=== PATIENT | male | born 1935 | race Caucasian/White ===

== ENCOUNTER → 2017-04-27 14:08 | Outpatient (CLI) | payer MEDICARE, OTHER, SELFPAY ==
--- NOTE | 2017-04-27 14:11 | CT_ITS ---
STUDY: CT BRAIN WITHOUT CONTRAST REASON FOR EXAM: Male, 81 years old. dizzy spells x a few years, worsening RADIATION DOSAGE (If Supplied By Facility): CTDIvol = ( 44.99 ) mGy, DLP = ( 745.49 ) mGycm TECHNIQUE: Transaxial CT imaging of the brain was performed without administration of intravenous contrast material. Individualized dose optimization techniques were used for this CT. COMPARISON: None. FINDINGS: Normal soft tissue structures. Normal calvarium. Normal size ventricles and extra-axial spaces for the patient's age. There are areas of decreased attenuation within the white matter tracts of the supratentorial brain, consistent with microvascular disease changes. Normal basal ganglia and thalami. Normal brainstem. Normal cerebellum. There is no intracranial hemorrhage. There are no findings of an acute ischemic infarction. Normal visualized paranasal sinuses. CT/Brain/Head without Contrast IMPRESSION: Chronic involutional changes of the brain. Electronically Signed: Alexander Bey MD at 14:36 EDT Tel , Service support ,
== END ==
PROVIDERS: Family Provider Family Medicine Geriatric Medicine; PCP Family Medicine Geriatric Medicine; Visit Provider Family Medicine Geriatric Medicine
DX: R42 Dizziness and giddiness (principal)
CPT/HCPCS: 70450

== ENCOUNTER 2017-06-30 05:07 | Emergency (ER) | payer MEDICARE, OTHER, SELFPAY ==
[2017-06-30 05:08] VITALS: BP 109/61; PULSE 77; RESP 18; TEMP 36.8; O2SAT 97; BMI 23.6
--- NOTE | 2017-06-30 05:22 | ED.VISSUMM ---
- ER Visit Summary Date of Service: 06/30/17 Chief Complaint: Bilateral eyelid itching History of Present Illness: The patient is a 81 M presents with bilateral eyelid itching for several weeks. He is presently on a ophthalmic steroid and non-histamine for itching. He states there is been no improvement. He does complain of clear drainage. He denies any double vision, blurred vision loss of vision. He denies any present swelling of his eyelids. He denies any light sensitivity. He has a past medical history of hypertension and hypo-thyroidism. Physical Examination: Vital signs are noted and normal he is not febrile. There is injection of the conjunctivae bilaterally with cobblestoning noted upper eyelids. There is no evidence of a blepharitis. Pupils are equal round reactive. Extra ocular muscles are intact. There is no hyphema flare or cells anterior chamber. There is no photophobia to direct or consensual light. There is no preauricular lymphadenopathy. Test Results: None Emergency Department Course and Treatment: Kenalog injection Treatment Plan: Follow-up with Disposition: Discharged to home Impression: Bilateral allergic conjunctivitis This note was generated with [employer] dictation software. It may contain incorrect words, spelling, and punctuation that were not noted in review of the chart prior to signing ED Disposition - Plan for ED Patient: Chief Complaint: Eye Problem Instructions: ED Allergic Conjunctivitis Referrals: Jose Staples Chi, MD [Primary Care Provider] - 1 Week if not improving
[2017-06-30] MEDS: Triamcinolone Acetonide 40 MG/ML Vial IM (05:24)
[2017-06-30 05:41] VITALS: RESP 16
== END 2017-06-30 05:43 | disposition home or self-care (01) ==
LOC: ED 05:28
PROVIDERS: Emergency Provider Emergency Medicine; Family Provider Family Medicine Geriatric Medicine; PCP Family Medicine Geriatric Medicine
DX: H10.13 Acute atopic conjunctivitis, bilateral (principal); I10 Essential (primary) hypertension; E03.9 Hypothyroidism, unspecified; Z79.899 Other long term (current) drug therapy
CPT/HCPCS: 96372; 99282

== ENCOUNTER → 2017-07-12 14:25 | Outpatient (CLI) | payer MEDICARE, OTHER, SELFPAY ==
--- NOTE | 2017-07-12 14:25 | DT_ITS ---
This patient was seen during an EMR downtime July 09, 2017 - July 16, 2017. This patient may have a combination of paper and electronic documentation or all paper documentation. All documentation is viewable within the e-chart portion of [facility] for each patient visit.
[2017-07-17 05:14] LABS: AST(SGOT) 23 U/L (15-37); Albumin, Serum 3.7 g/dL (3.2-5.0); Alkaline Phosphatase 79 U/L (45-117); BUN 18 mg/dL (7-18); BUN/Creat Ratio 17.1 RATIO (10-20); Calcium,Total 8.8 mg/dL (8.5-10.1); Creatinine, Serum 1.05 mg/dL (0.70-1.30); EST Glomerular Filtration Rate 72 mL/min (>60); Est Glom Filt Rate - Afr Amer 87 mL/min (>60); Globulin 3.8 g/dL (2.2-4.2); Glucose 112 mg/dL (74-106); Protein, Total 7.5 g/dL (6.4-8.2)
[2017-07-17 05:15] LABS: Alanine Aminotransfer ALT/SGPT 56 U/L (16-61); Anion Gap 9 (5-15); Chloride 103 mmol/L (98-107); Potassium 4.3 mmol/L (3.5-5.1); Sodium Level 140 mmol/L (136-145); Thyroid Stim Hormone (TSH) 1.95 uIU/mL (0.358-3.74)
[2017-07-17 05:54] LABS: Hematocrit 47.8 % (40-54); Hemoglobin 16.2 g/dl (13.0-16.5); Mean Corp Hgb Conc 33.9 g/gl (32-36); Mean Corpuscular Hgb 32.7 pg (27.0-32.0); Mean Corpuscular Volume 96.6 fL (80-94); Mean Platelet Vol. 9.6 fl (6.2-12.0); Neutrophil % 80.5 % (47-70); POSITIVE COUNT NO; POSITIVE DIFFERENTIAL NO; POSITIVE MORPHOLOGY NO; Platelet Count 252 K/mm3 (150-450); RBC Distribution Width SD 44.8 fl (35.1-43.9); Red Blood Count 4.95 M/mm3 (4.6-6.2); White Blood Count 11.2 K/mm3 (4.4-11.0)
[2017-07-17 05:55] LABS: Absolute Lymphocyte Count 1.14 X10^3/ul (0.83-4.51); Basophil# 0.01 X10^3/uL; Basophil% 0.1 % (0-1); Eosinophil# 0.06 X10^3/uL; Eosinophils% 0.5 % (0-5); Lymphocyte # 1.14 X10^3/ul (4.0); Lymphocyte % 10.2 % (19-41); Neutrophil # 9.04 X10^3/uL (2.7-7.7)
[2017-07-17 09:45] LABS: Vitamin D,25 Hydroxy 64.2 ng/mL (29.95-100.01)
== END ==
PROVIDERS: Family Provider Family Medicine Geriatric Medicine; PCP Family Medicine Geriatric Medicine; Visit Provider Family Medicine Geriatric Medicine
DX: E55.9 Vitamin D deficiency, unspecified (principal); R53.83 Other fatigue
CPT/HCPCS: 36415; 80053; 82306; 84443; 85025

== ENCOUNTER → 2017-10-18 16:12 | Outpatient (CLI) | payer MEDICARE, OTHER, SELFPAY ==
--- NOTE | 2017-10-18 16:25 | RAD_ITS ---
STUDY: X-RAY - LUMBOSACRAL SPINE REASON FOR EXAM: Male, 81 years old. Anterior and low back pain for several years. TECHNIQUE: 7 view(s) of the lumbosacral spine were obtained. COMPARISON: Radiographs of the lumbar spine dated August 05, 2015. FINDINGS: Lateral radiographs of lumbar spine were obtained with the patient standing and in neutral, flexion and extension. There is limited range of motion with both flexion and extension. There is no substantial scoliosis. There is mild anterolisthesis at L4-5. There is diffuse demineralization with multi-level endplate spondylosis. There is multi-level degenerative disc disease with multi-level disc space narrowing. Normal bilateral sacral ala, sacroiliac joints, and visualized sacrum. Normal visualized soft tissue structures. 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 Electronically Signed: Shirin Pritchett MD at 10:14 EDT , Service support ,
== END ==
PROVIDERS: Family Provider Family Medicine Geriatric Medicine; PCP Family Medicine Geriatric Medicine; Visit Provider Family Medicine Geriatric Medicine
DX: M54.5 Low back pain (principal)
CPT/HCPCS: 72114

== ENCOUNTER → 2017-11-12 12:06 | Outpatient (CLI) | payer MEDICARE, OTHER, SELFPAY ==
--- NOTE | 2017-11-12 12:08 | CT_ITS ---
STUDY: CT CHEST WITH CONTRAST REASON FOR EXAM: Male, 82 years old. Thoracic aortic aneurysm follow-up. RADIATION DOSAGE (If Supplied By Facility): CTDIvol = ( 7.49 ) mGy, DLP = ( 289.87 ) mGycm TECHNIQUE: Transaxial imaging was performed following intravenous administration of 100CC ml of Isovue 300 contrast material. Multiplanar coronal and sagittal images were reformatted. Individualized dose optimization techniques were used for this CT. COMPARISON: CT of the chest, November 02, 2016. FINDINGS: The lungs are well expanded. There is a 6 cm calcified granuloma in the posterior left upper lobe. No other masses or infiltrates are seen. There is no demonstrated pleural abnormality. Normal heart and pericardium. There are calcifications of the coronary arteries. Normal mediastinum. Normal hilar regions. Normal enhanced pulmonary arteries. The ascending thoracic aorta measures 4.4 x 4.3 cm at the level of the right pulmonary artery (image 60, series 204). The aorta measured 4.3 cm in diameter at the same level the previous exam. The aorta tapers through the arch. There is no dissection. There are mild atherosclerotic changes. The descending aorta is of normal diameter. There are mild degenerative changes of the thoracic spine. There is no demonstrated abnormality of the visualized upper abdomen. CT/Chest WITH Contrast IMPRESSION: 1. Essentially stable ascending thoracic aortic aneurysm when compared with study of 1 year earlier. 2. Stable calcified granuloma in the left upper lobe without acute pulmonary disease or other interval change. Electronically Signed: Marck Mclaughlin DO at 17:06 EDT Tel [phone], Service support ,
[2017-11-12 12:36] LABS: CREATININE FINGERSTICK 0.7 mg/dL (0.70-1.30); EGFR FINGERSTICK > 60.0000 mL/min (>60)
== END ==
PROVIDERS: Family Provider Family Medicine Geriatric Medicine; PCP Family Medicine Geriatric Medicine; Referring Provider Internal Medicine Cardiovascular Disease; Visit Provider Internal Medicine Cardiovascular Disease
DX: I35.0 Nonrheumatic aortic (valve) stenosis (principal); I71.2 Thoracic aortic aneurysm, without rupture
CPT/HCPCS: 71260; Q9967

== ENCOUNTER → 2017-11-23 13:52 | Outpatient (CLI) | payer MEDICARE, OTHER, SELFPAY ==
--- NOTE | 2017-11-23 13:53 | ECHOD_ITS ---
Reason For Study: Evaluation of Aortic Valve Procedure This was a 2D Doppler, Color Flow transthoracic echocardiogram. The exam was of adequate technical quality. Exam performed in department. Left Ventricle Normal LV size. Left ventricular systolic function is normal. The estimated ejection fraction is 70 %. Diastolic function is indeterminate. No regional wall motion abnormalities noted. Right Ventricle Normal RV size. Normal systolic function. Atria Normal left atrium. Normal right atrium. No doppler evidence for ASD. Mitral Valve There is mild mitral annular calcification. Normal mitral valve. Mild-Moderate (1-2+) eccentric mitral valve insufficiency. Tricuspid Valve Normal tricuspid valve. Mild tricuspid valve insufficiency. Right ventricular systolic pressure estimated to be 28 mmHg. Aortic Valve Trisinus/trileaflet aortic valve. Mild diffuse aortic valve thickening. Mild diffuse aortic valve calcification. Aortic valve sclerosis / mild aortic valve stenosis. Mild (1+) aortic valve insufficiency. Pulmonic Valve The pulmonic valve is not well visualized. Great Vessels Borderline enlarged aortic root. Pericardium/Pleural No pericardial effusion. MMode/2D Measurements & Calculations LVIDd: 3.8 cm IVSd: 1.1 cm LVOT diam: 2.0 cm LVIDs: 2.3 cm LVPWd: 0.94 cm LVOT area: 3.1 cm2 RVDd: 3.2 cm FS: 40.6 % Ao root diam: 3.7 cm LAV(MOD-bp): 35.9 ml LVAd ap4: 21.7 cm2 LAV(MOD-bp) Indexed: 21.3 ml/m2 EDV(MOD-sp4): 56.1 ml LAV(MOD-sp2): 41.4 ml EDV(sp4-el): 57.9 ml LAV(MOD-sp4): 31.4 ml LVAs ap4: 11.7 cm2 ESV(MOD-sp4): 19.7 ml ESV(sp4-el): 20.0 ml EF(MOD-sp4): 64.8 % EF(sp4-el): 65.5 % SV(MOD-sp4): 36.3 ml SV(sp4-el): 37.9 ml LA A4 area: 13.8 cm2 RA A4 area: 11.8 cm2 Doppler Measurements & Calculations MV E max bruno: 56.6 cm/sec Lat Peak E' Bruno: 7.6 cm/sec Med Peak E' Bruno: 4.6 cm/sec MV A max bruno: 111.1 cm/sec E/E' lat: 7.5 E/E' med: 12.4 MV E/A: 0.51 Ao V2 max: 230.1 cm/sec AI max bruno: 440.9 cm/sec LV V1 max: 150.4 cm/sec Ao max P.2 mmHg AI max P.8 mmHg LV V1 max P.1 mmHg Ao V2 mean: 152.9 cm/sec AI dec slope: 223.7 cm/sec2 LV V1 mean P.6 mmHg Ao mean P.6 mmHg AI P1/2t: 577.2 msec LV V1 mean: 100.3 cm/sec Ao V2 VTI: 47.9 cm LV V1 VTI: 33.4 cm ZIA(I,D): 2.2 cm2 ZIA(V,D): 2.1 cm2 SV(LVOT): 104.9 ml PA V2 max: 104.8 cm/sec TR max bruno: 247.6 cm/sec TR max P.5 mmHg Interpretation Summary Left ventricular systolic function is normal. The estimated ejection fraction is 70 %. There is mild mitral annular calcification. Mild-Moderate (1-2+) eccentric mitral valve insufficiency. Mild tricuspid valve insufficiency. Aortic valve sclerosis / mild aortic valve stenosis. Mild (1+) aortic valve insufficiency. Borderline enlarged aortic root. Right ventricular systolic pressure estimated to be 28 mmHg. Diastolic function is indeterminate. Ordering Physician: Teo Valentine Referring Physician: Jose Staples Chi Performed By: Jenny Del Toro, YOSEF, RVT
== END ==
PROVIDERS: Family Provider Family Medicine Geriatric Medicine; PCP Family Medicine Geriatric Medicine; Referring Provider Internal Medicine Cardiovascular Disease; Visit Provider Internal Medicine Cardiovascular Disease
DX: I35.0 Nonrheumatic aortic (valve) stenosis (principal); I71.2 Thoracic aortic aneurysm, without rupture
CPT/HCPCS: 93306

== ENCOUNTER → 2018-01-10 10:30 | Outpatient (CLI) | payer MEDICARE, OTHER, SELFPAY ==
[2018-01-10 10:28] VITALS: BMI 23.9
[2018-01-10 12:37] LABS: Absolute Lymphocyte Count 2.42 X10^3/ul (0.83-4.51); Absolute Neutrophil Count 3.1 X10^3/uL (2.0-7.7); Basophil# 0.04 X10^3/uL; Basophil% 0.6 % (0-1); Eosinophil# 0.14 X10^3/uL; Eosinophils% 2.2 % (0-5); Hematocrit 42.2 % (40-54); Hemoglobin 14.4 g/dl (13.0-16.5); Lymphocyte # 2.42 X10^3/ul (4.0); Lymphocyte % 37.8 % (19-41); Mean Corp Hgb Conc 34.1 g/gl (32-36); Mean Corpuscular Volume 96.6 fL (80-94); Mean Platelet Vol. 9.6 fl (6.2-12.0); Monocyte% 10.9 % (0-10); Neutrophil # 3.09 X10^3/uL (2.7-7.7); Neutrophil % 48.3 % (47-70); Platelet Count 236 K/mm3 (150-450); RBC Distribution Width CV 12.9 % (11.6-14.6); RBC Distribution Width SD 44.6 fl (35.1-43.9); Red Blood Count 4.37 M/mm3 (4.6-6.2); White Blood Count 6.4 K/mm3 (4.4-11.0)
[2018-01-10 12:39] LABS: POSITIVE COUNT NO; POSITIVE DIFFERENTIAL NO; POSITIVE MORPHOLOGY NO
[2018-01-10 12:54] LABS: Vitamin D,25 Hydroxy 80.5 ng/mL (29.95-100.01)
[2018-01-10 12:58] LABS: ALB/GLOB Ratio 0.9 RATIO (0.9-2.4); AST(SGOT) 26 U/L (15-37); Alanine Aminotransfer ALT/SGPT 36 U/L (16-61); Albumin, Serum 3.4 g/dL (3.2-5.0); Alkaline Phosphatase 69 U/L (45-117); Anion Gap 7 (5-15); BUN 15 mg/dL (7-18); BUN/Creat Ratio 14.9 RATIO (10-20); Calcium,Total 9.1 mg/dL (8.5-10.1); Chloride 107 mmol/L (98-107); Creatinine, Serum 1.01 mg/dL (0.70-1.30); EST Glomerular Filtration Rate 76 mL/min (>60); Est Glom Filt Rate - Afr Amer 91 mL/min (>60); Globulin 3.7 g/dL (2.2-4.2); Glucose 86 mg/dL (74-106); Potassium 3.8 mmol/L (3.5-5.1); Protein, Total 7.1 g/dL (6.4-8.2); Sodium Level 142 mmol/L (136-145); Thyroid Stim Hormone (TSH) 2.24 uIU/mL (0.358-3.74)
== END ==
PROVIDERS: Family Provider Family Medicine Geriatric Medicine; PCP Family Medicine Geriatric Medicine; Visit Provider Family Medicine Geriatric Medicine
DX: E55.9 Vitamin D deficiency, unspecified (principal); R53.83 Other fatigue
CPT/HCPCS: 36415; 80053; 82306; 84443; 85025

== ENCOUNTER → 2018-01-15 05:56 | Outpatient (CLI) | payer MEDICARE, OTHER, SELFPAY ==
[2018-01-10 10:28] VITALS: BMI 23.9
--- NOTE | 2018-01-15 15:56 | STRESSREP_ITS ---
Stress Test Report Date: 01/15/2018 Procedure: Exercise tolerance test/imaging study Indications: Shortness of breath/dyspnea on exertion; chest discomfort/pressure on exertion Consent: Per the patient Procedure: The patient exercised on a Jacoby protocol for 9 minutes minutes completing Stage III and an additional 3 minutes of Stage III achieving a peak heart rate of 112 bpm (80 % predicted maximal heart rate) with a peak blood pressure 160/72 mmHg and a peak MET capacity of 10 METs. The baseline ECG demonstrated normal sinus rhythm. The peak exercise ECG demonstrated beat to beat ST segment abnormality with approximately 1 mm of horizontal/upsloping ST segment depression in leads II, III, aVF, and V4 through V6 with gradual resolution towards baseline in recovery. There was a rare PAC during recovery. The functional capacity was considered good. There was no complaint of chest discomfort during exercise or recovery. The examination was discontinued secondary to dyspnea. Impression: 1. Technically adequate (percent predicted maximal heart rate greater than 85%) exercise tolerance test 2. Peak exercise ECG beat to beat ST segment abnormality with approximately 1 mm of horizontal/upsloping ST segment depression in leads II, III, aVF, and V4 through V6 with gradual resolution towards baseline in recovery 3. There was a rare PAC during recovery 4. Nuclear images pending Myocardial perfusion imaging study: Technique: The patient was injected with 10.8 mCi of technetium 99m Cardiolite and subsequently rest SPECT Cardiolite nuclear imaging was obtained in the horizontal long, vertical long, and short axis views. The patient exercised on a Jacoby protocol for 9 minutes completing Stage III and an additional 3 minutes of Stage III achieving a peak heart rate of 112 bpm (80 % predicted maximal heart rate) with a peak blood pressure 160/72 mmHg and a peak MET capacity of 10 METs. The patient was injected with 31.1 mCi of technetium 99m Cardiolite and subsequently stress SPECT Cardiolite nuclear imaging was obtained in the horizontal long, vertical long, and short axis views. A gated Cardiolite study at peak stress was obtained. Interpretation: Rest and stress SPECT Cardiolite nuclear imaging status post realignment, normalization, and attenuation correction, demonstrates the appearance of relative uniform tracer uptake and myocardial perfusion appearing within normal limits. There is end systolic thickening and brightening. The gated Cardiolite study demonstrates myocardial thickening and inward wall motion. The reported LVEF is 72 %. Impression: 1. Rest and stress SPECT Cardiolite nuclear imaging demonstrate relative uniform tracer uptake and myocardial perfusion appearing within normal limits. 2. The gated Cardiolite study reports an LVEF of 72 %. This note was generated with [employer] software. It may contain incorrect words, spelling, and punctuation that were not noted in checking the note before signing.
--- OUTSIDE RECORDS SUMMARY | 2018-03-03 05:04 | XMS RPT_ITS ---
:1935 Author Organization OHIP Support Name Relationship Address Phone R Unavailable Unavailable Unavailable ZIERAU, BRONWYN Unavailable [address] + [place] [address] R Unavailable Unavailable Unavailable ZIERAU, BRONWYN Unavailable [address] + [place] [address] R Unavailable Unavailable Unavailable ZIERAU, BRONWYN Unavailable [address] + [place] [address] R Unavailable Unavailable Unavailable ZIERAU, BRONWYN Unavailable [address] + [place] [address] R Unavailable Unavailable Unavailable ZIERAU, BRONWYN Unavailable [address] + [place] [address] R Unavailable Unavailable Unavailable ZIERAU, BRONWNY Unavailable [address] + [place] [address] R Unavailable Unavailable Unavailable ZIERAU, BRONWYN Unavailable [address] + [place] [address] R Unavailable Unavailable Unavailable ZIERAU, BRONWYN Unavailable [address] + [place] [address] R Unavailable Unavailable Unavailable ZIERAU, BRONWYN Unavailable [address] + [place] [address] R Unavailable Unavailable Unavailable ZIERAU, BRONWYN Unavailable [address] + [place] [address] R Unavailable Unavailable Unavailable ZIERAU, BRONWYN Unavailable [address] + [place] [address] R Unavailable Unavailable Unavailable ZIERAU, BRONWYN Unavailable [address] + [place] [address] R Unavailable Unavailable Unavailable ZIERAU, BRONWYN Unavailable [address] + [place] [address] Care Team Providers Name Role Phone Jhoan, Jose Chi Attending Unavailable Jhoan, Jose Chi Primary Care Unavailable Sabrina Velez Attending Unavailable Moodispaw, Teo Attending Unavailable Moodispaw, Teo Referring Unavailable Jhoan, Jose Chi Primary Care Unavailable Moodispaw, Teo Attending Unavailable Moodispaw, Teo Referring Unavailable Jhoan, Jose Chi Primary Care Unavailable Moodispaw, Teo Consulting Unavailable Moodispaw, Teo Attending Unavailable Jhoan, Jose Chi Referring Unavailable Jhoan, Jose Chi Attending Unavailable Jhoan, Jose Chi Primary Care Unavailable Jhoan, Jose Chi Primary Care Unavailable Graves, Anuel Attending Unavailable Jhoan, Jose Chi Attending Unavailable Jhoan, Jose Chi Referring Unavailable Jhoan, Jose Chi Primary Care Unavailable Moodispaw, Teo Attending Unavailable Moodispaw, Teo Referring Unavailable Moodispaw, Teo Attending Unavailable Moodispaw, Teo Referring Unavailable Jhoan, Jose Chi Primary Care Unavailable Moodispaw, Teo Attending Unavailable Jhoan, Jose Chi Referring Unavailable Moodispaw, Teo Attending Unavailable Moodispaw, Teo Referring Unavailable Jhoan, Jose Chi Primary Care Unavailable Jhoan, Jose Chi Attending Unavailable Jhoan, Jose Chi Primary Care Unavailable PROBLEMS PROBLEMS DATE TYPE CONDITION / CODE ATTENDING STATUS SOURCE 02/06/2018 Unknown R07.9 - Chest MoodisTeo cho Active [place] pain, unspecified Community / R07.9(ICD-10) Hospital Repository 01/10/2018 Unknown I20.9 - Angina MoodisTeo cho Active [place] pectoris, Community unspecified / Hospital I20.9(ICD-10) Repository 11/23/2017 Unknown I35.0 - MoodispaTeo iqbal Active [place] [facility] aortic (valve) Hospital stenosis / Repository I35.0(ICD-10) 11/23/2017 Unknown I71.2 - Thoracic Moodisparasheed, Teo Active [place] aortic aneurysm, Community without rupture / Hospital I71.2(ICD-10) Repository 08/02/2017 Unknown E55.9 - Vitamin D Jhoan, Jose Chi Active [place] deficiency, Community unspecified / Hospital E55.9(ICD-10) Repository PROCEDURES PROCEDURES No Procedure Records FoundRESULTS RESULTS STRESS REPORT Observed: 01/15/2018 Status: F Source: [place] 5:57 PM [facility] REPOSITORY [facility] Cardiovascular Services [address] [place] [address] MR#: [id number] Acct: [id number] Name: KELLIE WOOD Rep #: [id number] : 1935 82 From: Teo Valentine MD Primary Care: Jhoan SCHAFFER,Jose Chi Status: REG CLI Ordering Dr: Sex: Debo Salcido Stress Test Report Date: 01/15/2018 Procedure: Exercise tolerance test/imaging study Indications: Shortness of breath/dyspnea on exertion; chest discomfort/pressure on exertion Consent: Per the patient Procedure: The patient exercised on a Jacoby protocol for 9 minutes minutes completing Stage III and an additional 3 minutes of Stage III achieving a peak heart rate of 112 bpm (80 % predicted maximal heart rate) with a peak blood pressure 160/72 mmHg and a peak MET capacity of 10 METs. The baseline ECG demonstrated normal sinus rhythm. The peak exercise ECG demonstrated beat to beat ST segment abnormality with approximately 1 mm of horizontal/upsloping ST segment depression in leads II, III, aVF, and V4 through V6 with gradual resolution towards baseline in recovery. There was a rare PAC during recovery. The functional capacity was considered good. There was no complaint of chest discomfort during exercise or recovery. The examination was discontinued secondary to dyspnea. Impression: 1. Technically adequate (percent predicted maximal heart rate greater than 85%) exercise tolerance test 2. Peak exercise ECG beat to beat ST segment abnormality with approximately 1 mm of horizontal/upsloping ST segment depression in leads II, III, aVF, and V4 through V6 with gradual resolution towards baseline in recovery 3. There was a rare PAC during recovery 4. Nuclear images pending Myocardial perfusion imaging study: Technique: The patient was injected with 10.8 mCi of technetium 99m Cardiolite and subsequently rest SPECT Cardiolite nuclear imaging was obtained in the horizontal long, vertical long, and short axis views. The patient exercised on a Jacoby protocol for 9 minutes completing Stage III and an additional 3 minutes of Stage III achieving a peak heart rate of 112 bpm (80 % predicted maximal heart rate) with a peak blood pressure 160/72 mmHg and a peak MET capacity of 10 METs. The patient was injected with 31.1 mCi of technetium 99m Cardiolite and subsequently stress SPECT Cardiolite nuclear imaging was obtained in the horizontal long, vertical long, and short axis views. A gated Cardiolite study at peak stress was obtained. Interpretation: Rest and stress SPECT Cardiolite nuclear imaging status post realignment, normalization, and attenuation correction, demonstrates the appearance of relative uniform tracer uptake and myocardial perfusion appearing within normal limits. There is end systolic thickening and brightening. The gated Cardiolite study demonstrates myocardial thickening and inward wall motion. The reported LVEF is 72 %. Impression: 1. Rest and stress SPECT Cardiolite nuclear imaging demonstrate relative uniform tracer uptake and myocardial perfusion appearing within normal limits. 2. The gated Cardiolite study reports an LVEF of 72 %. This note was generated with [employer] software. It may contain incorrect words, spelling, and punctuation that were not noted in checking the note before signing. 01/15/181756 <Electronically signed by Teo Valentine MD> Date Teo Valentine MD CC: Teo Valentine MD; Jose Staples MD Date Dictated: 01/15/181549 Date Transcribed: 01/15/181549 Medical Staff Credentialing Coordinator: PM Signed CARDIOLOGY VISIT Observed: 01/10/2018 Status: F Source: [place] REPORT 5:46 PM [facility] REPOSITORY [facility] [address] [place] [address]. [address] [place] [address] OFFICE VISIT Date of Service: 01/10/18 MR#: [id number] Acct: [id number] Name: KELLIE WOOD Rep #: [id number] : 1935 Provider: Teo Valentine MD Age/Sex: 82/M Location: [facility] [place] Status: Signed HPI HPI Details: KELLIE WOOD, is a 82 M who presents to the office today for outpatient cardiovascular follow-up. Overall from a cardiac standpoint he notes that he has been doing well. He denies any classic symptoms of resting chest discomfort or difficulty breathing suspicious for resting angina pectoris or CHF/pulmonary edema. He does comment on symptoms when he exerts himself such as going up inclines or he feels an uncomfortable sensation in his chest potentially such as a tightness as well as become somewhat more short of breath and dyspneic. He has had no obvious near syncope or syncope. He has undergone his follow-up echocardiogram and chest CT scan in November of this year. His thoracic aortic aneurysm appeared to be stable. His chest CT scan noted that there was a report of coronary artery calcification. He states he has had no other testing performed. Intake Vital Signs01/10/18 Height 5 ft 3 in 01/10/18 Weight: 135 lb 01/10/18 Body Mass Index (BMI) 23.9 01/10/18 Blood Pressure 126/64 H Intake Visit Reasons: 1 Y FU (pt missed 10-5) Allergies No Known Allergies Allergy (Verified 01/10/18 10:28) Medications Atorvastatin Calcium 40 mg PO DAILY 06/30/17 [History Confirmed 01/10/18] Levothyroxine Sodium 25 mcg PO DAILY 06/30/17 [History Confirmed 01/10/18] Metoprolol Succinate [Toprol Xl] 25 mg PO DAILY 06/30/17 [History Confirmed 01/10/18] ergocalciferol (vitamin D2) 50,000 unit capsule 50,000 unit PO QWEEK 11/07/17 [History Confirmed 01/10/18] pyridoxine (vitamin B6) 50 mg tablet 50 mg PO DAILY 11/07/17 [History Confirmed 01/10/18] vitamin E (dl, acetate) 200 unit capsule 200 unit PO DAILY 11/07/17 [History Confirmed 01/10/18] donepezil 5 mg tablet 5 mg PO DAILY 01/10/18 [History Confirmed 01/10/18] doxazosin 4 mg tablet 4 mg PO DAILY 01/10/18 [History Confirmed 01/10/18] [facility] Medical History Hyperlipemia (Chronic) Nonrheumatic aortic (valve) stenosis (Chronic) Aneurysm of ascending aorta (Chronic) Diverticulosis (Acute) BPH (benign prostatic hyperplasia) (Chronic) Surgical History History of carpal tunnel surgery (Resolved) History of colon resection (Resolved) History of tonsillectomy and adenoidectomy (Resolved) History of vasectomy (Resolved) Family History Brother CVA (cerebral vascular accident) Sudden cardiac , Onset Age: 68 Brother COPD (chronic obstructive pulmonary disease) Social History Smoking Status: Never smoker alcohol intake: current ROS Const Const: Negative for fatigue, weakness, weight gain, weight loss, frequent falls or excessive sweating Eyes Eyes: Negative for change in vision, blurry vision or transient loss of vision ENT ENT: Negative for dizziness or balance problems Cardio Chest Pain: No Palpitations: No Edema: None Muscle aches with walking: None Resp Respiratory: Negative for SOB with activity or SOB at rest GI GI: Negative vomiting or vomiting blood/hematemesis : Negative for hematuria Musc Musc: Negative for balance problems, muscle aches/ myalgia, muscle weakness or joint pain Skin Skin: Negative non-healing lesions or rash Neuro Neuro: Negative for weakness, blurry vision, dizziness, lightheadedness, frequent falls or orthostatic symptoms James Hematologic/Lymphatic: Negative for easy bleeding Endo Endo: Negative for fatigue or excessive sweating Psych Psych: Negative for anxiety or depression Allergy Allergy/Immunology: Negative for hives, Negative for rash Cardiology Exam Const Appearance: healthy appearing, cooperative, comfortable, no acute distress, well developed and well groomed Nutritional Appearance: average body habitus Orientation: alert, awake and oriented x3 Head Head: normal to inspection, normocephalic and atraumatic Ears: hearing grossly normal bilaterally Nose: external nose normal Face and Sinus: face symmetric Mouth: oral mucosae normal Teeth and gingiva: fair dentition Eyes Eyelids: eyelids normal Conjunctivae: conjunctivae normal Pupils: PERRL EOM: EOM intact bilaterally Neck Neck: normal visual inspection and full ROM Carotids: normal carotid upstroke Chest Chest inspection: normal inspection of the chest, symmetric chest movement and normal respiratory effort Auscultation: Bilateral: Clear to Auscultation Cardio Palpation: normal PMI Rate: regular rate Rhythm: regular rhythm Heart sounds: S1 normal and S2 normal GI GI: normal to inspection, soft, no hepatosplenomegaly and bowel sounds present Neuro General: alert, awake, oriented x3, gait normal, moves all extremities, no focal sensory deficit and no focal motor deficits Skin Skin: no rashes or lesions noted Extremities Pulses: Normal: Right Radial Pulse, Left Radial Pulse Lower Extremity Edema: None: Bilateral Psych Psychological: normal affect Supplemental Info Transthoracic echocardiogram: 11/23/2017 Interpretation Summary Left ventricular systolic function is normal. The estimated ejection fraction is 70 %. There is mild mitral annular calcification. Mild-Moderate (1-2+) eccentric mitral valve insufficiency. Mild tricuspid valve insufficiency. Aortic valve sclerosis / mild aortic valve stenosis. Mild (1+) aortic valve insufficiency. Borderline enlarged aortic root. Right ventricular systolic pressure estimated to be 28 mmHg. Diastolic function is indeterminate. Stress test: 09/19/2011 The patient was injected with 10.0 mCi of Tc99m Cardiolite and subsequently rest SPECT Cardiolite nuclear imaging was obtained in the horizontal long, vertical long and short axes views. The patient underwent exercise on a Jacoby protocol for 10 minutes and 15 seconds achieving a peak heart rate of 127 beats per minute (86% predicted maximum heart rate) with a peak blood pressure of 146/80 mmHg and a peak MET capacity of approximately 12 METs. The patient was injected with 31 .0 mCi of 1c99m Cardiolite and subsequently stress SPECT Cardiolite nuclear imaging was obtained in the horizontal long, vertical long and short axes views. Gated Cardiolite study at peak stress was obtained. INTERPRETATION Rest and stress SPECT Card iolite nuclear imaging demonstrate at rest extracardiadhepatic and gastrointestinal tracer uptake near the inferior segments. This is less prominent following stress, There is notation on both images of subtle diminished tracer uptake in portions of the basal inferoseptal/basal inferior segments without significant change. Otherwise there is relative uniform tracer uptake. There are similar type changes on the resting and stress polar map images. There is end systolic thickening and brightening. The gated Cardiolite study demonstrates myocardial thickening and inward wall motion. The reported LVEF is 62%. There are no myocardial perfusion changes considered diagnostic for stress induced myocardial ischemia or previous myocardial injury/infarction. IMPRESSION 1. Rest and stress SPECT Cardiolite nuclear imaging demonstrate myocardial perfusion changes appearing compatible with soft tissue attenuation/artifact with no myocardial perfusion changes considered diagnostic for stress induced myocardial ischemia or previous myocardial injury/infarction. 2. The gated Cardiolite study reports an LVEF of 62% Holter monitor: 09/19/2011 NORMAL SINUS RHYTHM MINIMUM HR 50 8PM AT 12:15:27 AM, NO ACTIVITY OR SYMPTOM RECORDED. AVERAGE HR 66 8PM MAXIMUM HR 130 8PM AT 4:45:12 PM, NO ACTIVITY OR SYMPTOM RECORDED. RARE ISOLATED PREMATURE ATRIAL COMPLEXES. NO RUNS NOTED. NO ISOLATED PREMATURE VENTRICULAR COMPLEXES. NO RUNS NOTED. NO SYMPTOMS DOCUMENTED IN [address]TER DIARY. Chest CT scan: 2017 The lungs are well expanded. There is a 6 cm calcified granuloma in the posterior left upper lobe. No other masses or infiltrates are seen. There is no demonstrated pleural abnormality. Normal heart and pericardium. There are calcifications of the coronary arteries. Normal mediastinum. Normal hilar regions. Normal enhanced pulmonary arteries. The ascending thoracic aorta measures 4.4 x 4.3 cm at the level of the right pulmonary artery (image 60, series 204). The aorta measured 4.3 cm in diameter at the same level the previous exam. The aorta tapers through the arch. There is no dissection. There are mild atherosclerotic changes. The descending aorta is of normal diameter. There are mild degenerative changes of the thoracic spine. There is no demonstrated abnormality of the visualized upper abdomen. Assessment AND Plan 1. Aneurysm of ascending aorta I71.2 Plan At the present time he appears to be doing well with no acute changes with respect to his thoracic aortic aneurysm. He will continue his current medical therapy and follow-up 2. Nonrheumatic aortic (valve) stenosis I35.0 Plan He does have a history of underlying valvular heart disease as noted above. He will continue to be followed by history, exam, and echocardiogram. 3. Hyperlipidemia, unspecified hyperlipidemia type E78.5 Plan He will continue risk factor evaluation care as deemed appropriate 4. Angina pectoris I20.9 Plan There are concerns that his symptoms are compatible with a stable angina pectoris. This was discussed with him. He was agreeable to further evaluation with an exercise tolerance test/imaging study. If this is abnormal he may need further evaluation with diagnostic cardiac catheterization. Orders Orders: Plan Detail Other Medications New: Additional Comments Otherwise he will be scheduled for an outpatient visit approximately 1 year unless needed sooner Thank you for allowing me to participate in the care of your patient. Please don't hesitate to call if any issues arise. This note was generated using a voice recognition system and there may be incorrect words, spelling or punctuation that were not noted when reviewing the office note prior to saving. Follow Up 1 Year (PFM) Coding Level of Care Code Off vis,est,level 4 Diagnoses Aneurysm of ascending aorta I71.2 Nonrheumatic aortic (valve) stenosis I35.0 Hyperlipidemia, unspecified hyperlipidemia type E78.5 Hyperlipidemia type: unspecified Angina pectoris I20.9 Coding Level of Care Code Off vis,est,level 4 Diagnoses Aneurysm of ascending aorta I71.2 Nonrheumatic aortic (valve) stenosis I35.0 Hyperlipidemia, unspecified hyperlipidemia type E78.5 Hyperlipidemia type: unspecified Angina pectoris I20.9 01/10/18 1746 <Electronically signed by Teo Valentine MD> Date Teo Valentine MD Cosigner Signature: Date (if applicable) CC: Jose Staples MD CBC W/DIFF, AUTOMATED Collected: 01/10/2018 Status: F Source: [place] 10:31 AM [facility] REPOSITORY TYPE CODE TESTS RESULT OUT OF RANGE REFERENCE UNITS LAB L100.1000 4.4-11.0 K/mm3 Normal WBC 6.4 LAB L100.1200 4.6-6.2 M/mm3 Low RBC 4.37 LAB L100.1300 13.0-16.5 g/dl Normal HGB 14.4 LAB L100.1400 40-54 % Normal HCT 42.2 LAB L100.1500 80-94 fL High MCV 96.6 LAB L100.1600 27.0-32.0 pg High MCH 33.0 LAB L100.1700 32-36 g/gl Normal MCHC 34.1 LAB L100.1810 11.6-14.6 % Normal RDW CV 12.9 LAB L100.1820 35.1-43.9 fl High RDW SD 44.6 LAB L100.1900 150-450 K/mm3 Normal PLT 236 LAB L100.2000 6.2-12.0 fl Normal MPV 9.6 LAB L100.2100 47-70 % Normal NEUT% 48.3 LAB L100.2200 19-41 % Normal LY% 37.8 LAB L100.2300 0-10 % High MONO% 10.9 LAB L100.2400 0-5 % Normal EO% 2.2 LAB L100.2500 0-1 % Normal BASO% 0.6 LAB L100.2550 0.0-0.9 % Normal IM GRAN % 0.200 Result Comment: IG% - Immature Granulocytes (promyelocytes, myelocytes and metamyelocytes) > 1% indicates that a LEFT SHIFT is Present. LAB L100.2620 2.0-7.7 X10 3/uL Normal Absolute Neut 3.1 LAB L100.2720 0.83-4.51 X10 3/ul Normal Absolute Lymph 2.42 Performed By: #### L100.0100 #### [facility] [address] [place], [place], [address] VITAMIN D,25 HYDROXY Collected: 01/10/2018 Status: F Source: [place] 10:31 AM [facility] REPOSITORY TYPE CODE TESTS RESULT OUT OF RANGE REFERENCE UNITS LAB L506.1000 29.95-100.01 ng/mL Normal Vitamin D 80.5 25-OH Result Comment: Vitamin D 25(OH) Status Range Deficiency <20 ng/mL (50nmol/L) Insuffciency 20 - 30 ng/mL (50 - 75 nmol/L) Sufficiency 30 - 100 ng/mL (75 - 250 nmol/L) Toxicity >100 ng/mL (>250 nmol/L) Performed By: #### L506.1000 #### [facility] [address] [place], [address] COMPREHENSIVE METABOLIC Collected: 01/10/2018 Status: F Source: [facility] 10:31 AM [facility] REPOSITORY TYPE CODE TESTS RESULT OUT OF RANGE REFERENCE UNITS LAB L501.0100 74-106 mg/dL Normal GLU 86 Result Comment: Please note revised GLUCOSE reference range effective 2017. LAB L501.1000 7-18 mg/dL Normal BUN 15 LAB L501.1100 0.70-1.30 mg/dL Normal CREAT,SERUM 1.01 Result Comment: The validity of the calculated GFR AND GFRAA in patients over 70 years has not been determined. Clinical correlation is essential. LAB L501.1110 >60 mL/min Normal EST GFR 76 Result Comment: Non- GFR Calc LAB L501.1115 >60 mL/min Normal EST GFR - AA 91 Result Comment: GFR Calc LAB L501.1300 10-20 RATIO Normal BUN/CRE 14.9 LAB L501.1500 6.4-8.2 g/dL T Normal PROT 7.1 LAB L501.1800 3.2-5.0 g/dL Normal ALB 3.4 LAB L501.1950 2.2-4.2 g/dL Normal GLOB 3.7 LAB L501.2000 0.9-2.4 RATIO Normal A/G 0.9 LAB L501.2200 8.5-10.1 mg/dL CA Normal 9.1 LAB L501.4100 15-37 U/L Normal AST 26 LAB L501.4305 45-117 U/L Normal ALK P 69 LAB L501.4405 16-61 U/L Normal ALT 36 LAB L501.4600 0.20-1.00 mg/dL T Normal BILI 0.60 LAB L501.5300 136-145 mmol/L NA Normal 142 LAB L501.5600 3.5-5.1 mmol/L K Normal 3.8 LAB L501.5900 98-107 mmol/L CL Normal 107 LAB L501.6100 21.0-32.0 mmol/L Normal CO2 28.0 LAB L501.6200 5-15 Normal GAP 7 Performed By: #### L500.4050, L501.9520 #### [facility] [address] [place], [address] THYROID STIM HORMONE Collected: 01/10/2018 Status: F Source: [place] (TSH) 10:31 AM [facility] REPOSITORY TYPE CODE TESTS RESULT OUT OF RANGE REFERENCE UNITS LAB L501.9520 0.358-3.74 uIU/mL Normal TSH 2.24 Performed By: #### L500.4050, L501.9520 #### [facility] [address] [place], [address] ECHOCARDIOGRAM COMPLETE Observed: 11/23/2017 Status: F Source: [place] 9:24 PM [facility] REPOSITORY [facility] Cardiovascular Services [address] [facility] [place] [address] Echo Complete 11/23/17 1400 MR#: [id number] Acct: [id number] Name: NINAKELLIE Rep #: [id number] : 1935 82 From: Teo Valentine MD Attending Dr: Teo Valentine MD Status: REG CLI Ordering Dr: Teo Valentine MD Date: 11/23/17 Location: [facility] Sex: M C Admitted: Reason For Study: Evaluation of Aortic Valve Procedure This was a 2D Doppler, Color Flow transthoracic echocardiogram. The exam was of adequate technical quality. Exam performed in department. Left Ventricle Normal LV size. Left ventricular systolic function is normal. The estimated ejection fraction is 70 %. Diastolic function is indeterminate. No regional wall motion abnormalities noted. Right Ventricle Normal RV size. Normal systolic function. Atria Normal left atrium. Normal right atrium. No doppler evidence for ASD. Mitral Valve There is mild mitral annular calcification. Normal mitral valve. Mild-Moderate (1-2+) eccentric mitral valve insufficiency. Tricuspid Valve Normal tricuspid valve. Mild tricuspid valve insufficiency. Right ventricular systolic pressure estimated to be 28 mmHg. Aortic Valve Trisinus/trileaflet aortic valve. Mild diffuse aortic valve thickening. Mild diffuse aortic valve calcification. Aortic valve sclerosis / mild aortic valve stenosis. Mild (1+) aortic valve insufficiency. Pulmonic Valve The pulmonic valve is not well visualized. Great Vessels Borderline enlarged aortic root. Pericardium/Pleural No pericardial effusion. MMode/2D Measurements AND Calculations LVIDd: 3.8 cm IVSd: 1.1 cm LVOT diam: 2.0 cm LVIDs: 2.3 cm LVPWd: 0.94 cm LVOT area: 3.1 cm2 RVDd: 3.2 cm FS: 40.6 % Ao root diam: 3.7 cm LAV(MOD-bp): 35.9 ml LVAd ap4: 21.7 cm2 LAV(MOD-bp) Indexed: 21.3 ml/m2 EDV(MOD-sp4): 56.1 ml LAV(MOD-sp2): 41.4 ml EDV(sp4-el): 57.9 ml LAV(MOD-sp4): 31.4 ml LVAs ap4: 11.7 cm2 ESV(MOD-sp4): 19.7 ml ESV(sp4-el): 20.0 ml EF(MOD-sp4): 64.8 % EF(sp4-el): 65.5 % SV(MOD-sp4): 36.3 ml SV(sp4-el): 37.9 ml LA A4 area: 13.8 cm2 RA A4 area: 11.8 cm2 Doppler Measurements AND Calculations MV E max bruno: 56.6 cm/sec Lat Peak E' Bruno: 7.6 cm/sec Med Peak E' Bruno: 4.6 cm/sec MV A max bruno: 111.1 cm/sec E/E' lat: 7.5 E/E' med: 12.4 MV E/A: 0.51 Ao V2 max: 230.1 cm/sec AI max bruno: 440.9 cm/sec LV V1 max: 150.4 cm/sec Ao max P.2 mmHg AI max P.8 mmHg LV V1 max P.1 mmHg Ao V2 mean: 152.9 cm/sec AI dec slope: 223.7 cm/sec2 LV V1 mean P.6 mmHg Ao mean P.6 mmHg AI P1/2t: 577.2 msec LV V1 mean: 100.3 cm/sec Ao V2 VTI: 47.9 cm LV V1 VTI: 33.4 cm ZIA(I,D): 2.2 cm2 ZIA(V,D): 2.1 cm2 SV(LVOT): 104.9 ml PA V2 max: 104.8 cm/sec TR max bruno: 247.6 cm/sec TR max P.5 mmHg Interpretation Summary Left ventricular systolic function is normal. The estimated ejection fraction is 70 %. There is mild mitral annular calcification. Mild-Moderate (1-2+) eccentric mitral valve insufficiency. Mild tricuspid valve insufficiency. Aortic valve sclerosis / mild aortic valve stenosis. Mild (1+) aortic valve insufficiency. Borderline enlarged aortic root. Right ventricular systolic pressure estimated to be 28 mmHg. Diastolic function is indeterminate. Ordering Physician: Teo Valentine Referring Physician: Jose Staples Chi Performed By: Jenny Del Toro, YOSEF, RVT 11/23/17 2123 Date Teo Valentine MD CC: Teo Valentine MD; Jose Staples MD Date Dictated: 11/23/17 1400 Date Transcribed: 11/23/172122 Medical Staff Credentialing Coordinator: Signed CREATININE FINGERSTICK Collected: 2017 Status: F Source: [place] 12:33 PM [facility] REPOSITORY TYPE CODE TESTS RESULT OUT OF RANGE REFERENCE UNITS LAB L9100.0210 0.70-1.30 mg/dL Normal CREATININE WB 0.7 LAB L9100.0220 >60 mL/min EGFR WB Normal > 60.0000 Performed By: #### L9100.0200 #### [facility] Point of Care [address] [place] [address] CHEST WITH CONTRAST Observed: 2017 Status: F Source: [place] 12:08 PM [facility] REPOSITORY [facility] Imaging Services [address] [place] [address] Chest WITH Contrast MR#: [id number] Acct: [id number] Name: KELLIE WOOD Rep #: [id number] : 1935 M 82 From: Marck Mclaughlin DO PCP: Jhoan SCHAFFER,Jose Blankenship Status: REG CLI Study: Chest WITH Contrast Date of Exam: 11/12/17 Exam# [id number] Ordering Dr: Teo Valentine MD STUDY: CT CHEST WITH CONTRAST REASON FOR EXAM: Male, 82 years old. Thoracic aortic aneurysm follow-up. RADIATION DOSAGE (If Supplied By Facility): CTDIvol = ( 7.49 ) mGy, DLP = ( 289.87 ) mGycm TECHNIQUE: Transaxial imaging was performed following intravenous administration of 100CC ml of Isovue 300 contrast material. Multiplanar coronal and sagittal images were reformatted. Individualized dose optimization techniques were used for this CT. COMPARISON: CT of the chest, November 02, 2016. FINDINGS: The lungs are well expanded. There is a 6 cm calcified granuloma in the posterior left upper lobe. No other masses or infiltrates are seen. There is no demonstrated pleural abnormality. Normal heart and pericardium. There are calcifications of the coronary arteries. Normal mediastinum. Normal hilar regions. Normal enhanced pulmonary arteries. The ascending thoracic aorta measures 4.4 x 4.3 cm at the level of the right pulmonary artery (image 60, series 204). The aorta measured 4.3 cm in diameter at the same level the previous exam. The aorta tapers through the arch. There is no dissection. There are mild atherosclerotic changes. The descending aorta is of normal diameter. There are mild degenerative changes of the thoracic spine. There is no demonstrated abnormality of the visualized upper abdomen. CT/Chest WITH Contrast IMPRESSION: 1. Essentially stable ascending thoracic aortic aneurysm when compared with study of 1 year earlier. 2. Stable calcified granuloma in the left upper lobe without acute pulmonary disease or other interval change. Electronically Signed: Marck Mclaughlin DO at 17:06 EDT Tel [phone], Service support , CC: Teo Valentine MD; Jose Staples MD Medical Staff Credentialing Coordinator: Signed L/S SPINE W BEND Observed: 10/18/2017 Status: F Source: [place] MIN 6 VW 4:21 PM [facility] REPOSITORY [facility] Imaging Services [address] [place] [address] 48849 L/S Spine w Bend Min 6 Vw MR#: [id number] Acct: [id number] Name: KELLIE WOOD Rep #: [id number] : 1935 M 81 From: Shirin Pritchett MD PCP: Jose Staples MD, Chi Status: REG CLI Study: L/S Spine w Bend Min 6 Vw Date of Exam: 10/18/17 Exam# [id number] Ordering Dr: Jose Staples MD STUDY: X-RAY - LUMBOSACRAL SPINE REASON FOR EXAM: Male, 81 years old. Anterior and low back pain for several years. TECHNIQUE: 7 view(s) of the lumbosacral spine were obtained. COMPARISON: Radiographs of the lumbar spine dated August 05, 2015. FINDINGS: Lateral radiographs of lumbar spine were obtained with the patient standing and in neutral, flexion and extension. There is limited range of motion with both flexion and extension. There is no substantial scoliosis. There is mild anterolisthesis at L4-5. There is diffuse demineralization with multi-level endplate spondylosis. There is multi-level degenerative disc disease with multi- level disc space narrowing. Normal bilateral sacral ala, sacroiliac joints, and visualized sacrum. Normal visualized soft tissue structures. 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 Electronically Signed: Shirin Pritchett MD at 10:14 EDT , Service support , CC: Jose Staples MD Medical Staff Credentialing Coordinator: Signed DOWNTIME REPORT Observed: 07/26/2017 Status: F Source: [place] 1:30 PM [facility] REPOSITORY [facility] Medical Records Department [address] [place] [address] Downtime Report MR#: [id number] Acct: [id number] Name: KELLIE WOOD Rep #: [id number] : 1935 81 From: Boo Pritchett PCP: Jhoan SCHAFFER,Jose Blankenship Status: REG CLI This patient was seen during an EMR downtime July 09, 2017 - July 16, 2017. This patient may have a combination of paper and electronic documentation or all paper documentation. All documentation is viewable within the e-chart portion of [facility] for each patient visit. COMPREHENSIVE METABOLIC Collected: 07/12/2017 Status: F Source: [place] PROFIL 2:25 PM [facility] REPOSITORY Order Comment: RESULT(S) PREVIOUSLY REPORTED ON MANUAL REQUISITION DURING DOWNTIME. TYPE CODE TESTS RESULT OUT OF RANGE REFERENCE UNITS LAB L501.0100 74-106 mg/dL High GLU 112 Result Comment: Fasting Glucose result from 100 to 125 mg/dL suggests IMPAIRED HOMEOSTASIS per A.D.A. criteria. Please note revised GLUCOSE reference range effective 2017. LAB L501.1000 7-18 mg/dL Normal BUN 18 LAB L501.1100 0.70-1.30 mg/dL Normal CREAT,SERUM 1.05 Result Comment: The validity of the calculated GFR AND GFRAA in patients over 70 years has not been determined. Clinical correlation is essential. LAB L501.1110 >60 mL/min Normal EST GFR 72 LAB L501.1115 >60 mL/min Normal EST GFR - AA 87 LAB L501.1300 10-20 RATIO Normal BUN/CRE 17.1 LAB L501.1500 6.4-8.2 g/dL Normal T PROT 7.5 LAB L501.1800 3.2-5.0 g/dL Normal ALB 3.7 LAB L501.1950 2.2-4.2 g/dL Normal GLOB 3.8 LAB L501.2000 0.9-2.4 RATIO Normal A/G 1.0 LAB L501.2200 8.5-10.1 mg/dL Normal CA 8.8 LAB L501.4100 15-37 U/L Normal AST 23 LAB L501.4305 45-117 U/L Normal ALK P 79 LAB L501.4405 16-61 U/L Normal ALT 56 LAB L501.4600 0.20-1.00 mg/dL Normal T BILI 0.70 LAB L501.5300 136-145 mmol/L Normal NA 140 LAB L501.5600 3.5-5.1 mmol/L Normal K 4.3 LAB L501.5900 98-107 mmol/L Normal CL 103 LAB L501.6100 21.0-32.0 mmol/L Normal CO2 28.0 LAB L501.6200 5-15 Normal GAP 9 Performed By: #### L500.4050, L501.9520 #### [facility] [address] [place], [address] THYROID STIM HORMONE Collected: 07/12/2017 Status: F Source: [place] (TSH) 2:25 PM [facility] REPOSITORY Order Comment: RESULT(S) PREVIOUSLY REPORTED ON MANUAL REQUISITION DURING DOWNTIME. TYPE CODE TESTS RESULT OUT OF RANGE REFERENCE UNITS LAB L501.9520 0.358-3.74 uIU/mL Normal TSH 1.95 Performed By: #### L500.4050, L501.9520 #### [facility] [address] [facility] [place], [place], [address] CBC W/DIFF, AUTOMATED Collected: 07/12/2017 Status: F Source: [place] 2:25 PM [facility] REPOSITORY Order Comment: RESULT(S) PREVIOUSLY REPORTED ON MANUAL REQUISITION DURING DOWNTIME. TYPE CODE TESTS RESULT OUT OF RANGE REFERENCE UNITS LAB L100.1000 4.4-11.0 K/mm3 High WBC 11.2 LAB L100.1200 4.6-6.2 M/mm3 Normal RBC 4.95 LAB L100.1300 13.0-16.5 g/dl Normal HGB 16.2 LAB L100.1400 40-54 % Normal HCT 47.8 LAB L100.1500 80-94 fL High MCV 96.6 LAB L100.1600 27.0-32.0 pg High MCH 32.7 LAB L100.1700 32-36 g/gl Normal MCHC 33.9 LAB L100.1810 11.6-14.6 % Normal RDW CV 13.0 LAB L100.1820 35.1-43.9 fl High RDW SD 44.8 LAB L100.1900 150-450 K/mm3 Normal PLT 252 LAB L100.2000 6.2-12.0 fl Normal MPV 9.6 LAB L100.2100 47-70 % High NEUT% 80.5 LAB L100.2200 19-41 % Low LY% 10.2 LAB L100.2300 0-10 % Normal MONO% 8.0 LAB L100.2400 0-5 % Normal EO% 0.5 LAB L100.2500 0-1 % Normal BASO% 0.1 LAB L100.2550 0.0-0.9 % Normal IM GRAN % 0.700 Result Comment: IG% - Immature Granulocytes (promyelocytes, myelocytes and metamyelocytes) > 1% indicates that a LEFT SHIFT is Present. LAB L100.2620 2.0-7.7 X10 3/uL High Absolute Neut 9.0 LAB L100.2720 0.83-4.51 X10 3/ul Normal Absolute Lymph 1.14 Performed By: #### L100.0100 #### [facility] [address] [place], [address] VITAMIN D,25 HYDROXY Collected: 07/12/2017 Status: F Source: [place] 2:25 PM [facility] REPOSITORY Order Comment: RESULT(S) PREVIOUSLY REPORTED ON MANUAL REQUISITION DURING DOWNTIME. TYPE CODE TESTS RESULT OUT OF RANGE REFERENCE UNITS LAB L506.1000 29.95-100.01 ng/mL Normal Vitamin D 64.2 25-OH Result Comment: Vitamin D 25(OH) Status Range Deficiency <20 ng/mL (50nmol/L) Insuffciency 20 - 30 ng/mL (50 - 75 nmol/L) Sufficiency 30 - 100 ng/mL (75 - 250 nmol/L) Toxicity >100 ng/mL (>250 nmol/L) Performed By: #### L506.1000 #### [facility] [address] [place], [address] EMERGENCY DEPARTMENT Observed: 06/30/2017 Status: F Source: [place] SUMMARY 5:26 AM [facility] REPOSITORY [facility] Medical Records Department [address] [facility] [place] [address] Emergency Department Summary 06/30/17 0522 MR#: [id number] Acct: [id number] Name: KELLIE WOOD Rep #: [id number] : 1935 81 From: Anuel Graves MD PCP: Jose Staples MD, Chi Status: PRE ER - ER Visit Summary Date of Service: 06/30/17 Chief Complaint: Bilateral eyelid itching History of Present Illness: The patient is a 81 M presents with bilateral eyelid itching for several weeks. He is presently on a ophthalmic steroid and non-histamine for itching. He states there is been no improvement. He does complain of clear drainage. He denies any double vision, blurred vision loss of vision. He denies any present swelling of his eyelids. He denies any light sensitivity. He has a past medical history of hypertension and hypo-thyroidism. Physical Examination: Vital signs are noted and normal he is not febrile. There is injection of the conjunctivae bilaterally with cobblestoning noted upper eyelids. There is no evidence of a blepharitis. Pupils are equal round reactive. Extra ocular muscles are intact. There is no hyphema flare or cells anterior chamber. There is no photophobia to direct or consensual light. There is no preauricular lymphadenopathy. Test Results: None Emergency Department Course and Treatment: Kenalog injection Treatment Plan: Follow-up with Disposition: Discharged to home Impression: Bilateral allergic conjunctivitis This note was generated with [employer] dictation software. It may contain incorrect words, spelling, and punctuation that were not noted in review of the chart prior to signing ED Disposition - Plan for ED Patient: Chief Complaint: Eye Problem Instructions: ED Allergic Conjunctivitis Referrals: Jose Staples Chi, MD [Primary Care Provider] - 1 Week if not improving What to do if you have Problems For any increased pain, shortness of breath, bleeding, nausea or vomiting, chest pain, or any unexpected problems, contact your Primary Care Provider. Call [facility] ([phone]) or report to the closest Emergency Room. Call 911 if necessary. 06/30/17 0526 <Electronically signed by Anuel Graves MD> Date Anuel Graves MD Cosigner Signature (If Indicated): Date CC: Jose Staples MD BRAIN/HEAD WITHOUT Observed: 04/27/2017 Status: F Source: [place] CONTRAST 2:12 PM [facility] REPOSITORY [facility] Imaging Services [address] [place] [address] Brain/Head without Contrast MR#: [id number] Acct: [id number] Name: KELLIE WOOD Rep #: [id number] : 1935 M 81 From: Alexander Bey MD PCP: Jose Staples MD, Chi Status: REG CLI Study: Brain/Head without Contrast Date of Exam: 04/27/17 Exam# [id number] Ordering Dr: Jose Staples MD STUDY: CT BRAIN WITHOUT CONTRAST REASON FOR EXAM: Male, 81 years old. dizzy spells x a few years, worsening RADIATION DOSAGE (If Supplied By Facility): CTDIvol = ( 44.99 ) mGy, DLP = ( 745.49 ) mGycm TECHNIQUE: Transaxial CT imaging of the brain was performed without administration of intravenous contrast material. Individualized dose optimization techniques were used for this CT. COMPARISON: None. FINDINGS: Normal soft tissue structures. Normal calvarium. Normal size ventricles and extra-axial spaces for the patient's age. There are areas of decreased attenuation within the white matter tracts of the supratentorial brain, consistent with microvascular disease changes. Normal basal ganglia and thalami. Normal brainstem. Normal cerebellum. There is no intracranial hemorrhage. There are no findings of an acute ischemic infarction. Normal visualized paranasal sinuses. CT/Brain/Head without Contrast IMPRESSION: Chronic involutional changes of the brain. Electronically Signed: Alexander Bey MD at 14:36 EDT Tel , Service support , CC: Jose Staples MD Medical Staff Credentialing Coordinator: Signed ALLERGIES ALLERGIES DATE TYPE / CODE NAME / CODE REACTION SEVERITY SOURCE 01/10/2018 Drug No Known Unknown [facility] Allergy/4160 Allergies/F001 Hospital 16394(SNOMED 784597(RXNORM) Repository CT) 03/12/2015 Drug Unable to Unknown [facility] Allergy/4160 Assess/G252622 Hospital 48936(SNOMED 795(RXNORM) Repository CT) ENCOUNTERS ENCOUNTERS ADMIT/DISCHARGE ACCOUNT ADMITTING ENCOUNTER LOCATION SOURCE NUMBER CLASS 01/15/2018 [id number] Ambulatory BMSBuilding:[place] 0 [facility] Repository 01/15/2018 [id number] Ambulatory [place] [facility] ing:[facility] Repository 01/10/2018 [id number] Ambulatory [place] [facility] ing:POLAB3 Repository 01/10/2018/ [id number] Ambulatory BMSBuilding:B [place] 5 [facility] Repository 11/23/2017 [id number] Ambulatory BMSBuilding:B [place] 5 [facility] Repository 11/23/2017 [id number] Ambulatory [place] [facility] ing:[facility] Repository 11/19/2017 [id number] Ambulatory BMSBuilding:B [place] 7 [facility] Repository 2017 [id number] Ambulatory [place] 8 [facility] ing:CT Repository 11/07/2017 [id number] Ambulatory BMSBuilding:B [place] 2 [facility] Repository 10/18/2017 [id number] Ambulatory [place] 6 [facility] ing:RAD Repository 07/12/2017 [id number] Ambulatory [place] 9 [facility] ing:POLAB3 Repository 06/30/2017/ [id number] Emergency [place] 1 [facility] ing:ED Repository 04/27/2017 [id number] Ambulatory [place] 4 [facility] ing:CT Repository PAYERS PAYERS ENCOUNTER GUARANTOR PAYER SUBSCRIBER SOURCE 01/15/2018 KELLIE Primary KELLIE [address] [id number] Insurance:MEDICARE ZIERAUDOB: [facility] [place] PART A [facility] [id number] Number: Repository [address]Wcl: [phone] [id number] [phone] () Date:2018-01-10 01/15/2018 Secondary KELLIE [place] Insurance:AARPPolicy ZIERAUDOB: [facility] Number: [id number] [facility] [id number] Repository Date:7156-56-54[address], [place] [address]TH: 01/15/2018 Tertiary NOT GIVENUNK [place] Insurance:SELF PAY [facility] Number: Effective Repository Date:2018-01-15 01/15/2018 KELLIE Primary KELLIECLARKE [address] [id number] Insurance:MEDICARE ZIERAUDOB: Community [place] PART A [facility] [id number] [place] Number: Repository [address]Uxd: 330 [id number] [phone] () Date:2018-01-10 01/15/2018 Secondary KELLIE [place] Insurance:AARPPolicy ZIERAUDOB: Community Number: [id number] Hospital [id number] Repository Date:5224-08-03EB [address], [place] [address]RU: 01/15/2018 Tertiary NOT GIVENUNK [place] Insurance:SELF PAY [facility] Number: Effective Repository Date:2018-01-10 01/10/2018 KELLIE Primary KELLIE [place] [id number] Insurance:MEDICARE ZIERAUDOB: Community [place] PART A [id number] [place] [facility] Repository [address]Isr: 330 [id number] [phone] () Date:2018-01-10 01/10/2018 Secondary KELLIE [place] Insurance:AARPPolicy ZIERAUDOB: Community Number: [id number] Hospital [id number] Repository Date:8445-72-89[address]X [address], [place] [address]TJ: 01/10/2018 Tertiary NOT GIVENUNK [place] Insurance:SELF PAY [facility] Number: Effective Repository Date:2018-01-10 01/10/2018 KELLIE Primary KELLIE [place] [id number] Insurance:MEDICARE ZIERAUDOB: Community [place] PART A [facility] [id number] [facility] [place] Number: Repository [address]Unu: 330 [id number] [phone] () Date:2017 01/10/2018 Secondary KELLIE [place] Insurance:AARPPolicy ZIERAUDOB: Community Number: [id number] Hospital [id number] Repository Date:8635-30-52[address], [place] [address]NN: 01/10/2018 Tertiary NOT GIVENUNK [place] Insurance:SELF PAY [facility] Number: Effective Repository Date:2017-11-19 11/23/2017 KELLIE Primary KELLIE [place] [id number] Insurance:MEDICARE ZIERAUDOB: Community [place] PART A [facility] [id number] Number: Repository [address]Xrw: [phone] [id number] [phone] () Date:2017-11-20 11/23/2017 Secondary KELLIE [place] Insurance:AARPPolicy ZIERAUDOB: Community Number: [id number] Hospital [id number] Repository Date:8910-55-24[address]MQOJXRX, [place] [address]IK: 11/23/2017 Tertiary NOT GIVENUNK [place] Insurance:SELF PAY [facility] Number: Effective Repository Date:2017-11-23 11/23/2017 KELLIE Primary KELLIE [place] [id number] Insurance:MEDICARE ZIERAUDOB: Community [place] PART A [facility] [id number] [facility] [place] Number: Repository [address]Gga: [phone] [id number] [phone] () Date:2017-11-20 11/23/2017 Secondary KELLIE [place] Insurance:AARPPolicy ZIERAUDOB: Community Number: [id number] Hospital [id number] Repository Date:8922-85-38[address], [place] [address]XC: 11/23/2017 Tertiary NOT GIVENUNK [place] Insurance:SELF PAY [facility] Number: Effective Repository Date:2017-11-20 11/19/2017 Kellie Primary Kellie [place] [id number] Insurance:MEDICARE ZierauDOB: Community [place] PART A [facility] [id number] [place] Number: Repository [address]Vtr: [phone] [id number] [phone] () Date:2017-01-19 11/19/2017 Secondary Kellie [place] Insurance:AARPPolicy ZierauDOB: Community Number: [id number] Hospital [id number] Repository Date:0660-80-54YB [address], [place] [address]MO: 11/19/2017 Tertiary NOT GIVENUNK [place] Insurance:SELF PAY [facility] Number: Effective Repository Date:2017-01-19 2017 Kellie Primary Kellie [place] [id number] Insurance:MEDICARE ZierauDOB: Community [place] PART A [facility] [id number] Number: Repository [address]Qdj: [phone] [id number] [phone] () Date:2017-06-07 2017 Secondary Kellie [place] Insurance:AARPPolicy ZierauDOB: Community Number: [id number] Hospital [id number] Repository Date:7326-63-95WW [address]NGPGR, [place] [address]WV: 2017 Tertiary NOT GIVENUNK [place] Insurance:SELF PAY [facility] Number: Effective Repository Date:2017-06-07 11/07/2017 Kellie Primary Kellie [place] [id number] Insurance:MEDICARE ZierauDOB: Community [place] PART A [facility] [id number] [place] Number: Repository [address]Aip: 330 [id number] [phone] () Date:2017-11-07 11/07/2017 Secondary Kellie [place] Insurance:AARPPolicy ZierauDOB: Community Number: [id number] Hospital [id number] Repository Date:0007-56-00LL [address]TU[place], [place] [address]ZJ: 11/07/2017 Tertiary NOT GIVENUNK [place] Insurance:SELF PAY [facility] Number: Effective Repository Date:2017-11-07 10/18/2017 Kellie Primary Kellie [place] [id number] Insurance:MEDICARE ZierauDOB: Community [place] PART A [facility] [id number] [place] Number: Repository [address]Tfy: [phone] [id number] [phone] () Date:2017-10-18 10/18/2017 Secondary Kellie [place] Insurance:AARPPolicy ZierauDOB: Community Number: [id number] Hospital [id number] Repository Date:2992-53-97[address]PRDDR, [place] [address]VM: 10/18/2017 Tertiary NOT GIVENUNK [place] Insurance:SELF PAY [facility] Number: Effective Repository Date:2017-10-18 07/12/2017 Kellie Primary Kellie [place] [id number] Insurance:MEDICARE ZierauDOB: Community [place] PART A [facility] [id number] [place] Number: Repository [address]Wkq: 330 [id number] [phone] () Date:2017-07-12 07/12/2017 Secondary Kellie [place] Insurance:AARPPolicy ZierauDOB: Community Number: [id number] Hospital [id number] Repository Date:9686-95-83[address]OK[place], [place] [address]HD: 07/12/2017 Tertiary NOT GIVENUNK [place] Insurance:SELF PAY [facility] Number: Effective Repository Date:2017-07-12 06/30/2017 Kellie Primary Kellie [place] [id number] Insurance:MEDICARE ZierauDOB: Community [place] PART A [facility] [id number] [place] Number: Repository [address]Yqu: [phone] [id number] [phone] () Date:2017-06-30 06/30/2017 Secondary Kellie [place] Insurance:AARPPolicy ZierauDOB: Community Number: [id number] Hospital [id number] Repository Date:9906-63-66[address], [place] [address]OF: 06/30/2017 Tertiary NOT GIVENUNK [place] Insurance:SELF PAY [facility] Number: Effective Repository Date:2017-06-30 04/27/2017 Kellie Primary Kellie Ch[place] [id number] Insurance:MEDICARE ZierauDOB: Community [place] [facility] [id number] [place] Number: Repository [address]Tzq: [phone] [id number] [phone] () Date:2017-04-27 04/27/2017 Secondary Kellie [place] Insurance:AARPPolicy ZierauDOB: [facility] Number: [id number] [id number] Repository Date:[id number], [place] [address]EM: 04/27/2017 Tertiary NOT GIVENUNK [place] Insurance:SELF PAY [facility]: Effective Repository Date:2017-04-27
== END ==
PROVIDERS: Family Provider Family Medicine Geriatric Medicine; PCP Family Medicine Geriatric Medicine; Referring Provider Internal Medicine Cardiovascular Disease; Visit Provider Internal Medicine Cardiovascular Disease
DX: I20.9 Angina pectoris, unspecified (principal)
CPT/HCPCS: 78452; 93017; A9500; A4216

== ENCOUNTER → 2018-03-25 13:06 | Outpatient (CLI) | payer MEDICARE, OTHER, SELFPAY ==
[2018-01-10 10:28] VITALS: BMI 23.9
[2018-03-25 14:43] LABS: Absolute Lymphocyte Count 2.46 X10^3/ul (0.83-4.51); Absolute Neutrophil Count 2.6 X10^3/uL (2.0-7.7); Basophil# 0.03 X10^3/uL; Basophil% 0.5 % (0-1); Eosinophil# 0.11 X10^3/uL; Eosinophils% 1.9 % (0-5); Hematocrit 45.4 % (40-54); Hemoglobin 15.1 g/dl (13.0-16.5); Lymphocyte # 2.46 X10^3/ul (4.0); Lymphocyte % 42.6 % (19-41); Mean Corp Hgb Conc 33.3 g/gl (32-36); Mean Corpuscular Hgb 32.4 pg (27.0-32.0); Mean Corpuscular Volume 97.4 fL (80-94); Mean Platelet Vol. 9.5 fl (6.2-12.0); Monocyte# 0.61 X10^3/uL; Monocyte% 10.6 % (0-10); Neutrophil # 2.55 X10^3/uL (2.7-7.7); Neutrophil % 44.1 % (47-70); Platelet Count 220 K/mm3 (150-450); RBC Distribution Width SD 46.1 fl (35.1-43.9); Red Blood Count 4.66 M/mm3 (4.6-6.2); White Blood Count 5.8 K/mm3 (4.4-11.0)
[2018-03-25 14:55] LABS: POSITIVE COUNT NO; POSITIVE DIFFERENTIAL NO; POSITIVE MORPHOLOGY NO
[2018-03-25 14:56] LABS: Anion Gap 5 (5-15); BUN 12 mg/dL (7-18); BUN/Creat Ratio 11.5 RATIO (10-20); Calcium,Total 8.8 mg/dL (8.5-10.1); Chloride 106 mmol/L (98-107); Creatinine, Serum 1.04 mg/dL (0.70-1.30); EST Glomerular Filtration Rate 73 mL/min (>60); Est Glom Filt Rate - Afr Amer 88 mL/min (>60); Glucose 86 mg/dL (74-106); Potassium 3.7 mmol/L (3.5-5.1); Sodium Level 139 mmol/L (136-145); Thyroid Stim Hormone (TSH) 2.42 uIU/mL (0.358-3.74)
== END ==
PROVIDERS: Family Provider Family Medicine Geriatric Medicine; PCP Family Medicine Geriatric Medicine; Visit Provider Family Medicine Geriatric Medicine
DX: R53.83 Other fatigue (principal); R63.0 Anorexia
CPT/HCPCS: 36415; 80048; 84443; 85025

== ENCOUNTER → 2018-07-15 | Outpatient (CLI) | payer MEDICARE, OTHER, SELFPAY ==
[2018-01-10 10:28] VITALS: BMI 23.9
[2018-07-15 14:06] LABS: Absolute Lymphocyte Count 2.39 X10^3/ul (0.83-4.51); Absolute Neutrophil Count 3.4 X10^3/uL (2.0-7.7); Basophil# 0.04 X10^3/uL; Basophil% 0.6 % (0-1); Eosinophil# 0.25 X10^3/uL; Eosinophils% 3.8 % (0-5); Hematocrit 41.4 % (40-54); Hemoglobin 14.3 g/dl (13.0-16.5); Lymphocyte # 2.39 X10^3/ul (4.0); Mean Corp Hgb Conc 34.5 g/gl (32-36); Mean Corpuscular Hgb 32.5 pg (27.0-32.0); Mean Corpuscular Volume 94.1 fL (80-94); Mean Platelet Vol. 9.4 fl (6.2-12.0); Monocyte# 0.58 X10^3/uL; Monocyte% 8.7 % (0-10); Neutrophil # 3.36 X10^3/uL (2.7-7.7); Neutrophil % 50.7 % (47-70); Platelet Count 222 K/mm3 (150-450); RBC Distribution Width CV 12.6 % (11.6-14.6); RBC Distribution Width SD 42.8 fl (35.1-43.9); White Blood Count 6.6 K/mm3 (4.4-11.0)
[2018-07-15 14:09] LABS: POSITIVE COUNT NO; POSITIVE DIFFERENTIAL NO; POSITIVE MORPHOLOGY NO
[2018-07-15 14:35] LABS: Vitamin D,25 Hydroxy 88.6 ng/mL (29.95-100.01)
[2018-07-15 14:38] LABS: ALB/GLOB Ratio 0.9 RATIO (0.9-2.4); AST(SGOT) 30 U/L (15-37); Alanine Aminotransfer ALT/SGPT 37 U/L (16-61); Albumin, Serum 3.4 g/dL (3.2-5.0); Alkaline Phosphatase 75 U/L (45-117); Anion Gap 4 (5-15); BUN 12 mg/dL (7-18); BUN/Creat Ratio 11.9 RATIO (10-20); Chloride 105 mmol/L (98-107); Creatinine, Serum 1.01 mg/dL (0.70-1.30); EST Glomerular Filtration Rate 75 mL/min (>60); Est Glom Filt Rate - Afr Amer 91 mL/min (>60); Globulin 3.8 g/dL (2.2-4.2); Glucose 98 mg/dL (74-106); Potassium 3.6 mmol/L (3.5-5.1); Protein, Total 7.2 g/dL (6.4-8.2); Sodium Level 139 mmol/L (136-145); Thyroid Stim Hormone (TSH) 3.17 uIU/mL (0.358-3.74)
== END | disposition home or self-care (01) ==
LOC: POLAB3 13:33
PROVIDERS: Family Provider Family Medicine Geriatric Medicine; PCP Family Medicine Geriatric Medicine; Visit Provider Family Medicine Geriatric Medicine
DX: E55.9 Vitamin D deficiency, unspecified (principal); R53.83 Other fatigue
CPT/HCPCS: 36415; 80053; 82306; 84443; 85025

== ENCOUNTER → 2018-08-06 | Outpatient (CLI) | payer MEDICARE, OTHER, SELFPAY ==
[2018-01-10 10:28] VITALS: BMI 23.9
--- NOTE | 2018-08-06 16:15 | RAD_ITS ---
STUDY: X-RAY - PELVIS AND LEFT HIP REASON FOR EXAM: Male, 82 years old. Left hip pain. TECHNIQUE: 3 views of the pelvis and hip. COMPARISON: None. FINDINGS: There is a non-specific bowel gas pattern. Normal visualized soft tissue structures. Normal bilateral iliac wings, sacroiliac joints and visualized sacrum. Normal bilateral superior and inferior pubic rami. Normal pubic symphysis. Normal bilateral ischial tuberosities. 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 Normal acetabulum. There is mild articular joint space narrowing of the hip. RAD/HIP, UNI W/ Pelvis 2-3 Views IMPRESSION: No acute abnormality. 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 Electronically Signed: Luis Crisostomo MD at 18:44 EDT , Service support ,
== END | disposition home or self-care (01) ==
LOC: RAD 16:14
PROVIDERS: Family Provider Family Medicine Geriatric Medicine; PCP Family Medicine Geriatric Medicine; Referring Provider Family Medicine Geriatric Medicine; Visit Provider Family Medicine Geriatric Medicine
DX: M25.552 Pain in left hip (principal)
CPT/HCPCS: 73502

== ENCOUNTER 2018-09-16 15:30 | Outpatient (RCR) | payer MEDICARE, OTHER, SELFPAY ==
[2018-01-10 10:28] VITALS: BMI 23.9
--- NOTE | 2018-08-19 13:17 | HP.PTEVAL_ITS ---
Patient's Visit Information KELLIE WODO is a 82 year old M referred to Physical Therapy by Jose Staples MD with a diagnosis of HIP PAIN. Date of Evaluation: 08/19/18 Physical Therapist: Tommy Soares, PT, Cert MDT, OCS - Visit Plan Frequency: 2x /Week Duration: 3 Weeks Plan: PT INTERVENTIONS LUMBAR FLEXION EX'S,DLS,HIP STRENGTHENING,FLEXABLITY - Subjective Findings: This 82 y/o male prenents to pjysical therapy with hip pain on left side. Patient has had left hip pain 1 month ago . Patient pain located left LS/pelvis region. Patient stated pain ocurred lifting water bottles.Seen DR Staples received cortisone injections helped. Patient symptoms better. Aggravating factors extended walker and extended standing some lifting. Denies parathesia/tingling. Bowel/bladder good. Coughing/sneezing-. 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 SOCIAL: . VOCATION: retired - Objective POSTURE: mild foward. PALAPTION: unremarkable. NEURO: denies parathesia/tingling,reflexes 2/3 1/3 L3-4,L4-5,L5-L1. GAIT: reciprocal pattern mild foward posture. MMT: quads/hams 4/5,hip flexion/abduction 4-/5,ankle 4/5. LUMBAR ROM: flexion mod loss ,extension mod loss,side glides mod loss. ROM: hip WNL all planes except IR 25 degrees. FLEXABLITY: hip piriformis mod loss - Special Tests L/S Slump test left side: Negative L/S Slump test right side: Negative L/S Left Straight Leg Raise: Negative L/S Right Straight Leg Raise: Negative L Hip Scour: Negative L Hip Isaak - IT Band: Negative - Goals Goal 1:: Patient to be Independant with HEP. Goal Time Frame: 2-4 Weeks Goal 2:: Patient to increase strength hip 4/5 to improve function Goal Time Frame: 2-4 Weeks Goal 3:: Patient to minimize pain by 50% to imrove function and QOL. Goal Time Frame: 2-4 Weeks Goal 4:: Patient to improve Back owestry score by 5 points or greater to improve QOL. Goal Time Frame: 2-4 Weeks - Rehabilitation Potential Physical Therapy Diagnosis: This patient has left LS -SI PAIN which condition has been evolving with issue with pain and weakness thus benifit from skilled PT. Rehabilitation Potential: Good - Anticipated Interventions Patient/Client Instruction: Educate patient on: Condition, Plan of Care For the Purpose of:: To decrease pain, To increase ROM, To improve muscle performance and motor function, To improve ability to perform ADL's, To increase tolerance to activity/condition/position, To improve ability of physical actions for home/community/work/leisure, To improve health of tissue, To decrease soft tissue restriction, To increase flexibility/ROM, To improve ability to perform tasks related to life management Therapeutic Exercise to Include: Strength training, Postural training, Flexibilty training, Active ROM, Dynamic Lumbar Stabilization For the Purpose of:: To decrease pain, To increase ROM, To improve nutrient de livery to tissue, To increase oxygenation perfusion, To improve muscle performance and motor function, To increase tolerance to activity/condition/position, To improve ability of physical actions for home/community/work/leisure, To improve health of tissue, To decrease soft tissue restriction, To increase flexibility/ROM TENS: Yes IF ES: Yes Cryotherapy (ice pack, ice massage): Yes Thermo therapy (hot pack): Yes Ultrasound (thermal/non thermal): Yes For the Purpose of:: To decrease pain, To increase ROM, To improve nutrient delivery to tissue, To increase oxygenation perfusion, To improve health of tissue, To decrease soft tissue restriction Thank you for the opportunity to evaluate your patient. For Medicare and Medicare HMO plans, please review the plan of care and approve it. It will need to be FAXED BACK to us at [phone] for Medicare purposes. For Medicare only, by signing this I certify the plan of care. Please let me know if there are questions or concerns regarding this plan of care. Physician Signature: Date:
--- NOTE | 2018-09-16 16:17 | HP.PTDCSUM ---
HP - PT D/C Summary It has been my pleasure to treat KELLIE WOOD under orders from Jose Staples MD, for the diagnosis of HIP PAIN for a total of 7 visit(s). Discharge Date: 09/16/18 Please see the following information for a summary of their discharge status. - Subjective Subjective: Doing okay ,but sore posterior hip but ableto do all ADL'S - Pain left LB Pain Intensity (Out of 10): 0 - Overall Improvement % Improvement: 50 - Objective Objective/Function: POSTURE: WFL. GAIT: reciprocal pattern. LUMBAR ROM: flexion min loss, extension mod loss ,side glides min loss. MMT: quas/hams 4/5 ,hip flexion 4-/5,abd 4-/5 ankle - Goals Goal 1:: Patient to be Independant with HEP. Goal 2:: Patient to increase strength hip 4/5 to improve function Goal Progress: Goal Met Goal 3:: Patient to minimize pain by 50% to imrove function and QOL. Goal Progress: Goal Met Goal 4:: Patient to improve Back owestry score by 5 points or greater to improve QOL. Goal Progress: Progressing - Plan Plan: D/C - D/C Information If there are questions or concerns regarding this patient's physical therapy, please feel free to call me at [phone]. Thank you for the referral of this patient. Sincerely, Tommy Soares, PT, Cert MDT, OCS
--- NOTE | 2018-09-25 17:20 | RAD_ITS ---
STUDY: X-RAY CHEST REASON FOR EXAM: Male, 82 years old. Weight loss TECHNIQUE: Frontal view of the chest COMPARISON: CT dated 11/12/2017. FINDINGS: There are calcified granulomata noted in the left lung. The lungs are otherwise clear. There are no pleural effusions. There is no pneumothorax. The heart is normal in size. The visualized osseous structures are within normal limits. RAD/Chest PA and Lateral IMPRESSION: No acute thoracic pathology. Electronically Signed: Parag Zimmerman, at 19:11 EDT Tel , Service support ,
== END 2018-09-16 19:00 | disposition home or self-care (01) ==
LOC: PT 15:30
PROVIDERS: Family Provider Family Medicine Geriatric Medicine; PCP Family Medicine Geriatric Medicine; Referring Provider Family Medicine Geriatric Medicine; Visit Provider Family Medicine Geriatric Medicine
DX: M25.559 Pain in unspecified hip (principal); R63.4 Abnormal weight loss
CPT/HCPCS: 71046; 97035; 97110; 97162; 97530

== ENCOUNTER → 2018-09-25 | Outpatient (CLI) | payer MEDICARE, OTHER, SELFPAY ==
[2018-01-10 10:28] VITALS: BMI 23.9
[2018-09-25 17:42] LABS: Absolute Lymphocyte Count 2.33 X10^3/uL (0.83-4.51); Absolute Neutrophil Count 2.8 X10^3/uL (2.0-7.7); Basophil# 0.04 X10^3/uL; Basophil% 0.7 % (0-1); Eosinophil# 0.11 X10^3/uL; Eosinophils% 1.9 % (0-5); Hematocrit 41.9 % (40-54); Hemoglobin 14.1 g/dL (13.0-16.5); Lymphocyte # 2.33 X10^3/ul (4.0); Mean Corp Hgb Conc 33.7 g/dL (32-36); Mean Corpuscular Hgb 32.7 pg (27.0-32.0); Mean Corpuscular Volume 97.2 fL (80-94); Mean Platelet Vol. 9.2 fl (6.2-12.0); Monocyte# 0.51 X10^3/uL; Monocyte% 8.7 % (0-10); NRBC Flagged by Analyzer 0 % (0-5); Neutrophil # 2.83 X10^3/uL (2.7-7.7); Neutrophil % 48.5 % (47-70); Platelet Count 229 K/mm3 (150-450); RBC Distribution Width CV 12.8 % (11.6-14.6); RBC Distribution Width SD 46.4 fl (35.1-43.9); Red Blood Count 4.31 M/mm3 (4.6-6.2); White Blood Count 5.8 K/mm3 (4.4-11.0)
[2018-09-25 18:21] LABS: ALB/GLOB Ratio 0.9 RATIO (0.9-2.4); AST(SGOT) 23 U/L (15-37); Alanine Aminotransfer ALT/SGPT 36 U/L (16-61); Albumin, Serum 3.4 g/dL (3.2-5.0); Alkaline Phosphatase 73 U/L (45-117); Anion Gap 6 (5-15); BUN 17 mg/dL (7-18); BUN/Creat Ratio 11.3 RATIO (10-20); Calcium,Total 8.5 mg/dL (8.5-10.1); Chloride 108 mmol/L (98-107); Creatinine, Serum 1.51 mg/dL (0.70-1.30); EST Glomerular Filtration Rate 47 mL/min (>60); Est Glom Filt Rate - Afr Amer 57 mL/min (>60); Globulin 3.6 g/dL (2.2-4.2); Glucose 93 mg/dL (74-106); Potassium 4.1 mmol/L (3.5-5.1); Sodium Level 144 mmol/L (136-145); Thyroid Stim Hormone (TSH) 2.38 uIU/mL (0.358-3.74)
== END | disposition home or self-care (01) ==
LOC: POLAB3 17:04
PROVIDERS: Family Provider Family Medicine Geriatric Medicine; PCP Family Medicine Geriatric Medicine; Visit Provider Family Medicine Geriatric Medicine
DX: R63.4 Abnormal weight loss (principal)
CPT/HCPCS: 36415; 71046; 80053; 84443; 85025

== ENCOUNTER → 2019-01-13 14:21 | Outpatient (CLI) | payer MEDICARE, OTHER, SELFPAY ==
[2018-01-10 10:28] VITALS: BMI 23.9
[2019-01-13 16:56] LABS: Absolute Lymphocyte Count 2.67 X10^3/uL (0.83-4.51); Absolute Neutrophil Count 3.7 X10^3/uL (2.0-7.7); Basophil# 0.07 X10^3/uL; Basophil% 0.9 % (0-1); Eosinophil# 0.31 X10^3/uL; Eosinophils% 4.2 % (0-5); Hematocrit 42.7 % (40-54); Hemoglobin 14.4 g/dL (13.0-16.5); Lymphocyte # 2.67 X10^3/ul (4.0); Lymphocyte % 36.2 % (19-41); Mean Corp Hgb Conc 33.7 g/dL (32-36); Mean Corpuscular Hgb 32.9 pg (27.0-32.0); Mean Corpuscular Volume 97.5 fL (80-94); Mean Platelet Vol. 9.6 fl (6.2-12.0); Monocyte# 0.58 X10^3/uL; Monocyte% 7.9 % (0-10); NRBC Flagged by Analyzer 0 % (0-5); Neutrophil # 3.72 X10^3/uL (2.7-7.7); Neutrophil % 50.5 % (47-70); Platelet Count 243 K/mm3 (150-450); RBC Distribution Width CV 12.6 % (11.6-14.6); RBC Distribution Width SD 45.2 fl (35.1-43.9); Red Blood Count 4.38 M/mm3 (4.6-6.2); White Blood Count 7.4 K/mm3 (4.4-11.0)
[2019-01-13 17:37] LABS: Vitamin D,25 Hydroxy 90.2 ng/mL (29.95-100.01)
[2019-01-13 19:14] LABS: AST(SGOT) 26 U/L (15-37); Alanine Aminotransfer ALT/SGPT 40 U/L (16-61); Albumin, Serum 3.7 g/dL (3.2-5.0); Alkaline Phosphatase 78 U/L (45-117); Anion Gap 7 (5-15); BUN 12 mg/dL (7-18); BUN/Creat Ratio 10.5 RATIO (10-20); Calcium,Total 9.2 mg/dL (8.5-10.1); Chloride 108 mmol/L (98-107); Creatinine, Serum 1.14 mg/dL (0.70-1.30); EST Glomerular Filtration Rate 66 mL/min (>60); Est Glom Filt Rate - Afr Amer 79 mL/min (>60); Globulin 3.8 g/dL (2.2-4.2); Glucose 88 mg/dL (74-106); Potassium 3.5 mmol/L (3.5-5.1); Protein, Total 7.5 g/dL (6.4-8.2); Sodium Level 142 mmol/L (136-145)
== END ==
PROVIDERS: Family Provider Family Medicine Geriatric Medicine; PCP Family Medicine Geriatric Medicine; Visit Provider Family Medicine Geriatric Medicine
DX: R53.83 Other fatigue (principal); E55.9 Vitamin D deficiency, unspecified
CPT/HCPCS: 36415; 80053; 82306; 84443; 85025

== ENCOUNTER 2019-02-02 13:44 | Observation (INO) | payer MEDICARE, OTHER, SELFPAY ==
[2018-01-10 10:28] VITALS: BMI 23.9
[2019-02-02] VITALS (12 sets, daily range): BP systolic 101–132; BP diastolic 44–114; PULSE 65–78; RESP 13–20; TEMP 37.1–39.4; O2SAT 95–98; BMI 23.0; BMI 23.5; BMI 23.7
--- NOTE | 2019-02-02 13:51 | CT_ITS ---
STUDY: CT BRAIN WITHOUT CONTRAST REASON FOR EXAM: Male, 83 years old. ATAXIA, SLURRED SPEECH RADIATION DOSAGE (If Supplied By Facility): CTDIvol = ( 44.99 ) mGy, DLP = ( 745.49 ) mGycm TECHNIQUE: Transaxial CT imaging of the brain was performed without administration of intravenous contrast material. Individualized dose optimization techniques were used for this CT. COMPARISON: 04/27/2018 FINDINGS: Normal soft tissue structures. Normal calvarium. There is mild cerebral atrophy with widening of the extra-axial spaces and ventricular dilatation. There are areas of decreased attenuation within the white matter tracts of the supratentorial brain, consistent with microvascular disease changes. Normal basal ganglia and thalami. Normal brainstem. Normal cerebellum. There is no intracranial hemorrhage. There are no findings of an acute ischemic infarction. Normal visualized paranasal sinuses. CT/Brain/Head without Contrast IMPRESSION: 1. No acute intracranial hemorrhage or mass effect. 2. Central parenchymal volume loss. White matter changes that are nonspecific but most commonly associated with chronic small vessel ischemic disease. Electronically Signed: Mello Coronado MD ([place]oks) at 15:32 EST , Service support ,
--- NOTE | 2019-02-02 13:52 | EKG12_ITS ---
Test Reason : DYSRHYTHMIA Blood Pressure : / mmHG Vent. Rate : 067 BPM Atrial Rate : 067 BPM P-R Int : 156 ms QRS Dur : 078 ms QT Int : 380 ms P-R-T Axes : 017 -05 038 degrees QTc Int : 401 ms Normal sinus rhythm Nonspecific ST and T wave abnormality Abnormal ECG Confirmed by CORBY SCHAFFER, LINDSAY ([id number]), restaurant expeditor MADDY RODRIGUES ([id number]) on 02/04/2019 9:42:34 AM Referred By: Confirmed By:LINDSAY TAVAREZ MD
--- NOTE | 2019-02-02 13:59 | ED.DCSUM_ITS ---
History of Present Illness Narrative: 83-year-old male presents with concern for weakness. Presents with his as well as daughter states that last night he was feeling unwell. This morning his states that he had slept then and then was unable to climb the stairs because he had to crawl. She states he was sitting on the couch with some coffee when he began to fall over primarily to the right side. States that at that time he did have some slurred speech but no longer has his slurred speech. Patient denies any pain, vision change, headache, neck pain, weakness in his upper or lower extremities. Denies any recent head trauma. <Aj Benítez - Last Filed: 02/02/19 17:13> <Jose Monge - Last Filed: 02/02/19 23:41> Chief Complaint: Neuro S/Sx Past Medical History Prior records reviewed: Yes Past Medical History: - - Hypertension, hyperlipidemia, aortic aneurysm Surgical History: - - vasectomy and orthopedic Lives: Spouse/ Significant Other Smoking Status: Former smoker <Aj Benítez - Last Filed: 02/02/19 17:13> - Family History Maternal Family History: Family History (Last Reviewed 01/10/18 @ 10:31 by Sabrina Velez) Brother CVA (cerebral vascular accident) Sudden cardiac , Onset Age: 68 Brother COPD (chronic obstructive pulmonary disease) <Jose Monge - Last Filed: 02/02/19 23:41> - Allergies and Home Meds Allergies/Adverse Reactions: Allergies No Known Allergies Allergy (Verified 02/02/19 13:48) Review of Systems General: Denies: Chills, Fever, Sweats Eyes: Denies: Visual changes - bilaterally, Diplopia ENT: Denies: Rhinorrhea, Sore throat Cardiovascular: Denies: Chest pain, Palpitations Respiratory: Denies: Dyspnea, Cough, Dyspnea on exertion Gastrointestinal: Denies: Abdominal pain, Nausea, Vomiting, Diarrhea, Melena, Hematochezia Genitourinary: Denies: Dysuria, Hematuria, Frequency Musculoskeletal: Denies: Back pain, Extremity Pain Skin: Denies: Rash, Wounds Neurological: Reports: Weakness, - - Resolved slurred speech . Denies: Headache, Numbness <Aj Benítez - Last Filed: 02/02/19 17:13> Physical Exam Vital Signs/Narrative: Vital Signs Temp Pulse Resp BP Pulse Ox 02/02/19 13:45 99.3 F H 73 18 116/53 L 95 General: Well nourished, Well developed, No Acute Distress Head: Normocephalic, Atraumatic Eyes: Perrl, EOMI ENT: Moist mucous membranes, No rhinorrhea Neck: Supple, Nontender Cardiovascular: Regular rate, Regular rhythm, No murmurs Respiratory: No distress, CTA bilaterally, Chest nontender Abdomen: Soft, Nontender, Nondistended, Normal bowel sounds Back: Nontender, Normal Inspection Extremities: Nontender, No edema Skin: Normal color, No rash Neurological: Alert, Oriented x3, Cranial nerves II-XII grossly intact, Normal Strength, Normal Sensation Psychological: Normal affect, Normal Mood <Aj Benítez - Last Filed: 02/02/19 17:13> Diagnostic/Tx/Re-eval Chest X-Ray - ED: 1 View, No Acute Disease Impressions Brain CT 02/02/19 13:51 IMPRESSION: 1. No acute intracranial hemorrhage or mass effect. 2. Central parenchymal volume loss. White matter changes that are nonspecific but most commonly associated with chronic small vessel ischemic disease. Electronically Signed: Mello Coronado MD (Brooks) at 15:32 EST , Service support , Chest X-Ray 02/02/19 14:47 IMPRESSION: Stable, nonacute portable x-ray examination of the chest. Electronically Signed: Mello Coronado MD (Brooks) at 15:41 EST , Service support , 02/02/19 13:51 Brain/Head without Contrast [CT] Stat 02/02/19 14:47 Chest 1 View (Portable) [RAD] Stat Laboratory Results 02/02/19 02/02/19 02/02/19 14:01 14:01 16:14 WBC 4.9 RBC 3.87 L Hgb 12.9 L Hct 37.4 L MCV 96.6 H MCH 33.3 H MCHC 34.5 RDW Std Deviation 45.3 H RDW Coeff of Obey 12.8 Plt Count 177 MPV 8.6 Immature Gran % (Auto) 0.400 Neut % (Auto) 70.2 H Lymph % (Auto) 15.4 L [place] % (Auto) 12.0 H Eos % (Auto) 1.4 Baso % (Auto) 0.6 Absolute Neuts (auto) 3.5 Absolute Lymphs (auto) 0.76 L Nucleated RBC % 0 Sodium 140 Potassium 3.2 L Chloride 107 Carbon Dioxide 27.0 Anion Gap 6 BUN 8 Creatinine 1.15 Estim Creat Clear Calc 40.54 Est GFR (MDRD) Af Amer 78 Est GFR (MDRD) Non-Af 65 BUN/Creatinine Ratio 7.0 L Glucose 105 Calcium 8.4 L Total Bilirubin 0.30 AST 19 ALT 22 Alkaline Phosphatase 64 Troponin I < 0.015 Total Protein 6.6 Albumin 3.2 Globulin 3.4 Albumin/Globulin Ratio 0.9 Urine Color Yellow Urine Clarity Clear Urine pH 5.0 Ur Specific [place] 1.020 Urine Protein 15 H Urine Glucose (UA) Normal Urine Ketones 15 H Urine Occult Blood 10 H Urine Nitrite Negative Urine Bilirubin Negative Urine Urobilinogen Normal Ur Leukocyte Esterase Negative Urine RBC 0-5 SEEN Urine WBC 0 SEEN Ur Squamous Epith Cells 0-5 SEEN Urine Bacteria 0 SEEN Urine Mucus 0 SEEN - Rhythm Strip Rhythm Strip: Sinus Rhythm Rate: 67 Ectopy: None - EKG Initial EKG Interpretation: Sinus Rhythm, - - Normal sinus rhythm at 67 bpm. ME interval of 156 ms. QTC of [address] changes. No evidence of depression or elevation. - Medical Decision Making Appears well nontoxic. No focal neurologic deficit on exam. NIH of 0. Family concerned given him leaning to the right as well as his confusion for stroke. The brain shows no acute process. Lab work shows a mild hypokalemia and some volume depletion. Otherwise within normal limits. Patient was given a fluid bolus as well as p.o. potassium following a dysphasia screening. On reexamination patient's NIH remains at 0. He will be admitted for further observation and neurologic testing. Family agreeable and patient admitted in stable condition. <Aj Benítez - Last Filed: 02/02/19 17:13> - Medical Decision Making Patient was seen with me. I did a [id number] examination with the patient. Patient presents with difficulty walking and confusion. Family states the patient has been leaning to the right while he is sitting. Family is concerned for possible stroke. Vital signs are stable. Patient is afebrile. Patient is in no acute distress. Cranial nerves II through XII grossly intact. There are no focal motor or sensory deficits noted on my examination. Heart was regular rate and rhythm. Lungs are clear and equal bilaterally. Abdomen is soft and nontender. CT scan of the brain was obtained. There is no acute intracranial abnormality. Basic metabolic profile shows mild hypokalemia. Remaining labs are normal. Case was discussed with the hospitalist. Patient will be admitted for further evaluation. Patient and family understood and were agreeable with the plan. All questions were answered. <Jose Monge - Last Filed: 02/02/19 23:41> ED Disposition <Aj Benítez - Last Filed: 02/02/19 17:13> <Jose Monge - Last Filed: 02/02/19 23:41> - Plan for ED Patient: Disposition: [facility] Diagnosis: Weakness, Ataxia
[2019-02-02 14:08] LABS: Absolute Lymphocyte Count 0.76 X10^3/uL (0.83-4.51); Absolute Neutrophil Count 3.5 X10^3/uL (2.0-7.7); Basophil# 0.03 X10^3/uL; Basophil% 0.6 % (0-1); Eosinophil# 0.07 X10^3/uL; Eosinophils% 1.4 % (0-5); Hematocrit 37.4 % (40-54); Hemoglobin 12.9 g/dL (13.0-16.5); Lymphocyte # 0.76 X10^3/ul (4.0); Lymphocyte % 15.4 % (19-41); Mean Corp Hgb Conc 34.5 g/dL (32-36); Mean Corpuscular Hgb 33.3 pg (27.0-32.0); Mean Corpuscular Volume 96.6 fL (80-94); Mean Platelet Vol. 8.6 fl (6.2-12.0); Monocyte# 0.59 X10^3/uL; NRBC Flagged by Analyzer 0 % (0-5); Neutrophil # 3.46 X10^3/uL (2.7-7.7); Neutrophil % 70.2 % (47-70); Platelet Count 177 K/mm3 (150-450); RBC Distribution Width CV 12.8 % (11.6-14.6); RBC Distribution Width SD 45.3 fl (35.1-43.9); Red Blood Count 3.87 M/mm3 (4.6-6.2); White Blood Count 4.9 K/mm3 (4.4-11.0)
[2019-02-02 14:25] LABS: ALB/GLOB Ratio 0.9 RATIO (0.9-2.4); AST(SGOT) 19 U/L (15-37); Alanine Aminotransfer ALT/SGPT 22 U/L (16-61); Albumin, Serum 3.2 g/dL (3.2-5.0); Alkaline Phosphatase 64 U/L (45-117); Anion Gap 6 (5-15); BUN 8 mg/dL (7-18); Calcium,Total 8.4 mg/dL (8.5-10.1); Chloride 107 mmol/L (98-107); Creatinine, Serum 1.15 mg/dL (0.70-1.30); EST Glomerular Filtration Rate 65 mL/min (>60); Est Glom Filt Rate - Afr Amer 78 mL/min (>60); Estimated Creatinine Clearance 40.54 ml/min; Globulin 3.4 g/dL (2.2-4.2); Glucose 105 mg/dL (74-106); Potassium 3.2 mmol/L (3.5-5.1); Protein, Total 6.6 g/dL (6.4-8.2); Sodium Level 140 mmol/L (136-145)
--- NOTE | 2019-02-02 14:47 | RAD_ITS ---
STUDY: X-RAY CHEST REASON FOR EXAM: Male, 83 years old. ataxia TECHNIQUE: PA and lateral views of the chest. COMPARISON: 09/25/2018 FINDINGS: EKG leads project over the chest. The lungs are clear and expanded. There is no demonstrated pleural abnormality. Normal size heart. Normal mediastinum and marty. Normal visualized pulmonary arteries. There is atherosclerotic tortuosity of the aortic arch and descending thoracic aorta. No acute bony process. There is no demonstrated abnormality of the visualized soft tissue structures of the upper abdomen. RAD/Chest 1 View (Portable) IMPRESSION: Stable, nonacute portable x-ray examination of the chest. Electronically Signed: Mello Coronado MD (Brooks) at 15:41 EST , Service support ,
[2019-02-02 16:19] LABS: Bacteria 0 SEEN /hpf (None Seen); Mucous, Urine 0 SEEN /hpf (<or=2+); White Blood Cells 0 SEEN /hpf (0-5)
[2019-02-02 16:22] LABS: Color, Urine Yellow (Yellow); Glucose, Dipstick Normal (Normal); Ketone-Dipstick 15 mg/dl (Negative); Leukocyte Esterase-Dipstick Negative /ul (Negative); Nitrite-Dipstick Negative (Negative); Occult Blood-Urine 10 /ul (Negative); Protein-Dipstick 15 mg/dl (Negative); Urine Bilirubin Dipstick Negative (Negative); Urine Clarity Clear (Clear); Urine Urobilinogen Normal (Normal)
[2019-02-02 16:41] LABS: Red Blood Cells-Urine 0-5 SEEN /hpf (0-5); Squamous Epithelial Cells - UA 0-5 SEEN /hpf (0-5)
[2019-02-02] MEDS: Aspirin 325 MG Tablet PO (17:55)
--- NOTE | 2019-02-02 18:25 | NURSING ---
Pt up to floor at this time, in bathroom to attempt to void. Pt leaning far to right side. Assisted back to bed x2 assist. Pt not oriented to place or time. Family at bedside.
--- NOTE | 2019-02-02 18:38 | NURSING ---
Report called to Georgie on PCU at this time.
--- NOTE | 2019-02-02 18:52 | NURSING ---
Pt taken to PCU at this time via bed on monitor to room 117.
--- NOTE | 2019-02-02 19:12 | ECHOD_ITS ---
Reason For Study: TIA/CVA Procedure This was a 2D Doppler, Color Flow transthoracic echocardiogram. Exam performed portable in patient room. Left Ventricle Normal LV size. Left ventricular systolic function is normal. The estimated ejection fraction is 65 %. Stage 1 diastolic dysfunction. No regional wall motion abnormalities noted. Right Ventricle Normal RV size. Normal systolic function. Atria Normal left atrium. Normal right atrium. Mitral Valve There is mild mitral annular calcification. Mild (1+) eccentric mitral valve insufficiency. Tricuspid Valve Normal tricuspid valve. Mild (1+) tricuspid valve insufficiency. Pulmonary artery systolic pressure is 36 mmHg. Aortic Valve Trisinus/trileaflet aortic valve. Moderate diffuse aortic valve thickening. Peak aortic valve gradient 22 mmHg. Mean aortic valve gradient 10 mmHg. Mild aortic stenosis. Mild (1+) eccentric aortic valve insufficiency. Pulmonic Valve Normal pulmonic valve. Great Vessels Normal aortic root. The pulmonary artery is normal size. Normal inferior vena cava. Pericardium/Pleural No pericardial effusion. MMode/2D Measurements & Calculations LVIDd: 4.5 cm IVSd: 1.1 cm LVOT diam: 2.0 cm LVIDs: 2.1 cm LVPWd: 0.82 cm LVOT area: 3.0 cm2 RVDd: 3.1 cm FS: 53.5 % LA dimension: 3.4 cm LAV(MOD-bp): 49.4 ml LA A4 area: 16.9 cm2 LAV(MOD-bp) Indexed: 29.9 ml/m2 LAV(MOD-sp2): 55.4 ml LAV(MOD-sp4): 41.9 ml RA A4 area: 15.7 cm2 Time Measurements MV dec time: 0.22 sec Doppler Measurements & Calculations MV E max bruno: 93.3 cm/sec Lat Peak E' Bruno: 8.7 cm/sec Med Peak E' Bruno: 8.6 cm/sec MV A max bruno: 110.5 cm/sec E/E' lat: 10.7 E/E' med: 10.8 MV E/A: 0.84 MV V2 max: 116.8 cm/sec MV P1/2t max bruno: 104.9 cm/sec Ao V2 max: 235.5 cm/sec MV max P.5 mmHg MV P1/2t: 81.9 msec Ao max P.2 mmHg MV V2 mean: 52.7 cm/sec MV dec slope: 374.8 cm/sec2 Ao V2 mean: 142.8 cm/sec MV mean P.4 mmHg Ao mean P.7 mmHg MV V2 VTI: 39.3 cm MVA(P1/2t): 2.7 cm2 Ao V2 VTI: 50.5 cm MVA(VTI): 2.3 cm2 ZIA(I,D): 1.8 cm2 ZIA(V,D): 1.7 cm2 AI max bruno: 442.7 cm/sec LV V1 max: 132.1 cm/sec SV(LVOT): 90.4 ml AI max P.5 mmHg LV V1 max P.0 mmHg LV V1 mean P.5 mmHg AI dec slope: 225.2 cm/sec2 LV V1 mean: 87.2 cm/sec AI P1/2t: 575.8 msec LV V1 VTI: 29.7 cm PA V2 max: 75.5 cm/sec TR max bruno: 279.1 cm/sec TR max P.2 mmHg Interpretation Summary Normal LV size. Left ventricular systolic function is normal. The estimated ejection fraction is 65 %. Stage 1 diastolic dysfunction. Mild (1+) eccentric mitral valve insufficiency. Mild (1+) tricuspid valve insufficiency. Moderate diffuse aortic valve thickening. Mean aortic valve gradient 10 mmHg. Mild (1+) eccentric aortic valve insufficiency. Ordering Physician: Hernan Vilchis Referring Physician: Jose Staples Chi Performed By: Mukund Chow RCS
--- NOTE | 2019-02-02 19:38 | HP.PCM_ITS ---
History of Present Illness Date of Admission: 02/02/19 Chief Complaint: Possible strokelike symptoms The patient is a 83 year old M with a PMH as below who presents with signs of ataxia and possible stroke. Per the family and himself he was fine a few days ago, however yesterday started feeling a little bit ill and then today he went to a basketball game and was unable to go up the stairs when he got back home, he had to crawl up the stairs. Whenever they tried to sit him up he was started leaning to the right. Prior to coming in the family states that he had some slurred speech however when he arrived to the ER that had resolved. He has been fighting a cold for the last month but otherwise has been doing well. In the ER he was afebrile without a leukocytosis, his potassium was low at 3.2 which was replaced otherwise he had no other abnormality. Past Medical History Past Medical History (Chronic Problems): Chronic Problems (Last Reviewed 01/10/18 @ 10:31 by Sabrina Velez) Hyperlipemia (Chronic) Nonrheumatic aortic (valve) stenosis (Chronic) Aneurysm of ascending aorta (Chronic) Medical History: Medical History (Last Reviewed 01/10/18 @ 10:31 by Sabrina Velez) Hyperlipemia (Chronic) E78.5 Nonrheumatic aortic (valve) stenosis (Chronic) I35.0 Aneurysm of ascending aorta (Chronic) I71.2 Diverticulosis K57.90 BPH (benign prostatic hyperplasia) N40.0 Allergies No Known Allergies Allergy (Verified 02/02/19 13:48) Home Medications: Ambulatory Orders Medication Instructions Recorded Atorvastatin Calcium 40 mg PO DAILY 06/30/17 Levothyroxine Sodium 25 mcg PO DAILY 06/30/17 ergocalciferol (vitamin D2) 50,000 50,000 unit PO QWEEK 11/07/17 unit capsule pyridoxine (vitamin B6) 50 mg 50 mg PO DAILY 11/07/17 tablet vitamin E (dl, acetate) 200 unit 200 unit PO DAILY 11/07/17 capsule doxazosin 4 mg tablet 4 mg PO DAILY 01/10/18 metoprolol succinate 25 mg 25 mg PO DAILY #90 tab 12/09/18 tablet,extended release 24 hr Levocetirizine Dihydrochloride 5 mg PO DAILY 02/02/19 Surgical History: Surgical History (Last Reviewed 01/10/18 @ 10:31 by Sabrina Velez) History of carpal tunnel surgery Z98.890 History of colon resection Z90.49 History of tonsillectomy and adenoidectomy Z98.890 History of vasectomy Z98.52 Surgical History: - - vasectomy and orthopedic Lives: Spouse/ Significant Other Smoking Status: Never smoker Alcohol: None Drugs: None - *Family History Maternal Family History: Family History (Last Reviewed 01/10/18 @ 10:31 by Sabrina Velez) Brother CVA (cerebral vascular accident) Sudden cardiac , Onset Age: 68 Brother COPD (chronic obstructive pulmonary disease) Review of Systems Constitutional: Denies: Chills, Fever, Weight Change HEENT: Denies: Head Aches, Sinus Congestion, Sinus Drainage Cardiovascular: Denies: Chest Pain, Palpitations Respiratory: Reports: Cough. Denies: Shortness of breath at rest, Sputum production Gastrointestinal: Denies: Abdominal Pain, Nausea, Vomiting Genitourinary: Denies: Dysuria Musculoskeletal: Denies: Joint Pain, Joint Tenderness Skin: Denies: Rash, Wounds Neurological: Reports: Slurred speech, Incoordination. Denies: Focal weakness, Numbness, Tingling Psychiatric: Denies: Anxiety, Depression Hematologic/ Lymphatic: Denies: Easy Bruising, Easy Bleeding VTE Information - Inpt Only VTE Present on Admission: No Patient Problems: Active and Suspected Problems (Last Reviewed 01/10/18 @ 10:31 by Sabrina Velez) Weakness (Acute) Ataxia (Acute) - Physical Exam Vitals/I&O's: Vital Signs Temp Pulse Resp BP Pulse Ox 99.9 F H 65 17 111/57 L 96 02/02/19 18:56 02/02/19 18:56 02/02/19 18:56 02/02/19 18:56 02/02/19 18:56 Oxygen Delivery Method Room Air Weight: 138 lb 2 oz Body Mass Index (BMI) 23.7 Finger Stick Blood Glucose 93 Intake and Output for Last 24 Hours 01/31/19 02/01/19 02/02/19 23:59 23:59 23:59 Intake Total 500 / 500 Balance 500 / 500 General: Alert, Cooperative, No apparent distress, - - He thinks he is in [facility] and that it is 1986 HEENT: Atraumatic, PERRLA, EOMI, Normocephalic, - - Hard of hearing Oral: Dry Mucosa Neck: Supple, No JVD Lungs: Clear to auscultation, Normal air movement, No rhonchi, No wheeze, No rales, Diminished Cardiovascular: Regular rate, Regular Rhythm, Normal S1, Normal S2, No murmurs Abdomen: Soft, Non Tender, Non-Distended, No Hepato-splenomegaly Extremities: No edema, Capillary Refill Less than 3 Seconds Skin: No rashes, No breakdown Neurological: Cranial nerves II-XII grossly intact, Neuro grossly intact, Sensory exam intact to light touch and pain, - - [id number] was slow but not an accurate Psych/Mental Status: Normal Affect, Appropriate Laboratory Results 02/02/19 14:01: WBC 4.9, RBC 3.87 L, Hgb 12.9 L, Hct 37.4 L, MCV 96.6 H, MCH 33.3 H, MCHC 34.5, RDW Std Deviation 45.3 H, RDW Coeff of Obey 12.8, Plt Count 177, MPV 8.6, Immature Gran % (Auto) 0.400, Neut % (Auto) 70.2 H, Lymph % (Auto) 15.4 L, [place] % (Auto) 12.0 H, Eos % (Auto) 1.4, Baso % (Auto) 0.6, Absolute Neuts (auto) 3.5, Absolute Lymphs (auto) 0.76 L, Nucleated RBC % 0 02/02/19 14:01: Sodium 140, Potassium 3.2 L, Chloride 107, Carbon Dioxide 27.0, Anion Gap 6, BUN 8, Creatinine 1.15, Estim Creat Clear Calc 40.54, Est GFR (MDRD) Af Amer 78, Est GFR (MDRD) Non-Af 65, BUN/Creatinine Ratio 7.0 L, Glucose 105, Calcium 8.4 L, Total Bilirubin 0.30, AST 19, ALT 22, Alkaline Phosphatase 64, Troponin I < 0.015, Total Protein 6.6, Albumin 3.2, Globulin 3.4, Albumin/Globulin Ratio 0.9 02/02/19 16:14: Urine Color Yellow, Urine Clarity Clear, Urine pH 5.0, Ur Specific Exchange 1.020, Urine Protein 15 H, Urine Glucose (UA) Normal, Urine Ketones 15 H, Urine Occult Blood 10 H, Urine Nitrite Negative, Urine Bilirubin Negative, Urine Urobilinogen Normal, Ur Leukocyte Esterase Negative, Urine RBC 0-5 SEEN, Urine WBC 0 SEEN, Ur Squamous Epith Cells 0-5 SEEN, Urine Bacteria 0 SEEN, Urine Mucus 0 SEEN Current Medications Acetaminophen (Tylenol) 650 mg PO Q6H PRN PRN PRN Reason: Pain Score 1-10/Temp > 100.7 F Aspirin (Aspirin, Baby) 81 mg PO DAILY@0800 [facility] Atorvastatin Calcium (Lipitor) 80 mg PO QHS [facility] Enoxaparin Sodium (Lovenox) 40 mg SC DAILY [facility] Sodium Chloride () 1,000 mls @ 75 mls/hr IV .[id number] [facility] Sodium Chloride () 250 mls @ 15 mls/hr IV .[id number] PRN PRN Reason: Saline Flush Sodium Chloride () 250 mls @ 15 mls/hr IV .[id number] PRN PRN Reason: Additional IVPB Infusion Ondansetron HCl (Zofran) 4 mg IV Q8H PRN PRN PRN Reason: NAUSEA/VOMITING Sodium Chloride () 10 - 40 ml IV UD PRN PRN Reason: SALINE FLUSH Assessment/Plan All Active Problems (Last Reviewed 01/10/18 @ 10:31 by Sabrina Velez) Weakness (Acute) Ataxia (Acute) 1. 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 Aneurysm of the ascending aorta/hyperlipidemia -His aneurysm is being monitored by cardiology -We will continue with Lipitor and start aspirin -Blood pressures are stable, will continue with his metoprolol 3. BPH -stable -Continue with his home doxazosin DVT: Lovenox Code Visit OBSV E&M: 86481 Initial observation care L2
[2019-02-02] MEDS: 0.9% Normal Saline 1,000 ML 75 ML IV (20:00)
[2019-02-02] MEDS: Atorvastatin Calcium 80 MG Tablet PO (21:08)
[2019-02-03] VITALS (10 sets, daily range): BP systolic 113–143; BP diastolic 46–66; PULSE 54–71; RESP 16–18; TEMP 36.7–37; O2SAT 96–100; BMI 23.7
--- NOTE | 2019-02-03 01:43 | NURSING ---
Patient setting bed alarm off repeatedly, had to reorient. Moved patient to bed 112 for safety closer to the desk.
[2019-02-03] MEDS: Levothyroxine 25 MCG TABLET PO (05:53)
[2019-02-03 06:20] LABS: Absolute Lymphocyte Count 1.48 X10^3/uL (0.83-4.51); Basophil# 0.02 X10^3/uL; Basophil% 0.5 % (0-1); Eosinophil# 0.05 X10^3/uL; Eosinophils% 1.2 % (0-5); Hematocrit 33.6 % (40-54); Hemoglobin 11.4 g/dL (13.0-16.5); Lymphocyte # 1.48 X10^3/ul (4.0); Lymphocyte % 35.7 % (19-41); Mean Corp Hgb Conc 33.9 g/dL (32-36); Mean Corpuscular Hgb 32.9 pg (27.0-32.0); Mean Corpuscular Volume 96.8 fL (80-94); Mean Platelet Vol. 9.1 fl (6.2-12.0); Monocyte# 0.61 X10^3/uL; Monocyte% 14.7 % (0-10); NRBC Flagged by Analyzer 0 % (0-5); Neutrophil # 1.97 X10^3/uL (2.7-7.7); Neutrophil % 47.7 % (47-70); Platelet Count 156 K/mm3 (150-450); RBC Distribution Width CV 12.9 % (11.6-14.6); RBC Distribution Width SD 45.6 fl (35.1-43.9); Red Blood Count 3.47 M/mm3 (4.6-6.2); White Blood Count 4.1 K/mm3 (4.4-11.0)
[2019-02-03 06:44] LABS: Anion Gap 5 (5-15); BUN 10 mg/dL (7-18); BUN/Creat Ratio 10.7 RATIO (10-20); Calcium,Total 7.5 mg/dL (8.5-10.1); Chloride 108 mmol/L (98-107); Cholesterol 139 mg/dL (200); Creatinine, Serum 0.94 mg/dL (0.70-1.30); EST Glomerular Filtration Rate 82 mL/min (>60); Est Glom Filt Rate - Afr Amer 99 mL/min (>60); Estimated Creatinine Clearance 51.61 ml/min; Glucose 87 mg/dL (74-106); High Density Lipoprotein 33 mg/dL; Potassium 3.5 mmol/L (3.5-5.1); Sodium Level 138 mmol/L (136-145); Triglycerides 68 mg/dL; Very Low Density Lipoprotein 14 mg/dL (5-40)
--- NOTE | 2019-02-03 08:30 | MRI_ITS ---
STUDY: MRI BRAIN WITHOUT CONTRAST REASON FOR EXAM: Male, 83 years old. ataxia, slurred speech, off balance since 02/01/19 TECHNIQUE: Standardized multiplanar fat and water weighted pulse sequences were obtained. No contrast was administered. COMPARISON: CT of the brain performed February 02, 2019 demonstrating no acute intracranial hemorrhage or mass effect. Central parenchymal volume loss, and nonspecific supratentorial periventricular white matter changes. FINDINGS: There is no restricted diffusion to suggest acute ischemia/edema.. There are no chronic blood degradation products on T2 GRE sequence. There is felt to be age appropriate volume loss manifested by ventriculomegaly and prominence of cortical sulci and subarachnoid cisterns. There are multiple white matter hyperintensities, distributed throughout the deep white matter tracts of the cerebral hemispheres, consistent with moderate chronic white matter small vessel ischemic changes. Normal bilateral basal ganglia. Normal thalami. There is no extra-axial fluid accumulation. There is no evident mass or mass effect. Normal flow voids within the major intracranial circulation suggesting patency by spin echo criteria. Normal sella turcica, pituitary gland, infundibular stalk, optic chiasm and hypothalamus. Normal tectal plate and pineal gland. Normal midbrain, chao and medulla. Normal cerebellum. Normal basal cisterns. Normal bilateral temporal bones. Normal bilateral internal auditory canals. No demonstrated orbital abnormality, within the constraints of a routine brain study. Small amount of peripheral T2 hyperintensity is identified within ethmoid air cells, mastoid air cells and to a lesser extent frontal paranasal sinuses. No paranasal sinus air-fluid level. Normal calvarium and skull base. Normal visualized soft tissue structures. Normal visualized upper cervical spine. MRI/Brain without Contrast IMPRESSION: No mass or mass effect. No restricted diffusion to suggest acute ischemia/edema. Age-appropriate moderate volume loss. Supratentorial white matter foci of T2 prolongation are nonspecific, however most commonly due to sequela of chronic small vessel ischemia. Electronically Signed: Deshaun South MD at 15:37 EST , Service support ,
[2019-02-03] MEDS: Pyridoxine HCl 50 MG Tablet PO (09:47)
[2019-02-03] MEDS: Doxazosin 4 MG Tablet PO (09:47)
[2019-02-03] MEDS: Metoprolol(XL)Succ 25 MG Tablet PO (09:47)
[2019-02-03] MEDS: Aspirin 81 MG TAB.CHEW PO (09:48)
[2019-02-03] MEDS: Enoxaparin 40 MG/0.4 ML Syringe SC (09:48)
[2019-02-03] MEDS: 0.9% Normal Saline 1,000 ML 75 ML IV (09:48)
--- NOTE | 2019-02-03 15:18 | PN_ITS ---
Patient Problems: Active and Suspected Problems (Last Reviewed 01/10/18 @ 10:31 by Sabrina Velez) Weakness (Acute) Ataxia (Acute) Reason for Visit: ataxia Subjective: Feels much better. Had been ill for 1-2 days prior to arrival. Vitals/I&O's: Vital Signs Temp Pulse Resp BP Pulse Ox 36.8 C 61 16 117/61 100 02/03/19 13:35 02/03/19 13:35 02/03/19 13:35 02/03/19 13:35 02/03/19 13:35 Oxygen Delivery Method Room Air Weight: 62.652 kg Body Mass Index (BMI) 23.7 Finger Stick Blood Glucose 93 Intake and Output for Last 24 Hours 02/01/19 02/02/19 02/03/19 23:59 23:59 23:59 Intake Total 1148.75 / 1148.75 1191.25 / 1191.25 Output Total 120 / 120 Balance 1148.75 / 1148.75 1071.25 / 1071.25 General: Alert, Oriented x3, Cooperative, No apparent distress HEENT: Atraumatic, Normocephalic Oral: Moist Mucosa, No Gingival or Mucosal Lesions/ Ulcerations Neck: No Nodes, Trachea Midline Lungs: Clear to auscultation, Normal air movement, No rhonchi, No wheeze, No rales Cardiovascular: Regular rate, Regular Rhythm, Normal S1, Normal S2, No murmurs Abdomen: Bowel Sounds Present, Soft, Non Tender, Non-Distended, No Hepato- splenomegaly Extremities: No edema, No Calf Tenderness Skin: No rashes, No breakdown Musculoskeletal: No Tenderness to Palpation of Joints or Extremities, No Muscle Wasting Neurological: Cranial nerves II-XII grossly intact, Motor Exam 5/5 strength throughout, Coordination normal Psych/Mental Status: Normal Affect, Appropriate Microbiology Past 72 Hours 02/02/19 20:10 Mucosa - Nose Respiratory Panel (PCR) - Final Influenzae B Rhinovirus Laboratory Results 02/02/19 16:14: Urine Color Yellow, Urine Clarity Clear, Urine pH 5.0, Ur Specific Emery 1.020, Urine Protein 15 H, Urine Glucose (UA) Normal, Urine Ketones 15 H, Urine Occult Blood 10 H, Urine Nitrite Negative, Urine Bilirubin Negative, Urine Urobilinogen Normal, Ur Leukocyte Esterase Negative, Urine RBC 0-5 SEEN, Urine WBC 0 SEEN, Ur Squamous Epith Cells 0-5 SEEN, Urine Bacteria 0 SEEN, Urine Mucus 0 SEEN 02/03/19 06:00: WBC 4.1 L, RBC 3.47 L, Hgb 11.4 L, Hct 33.6 L, MCV 96.8 H, MCH 32.9 H, MCHC 33.9, RDW Std Deviation 45.6 H, RDW Coeff of Obey 12.9, Plt Count 156, MPV 9.1, Immature Gran % (Auto) 0.200, Neut % (Auto) 47.7, Lymph % (Auto) 35.7, Gates % (Auto) 14.7 H, Eos % (Auto) 1.2, Baso % (Auto) 0.5, Absolute Neuts (auto) 2.0, Absolute Lymphs (auto) 1.48, Nucleated RBC % 0 02/03/19 06:00: Sodium 138, Potassium 3.5, Chloride 108 H, Carbon Dioxide 25.0, Anion Gap 5, BUN 10, Creatinine 0.94, Estim Creat Clear Calc 51.61, Est GFR (MDRD) Af Amer 99, Est GFR (MDRD) Non-Af 82, BUN/Creatinine Ratio 10.7, Glucose 87, Calcium 7.5 L, Triglycerides 68, Cholesterol 139, LDL Cholesterol 92, VLDL Cholesterol 14, HDL Cholesterol 33 L Current Medications Acetaminophen (Tylenol) 650 mg PO Q6H PRN PRN PRN Reason: Pain Score 1-10/Temp > 100.7 F Aspirin (Aspirin, Baby) 81 mg PO DAILY@0800 [facility] Last Admin: 02/03/19 09:48 Dose: 81 mg Documented by: Atorvastatin Calcium (Lipitor) 80 mg PO QHS [facility] Last Admin: 02/02/19 21:08 Dose: 80 mg Documented by: Doxazosin Mesylate (Cardura) 4 mg PO DAILY [facility] Last Admin: 02/03/19 09:47 Dose: 4 mg Documented by: Enoxaparin Sodium (Lovenox) 40 mg SC DAILY [facility] Last Admin: 02/03/19 09:48 Dose: 40 mg Documented by: Ergocalciferol (Vitamin D) 50,000 unit PO QWEEK [facility] Last Admin: 02/03/19 09:47 Dose: 50,000 unit Documented by: Sodium Chloride () 1,000 mls @ 75 mls/hr IV .[id number] [facility] Last Infusion: 02/03/19 12:45 Dose: 75 mls/hr Documented by: Sodium Chloride () 250 mls @ 15 mls/hr IV .[id number] PRN PRN Reason: Saline Flush Sodium Chloride () 250 mls @ 15 mls/hr IV .[id number] PRN PRN Reason: Additional IVPB Infusion Levothyroxine Sodium (Synthroid) 25 mcg PO DAILY@0600 [facility] Last Admin: 02/03/19 05:53 Dose: 25 mcg Documented by: Metoprolol Succinate (Toprol Xl (Beta Jumana)) 25 mg PO DAILY [facility] Last Admin: 02/03/19 09:47 Dose: 25 mg Documented by: Ondansetron HCl (Zofran) 4 mg IV Q8H PRN PRN PRN Reason: NAUSEA/VOMITING Oseltamivir Phosphate (Tamiflu) 75 mg PO BID [facility] Stop: 02/07/19 22:01 Pyridoxine HCl (Vitamin B-6) 50 mg PO DAILY [facility] Last Admin: 02/03/19 09:47 Dose: 50 mg Documented by: Sodium Chloride () 10 - 40 ml IV UD PRN PRN Reason: SALINE FLUSH STROKE Vital Signs/Narrative: Vital Signs Temp Pulse Resp BP Pulse Ox 02/03/19 13:35 36.8 C 61 16 117/61 100 Medical Necessity - Tobacco Use Smoking Status: Never smoker Assessment/Plan All Active Problems (Last Reviewed 01/10/18 @ 10:31 by Sabrina Velez) Weakness (Acute) Ataxia (Acute) 1. acute influenza B * start oseltamivir * received a vaccination this year. 2. acute rhinovirus * supportive mgmt 3. ataxia * work up thus far negative * MRI brain performed, but results still pending. * i suspect his symptoms were attributable to his illness. 4. Disposition: pending MRI, if negative for CVA, then discharge. If positive, will complete additional CVA work up. Code Visit OBSV E&M: 10309 Subsequent observation care L3
[2019-02-03] MEDS: Oseltamivir Phosphate 30 MG Capsule PO (16:42)
--- NOTE | 2019-02-03 17:03 | PCM.DC ---
- Discharge Diagnoses Current Active Problems: Current Active and Chronic Problems (Last Reviewed 01/10/18 @ 10:31 by Sabrina Velez) Weakness (Acute) Ataxia (Acute) You will use the following diet at home:: No restrictions Your food should be the consistency of: Regular Your liquids should be the consistency of: Regular/Thin Discharge Activity: Return to Normal Activity Call your doctor if you observe: Fever of 101 or Higher, Shortness of breath Allergies/Adverse Reactions: Allergies No Known Allergies Allergy (Verified 02/02/19 13:48) Medications to take at Discharge Atorvastatin Calcium 40 mg PO DAILY 06/30/17 Levothyroxine Sodium 25 mcg PO DAILY 06/30/17 ergocalciferol (vitamin D2) 50,000 unit capsule 50,000 unit PO QWEEK 11/07/17 pyridoxine (vitamin B6) 50 mg tablet 50 mg PO DAILY 11/07/17 vitamin E (dl, acetate) 200 unit capsule 200 unit PO DAILY 11/07/17 doxazosin 4 mg tablet 4 mg PO DAILY 01/10/18 metoprolol succinate 25 mg tablet,extended release 24 hr 25 mg PO DAILY #90 tab 12/09/18 Allergy Shot SUBCUT QWEEK 02/02/19 Oseltamivir Phosphate [Tamiflu] 30 mg PO BID #9 cap 02/03/19 The following prescriptions were given: Oseltamivir Phosphate [Tamiflu] 30 mg PO BID #9 cap Transmission Status: Pending to [id number] Primary Care Physician: Jose Staples Chi, MD [Primary Care Provider] - Within 1 Week Test Results: Test results from this visit will be discussed in further detail at your follow-up appointment, if applicable. Proposed Discharge Date: 02/03/19
--- NOTE | 2019-02-03 17:04 | PCM.DC.SUM ---
Discharge Date and Diagnosis - Problem List Patient Problems: Active and Suspected Problems (Last Reviewed 01/10/18 @ 10:31 by Sabrina Velez) Weakness (Acute) Ataxia (Acute) Date of Admission: 02/02/19 Date of Discharge: 02/03/19 - Primary Discharge Diagnosis Active and Suspected Problems (Last Reviewed 01/10/18 @ 10:31 by Sabrina Velez) Weakness (Acute) Ataxia (Acute) 1. acute influenza B start oseltamivir received a vaccination this year. 2. acute rhinovirus supportive mgmt 3. ataxia patient now states that he has been taking an allergy pill BID. Asked if it was Xyzal, he said he was unsure, but thinks so. work up thus far negative MRI brain negative This may have been a reaction to Xyzal, and have advised to discontinue the medication. i suspect his symptoms were attributable to his illness. - Secondary Discharge Diagnosis Chronic Problems (Last Reviewed 01/10/18 @ 10:31 by Sabrina Velez) Hyperlipemia (Chronic) Nonrheumatic aortic (valve) stenosis (Chronic) Aneurysm of ascending aorta (Chronic) Hospital Course and Treatment Imaging Results: 02/03/19 08:30 Brain without Contrast [MRI] Routine Clinical Impression(s) from Imaging Studies Brain CT 02/02/19 13:51 IMPRESSION: 1. No acute intracranial hemorrhage or mass effect. 2. Central parenchymal volume loss. White matter changes that are nonspecific but most commonly associated with chronic small vessel ischemic disease. Electronically Signed: Mello Coronado MD (Brooks) at 15:32 EST , Service support , Chest X-Ray 02/02/19 14:47 IMPRESSION: Stable, nonacute portable x-ray examination of the chest. Electronically Signed: Mello Coronado MD ([place]) at 15:41 EST , Service support , Brain MRI 02/03/19 08:30 IMPRESSION: No mass or mass effect. No restricted diffusion to suggest acute ischemia/edema. Age-appropriate moderate volume loss. Supratentorial white matter foci of T2 prolongation are nonspecific, however most commonly due to sequela of chronic small vessel ischemia. Electronically Signed: Deshaun South MD at 15:37 EST , Service support , Operations: None Procedures: 2-D Echocardiogram Summary of Care Provided: The patient is a 83 year old M presents with ataxia. Patient was brought in and underwent stroke work-up as well as infectious work-up. Patient was found to be positive for rhinovirus plus influenza B. Patient was started on Tamiflu. Patient stated that he has been taking an allergy pill twice a day does not seem to help. He did not know the allergy pill was offhand. I was doing his medication acceleration form and. That he is taking Xyzal which can cause hallucinations and somnolence. He thinks he may be taking that but he is unsure. I have advised him to discontinue that. Patient was seen by therapy and is doing well and patient has no further sequela and will be discharged home. [] Patient Problems: Active and Suspected Problems (Last Reviewed 01/10/18 @ 10:31 by Sabrina Velez) Weakness (Acute) Ataxia (Acute) - Physical Exam Vitals/I&O's: Vital Signs Temp Pulse Resp BP Pulse Ox 37.0 C 57 L 16 143/66 H 98 02/03/19 16:45 02/03/19 16:45 02/03/19 16:45 02/03/19 16:45 02/03/19 16:45 Oxygen Delivery Method Room Air Weight: 62.652 kg Body Mass Index (BMI) 23.7 Finger Stick Blood Glucose 93 Intake and Output for Last 24 Hours 02/01/19 02/02/19 02/03/19 23:59 23:59 23:59 Intake Total 1148.75 / 1148.75 1191.25 / 1191.25 Output Total 120 / 120 Balance 1148.75 / 1148.75 1071.25 / 1071.25 Microbiology Past 72 Hours 02/02/19 20:10 Mucosa - Nose Respiratory Panel (PCR) - Final Influenzae B Rhinovirus Laboratory Results 02/03/19 06:00: WBC 4.1 L, RBC 3.47 L, Hgb 11.4 L, Hct 33.6 L, MCV 96.8 H, MCH 32.9 H, MCHC 33.9, RDW Std Deviation 45.6 H, RDW Coeff of Obey 12.9, Plt Count 156, MPV 9.1, Immature Gran % (Auto) 0.200, Neut % (Auto) 47.7, Lymph % (Auto) 35.7, [place] % (Auto) 14.7 H, Eos % (Auto) 1.2, Baso % (Auto) 0.5, Absolute Neuts (auto) 2.0, Absolute Lymphs (auto) 1.48, Nucleated RBC % 0 02/03/19 06:00: Sodium 138, Potassium 3.5, Chloride 108 H, Carbon Dioxide 25.0, Anion Gap 5, BUN 10, Creatinine 0.94, Estim Creat Clear Calc 51.61, Est GFR (MDRD) Af Amer 99, Est GFR (MDRD) Non-Af 82, BUN/Creatinine Ratio 10.7, Glucose 87, Calcium 7.5 L, Triglycerides 68, Cholesterol 139, LDL Cholesterol 92, VLDL Cholesterol 14, HDL Cholesterol 33 L Current Medications Acetaminophen (Tylenol) 650 mg PO Q6H PRN PRN PRN Reason: Pain Score 1-10/Temp > 100.7 F Aspirin (Aspirin, Baby) 81 mg PO DAILY@0800 [facility] Last Admin: 02/03/19 09:48 Dose: 81 mg Documented by: Atorvastatin Calcium (Lipitor) 80 mg PO QHS [facility] Last Admin: 02/02/19 21:08 Dose: 80 mg Documented by: Doxazosin Mesylate (Cardura) 4 mg PO DAILY [facility] Last Admin: 02/03/19 09:47 Dose: 4 mg Documented by: Enoxaparin Sodium (Lovenox) 40 mg SC DAILY [facility] Last Admin: 02/03/19 09:48 Dose: 40 mg Documented by: Ergocalciferol (Vitamin D) 50,000 unit PO QWEEK [facility] Last Admin: 02/03/19 09:47 Dose: 50,000 unit Documented by: Sodium Chloride () 1,000 mls @ 75 mls/hr IV .[id number] [facility] Last Infusion: 02/03/19 12:45 Dose: 75 mls/hr Documented by: Sodium Chloride () 250 mls @ 15 mls/hr IV .[id number] PRN PRN Reason: Saline Flush Sodium Chloride () 250 mls @ 15 mls/hr IV .[id number] PRN PRN Reason: Additional IVPB Infusion Levothyroxine Sodium (Synthroid) 25 mcg PO DAILY@0600 [facility] Last Admin: 02/03/19 05:53 Dose: 25 mcg Documented by: Metoprolol Succinate (Toprol Xl (Beta Jumana)) 25 mg PO DAILY [facility] Last Admin: 02/03/19 09:47 Dose: 25 mg Documented by: Ondansetron HCl (Zofran) 4 mg IV Q8H PRN PRN PRN Reason: NAUSEA/VOMITING Oseltamivir Phosphate (Tamiflu) 30 mg PO BID [facility] Stop: 02/07/19 22:01 Last Admin: 02/03/19 16:42 Dose: 30 mg Documented by: Pyridoxine HCl (Vitamin B-6) 50 mg PO DAILY [facility] Last Admin: 02/03/19 09:47 Dose: 50 mg Documented by: Sodium Chloride () 10 - 40 ml IV UD PRN PRN Reason: SALINE FLUSH Discharge Diet: No Restrictions Discharge Activity: Return to Normal Activity Call your doctor if you observe: Fever of 101 or Higher, Shortness of breath Home Medications: Medications to take at Discharge Atorvastatin Calcium 40 mg PO DAILY 06/30/17 Levothyroxine Sodium 25 mcg PO DAILY 06/30/17 ergocalciferol (vitamin D2) 50,000 unit capsule 50,000 unit PO QWEEK 11/07/17 pyridoxine (vitamin B6) 50 mg tablet 50 mg PO DAILY 11/07/17 vitamin E (dl, acetate) 200 unit capsule 200 unit PO DAILY 11/07/17 doxazosin 4 mg tablet 4 mg PO DAILY 01/10/18 metoprolol succinate 25 mg tablet,extended release 24 hr 25 mg PO DAILY #90 tab 12/09/18 Allergy Shot SUBCUT QWEEK 02/02/19 Oseltamivir Phosphate [Tamiflu] 30 mg PO BID #9 cap 02/03/19 Following Prescrptions Were Given to Patient: Oseltamivir Phosphate [Tamiflu] 30 mg PO BID #9 cap Transmission Status: Pending to [facility] Primary Care Physician: Jose Staples Chi, MD [Primary Care Provider] - Within 1 Week Disposition: Home Minutes spent on discharge:: 40 Patient Condition:: Good Medical Necessity - Tobacco Use Smoking Status: Never smoker Meaningful Use Info Meaningful Use Diagnoses (Choose all that apply): None applicable Code Visit OBSV E&M: 05966 Observation care discharge
== END 2019-02-03 18:10 | disposition home or self-care (01) ==
LOC: ED 17:15 → MS3 17:43 → PCU 19:08
PROVIDERS: Admitting Provider Family Medicine; Emergency Provider Emergency Medicine; Family Provider Family Medicine Geriatric Medicine; PCP Family Medicine Geriatric Medicine
DX: J10.1 Influenza due to other identified influenza virus with other respiratory manifestations (principal); R27.0 Ataxia, unspecified; E78.5 Hyperlipidemia, unspecified; I10 Essential (primary) hypertension; N40.0 Benign prostatic hyperplasia without lower urinary tract symptoms; R47.81 Slurred speech; Z79.899 Other long term (current) drug therapy; Z87.891 Personal history of nicotine dependence; I71.2 Thoracic aortic aneurysm, without rupture; B97.89 Other viral agents as the cause of diseases classified elsewhere
CPT/HCPCS: 36415; 70450; 70551; 71045; 80048; 80053; 80061; 81001; 84484; 85025; 87633; 92610; 93005; 93306; 94762; 96360; 96361; 96372; 97162; 97166; 97802; 99218; 99285; J7030; A4216; G0378

== ENCOUNTER → 2019-02-13 07:42 | Outpatient (CLI) | payer MEDICARE, OTHER, SELFPAY ==
[2019-02-07 10:13] VITALS: BMI 22.4
--- NOTE | 2019-02-13 07:43 | CT_ITS ---
STUDY: CTA CHEST WITH CONTRAST REASON FOR EXAM: Male, 83 years old. Thoracic aortic aneurysm RADIATION DOSAGE (If Supplied By Facility): CTDIvol = ( 6.89 ) mGy, DLP = ( 265.76 ) mGycm TECHNIQUE: Transaxial imaging was performed following intravenous administration of 100 ml of 100mL Isovue-370 contrast material. Coronal and sagittal reformatted images were created. Individualized dose optimization techniques were used for this CT. COMPARISON: 11/12/2017 and 10/18/2015 FINDINGS: There are no pulmonary infiltrates or pleural effusions. There is a stable calcified granuloma in the left upper lobe. There is no pneumothorax. The heart and pericardium are within normal limits. There is no thoracic lymphadenopathy. There is a stable 4.4 x 4.3 cm aneurysm of the ascending aorta. The aortic arch and descending thoracic aorta are normal in caliber. There is no evidence of thoracic aortic dissection. There is no evidence of pulmonary embolus. Images through the upper abdomen demonstrate no significant abnormality. There are no destructive osseous lesions. CT/Chest WITH Contrast IMPRESSION: Stable 4.4 x 4.3 cm ascending aortic aneurysm. Electronically Signed: Parag Zimmerman, at 18:34 EST Tel , Service support ,
== END ==
PROVIDERS: Family Provider Family Medicine Geriatric Medicine; PCP Family Medicine Geriatric Medicine; Referring Provider Internal Medicine Cardiovascular Disease; Visit Provider Internal Medicine Cardiovascular Disease
DX: I71.2 Thoracic aortic aneurysm, without rupture (principal)
CPT/HCPCS: 71260; Q9967

== ENCOUNTER → 2019-07-17 14:04 | Outpatient (CLI) | payer MEDICARE, OTHER, SELFPAY ==
[2019-07-17 14:04] VITALS: BMI 23.0
[2019-07-17 15:48] LABS: Absolute Lymphocyte Count 2.04 X10^3/uL (0.83-4.51); Absolute Neutrophil Count 3.3 X10^3/uL (2.0-7.7); Basophil# 0.05 X10^3/uL; Basophil% 0.8 % (0-1); Eosinophil# 0.18 X10^3/uL; Eosinophils% 2.9 % (0-5); Hematocrit 42.3 % (40-54); Hemoglobin 14.1 g/dL (13.0-16.5); Lymphocyte # 2.04 X10^3/ul (4.0); Lymphocyte % 33.3 % (19-41); Mean Corp Hgb Conc 33.3 g/dL (32-36); Mean Corpuscular Hgb 32.4 pg (27.0-32.0); Mean Corpuscular Volume 97.2 fL (80-94); Mean Platelet Vol. 9.5 fl (6.2-12.0); Monocyte# 0.54 X10^3/uL; Monocyte% 8.8 % (0-10); NRBC Flagged by Analyzer 0 % (0-5); Platelet Count 237 K/mm3 (150-450); RBC Distribution Width CV 12.4 % (11.6-14.6); RBC Distribution Width SD 44.8 fl (35.1-43.9); Red Blood Count 4.35 M/mm3 (4.6-6.2); White Blood Count 6.1 K/mm3 (4.4-11.0)
[2019-07-17 16:02] LABS: Vitamin D,25 Hydroxy 36.7 ng/mL
[2019-07-17 16:06] LABS: ALB/GLOB Ratio 0.9 RATIO (0.9-2.4); AST(SGOT) 17 U/L (15-37); Alanine Aminotransfer ALT/SGPT 20 U/L (16-61); Albumin, Serum 3.4 g/dL (3.2-5.0); Alkaline Phosphatase 74 U/L (45-117); Anion Gap 6 (5-15); BUN 13 mg/dL (7-18); BUN/Creat Ratio 11.9 RATIO (10-20); Calcium,Total 8.8 mg/dL (8.5-10.1); Chloride 107 mmol/L (98-107); Creatinine, Serum 1.09 mg/dL (0.70-1.30); EST Glomerular Filtration Rate 69 mL/min (>60); Est Glom Filt Rate - Afr Amer 83 mL/min (>60); Globulin 3.9 g/dL (2.2-4.2); Glucose 105 mg/dL (74-106); Potassium 3.9 mmol/L (3.5-5.1); Protein, Total 7.3 g/dL (6.4-8.2); Sodium Level 142 mmol/L (136-145); Thyroid Stim Hormone (TSH) 2.51 uIU/mL (0.358-3.74)
== END ==
PROVIDERS: PCP Family Medicine Geriatric Medicine; Visit Provider Family Medicine Geriatric Medicine
DX: I10 Essential (primary) hypertension (principal); E55.9 Vitamin D deficiency, unspecified
CPT/HCPCS: 36415; 80053; 82306; 84443; 85025

== ENCOUNTER 2019-09-16 23:55 | Emergency (ER) | payer MEDICARE, OTHER, SELFPAY ==
[2019-07-17 14:04] VITALS: BMI 23.0
[2019-09-16 23:55] VITALS: BP 146/75; PULSE 68; RESP 16; TEMP 36; O2SAT 99; BMI 20.6
--- NOTE | 2019-09-17 01:45 | CT_ITS ---
STUDY: CT BRAIN WITHOUT CONTRAST REASON FOR EXAM: Male, 83 years old. DIZZINESS, DIARRHEA, EMESIS X 2 DAYS RADIATION DOSAGE (If Supplied By Facility): CTDIvol = ( 44.99 ) mGy, DLP = ( 796.11 ) mGycm TECHNIQUE: Transaxial CT imaging of the brain was performed without administration of intravenous contrast material. Individualized dose optimization techniques were used for this CT. COMPARISON: 02/02/2019. FINDINGS: Normal soft tissue structures. Normal calvarium. There is mild cerebral atrophy with widening of the extra-axial spaces and ventricular dilatation. There are areas of decreased attenuation within the white matter tracts of the supratentorial brain, consistent with microvascular disease changes. There are calcifications of the basal ganglia which are seen in the aging brain as a normal variant. Normal brainstem. There is mild cerebellar atrophy. There is atherosclerotic calcification of the cavernous carotid arteries. There is no intracranial hemorrhage. There are no findings of an acute ischemic infarction. Normal visualized paranasal sinuses. CT/Brain/Head without Contrast IMPRESSION: Chronic involutional changes of the brain. No demonstrated acute intracranial process. Electronically Signed: Isaac Thomas MD at 4:17 EDT , Service support ,
[2019-09-17] MEDS: Ondansetron 4 MG/2 ML Vial IV (02:05)
[2019-09-17 02:19] LABS: Absolute Lymphocyte Count 1.25 X10^3/uL (0.83-4.51); Absolute Neutrophil Count 8.3 X10^3/uL (2.0-7.7); Basophil# 0.05 X10^3/uL; Basophil% 0.5 % (0-1); Eosinophil# 0.05 X10^3/uL; Eosinophils% 0.5 % (0-5); Hematocrit 42.4 % (40-54); Hemoglobin 14.8 g/dL (13.0-16.5); Lymphocyte # 1.25 X10^3/ul (4.0); Mean Corp Hgb Conc 34.9 g/dL (32-36); Mean Corpuscular Hgb 32.8 pg (27.0-32.0); Monocyte# 0.76 X10^3/uL; Monocyte% 7.3 % (0-10); NRBC Flagged by Analyzer 0 % (0-5); Neutrophil # 8.27 X10^3/uL (2.7-7.7); Neutrophil % 79.4 % (47-70); Platelet Count 238 K/mm3 (150-450); RBC Distribution Width CV 12.2 % (11.6-14.6); RBC Distribution Width SD 42.5 fl (35.1-43.9); Red Blood Count 4.51 M/mm3 (4.6-6.2); White Blood Count 10.4 K/mm3 (4.4-11.0)
[2019-09-17 02:36] LABS: ALB/GLOB Ratio 0.9 RATIO (0.9-2.4); AST(SGOT) 17 U/L (15-37); Alanine Aminotransfer ALT/SGPT 20 U/L (16-61); Albumin, Serum 3.4 g/dL (3.2-5.0); Alkaline Phosphatase 68 U/L (45-117); Anion Gap 5 (5-15); BUN 11 mg/dL (7-18); BUN/Creat Ratio 10.8 RATIO (10-20); Calcium,Total 9.1 mg/dL (8.5-10.1); Chloride 110 mmol/L (98-107); Creatinine, Serum 1.02 mg/dL (0.70-1.30); EST Glomerular Filtration Rate 74 mL/min (>60); Est Glom Filt Rate - Afr Amer 90 mL/min (>60); Estimated Creatinine Clearance 46.64 ml/min; Globulin 3.8 g/dL (2.2-4.2); Glucose 128 mg/dL (74-106); Lipase 95 U/L (73-393); Potassium 3.6 mmol/L (3.5-5.1); Protein, Total 7.2 g/dL (6.4-8.2); Sodium Level 142 mmol/L (136-145)
[2019-09-17 02:42] LABS: Bacteria 0 SEEN /hpf (None Seen); Mucous, Urine 0 SEEN /hpf (<or=2+); Squamous Epithelial Cells - UA 0 SEEN /hpf (0-5); White Blood Cells 0 SEEN /hpf (0-5)
[2019-09-17 02:45] VITALS: BP 141/64; PULSE 66; RESP 16; TEMP 36.6; O2SAT 97
[2019-09-17 02:50] LABS: Color, Urine Yellow (Yellow); Glucose, Dipstick 50 mg/dl (Normal); Ketone-Dipstick 50 mg/dl (Negative); Leukocyte Esterase-Dipstick Negative /ul (Negative); Nitrite-Dipstick Negative (Negative); Occult Blood-Urine 10 /ul (Negative); Protein-Dipstick 30 mg/dl (Negative); Urine Bilirubin Dipstick Negative (Negative); Urine Clarity Clear (Clear); Urine Urobilinogen Normal (Normal)
[2019-09-17 03:00] LABS: Red Blood Cells-Urine 0-5 SEEN /hpf (0-5)
--- NOTE | 2019-09-17 04:19 | ED.DCSUM_ITS ---
- ER Visit Summary Date of Service: 09/17/19 Chief Complaint: Vomiting History of Present Illness: The patient is a 83 M who has nausea and vomiting. It started yesterday. He states that he has no abdominal pain with this. He has vomited multiple times at home. He is also been having some diarrhea. He denies any urinary symptoms. No fevers. He states that his head felt weird while sitting in triage. He denies any room spinning sensation. No history of vertigo. He took nothing for this at home. Nobody else is sick with any similar symptoms. No exposure to coronavirus Physical Examination: Vital signs reviewed. HEENT exam unremarkable except for some slight nystagmus to the left. Heart is regular rate and rhythm without murmurs. Lungs are clear to auscultation. Abdomen is soft and nontender. Extremities reveal no edema. Skin exam normal. Neurologic exam normal. Test Results: Laboratory studies unremarkable aside for glucose of 128. CAT scan of the head unremarkable. Emergency Department Course and Treatment: She was given IV fluids and Zofran. Upon reevaluation he is symptomatically improved. He may have a gastroenteritis causing the symptoms. I doubt that this is vertigo. He is feeling much better. I will give him Zofran ODT to take at home. He will follow-up with his PCP. Treatment Plan: [] Disposition: Discharge Impression: Nausea and vomiting This note was generated with [email or web address] dictation software. It may contain incorrect words, spelling, and punctuation that were not noted in review of the chart pr ior to signing ED Disposition - Plan for ED Patient: Disposition: Home or Assisted Living Instructions: ED Diet for Vomiting or Diarrhea Adult Prescriptions: Ondansetron [Zofran Odt] 8 mg PO Q8H PRN PRN #20 tab PRN Reason: Nausea Transmission Status: Pending to [id number] Referrals: Jose Staples Chi, MD [Primary Care Provider] -
[2019-09-17 04:46] VITALS: BP 141/65; PULSE 85; RESP 16; O2SAT 99
== END 2019-09-17 04:46 | disposition home or self-care (01) ==
PROVIDERS: Emergency Provider Emergency Medicine; PCP Family Medicine Geriatric Medicine
DX: R11.2 Nausea with vomiting, unspecified (principal); R19.7 Diarrhea, unspecified; I10 Essential (primary) hypertension; F03.90 Unspecified dementia, unspecified severity, without behavioral disturbance, psychotic disturbance, mood disturbance, and anxiety; N40.0 Benign prostatic hyperplasia without lower urinary tract symptoms; Z79.899 Other long term (current) drug therapy
CPT/HCPCS: 70450; 80053; 81001; 83690; 85025; 96361; 96374; 99283; J7030; A4216; J2405

== ENCOUNTER → 2019-10-15 13:59 | Outpatient (CLI) | payer MEDICARE, OTHER, SELFPAY ==
[2019-09-16 23:55] VITALS: BMI 20.6
[2019-10-15 15:07] LABS: Absolute Lymphocyte Count 2.13 X10^3/uL (0.83-4.51); Absolute Neutrophil Count 3.8 X10^3/uL (2.0-7.7); Basophil# 0.07 X10^3/uL; Basophil% 1.1 % (0-1); Eosinophil# 0.12 X10^3/uL; Eosinophils% 1.8 % (0-5); Hematocrit 41.8 % (40-54); Hemoglobin 14.2 g/dL (13.0-16.5); Lymphocyte # 2.13 X10^3/ul (4.0); Lymphocyte % 32.2 % (19-41); Mean Corpuscular Hgb 32.2 pg (27.0-32.0); Mean Corpuscular Volume 94.8 fL (80-94); Mean Platelet Vol. 9.8 fl (6.2-12.0); Monocyte# 0.48 X10^3/uL; Monocyte% 7.3 % (0-10); NRBC Flagged by Analyzer 0 % (0-5); Neutrophil % 57.4 % (47-70); Platelet Count 240 K/mm3 (150-450); RBC Distribution Width CV 12.2 % (11.6-14.6); RBC Distribution Width SD 42.4 fl (35.1-43.9); Red Blood Count 4.41 M/mm3 (4.6-6.2); White Blood Count 6.6 K/mm3 (4.4-11.0)
[2019-10-15 15:53] LABS: ALB/GLOB Ratio 0.9 RATIO (0.9-2.4); AST(SGOT) 20 U/L (15-37); Alanine Aminotransfer ALT/SGPT 21 U/L (16-61); Albumin, Serum 3.5 g/dL (3.2-5.0); Alkaline Phosphatase 83 U/L (45-117); Anion Gap 6 (5-15); BUN 13 mg/dL (7-18); BUN/Creat Ratio 11.4 RATIO (10-20); Chloride 107 mmol/L (98-107); Creatinine, Serum 1.14 mg/dL (0.70-1.30); EST Glomerular Filtration Rate 65 mL/min (>60); Est Glom Filt Rate - Afr Amer 79 mL/min (>60); Globulin 3.8 g/dL (2.2-4.2); Glucose 136 mg/dL (74-106); Potassium 3.7 mmol/L (3.5-5.1); Protein, Total 7.3 g/dL (6.4-8.2); Sodium Level 141 mmol/L (136-145); Thyroid Stim Hormone (TSH) 2.49 uIU/mL (0.358-3.74)
[2019-10-15 16:54] LABS: Vitamin D,25 Hydroxy 34.5 ng/mL
== END ==
PROVIDERS: PCP Family Medicine Geriatric Medicine; Visit Provider Family Medicine Geriatric Medicine
DX: I10 Essential (primary) hypertension (principal); E55.9 Vitamin D deficiency, unspecified
CPT/HCPCS: 36415; 80053; 82306; 84443; 85025

== ENCOUNTER → 2020-01-14 13:20 | Outpatient (CLI) | payer MEDICARE, OTHER, SELFPAY ==
[2020-01-14 17:01] LABS: Absolute Lymphocyte Count 2.53 X10^3/uL (0.83-4.51); Absolute Neutrophil Count 3.3 X10^3/uL (2.0-7.7); Basophil# 0.06 X10^3/uL; Basophil% 0.9 % (0-1); Eosinophil# 0.18 X10^3/uL; Eosinophils% 2.7 % (0-5); Hematocrit 43.3 % (40-54); Hemoglobin 14.8 g/dL (13.0-16.5); Lymphocyte # 2.53 X10^3/ul (4.0); Lymphocyte % 37.8 % (19-41); Mean Corp Hgb Conc 34.2 g/dL (32-36); Mean Corpuscular Hgb 32.8 pg (27.0-32.0); Mean Platelet Vol. 9.8 fl (6.2-12.0); Monocyte# 0.57 X10^3/uL; Monocyte% 8.5 % (0-10); NRBC Flagged by Analyzer 0 % (0-5); Neutrophil # 3.33 X10^3/uL (2.7-7.7); Neutrophil % 49.8 % (47-70); Platelet Count 257 K/mm3 (150-450); RBC Distribution Width CV 12.3 % (11.6-14.6); RBC Distribution Width SD 43.8 fl (35.1-43.9); Red Blood Count 4.51 M/mm3 (4.6-6.2); White Blood Count 6.7 K/mm3 (4.4-11.0)
[2020-01-14 17:14] LABS: Vitamin D,25 Hydroxy 23.5 ng/mL
[2020-01-14 17:22] LABS: ALB/GLOB Ratio 0.9 RATIO (0.9-2.4); AST(SGOT) 18 U/L (15-37); Alanine Aminotransfer ALT/SGPT 23 U/L (16-61); Albumin, Serum 3.4 g/dL (3.2-5.0); Alkaline Phosphatase 85 U/L (45-117); Anion Gap 4 (5-15); BUN 15 mg/dL (7-18); BUN/Creat Ratio 13.3 RATIO (10-20); Calcium,Total 8.8 mg/dL (8.5-10.1); Chloride 108 mmol/L (98-107); Creatinine, Serum 1.13 mg/dL (0.70-1.30); EST Glomerular Filtration Rate 66 mL/min (>60); Est Glom Filt Rate - Afr Amer 80 mL/min (>60); Globulin 3.8 g/dL (2.2-4.2); Glucose 113 mg/dL (74-106); Potassium 4.2 mmol/L (3.5-5.1); Protein, Total 7.2 g/dL (6.4-8.2); Sodium Level 142 mmol/L (136-145); Thyroid Stim Hormone (TSH) 2.87 uIU/mL (0.358-3.74)
== END ==
PROVIDERS: PCP Family Medicine Geriatric Medicine; Visit Provider Family Medicine Geriatric Medicine
DX: R51.9 Headache, unspecified (principal); R53.83 Other fatigue; E55.9 Vitamin D deficiency, unspecified
CPT/HCPCS: 36415; 70450; 80053; 82306; 84443; 85025

== ENCOUNTER → 2020-01-14 15:10 | Outpatient (CLI) | payer MEDICARE, OTHER, SELFPAY ==
--- NOTE | 2020-01-14 15:15 | CT_ITS ---
STUDY: CT BRAIN WITHOUT CONTRAST REASON FOR EXAM: Male, 84 years old. HEADACHE X 2 DAYS RADIATION DOSAGE (If Supplied By Facility): CTDIvol = ( 44.99 ) mGy, DLP = ( 796.11 ) mGycm TECHNIQUE: Transaxial CT imaging of the brain was performed without administration of intravenous contrast material. Individualized dose optimization techniques were used for this CT. COMPARISON: Comparison is made with prior examination in 09/17/2019. FINDINGS: Normal soft tissue structures. Normal calvarium. There is mild cerebral atrophy with widening of the extra-axial spaces and ventricular dilatation. There are areas of decreased attenuation within the white matter tracts of the supratentorial brain, consistent with microvascular disease changes. Normal basal ganglia and thalami. Normal brainstem. Normal cerebellum. There is no intracranial hemorrhage. There are no findings of an acute ischemic infarction. Atherosclerotic plaque formation of the cavernous portions of the internal carotid arteries bilaterally. Normal visualized paranasal sinuses. CT/Brain/Head without Contrast IMPRESSION: Chronic involutional changes of the brain. Electronically Signed: Frank Ovalle, at 15:43 EST , Service support ,
== END ==
PROVIDERS: PCP Family Medicine Geriatric Medicine; Referring Provider Family Medicine Geriatric Medicine; Visit Provider Family Medicine Geriatric Medicine
DX: R51.9 Headache, unspecified (principal)
CPT/HCPCS: 70450

== ENCOUNTER → 2020-02-05 14:33 | Outpatient (CLI) | payer MEDICARE, OTHER, SELFPAY ==
--- NOTE | 2020-02-05 14:36 | RAD_ITS ---
STUDY: X-RAY - ABDOMEN/PELVIS REASON FOR EXAM: Male, 84 years old. diarrhea TECHNIQUE: AP supine and upright views of the abdomen and pelvis. COMPARISON: None. FINDINGS: Normal visualized lung bases. There is an unremarkable bowel gas pattern. There is no demonstrated free abdominal air. The visualized liver, spleen and kidneys are grossly normal in size and morphology. Normal soft tissue structures. Normal visualized osseous structures. RAD/Abd Inc Decub and/or Erect IMPRESSION: Normal x-ray examination of the abdomen and pelvis. Electronically Signed: Luis A Ramos MD at 14:58 EST Tel , Service support ,
== END ==
PROVIDERS: PCP Family Medicine Geriatric Medicine; Referring Provider Family Medicine Geriatric Medicine; Visit Provider Family Medicine Geriatric Medicine
DX: R19.7 Diarrhea, unspecified (principal)
CPT/HCPCS: 74019

== ENCOUNTER → 2020-02-16 12:55 | Outpatient (CLI) | payer MEDICARE, OTHER, SELFPAY ==
[2020-02-09 10:01] VITALS: BMI 21.8
--- NOTE | 2020-02-16 12:58 | ECHOD_ITS ---
Reason For Study: MURMUR Procedure This was a 2D Doppler, Color Flow transthoracic echocardiogram. The study was technically difficult. Exam performed in department. Left Ventricle Normal LV size. Left ventricular systolic function is normal. The estimated ejection fraction is 65 %. Diastolic function is indeterminate. No regional wall motion abnormalities noted. Right Ventricle Normal RV size. Normal systolic function. Atria The left atrium is mildly enlarged. Normal right atrium. No doppler evidence for ASD. Mitral Valve There is mild mitral annular calcification. Normal mitral valve. Mild (1+) mitral valve insufficiency. Tricuspid Valve Normal tricuspid valve. Mild tricuspid valve insufficiency. Right ventricular systolic pressure estimated to be 30 mmHg. Aortic Valve Trisinus/trileaflet aortic valve. Mild diffuse aortic valve thickening. Mild focal aortic valve calcification. Aortic sclerosis/mild aortic valve stenosis. Mild-Moderate (1-2+) aortic valve insufficiency. Pulmonic Valve The pulmonic valve is not well visualized. Great Vessels The aortic root is not well visualized. Pericardium/Pleural No pericardial effusion. MMode/2D Measurements & Calculations LVIDd: 4.3 cm IVSd: 0.89 cm LVOT diam: 2.0 cm LVIDs: 2.9 cm LVPWd: 0.94 cm LVOT area: 3.2 cm2 RVDd: 3.0 cm FS: 32.1 % LAV(MOD-bp): 45.7 ml LA A4 area: 14.8 cm2 LA dimension(2D): 3.5 cm LAV(MOD-bp) Indexed: 28.4 ml/m2 LAV(MOD-sp2): 46.9 ml LAV(MOD-sp4): 38.4 ml RA A4 area: 13.3 cm2 Time Measurements MV dec time: 0.24 sec Doppler Measurements & Calculations MV E max bruno: 70.2 cm/sec Lat Peak E' Bruno: 5.0 cm/sec Med Peak E' Bruno: 3.5 cm/sec MV A max bruno: 94.3 cm/sec E/E' lat: 13.9 E/E' med: 20.1 MV E/A: 0.74 Ao V2 max: 213.3 cm/sec AI max bruno: 462.9 cm/sec LV V1 max: 138.6 cm/sec Ao max P.4 mmHg AI max P.3 mmHg LV V1 max P.7 mmHg Ao V2 mean: 137.6 cm/sec AI dec slope: 256.6 cm/sec2 LV V1 mean P.6 mmHg Ao mean P.7 mmHg AI P1/2t: 528.5 msec LV V1 mean: 89.1 cm/sec Ao V2 VTI: 46.8 cm LV V1 VTI: 30.6 cm ZIA(I,D): 2.1 cm2 ZIA(V,D): 2.1 cm2 SV(LVOT): 97.2 ml PA V2 max: 93.7 cm/sec TR max bruno: 257.3 cm/sec TR max P.5 mmHg Interpretation Summary The study was technically difficult. Left ventricular systolic function is normal. The estimated ejection fraction is 65 %. The left atrium is mildly enlarged. There is mild mitral annular calcification. Mild (1+) mitral valve insufficiency. Mild tricuspid valve insufficiency. Aortic sclerosis/mild aortic valve stenosis. Mild-Moderate (1-2+) aortic valve insufficiency. Right ventricular systolic pressure estimated to be 30 mmHg. Diastolic function is indeterminate. Ordering Physician: Teo Valentine Referring Physician: Jose Staples Chi Performed By: Nazia Genao, YOSEF, RVT
--- NOTE | 2020-02-16 13:48 | CT_ITS ---
STUDY: CT CHEST WITH CONTRAST REASON FOR EXAM: Male, 84 years old. TAA- FOLLOW UP RADIATION DOSAGE (If Supplied By Facility): CTDIvol = ( 12.89 ) mGy, DLP = ( 370.12 ) mGycm TECHNIQUE: Transaxial imaging was performed following intravenous administration of IV 100mL Isovue-370. Multiplanar coronal and sagittal images were reformatted. Individualized dose optimization techniques were used for this CT. COMPARISON: Comparison is made with prior examination dated 02/13/2019. FINDINGS: Stable mild linear scarring at the lung bases. There is no demonstrated pleural abnormality. Normal heart and pericardium. Normal mediastinum. Normal hilar regions. Normal enhanced pulmonary arteries. Aneurysmal dilatation of the root of the ascending thoracic aorta. The presently measures 43.7 mm. This is essentially unchanged. There are multi-level degenerative changes of the thoracic spine. There is no demonstrated abnormality of the visualized upper abdomen. CT/Chest WITH Contrast IMPRESSION: Stable aneurysmal dilatation of the ascending thoracic aorta with a transverse dimension of 43.7 mm. Electronically Signed: Frank Ovalle, at 14:36 EST , Service support ,
== END ==
PROVIDERS: PCP Family Medicine Geriatric Medicine; Referring Provider Internal Medicine Cardiovascular Disease; Visit Provider Internal Medicine Cardiovascular Disease
DX: I35.0 Nonrheumatic aortic (valve) stenosis (principal); I71.2 Thoracic aortic aneurysm, without rupture
CPT/HCPCS: 71260; 93306; Q9967

== ENCOUNTER 2020-03-05 08:58 | Outpatient (RCR) | payer MEDICARE, OTHER, SELFPAY ==
[2020-02-09 10:01] VITALS: BMI 21.8
== END 2020-03-05 23:59 ==
LOC: IMMUN 08:58
PROVIDERS: PCP Family Medicine Geriatric Medicine; Visit Provider Family Medicine
DX: Z23 Encounter for immunization (principal)
CPT/HCPCS: 0011A; 0012A

== ENCOUNTER → 2020-04-14 15:29 | Outpatient (CLI) | payer MEDICARE, OTHER, SELFPAY ==
[2020-02-09 10:01] VITALS: BMI 21.8
[2020-04-14 17:28] LABS: Absolute Lymphocyte Count 2.22 X10^3/uL (0.83-4.51); Absolute Neutrophil Count 3.9 X10^3/uL (2.0-7.7); Basophil# 0.06 X10^3/uL; Basophil% 0.9 % (0-1); Eosinophils% 2.8 % (0-5); Hematocrit 42.1 % (40-54); Hemoglobin 14.3 g/dL (13.0-16.5); Lymphocyte # 2.22 X10^3/ul (4.0); Lymphocyte % 31.6 % (19-41); Mean Corpuscular Hgb 32.9 pg (27.0-32.0); Mean Corpuscular Volume 96.8 fL (80-94); Mean Platelet Vol. 9.4 fl (6.2-12.0); Monocyte# 0.67 X10^3/uL; Monocyte% 9.5 % (0-10); NRBC Flagged by Analyzer 0 % (0-5); Neutrophil # 3.85 X10^3/uL (2.7-7.7); Neutrophil % 54.9 % (47-70); Platelet Count 317 K/mm3 (150-450); RBC Distribution Width CV 12.8 % (11.6-14.6); RBC Distribution Width SD 45.9 fl (35.1-43.9); Red Blood Count 4.35 M/mm3 (4.6-6.2)
[2020-04-14 17:45] LABS: Vitamin D,25 Hydroxy 30.7 ng/mL
[2020-04-14 17:59] LABS: ALB/GLOB Ratio 0.8 RATIO (0.9-2.4); AST(SGOT) 17 U/L (15-37); Alanine Aminotransfer ALT/SGPT 21 U/L (16-61); Albumin, Serum 3.4 g/dL (3.2-5.0); Alkaline Phosphatase 72 U/L (45-117); Anion Gap 6 (5-15); BUN 13 mg/dL (7-18); BUN/Creat Ratio 8.2 RATIO (10-20); Calcium,Total 8.9 mg/dL (8.5-10.1); Chloride 107 mmol/L (98-107); Creatinine, Serum 1.59 mg/dL (0.70-1.30); EST Glomerular Filtration Rate 45 mL/min (>60); Est Glom Filt Rate - Afr Amer 54 mL/min (>60); Glucose 93 mg/dL (74-106); Potassium 4.2 mmol/L (3.5-5.1); Protein, Total 7.4 g/dL (6.4-8.2); Sodium Level 142 mmol/L (136-145); Thyroid Stim Hormone (TSH) 2.02 uIU/mL (0.358-3.74)
== END ==
PROVIDERS: PCP Family Medicine Geriatric Medicine; Visit Provider Family Medicine Geriatric Medicine
DX: I10 Essential (primary) hypertension (principal); E55.9 Vitamin D deficiency, unspecified
CPT/HCPCS: 36415; 80053; 82306; 84443; 85025

== ENCOUNTER → 2020-07-20 15:14 | Outpatient (CLI) | payer MEDICARE, OTHER, SELFPAY ==
[2020-02-09 10:01] VITALS: BMI 21.8
[2020-07-20 16:49] LABS: Absolute Lymphocyte Count 1.28 X10^3/uL (0.83-4.51); Basophil# 0.04 X10^3/uL; Basophil% 0.5 % (0-1); Hematocrit 45.7 % (40-54); Hemoglobin 15.5 g/dL (13.0-16.5); Lymphocyte # 1.28 X10^3/ul (0.83-4.51); Lymphocyte % 16.7 % (19-41); Mean Corp Hgb Conc 33.9 g/dL (32-36); Mean Corpuscular Hgb 32.2 pg (27.0-32.0); Mean Platelet Vol. 9.4 fl (6.2-12.0); Monocyte# 0.33 X10^3/uL; Monocyte% 4.3 % (0-10); NRBC Flagged by Analyzer 0 % (0-5); Neutrophil # 5.97 X10^3/uL (2.7-7.7); Neutrophil % 77.8 % (47-70); Platelet Count 292 K/mm3 (150-450); RBC Distribution Width CV 12.5 % (11.6-14.6); RBC Distribution Width SD 43.9 fl (35.1-43.9); Red Blood Count 4.81 M/mm3 (4.6-6.2); White Blood Count 7.7 K/mm3 (4.4-11.0)
[2020-07-20 17:02] LABS: Vitamin D,25 Hydroxy 29.6 ng/mL
[2020-07-20 17:07] LABS: ALB/GLOB Ratio 0.9 RATIO (0.9-2.4); AST(SGOT) 19 U/L (15-37); Alanine Aminotransfer ALT/SGPT 41 U/L (16-61); Albumin, Serum 3.7 g/dL (3.2-5.0); Alkaline Phosphatase 84 U/L (45-117); Anion Gap 7 (5-15); BUN 20 mg/dL (7-18); Calcium,Total 9.1 mg/dL (8.5-10.1); Chloride 104 mmol/L (98-107); Creatinine, Serum 1.25 mg/dL (0.70-1.30); EST Glomerular Filtration Rate 59 mL/min (>60); Est Glom Filt Rate - Afr Amer 71 mL/min (>60); Globulin 4.1 g/dL (2.2-4.2); Glucose 134 mg/dL (74-106); Potassium 4.1 mmol/L (3.5-5.1); Protein, Total 7.8 g/dL (6.4-8.2); Sodium Level 140 mmol/L (136-145); Thyroid Stim Hormone (TSH) 1.51 uIU/mL (0.358-3.74)
== END ==
PROVIDERS: PCP Family Medicine Geriatric Medicine; Visit Provider Family Medicine Geriatric Medicine
DX: E55.9 Vitamin D deficiency, unspecified (principal); I10 Essential (primary) hypertension
CPT/HCPCS: 36415; 80053; 82306; 84443; 85025

== ENCOUNTER → 2020-09-01 08:04 | Outpatient (CLI) | payer MEDICARE, OTHER, SELFPAY ==
[2020-02-09 10:01] VITALS: BMI 21.8
[2020-09-01 09:25] LABS: Absolute Lymphocyte Count 2.52 X10^3/uL (0.83-4.51); Absolute Neutrophil Count 3.1 X10^3/uL (2.0-7.7); Basophil# 0.05 X10^3/uL; Basophil% 0.8 % (0-1); Eosinophil# 0.18 X10^3/uL; Eosinophils% 2.9 % (0-5); Hematocrit 44.1 % (40-54); Hemoglobin 15.1 g/dL (13.0-16.5); Lymphocyte # 2.52 X10^3/ul (0.83-4.51); Lymphocyte % 40.1 % (19-41); Mean Corp Hgb Conc 34.2 g/dL (32-36); Mean Corpuscular Hgb 32.5 pg (27.0-32.0); Mean Platelet Vol. 9.1 fl (6.2-12.0); Monocyte# 0.42 X10^3/uL; Monocyte% 6.7 % (0-10); NRBC Flagged by Analyzer 0 % (0-5); Neutrophil # 3.08 X10^3/uL (2.7-7.7); Platelet Count 232 K/mm3 (150-450); RBC Distribution Width CV 12.8 % (11.6-14.6); RBC Distribution Width SD 44.5 fl (35.1-43.9); Red Blood Count 4.64 M/mm3 (4.6-6.2); White Blood Count 6.3 K/mm3 (4.4-11.0)
[2020-09-01 10:09] LABS: ALB/GLOB Ratio 0.8 RATIO (0.9-2.4); AST(SGOT) 18 U/L (15-37); Alanine Aminotransfer ALT/SGPT 27 U/L (16-61); Albumin, Serum 3.4 g/dL (3.2-5.0); Alkaline Phosphatase 63 U/L (45-117); Anion Gap 6 (5-15); BUN 12 mg/dL (7-18); BUN/Creat Ratio 11.7 RATIO (10-20); Calcium,Total 8.7 mg/dL (8.5-10.1); Chloride 107 mmol/L (98-107); Creatinine, Serum 1.03 mg/dL (0.70-1.30); EST Glomerular Filtration Rate 73 mL/min (>60); Est Glom Filt Rate - Afr Amer 89 mL/min (>60); Glucose 132 mg/dL (74-106); Potassium 3.6 mmol/L (3.5-5.1); Protein, Total 7.4 g/dL (6.4-8.2); Sodium Level 140 mmol/L (136-145); Thyroid Stim Hormone (TSH) 2.85 uIU/mL (0.358-3.74)
== END ==
PROVIDERS: PCP Family Medicine; Referring Provider Family Medicine; Visit Provider Family Medicine
DX: I10 Essential (primary) hypertension (principal); E03.9 Hypothyroidism, unspecified
CPT/HCPCS: 36415; 80053; 84443; 85025

== ENCOUNTER 2020-09-01 16:40 | Observation (INO) | payer MEDICARE, OTHER, SELFPAY ==
[2020-02-09 10:01] VITALS: BMI 21.8
[2020-09-01 16:41] VITALS: BP 131/79; PULSE 70; RESP 16; TEMP 36.5; O2SAT 98; BMI 21.3
--- NOTE | 2020-09-01 17:31 | EKG12_ITS ---
Test Reason : SYNCOPE Blood Pressure : / mmHG Vent. Rate : 064 BPM Atrial Rate : 064 BPM P-R Int : 168 ms QRS Dur : 084 ms QT Int : 430 ms P-R-T Axes : 025 -22 042 degrees QTc Int : 443 ms Normal sinus rhythm Normal ECG Confirmed by MELINDA SCHAFFER, NARDA ([id number]), editor publications MADDY RODRIGUES ([id number]) on 09/06/2020 9:00:22 AM Referred By: JUMA Confirmed By:PAT LAWRENCE MD
--- NOTE | 2020-09-01 17:31 | EX.ED.DYSGE1 ---
HPI History of Present Illness Chief Complaint: Syncope Informant: patient and spouse/S.O. Narrative Narrative: Very pleasant 84-year-old male presents to the emergency department following a syncopal episode. states that today he was sitting in a chair when he began to appear pale and his arms and his legs stiffened and he was not responsive. Patient states I believe I know what was going on the whole time but I am not sure. No loss of bowel or bladder control. The episode lasted about 25- 30 seconds and when he came to he was nauseous and vomited. At that time he also felt like he needed to have a bowel movement. He tells me that before this happened he felt his heart beating funny. He had a similar episode last week and he thought that perhaps it was vertigo so he went to see ENT who recommended that if it happened again he come to emergency. He notes a history of an ascending thoracic aneurysm. Which is followed locally with cardiology and he states it has not grown. Review of cardiology notes states that his aneurysm is stable 4.4 x 4.3 cm. He also has a history of hyperlipidemia and nonrheumatic aortic valve stenosis. [facility] Medical History Alzheimers disease Aneurysm of ascending aorta BPH (benign prostatic hyperplasia) Diverticulosis Hyperlipemia Nonrheumatic aortic (valve) stenosis Home Medications levothyroxine 25 mcg PO DAILY 06/30/17 [History Last Taken 09/01/20] doxazosin 4 mg tablet 4 mg PO DAILY 01/10/18 [History Last Taken 08/31/20] metoprolol succinate 25 mg tablet,extended release 24 hr 25 mg PO DAILY #90 tab 01/05/20 [Rx Last Taken 09/01/20] donepezil 10 mg tablet 10 mg PO DAILY 02/09/20 [History Last Taken 08/31/20] Allergy/AdvReac Type Severity Reaction Status Date / Time No Known Allergies Allergy Verified 09/01/20 16:43 Family History (System 05/23/19 @ 11:41 by Joel Munoz) Brother CVA (cerebral vascular accident) Sudden cardiac , Onset Age: 68 Brother COPD (chronic obstructive pulmonary disease) Surgical History History of carpal tunnel surgery History of colon resection History of tonsillectomy and adenoidectomy History of vasectomy Social History Smoking Status: Never smoker alcohol intake: current ROS ROS ED Constitutional Constitutional ED: Denies chills or weight loss Eyes Eyes: Denies change in vision or diplopia ENT ENT ED: Denies ear pain, rhinorrhea or sore throat Cardiovascular Cardiovascular: Reports palpitations and other Details: Syncope ; Denies chest pain, orthopnea or racing heartbeat Respiratory/Chest Respiratory/Chest: Denies cough, dyspnea or orthopnea Gastrointestinal Gastrointestinal: Reports nausea and vomiting; Denies abdominal pain or diarrhea Genitourinary Genitourinary ED: Denies dysuria, hematuria or urinary frequency Musculoskeletal Musculoskeletal: Denies arthralgias or myalgias Integumentary Denies abscess or rash Neurologic Neurologic: Denies headache(s) or weakness Psychiatric Psychiatric: Denies anxiety, depression, suicidal ideation or suicidal thoughts Endocrine Endocrinology: Denies polydipsia, polyphagia or polyuria Allergic/Immunologic Allergic/Immunologic ED: Denies mouth swelling, tongue swelling or urticaria EXAM Physical Exam Const Vital Signs: 09/01/20 16:41 09/01/20 18:03 Temperature 97.7 F L Temperature Source Temporal Pulse Rate 70 Respiratory Rate 16 Respiratory Effort Normal Non-Labored Respiratory Pattern Normal Blood Pressure 131/79 H Blood Pressure Mean 96 Pulse Ox 98 Oxygen Delivery Method Room Air Positive well nourished and well developed General Appearance ED: well developed HEENT Reports normocephalic, head/scalp atraumatic and moist mucous membranes Eyes PERRL and EOMs intact bilaterally Neck no lymphadenopathy, supple and no JVD Resp normal respiratory effort and clear to auscultation bilaterally Cardio regular rate and regular rhythm Rate: other Other Details: Systolic murmur GI normal to inspection, nondistended, normoactive bowel sounds and non-tender Palpation: soft Back/Spine no CVA tenderness and normal ROM Extremity normal to inspection General Extremety ED: Negative for edema General Extremity: Negative for edema Neuro oriented x3 and CN's II-XII intact bilaterally Sensorium / Orientation: alert Motor Exam: strength 5/5 throughout Psych mental status grossly normal Mood & Affect: Negative for depressed or tearful Skin no rashes or lesions noted and no wounds MDM MDM MDM Narrative Medical decision making narrative: EKG demonstrates normal sinus rhythm at a rate of 64 bpm. No QT prolongation or delta wave. My interpretation of the chest x-ray is no acute process. I have seen no dysrhythmias on the monitor. I am concerned about a cardiac etiology for these episodes think be reasonable to observe him. I will speak with the hospitalist. Lab Data Attestation: I reviewed the patient's lab results. Labs: Laboratory Results - last 24 hr 09/01/20 09/01/20 09/01/20 17:40 17:40 17:40 WBC 6.0 RBC 4.36 L Hgb 14.0 Hct 41.7 MCV 95.6 H MCH 32.1 H MCHC 33.6 RDW Std Deviation 44.2 H RDW Coeff of Obey 12.5 Plt Count 214 MPV 8.8 Immature Gran % (Auto) 0.700 Neut % (Auto) 57.0 Lymph % (Auto) 29.5 [place] % (Auto) 9.7 Eos % (Auto) 2.3 Baso % (Auto) 0.8 Absolute Neuts (auto) 3.4 Absolute Lymphs (auto) 1.77 Nucleated RBC % 0 PT 12.9 INR 1.0 APTT 26.0 Sodium 141 Potassium 3.7 Chloride 107 Carbon Dioxide 28.0 Anion Gap 6 BUN 15 Creatinine 1.00 Estim Creat Clear Calc 48.33 Est GFR (MDRD) Af Amer 92 Est GFR (MDRD) Non-Af 76 BUN/Creatinine Ratio 15.1 Glucose 96 Calcium 9.0 Magnesium 2.5 Troponin I High Sens 5.5 EKG Initial EKG: Attestation: I personally reviewed and interpreted this EKG as follows: Comments: EKG shows a normal sinus rhythm at a rate of 64 no concerning features of ACS or ectopy noted. Discharge Plan Dx/Rx/DC Orders Clinical Impression: Syncope Disposition Disposition: Acute Care Hospital [facility]
[2020-09-01 17:52] LABS: Absolute Lymphocyte Count 1.77 X10^3/uL (0.83-4.51); Absolute Neutrophil Count 3.4 X10^3/uL (2.0-7.7); Basophil# 0.05 X10^3/uL; Basophil% 0.8 % (0-1); Eosinophil# 0.14 X10^3/uL; Eosinophils% 2.3 % (0-5); Hematocrit 41.7 % (40-54); Lymphocyte # 1.77 X10^3/ul (0.83-4.51); Lymphocyte % 29.5 % (19-41); Mean Corp Hgb Conc 33.6 g/dL (32-36); Mean Corpuscular Hgb 32.1 pg (27.0-32.0); Mean Corpuscular Volume 95.6 fL (80-94); Mean Platelet Vol. 8.8 fl (6.2-12.0); Monocyte# 0.58 X10^3/uL; Monocyte% 9.7 % (0-10); NRBC Flagged by Analyzer 0 % (0-5); Neutrophil # 3.43 X10^3/uL (2.7-7.7); Platelet Count 214 K/mm3 (150-450); RBC Distribution Width CV 12.5 % (11.6-14.6); RBC Distribution Width SD 44.2 fl (35.1-43.9); Red Blood Count 4.36 M/mm3 (4.6-6.2)
[2020-09-01 17:58] LABS: Prothrombin Time (Protime)PT. 12.9 SECONDS (11.7-14.9)
[2020-09-01 18:08] LABS: Anion Gap 6 (5-15); BUN 15 mg/dL (7-18); BUN/Creat Ratio 15.1 RATIO (10-20); Chloride 107 mmol/L (98-107); EST Glomerular Filtration Rate 76 mL/min (>60); Est Glom Filt Rate - Afr Amer 92 mL/min (>60); Estimated Creatinine Clearance 48.33 ml/min; Glucose 96 mg/dL (74-106); Magnesium 2.5 mg/dL (1.6-2.6); Potassium 3.7 mmol/L (3.5-5.1); Sodium Level 141 mmol/L (136-145); Troponin-I HS 5.5 pg/mL (3.0-78.5)
--- NOTE | 2020-09-01 18:10 | RAD_ITS ---
INDICATION: syncope EXAMINATION/TECHNIQUE: X-RAY - XR Chest 1 View COMPARISON: 02/02/2019. FINDINGS: The lungs are clear. The cardiomediastinal silhouette is unremarkable. No pleural effusion or pneumothorax. No acute osseous abnormalities. RAD/Chest 1 View (Portable) IMPRESSION: No acute radiographic abnormalities. Electronically Signed: Natalio Patel MD at 18:41 EDT Tel , Service support ,
--- NOTE | 2020-09-01 18:29 | CT_ITS ---
STUDY: CT BRAIN WITHOUT CONTRAST REASON FOR EXAM: Male, 84 years old. Seizure RADIATION DOSAGE (If Supplied By Facility): CTDIvol = ( 44.99 ) mGy, DLP = ( 762.36 ) mGycm TECHNIQUE: Transaxial CT imaging of the brain was performed without administration of intravenous contrast material. Individualized dose optimization techniques were used for this CT. COMPARISON: January 14, 2020 FINDINGS: Normal soft tissue structures. Normal calvarium. There is moderate cerebral atrophy with widening of the extra-axial spaces and ventricular dilatation. Normal white matter tracts of the cerebral hemispheres. Normal basal ganglia and thalami. Normal brainstem. Normal cerebellum. There is no intracranial hemorrhage. There are no findings of an acute ischemic infarction. Normal visualized paranasal sinuses. CT/Brain/Head without Contrast IMPRESSION: Chronic involutional changes of the brain. Electronically Signed: Andrew Aguilar MD at 19:26 EDT , Service support ,
--- NOTE | 2020-09-01 18:36 | HP.PCM.HOS_ITS ---
Documented by User: Nick MACDONALD 09/01/20 19:19 HPI - General General Date of Admission: 09/01/20 Date of Service: 09/01/20 Chief Complaint: Syncope HPI Narrative KELLIE WOOD is an 84-year-old male who presents to the ED at [facility] on 09/01/2020 with a chief complaint of syncope with convulsions. 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 Patient's reports that today patient was sitting in chair and abruptly lost consciousness, at which point his arms started to curl up and patient started to convulse in chair. Patient's is unsure if he lost consciousness or not. Both patient's and patient confirmed that he did not hit his head or suffer any any other type of bodily trauma. Of note, patient did suffer an event like this last Sunday (08/27), at which point patient and that patient was just suffering a case of vertigo. Patient's PCP advised that if event did happen again that patient report to the emergency department. Patient presents to the ED today in accordance with PCPs advisement. Patient does not complain of or demonstrate any focal neurological symptoms. Patient is alert and oriented x4; person place, time and president. Past medical history is significant for alzheimers dementia for which the patient is on donepezil and a stable ascending aortic aneurysm that last measured 43.7 mm in February 2020. Most recent echocardiogram from February 2020 demonstrated normal LV systolic function, an estimated EF of 65% mild aortic valve stenosis, moderate aortic valve insufficiency and RVSP of 30 mmHg and indeterminate diastolic dysfunction. Vital signs in the ED are stable and patient is afebrile. CBC is unremarkable. BMP unremarkable. Chest x-ray is unremarkable and does not demonstrate any acute cardiopulmonary process. [facility] Medical History Alzheimers disease Aneurysm of ascending aorta BPH (benign prostatic hyperplasia) Diverticulosis Hyperlipemia Hypothyroidism Nonrheumatic aortic (valve) stenosis Home Medications levothyroxine 25 mcg PO DAILY 06/30/17 [History Last Taken 09/01/20] doxazosin 4 mg tablet 4 mg PO DAILY 01/10/18 [History Last Taken 08/31/20] metoprolol succinate 25 mg tablet,extended release 24 hr 25 mg PO DAILY #90 tab 01/05/20 [Rx Last Taken 09/01/20] donepezil 10 mg tablet 10 mg PO DAILY 02/09/20 [History Last Taken 08/31/20] Allergy/AdvReac Type Severity Reaction Status Date / Time No Known Allergies Allergy Verified 09/01/20 16:43 Family History (Updated 09/01/20 @ 18:48 by Nick MACDONALD) Brother CVA (cerebral vascular accident) Sudden cardiac , Onset Age: 68 Brother COPD (chronic obstructive pulmonary disease) Father CVA (cerebral vascular accident) Mother Diabetes Surgical History History of carpal tunnel surgery History of colon resection History of tonsillectomy and adenoidectomy History of vasectomy Social History (Updated 09/01/20 @ 18:48 by Nick MACDONALD) Smoking Status: Never smoker alcohol intake: current alcohol intake frequency: a few times a week ROS ROS Narrative Patient insight into current condition is limited due to Alzheimer's dementia Review of Systems ROS Unobtainable: due to mental condition Constitutional Constitutional: Denies anorexia, change in weight, chills, fatigue, fever(s), malaise, night sweats, weakness or other Eyes Eyes: Denies blurry vision, change in eye color, change in vision, discharge fr om eye(s), double vision, erythema, eye pain, loss of vision or other ENT HEENT: Denies abnormal hearing, dysphagia, ear pain, epistaxis, headache(s), hearing loss, nasal congestion, nasal discharge, post nasal drip, sinus pres sure, sore throat or other Cardiovascular Cardiovascular: Denies chest pain, claudication, dyspnea on exertion, edema, lightheadedness, orthopnea, palpitations, paroxysmal nocturnal dyspnea, rapid heart rate, syncope or other Respiratory/Chest Respiratory/Chest: Denies cough, dyspnea, excessive phlegm production, hemoptysis, productive cough, shortness of breath at rest, shortness of breath with exertion, wheezing or other Gastrointestinal Gastrointestinal: Denies abdominal pain, coffee ground emesis, constipation, diarrhea, dyspepsia, hematemesis, hematochezia, loose stools, melena, nausea, vomiting or other Genitourinary Genitourinary: Denies burning urination, difficulty urinating, dysuria, hemat uria, nocturia, urinary frequency, urinary hesitancy, urinary incontinence, urinary urgency or other Musculoskeletal Musculoskeletal: Denies arthralgias, back pain, joint pain, joint stiffness, joint swelling, myalgias, neck pain or other Neurologic Neurologic: Denies abnormal gait, abnormal speech, confusion, disequilibrium, dizziness, focal weakness, headache(s), numbness, paresthesias, seizure-like activity, seizures, syncope, tingling, tremor(s) or other Psychiatric Psychiatric: Denies anxiety, depression, homicidal ideation, suicidal ideation or other Endocrine Endocrinology: Denies change in body appearance, cold intolerance, excessive sweating, heat intolerance, polydipsia, polyuria or other Hematologic/Lymphatic Hematologic/Lymphatic: Denies anemia, easy bleeding, easy bruising, lymphadenopathy or other Allergic/Immunologic Allergic/Immunologic: Denies rhinitis, hives, eczemia, asthma or other Vital Signs Vital Signs Vital Signs: 09/01/20 16:41 09/01/20 18:03 Temperature 97.7 F L Temperature Source Temporal Pulse Rate 70 Respiratory Rate 16 Respiratory Effort Normal Non-Labored Respiratory Pattern Normal Blood Pressure 131/79 H Blood Pressure Mean 96 Pulse Ox 98 Oxygen Delivery Method Room Air Weight Weight: 132 lb 4.438 oz Body Mass Index (BMI) 21.3 Physical Exam Const alert, oriented x3 and no apparent distress General Appearance: cooperative HEENT normocephalic, head/scalp atraumatic and hearing grossly normal bilaterally Eyes EOMs intact bilaterally and conjunctivae normal Neck no lymphadenopathy, supple and no JVD Resp normal respiratory effort, no retractions, no use of accessory muscles and clear to auscultation bilaterally Auscultation: rhonchi Cardio regular rate, regular rhythm, no murmurs and no JVD GI normal to inspection, nondistended, normoactive bowel sounds, soft to palpation and non-tender Extremity normal to inspection, full ROM and no clubbing, cyanosis or edema Skin no rashes or lesions noted, no wounds, skin turgor normal and no jaundice Neuro CN's II-XII intact bilaterally Psych affect normal Results Lab / Micro Data Result Diagrams: 09/01/20 17:40 09/01/20 17:40 Labs: Laboratory Results - last 24 hr 09/01/20 17:40: WBC 6.0, RBC 4.36 L, Hgb 14.0, Hct 41.7, MCV 95.6 H, MCH 32.1 H, MCHC 33.6, RDW Std Deviation 44.2 H, RDW Coeff of Obey 12.5, Plt Count 214, MPV 8.8, Immature Gran % (Auto) 0.700, Neut % (Auto) 57.0, Lymph % (Auto) 29.5, [place] % (Auto) 9.7, Eos % (Auto) 2.3, Baso % (Auto) 0.8, Absolute Neuts (auto) 3.4, Absolute Lymphs (auto) 1.77, Nucleated RBC % 0 09/01/20 17:40: PT 12.9, INR 1.0, APTT 26.0 09/01/20 17:40: Sodium 141, Potassium 3.7, Chloride 107, Carbon Dioxide 28.0, A nion Gap 6, BUN 15, Creatinine 1.00, Estim Creat Clear Calc 48.33, Est GFR (MDRD) Af Amer 92, Est GFR (MDRD) Non-Af 76, BUN/Creatinine Ratio 15.1, Glucose 96, Calcium 9.0, Magnesium 2.5, Troponin I High Sens 5.5 Assessment & Plan Assessment/Plan (1) Syncope: (2) Weakness: (3) Nonrheumatic aortic (valve) stenosis: (4) Aneurysm of ascending aorta: (5) BPH (benign prostatic hyperplasia): (6) Hypothyroidism: PLAN: Patient is an 84-year-old male who presents to the ED at [facility] on 09/01/2020 with a chief complaint of syncope. Patient will be admitted for syncope work-up. 1) Syncope Patient and report a 2 episode history of passing out and convulsing in chair, denies any acute trauma either events. Denies any sick contacts or recent illnesses. Patient does not report or demonstrate any focal neurological deficits and is alert and oriented x4. Denies chest pain, shortness of breath, palpitations, hemoptysis, sputum production, fever, chills, N/V/D. Work-up in th e ED is unremarkable. Brain CT ordered/pending. echocardiogram from February 2020 demonstrated normal LV systolic function, an estimated EF of 65%, mild aortic valve stenosis, moderate aortic valve insufficiency and an RVSP of 30 mmHg with indeterminate diastolic dysfunction. Chest x-ray is unremarkable and demonstrates no acute cardiopulmonary process. Plan; admit to PCU for cardiac telemetry monitoring, CBC and BMP in a.m., EKG as needed, orthostatic vitals ordered, fall precautions ordered, carotic ultrasound ordered, PT/OT/case management eval ordered for disposition planning. 2) Alzheimer's dementia Continue donepezil. 3) Hypothyroidism Continue Synthroid. 4) BPH Continue doxazosin. 5) aortic aneurysm Stable: chest CT from February 2020 demonstrated stable aneurysm of the ascending aorta with a diameter of 43.7 mm. No evidence of hemodynamic compromise. 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 Patient seen by Nick Wilkins PA-C, under the supervision of Dr. Galvan. Documented by User: Dr. Melvin Galvan MD 09/01/20 19:48 HPI - General General Date of Admission: 09/01/20 Date of Service: 09/01/20 HPI Narrative This 84-year-old woman with history of dementia, ascending aortic aneurysm being followed by Dr. Valentine came to ER for 2 episodes of near syncope. First 1 was on Sunday in the absence of his and had fall. As per and patient he crawled in in position and mentioned chest pain/pressure but patient himself does not remember. He was also stiff at that time. He did not had urinary or fecal incontinence. His heart felt funny. Second episode happened almost similar type and lasted for few seconds. He did not fall though this time. Patient denies history of chronic migraine or chronic headache, epilepsy or other neurological disease except dementia for last 3 years In ED, twelve-lead EKG shows normal sinus rhythm at 64 bpm, QTC 443 ms, QRS [address] head was done and reviewed no acute intracranial change but moderate cerebral atrophy with dilated ventricles. Chest x-ray no acute radiographic abnormality. [facility] Medical History Alzheimers disease Aneurysm of ascending aorta BPH (benign prostatic hyperplasia) Diverticulosis Hyperlipemia Hypothyroidism Nonrheumatic aortic (valve) stenosis Home Medications levothyroxine 25 mcg PO DAILY 06/30/17 [History Last Taken 09/01/20] doxazosin 4 mg tablet 4 mg PO DAILY 01/10/18 [History Last Taken 08/31/20] metoprolol succinate 25 mg tablet,extended release 24 hr 25 mg PO DAILY #90 tab 01/05/20 [Rx Last Taken 09/01/20] donepezil 10 mg tablet 10 mg PO DAILY 02/09/20 [History Last Taken 08/31/20] Allergy/AdvReac Type Severity Reaction Status Date / Time No Known Allergies Allergy Verified 09/01/20 16:43 Family History (Updated 09/01/20 @ 18:48 by Nick MACDONALD) Brother CVA (cerebral vascular accident) Sudden cardiac , Onset Age: 68 Brother COPD (chronic obstructive pulmonary disease) Father CVA (cerebral vascular accident) Mother Diabetes Surgical History History of carpal tunnel surgery History of colon resection History of tonsillectomy and adenoidectomy History of vasectomy Social History (Updated 09/01/20 @ 18:48 by Nick MACDONALD) Smoking Status: Never smoker alcohol intake: current alcohol intake frequency: a few times a week Physical Exam Narrative General: Alert, Oriented x3, Cooperative, cognitive deficit/dementia HEENT: Atraumatic, PERRLA, EOMI, Normocephalic Oral: No Gingival or Mucosal Lesions/ Ulcerations Neck: Supple, No JVD, Negative Carotid Bruits Lungs: Air entry equal in bilateral lung bases. No crepitation/rhonchi Cardiovascular: Regular rate, Regular Rhythm, Normal S1, Normal S2, soft, grade 3/6 ESM over right second ICS and left SB Abdomen: Bowel Sounds Present, Soft, Non Tender, Non-Distended : No renal angle tenderness. No suprapubic tenderness. Extremities: No edema, Capillary Refill Less than 3 Seconds Skin: No rashes, No breakdown Musculoskeletal: Arthritic changes over knee joints. No Tenderness to Palpation of Joints or Extremities Neurological: Cranial nerves II-XII grossly intact, Deep Tendon Reflexes 2+/4 and Symmetrical, Neuro grossly intact Psych/Mental Status: Dementia Results Lab / Micro Data Result Diagrams: 09/01/20 17:40 09/01/20 17:40 Assessment & Plan Assessment/Plan (1) Near syncope: PLAN: This patient was seen in conjunction with RENAE Saldaña. I have independently interviewed and examined the patient and reviewed pertinent history, examination findings, laboratory and plan of management. I have reviewed the note and agree with the documented findings with the few additional points. In brief, patient is 84-year-old gentleman came to ER with seems to be near syncope. As per the patient's he did not pass out. Patient is being admitted to PCU on cardiac telemetry. Orthostatic blood pressure measurement. Patient had 2D echo in February 2020 as mentioned above. Twelve-lead EKG did not show arrhythmia or prolonged QTc interval. Carotid Doppler is not indicated in the work-up of near syncope or syncope. No carotid bruit. Chest CTA from February 2020 shows stable aneurysm of ascending thoracic aorta, 4.37 cm Other comorbidities as mentioned above which includes elements dementia, hypothyroidism, BPH. Vitamin B12, folic acid and D 25 hydroxy ordered for tomorrow a.m for a sick dementia work-up. VTE prophylaxis: Lovenox 40 mg subcu daily I have discussed my assessment with RENAE Saldaña and orders have been reviewed. Living will/advanced directive/end of life care: Patient does not have living will or advanced directive. After discussion of benefits/risks procedures involved with full code, DNR CC arrest and DNR CC, the patient's who opted for full code. She further added that we can try one-time and if not able to revive will make DNRCC Patient's does want artificial life support including intubation, tube feed, ventilator and/chest compression, central venous catheter, vasopressor and DC shock if needed Total time spent in [id number] encounter in discussion of advanced directive 16 minutes. Charges/Coding Visit Charges OBSV E&M: 04547 Initial observation care L3 Procedures Hospitalists Procedures: 43468 Advncd Care Plan 30 Min
[2020-09-01 19:18] VITALS: BP 140/65; PULSE 66; RESP 16; TEMP 36.4; O2SAT 97
[2020-09-01 19:48] VITALS: BMI 20.8
[2020-09-01 20:02] VITALS: BP 136/61; PULSE 60; RESP 17; TEMP 37; O2SAT 97
[2020-09-01 20:22] VITALS: PULSE 67
[2020-09-01 20:31] VITALS: BP 141/56; BP 142/54; BP 144/55; PULSE 66; PULSE 69; PULSE 70
[2020-09-01] MEDS: Enoxaparin 40 MG/0.4 ML Syringe SC (20:41)
[2020-09-02 02:43] VITALS: BP 133/58; BP 134/56; BP 143/48; PULSE 56; PULSE 58; PULSE 60
[2020-09-02 02:46] VITALS: BP 134/56; PULSE 61; RESP 18; TEMP 37.1; O2SAT 97
[2020-09-02 03:00] VITALS: PULSE 59
[2020-09-02] MEDS: Levothyroxine 25 MCG TABLET PO (05:11)
[2020-09-02 06:35] LABS: Absolute Lymphocyte Count 2.38 X10^3/uL (0.83-4.51); Absolute Neutrophil Count 2.5 X10^3/uL (2.0-7.7); Basophil# 0.05 X10^3/uL; Basophil% 0.9 % (0-1); Eosinophil# 0.15 X10^3/uL; Eosinophils% 2.7 % (0-5); Hematocrit 43.1 % (40-54); Hemoglobin 14.6 g/dL (13.0-16.5); Lymphocyte # 2.38 X10^3/ul (0.83-4.51); Lymphocyte % 42.9 % (19-41); Mean Corp Hgb Conc 33.9 g/dL (32-36); Mean Corpuscular Hgb 32.2 pg (27.0-32.0); Mean Corpuscular Volume 95.1 fL (80-94); Mean Platelet Vol. 8.8 fl (6.2-12.0); Monocyte# 0.45 X10^3/uL; Monocyte% 8.1 % (0-10); NRBC Flagged by Analyzer 0 % (0-5); Platelet Count 205 K/mm3 (150-450); RBC Distribution Width CV 12.5 % (11.6-14.6); RBC Distribution Width SD 43.9 fl (35.1-43.9); Red Blood Count 4.53 M/mm3 (4.6-6.2); White Blood Count 5.6 K/mm3 (4.4-11.0)
[2020-09-02 06:42] VITALS: PULSE 58
[2020-09-02 07:15] LABS: Anion Gap 6 (5-15); BUN 13 mg/dL (7-18); BUN/Creat Ratio 13.2 RATIO (10-20); Calcium,Total 8.6 mg/dL (8.5-10.1); Chloride 110 mmol/L (98-107); Creatinine, Serum 0.98 mg/dL (0.70-1.30); EST Glomerular Filtration Rate 77 mL/min (>60); Est Glom Filt Rate - Afr Amer 93 mL/min (>60); Estimated Creatinine Clearance 48.09 ml/min; Glucose 94 mg/dL (74-106); Potassium 3.5 mmol/L (3.5-5.1); Sodium Level 143 mmol/L (136-145)
[2020-09-02 08:43] LABS: Vitamin B12 269 pg/mL (211-911); Vitamin D,25 Hydroxy 25.5 ng/mL
[2020-09-02 08:45] VITALS: BP 138/62; PULSE 66; RESP 18; TEMP 36.7; O2SAT 96
[2020-09-02 08:53] VITALS: PULSE 66
[2020-09-02] MEDS: Metoprolol(XL)Succ 25 MG Tablet PO (08:53)
[2020-09-02] MEDS: Enoxaparin 40 MG/0.4 ML Syringe SC (08:53)
[2020-09-02] MEDS: Donepezil HCl 10 MG Tablet PO (08:53)
[2020-09-02] MEDS: Doxazosin 4 MG Tablet PO (08:53)
--- NOTE | 2020-09-02 10:20 | CASEMGMT ---
RN CM Face to Face with patient for initial transition planning/care coordination assessment. RN CM introduced self and role at [facility]. Patient lying in bed, alert and oriented, at bedside. Patient willing to participate in assessment and is able to answer all questions appropriately. Care providers, pharmacy, and demographics verified. Patient wishes to discharge home, denies need for home health at this time. Patient states he has no further needs or concerns at this time. CM to follow for discharge planning needs that may arise. PCP: Rey Specialists: none Preferred Pharmacy: [facility] Insurance: [facility] Prescription Benefit: yes Living Will/HPOA: yes, Enma Tsang LNOK: Living Arrangements: Patient lives with in a condo with 2 steps and railing to enter the home. Patient states he is independent at home. Transportation: DME/HHC: Patient states he has higher toilets, grab bars, built-in shower bench, and walker at home. Patient denies previous SNF or HHC. Disposition Plan: Patient to discharge home with family support and follow-up plans in place. Ambreen MARION, RN, CM
--- NOTE | 2020-09-02 11:33 | CASEMGMT ---
After status reviewed with UM committee, recommendation is that pt meets Observation status and Dr. Galvan is agreeable to same. Code 44 completed with pt/, voice understanding and pt signs form with at bedside. Original to chart and copy to pt. Order updated. Pt/ voice no further questions/concerns/needs. Pt/ decline any further resources. Cullen SHORE CM
--- NOTE | 2020-09-02 12:01 | PCM.DC ---
Discharge Instructions Diet Discharge Diet: No restrictions Activity Discharge Activity: Return to Normal Activity Dressing / Incision Call your doctor if you observe: Shortness of breath, Dizziness and Chest pain Follow Up Care Test Results: Test results from this visit will be discussed in further detail at your follow-up appointment, if applicable. Discharge Plan Admission Admit Date/Time: 09/01/20 18:30 Primary Reason for Your Visit: Palpitations, brief chest pain with weakness Attending Provider: Melvin Galvan Primary Care Provider: Noreen Le Discharge Orders/Prescriptions Prescriptions: Continued doxazosin 4 mg tablet 4 mg PO DAILY RF: 0 donepezil 10 mg tablet 10 mg PO DAILY RF: 0 levothyroxine 25 MCG tablet 25 mcg PO DAILY RF: 0 metoprolol succinate 25 mg tablet extended release 24 hr 25 mg PO DAILY Qty: 90 RF: 3 Other Ambulatory Orders: 30-Day Event Recorder (Routine) Location: None Selected Ordered By: Nia Mera NP Referrals / Follow Up: Noreen Le MD [Primary Care Provider] - In 1 Week Teo Valentine MD [STAFF PHYSICIAN] - Within 1 Month Disposition Disposition (needs filled in before D/C Order can be placed): Home, Self Care
--- NOTE | 2020-09-02 12:40 | DS.PCM_ITS ---
Documented by User: Nia Mera NP, INDUSTRIAL RELATIONS OFFICER-C 09/02/20 12:51 Providers Date of Admission: 09/01/20 Date of Discharge: 09/02/20 Primary Care Physician: Dr. Noreen Le MD Reason For Visit: SYNCOPE Diagnosis Discharge Diagnosis (1) Near syncope: Status: Acute Code(s): R55 - Syncope and collapse Medications at Discharge Home Medications levothyroxine 25 mcg PO DAILY 06/30/17 doxazosin 4 mg tablet 4 mg PO DAILY 01/10/18 metoprolol succinate 25 mg tablet,extended release 24 hr 25 mg PO DAILY #90 tab 01/05/20 donepezil 10 mg tablet 10 mg PO DAILY 02/09/20 Hospital Course Operations None Procedures None Summary of Care Provided Minutes Spent on Discharge: 35 Hospital Course: Patient is an 84-year-old male admitted 09/01/2020 due to transient shock like chest pain. Patient describes 2 episodes, 1 week apart of shocklike chest pain sensation which lasted only a few seconds and caused his body to become tense. He denies syncope or near syncope. He denies loss of bowel or bladder function. Episode witnessed by and no noted convulsions or concern for seizure activity. Following event, patient felt normal. 1. Transient atypical chest pain-troponin negative. EKG without ST-T changes. Chest x-ray unremarkable. Brain CT unremarkable. Echocardiogram February 2020 demonstrated an EF of 65%, mild mitral valve insufficiency, mild to moderate aortic valve insufficiency. Patient had CT of chest February 2020 which showed stable aneurysmal dilatation of the ascending thoracic aorta.No arrhythmias during admission. Orthostatic vitals negative. Due to report of symptoms, c oncerned this may be due to transient arrhythmia. 30-day event monitor at discharge. Follow-up with cardiology following completion of event monitor. 2. Alzheimer's dementia-on donepezil. 3. Hypothyroidism-continue Synthroid regimen. 4. BPH-continue doxazosin. 5. Hyperlipidemia-not on regimen. 6.Ascending aortic aneurysm-continue outpatient follow-up/monitoring. Patient seen and examined prior to discharge. Physical assessment as noted below. Patient is stable for discharge with follow up recommendations as noted above. committee reviewed case and felt patient appropriate for observation status, agree with observation status recommendation. This patient was seen by MADDISON MesserC under the supervision of Dr. Galvan. Physical Exam Const alert, oriented x3 and no apparent distress Orientation / Consciousness: awake, oriented to person, oriented to place and oriented to time HEENT normocephalic and moist oral mucous membranes Eyes PERRL, EOMs intact bilaterally and conjunctivae normal Neck no lymphadenopathy Resp normal respiratory effort and clear to auscultation bilaterally Cardio regular rate, regular rhythm and no murmurs Peripheral Pulses: pulses 2+ throughout GI normal to inspection, nondistended, normoactive bowel sounds, non-tender and non-distended Extremity normal to inspection Skin no rashes or lesions noted Lesions: no lesions Rashes: no rashes Trauma: no lacerations or abrasions Neuro CN's II-XII intact bilaterally, no focal motor deficits, no sensory deficits noted and deep tendon reflexes 2+ bilaterally Psych mental status grossly normal and affect normal Weight / BMI Weight Weight: 128 lb 15.527 oz Body Mass Index (BMI) 20.8 ABG / Lab / Microbiology Data Result Diagrams: 09/02/20 06:24 09/02/20 06:24 Laboratory: Laboratory Results - last 24 hr 09/01/20 17:40: WBC 6.0, RBC 4.36 L, Hgb 14.0, Hct 41.7, MCV 95.6 H, MCH 32.1 H, MCHC 33.6, RDW Std Deviation 44.2 H, RDW Coeff of Obey 12.5, Plt Count 214, MPV 8.8, Immature Gran % (Auto) 0.700, Neut % (Auto) 57.0, Lymph % (Auto) 29.5, [place] % (Auto) 9.7, Eos % (Auto) 2.3, Baso % (Auto) 0.8, Absolute Neuts (auto) 3.4, Absolute Lymphs (auto) 1.77, Nucleated RBC % 0 09/01/20 17:40: PT 12.9, INR 1.0, APTT 26.0 09/01/20 17:40: Sodium 141, Potassium 3.7, Chloride 107, Carbon Dioxide 28.0, Anion Gap 6, BUN 15, Creatinine 1.00, Estim Creat Clear Calc 48.33, Est GFR (MDRD) Af Amer 92, Est GFR (MDRD) Non-Af 76, BUN/Creatinine Ratio 15.1, Glucose 96, Calcium 9.0, Magnesium 2.5, Troponin I High Sens 5.5 09/02/20 06:24: WBC 5.6, RBC 4.53 L, Hgb 14.6, Hct 43.1, MCV 95.1 H, MCH 32.2 H, MCHC 33.9, RDW Std Deviation 43.9, RDW Coeff of Obey 12.5, Plt Count 205, MPV 8.8, Immature Gran % (Auto) 0.400, Neut % (Auto) 45.0 L, Lymph % (Auto) 42.9 H, [place] % (Auto) 8.1, Eos % (Auto) 2.7, Baso % (Auto) 0.9, Absolute Neuts (auto) 2.5, Absolute Lymphs (auto) 2.38, Nucleated RBC % 0 09/02/20 06:24: Sodium 143, Potassium 3.5, Chloride 110 H, Carbon Dioxide 27.0, Anion Gap 6, BUN 13, Creatinine 0.98, Estim Creat Clear Calc 48.09, Est GFR (MDRD) Af Amer 93, Est GFR (MDRD) Non-Af 77, BUN/Creatinine Ratio 13.2, Glucose 94, Calcium 8.6, Folate 18.20 09/02/20 06:24: Vitamin B12 269, Vitamin D 25-Hydroxy 25.5 Radiography Diagnostic Testing: Radiology Impression Chest X-Ray 09/01/20 18:10 IMPRESSION: No acute radiographic abnormalities. Electronically Signed: Natalio Patel MD at 18:41 EDT Tel , Service support , Brain CT 09/01/20 18:29 IMPRESSION: Chronic involutional changes of the brain. Electronically Signed: Andrew Aguilar MD at 19:26 EDT , Service support , D/C Instructions Discharge Diet: No restrictions Call your doctor if you observe: Shortness of breath, Dizziness and Chest pain Meaningful Use Info Meaningful Use Diagnoses (Choose all that apply): None applicable Discharge Plan Admission Admit Date/Time: 09/01/20 18:30 Primary Reason for Your Visit: Palpitations, brief chest pain with weakness Attending Provider: Melvin Galvan Primary Care Provider: Noreen Le Discharge Orders/Prescriptions Prescriptions: Continued doxazosin 4 mg tablet 4 mg PO DAILY RF: 0 donepezil 10 mg tablet 10 mg PO DAILY RF: 0 levothyroxine 25 MCG tablet 25 mcg PO DAILY RF: 0 metoprolol succinate 25 mg tablet extended release 24 hr 25 mg PO DAILY Qty: 90 RF: 3 Other Ambulatory Orders: 30-Day Event Recorder (Routine) Location: None Selected Ordered By: Nia Mera NP Referrals / Follow Up: Noreen Le MD [Primary Care Provider] - In 1 Week Teo Valentine MD [STAFF PHYSICIAN] - Within 1 Month Disposition Disposition (needs filled in before D/C Order can be placed): Home, Self Care Documented by User: Dr. Melvin Galvan MD 09/02/20 17:17 Providers Date of Admission: 09/01/20 Reason For Visit: SYNCOPE Medications at Discharge Home Medications levothyroxine 25 mcg PO DAILY 06/30/17 doxazosin 4 mg tablet 4 mg PO DAILY 01/10/18 metoprolol succinate 25 mg tablet,extended release 24 hr 25 mg PO DAILY #90 tab 01/05/20 donepezil 10 mg tablet 10 mg PO DAILY 02/09/20 Hospital Course Summary of Care Provided Hospital Course: This patient was seen in conjunction with Nia JOHNSON. I have independently interviewed and examined the patient and reviewed pertinent history, examination findings, laboratory and plan of management. I have reviewed the note and agree with the documented findings with the few additional points. In brief, patient is 84-year-old gentleman came to ER with seems to be near syncope. As per the patient's he did not pass out. Patient is being admitted to PCU on cardiac telemetry. Orthostatic blood pressure measurement. Patient had 2D echo in February 2020 as mentioned above. Twelve-lead EKG did not show arrhythmia or prolonged QTc interval. Carotid Doppler is not indicated in the work-up of near syncope or syncope. No carotid bruit. Chest CTA from February 2020 shows stable aneurysm of ascending thoracic aorta, 4.37 cm. Patient serial troponins were negative. Plan discussed with patient's and himself. I further talked with Dr. Valentine his plastics heat welder and gave the clinical history. 30-day event monitor approved by Dr. Valentine. Other comorbidities as mentioned above which includes elements dementia, hypothyroidism, BPH. Vitamin B12 and folate normal. Vitamin D 25-hydroxy 25. Serum magnesium level normal. Vitamin B12, folic acid and D 25 hydroxy ordered for tomorrow a.m for a sick dementia work-up. VTE prophylaxis: Lovenox 40 mg subcu daily. committee case was reviewed with director of casework services and Dr. Dolan and agreed for observation status. Patient is discharged home Discharge medication reconciliation done. Discharge follow-up instructions completed. Discharge process discussed with the patient and all questions were answered to patient's satisfaction. Total time spent, exact 35 minutes on discharge meds reconciliation, examination, coordination of care with nurses and ancillary staff, review of imaging and blood test and discussion with the patient on follow-up instructions I have discussed my assessment with INDUSTRIAL RELATIONS OFFICERNia and orders have been reviewed. Physical Exam Narrative Seen and examined. Patient does not have any symptoms of dizziness or blurry vision. Feels normal. quality assurance monitor chassis shows heart rate 72. Yesterday it was in 50s. Discussed with the patient and his in the room. General: Alert, Oriented x3, Cooperative, cognitive deficit/dementia HEENT: Atraumatic, PERRLA, EOMI, Normocephalic Oral: No Gingival or Mucosal Lesions/ Ulcerations Neck: Supple, No JVD, Negative Carotid Bruits Lungs: Air entry equal in bilateral lung bases. No crepitation/rhonchi Cardiovascular: Sinus rhythm, normal S1, Normal S2, soft, grade 3/6 ESM over right second ICS and left SB Abdomen: Bowel Sounds Present, Soft, Non Tender, Non-Distended : No renal angle tenderness. No suprapubic tenderness. Extremities: No edema, Capillary Refill Less than 3 Seconds Skin: No rashes, No breakdown Musculoskeletal: Arthritic changes over knee joints. No Tenderness to Palpation of Joints or Extremities Neurological: Cranial nerves II-XII grossly intact, Deep Tendon Reflexes 2+/4 and Symmetrical, Neuro grossly intact Psych/Mental Status: Dementia ABG / Lab / Microbiology Data Result Diagrams: 09/02/20 06:24 09/02/20 06:24 Discharge Plan Admission Admit Date/Time: 09/01/20 18:30 Primary Reason for Your Visit: Palpitations, brief chest pain with weakness Attending Provider: Melvin Galvan Primary Care Provider: Noreen Le Discharge Orders/Prescriptions Prescriptions: Continued doxazosin 4 mg tablet 4 mg PO DAILY RF: 0 donepezil 10 mg tablet 10 mg PO DAILY RF: 0 levothyroxine 25 MCG tablet 25 mcg PO DAILY RF: 0 metoprolol succinate 25 mg tablet extended release 24 hr 25 mg PO DAILY Qty: 90 RF: 3 Other Ambulatory Orders: 30-Day Event Recorder (Routine) Location: None Selected Ordered By: Nia Mera NP Referrals / Follow Up: Noreen Le MD [Primary Care Provider] - In 1 Week Teo Valentine MD [STAFF PHYSICIAN] - Within 1 Month Disposition Disposition (needs filled in before D/C Order can be placed): Home, Self Care Charges/Coding Visit Charges OBSV E&M: 23733 Observation care discharge
== END 2020-09-02 12:04 | disposition home or self-care (01) ==
LOC: ED 18:03 → PCU 19:29
PROVIDERS: Physician Assistant; Admitting Provider Internal Medicine; Emergency Provider Emergency Medicine; PCP Family Medicine; Visit Provider Internal Medicine
DX: R55 Syncope and collapse (principal); E78.5 Hyperlipidemia, unspecified; I71.2 Thoracic aortic aneurysm, without rupture; N40.0 Benign prostatic hyperplasia without lower urinary tract symptoms; G30.9 Alzheimer's disease, unspecified; F02.80 Dementia in other diseases classified elsewhere, unspecified severity, without behavioral disturbance, psychotic disturbance, mood disturbance, and anxiety; Z79.899 Other long term (current) drug therapy; E03.9 Hypothyroidism, unspecified; I10 Essential (primary) hypertension
CPT/HCPCS: 36415; 70450; 71045; 80048; 80053; 82306; 82607; 82746; 83735; 84443; 84484; 85025; 85610; 85730; 93005; 96372; 99218; 99285; A4216; G0378

== ENCOUNTER → 2020-12-13 07:11 | Outpatient (CLI) | payer MEDICARE, OTHER, SELFPAY ==
--- NOTE | 2020-12-13 07:35 | MRI_ITS ---
STUDY: MRI BRAIN WITH AND WITHOUT CONTRAST REASON FOR EXAM: Male, 85 years old. DEMENTIA, VERTIGO TECHNIQUE: Standardized multiplanar fat and water weighted pulse sequences were obtained. IV 10cc dotarem was administered for the contrast portion of the examination. COMPARISON: 02/03/2019 FINDINGS: There is mild cerebral atrophy with widening of the extra-axial spaces and ventricular dilatation. There are multiple white matter hyperintensities, distributed throughout the deep white matter tracts of the cerebral hemispheres, consistent with moderate chronic white matter ischemic changes. Normal bilateral basal ganglia. Normal thalami. There is no extra-axial fluid accumulation. There is no enhancing intra-axial or extra-axial abnormality. Normal sella turcica, pituitary gland, infundibular stalk, optic chiasm and hypothalamus. Normal tectal plate and pineal gland. Normal midbrain, chao and medulla. Normal cerebellum. Normal basal cisterns. MRI/Brain W/WO Contrast IMPRESSION: No acute intracranial abnormality or masses. Mild chronic microvascular ischemic changes. Electronically Signed: Stella Harper MD at 15:59 EST Tel , Service support ,
[2020-12-13 07:55] LABS: CREATININE FINGERSTICK 0.9 mg/dL (0.70-1.30); EGFR FINGERSTICK > 60.0000 mL/min (>60)
== END ==
PROVIDERS: PCP Family Medicine; Referring Provider Family Medicine; Visit Provider Family Medicine
DX: R42 Dizziness and giddiness (principal); F03.90 Unspecified dementia, unspecified severity, without behavioral disturbance, psychotic disturbance, mood disturbance, and anxiety
CPT/HCPCS: 70553; A9575

== ENCOUNTER 2020-12-21 10:29 | Emergency (ER) | payer MEDICARE, OTHER, SELFPAY ==
[2020-12-21 10:32] VITALS: BP 164/61; PULSE 69; RESP 18; TEMP 35.9; O2SAT 98; BMI 20.9
[2020-12-21 10:35] VITALS: BP 164/61; PULSE 69; RESP 18; TEMP 35.9; O2SAT 98
[2020-12-21 10:46] LABS: Bedside Glucose 100 mg/dL (70-110)
--- NOTE | 2020-12-21 10:59 | CM.ED ---
UNA Note UAN was advised that the medical team was treating patient as a stroke, however no overhead stroke alert was called. UNA met with patient and his . Provided emotional support. Daughter from [facility] is coming but 2 other children are at work. Patient and his voiced no other issues or concerns. Plan: Emotional Support provided Christina MATHEW
--- NOTE | 2020-12-21 11:08 | CT_ITS ---
HISTORY: dizziness. TECHNIQUE: Multiple axial images were obtained of the brain without intravenous contrast. A radiation dose optimization technique was used for this scan. # of images incl. paperwork: 237. COMPARISON: 09/01/2020. FINDINGS: BRAIN PARENCHYMA:Multiple small foci and zones of low attenuation in the cerebral white matter most compatible with chronic small vessel ischemic gliosis. INTRACRANIAL HEMORRHAGE: No acute intracranial hemorrhage. CSF SPACES/MASS EFFECT: Diffuse atrophy with compensatory ventricular enlargement. No midline shift or other significant mass effect. ORBITS: Unremarkable. CALVARIUM: Intact. PARANASAL SINUSES AND MASTOID AIR CELLS: Clear. CT/Brain/Head without Contrast IMPRESSION: No acute intracranial process identified. Chronic small vessel ischemic gliosis. Individualized dose optimization techniques were used for this CT. at 1139 Reported and signed by: Leann Owusu MD Electronically Signed: Leann Owusu MD at 11:38 EST Tel , Service support ,
--- NOTE | 2020-12-21 11:09 | EKG12_ITS ---
Test Reason : WEAKNESS Blood Pressure : / mmHG Vent. Rate : 069 BPM Atrial Rate : 069 BPM P-R Int : 160 ms QRS Dur : 080 ms QT Int : 410 ms P-R-T Axes : 009 -17 062 degrees QTc Int : 439 ms Normal sinus rhythm Normal ECG Confirmed by CORBY SCHAFFER, LINDSAY ([id number]), subeditor MADDY RODRIGUES ([id number]) on 12/22/2020 2:06:15 PM Referred By: DARREN Confirmed By:LINDSAY TAVAREZ MD
--- NOTE | 2020-12-21 11:10 | EDS_ITS ---
HPI History of Present Illness Chief Complaint: Weakness Narrative Narrative: Patient presents with his because of lightheadedness and dizziness. He states that he usually walks with his at least 2 miles every day. Today felt lightheaded and off-balance. He denies any headache. No paresthesias. No chest pain or shortness of breath. Symptoms began approximately 2 hours ago while they were walking towards the [facility]. He denies other symptoms. His states that he had been lying on the couch and then had gotten up before their walk. He denies any nausea or vomiting. No diaphoresis. No dysuria or hematuria. No problems with bowel movements. His history and physical is mildly limited secondary to dementia. [facility] Medical History Alzheimers disease Aneurysm of ascending aorta BPH (benign prostatic hyperplasia) Diverticulosis Hyperlipemia Hypothyroidism Nonrheumatic aortic (valve) stenosis Home Medications levothyroxine 25 mcg PO DAILY 06/30/17 [History Last Taken 09/01/20] doxazosin 4 mg tablet 4 mg PO DAILY 01/10/18 [History Last Taken 08/31/20] metoprolol succinate 25 mg tablet,extended release 24 hr 25 mg PO DAILY #90 tab 01/05/20 [Rx Last Taken 09/01/20] donepezil 10 mg tablet 10 mg PO DAILY 02/09/20 [History Last Taken 08/31/20] Allergy/AdvReac Type Severity Reaction Status Date / Time No Known Allergies Allergy Verified 09/24/20 08:43 Family History Brother CVA (cerebral vascular accident) Sudden cardiac , Onset Age: 68 Brother COPD (chronic obstructive pulmonary disease) Father CVA (cerebral vascular accident) Mother Diabetes Surgical History History of carpal tunnel surgery History of colon resection History of tonsillectomy and adenoidectomy History of vasectomy Social History Smoking Status: Never smoker alcohol intake: current alcohol intake frequency: a few times a week ROS ROS ED ROS Narrative Constitutional: No fever, no chills. HEENT: No sore throat. No neck pain. No loss of vision. No rhinorrhea. Cardiovascular: No chest pain. No palpitations. No pedal edema. Respiratory: No cough, no shortness of breath. Abdominal: No abdominal pain. No nausea. No vomiting. Genitourinary: No dysuria. No hematuria. Musculoskeletal: No myalgias. No arthralgias. Neurologic: No headaches. Positive dizziness. Positive lightheadedness. Worse with walking. Skin: No rash. No change in color. Psychiatric: No depression. No anxiety. EXAM Physical Exam Narrative Exam Narrative: Afebrile. Vital signs noted. HEENT: Normocephalic. Atraumatic. PERRL, EOMI. Neck soft and supple. No point tenderness or step off. Cardiovascular: Regular rate and rhythm. No murmurs, rubs, or gallops appreciated. Respiratory: No tachypnea. Lungs clear to auscultation bilaterally. Gastrointestinal: Abdomen soft, nontender, with normoactive bowel sounds. No rebound or guarding. Neurological: Awake. Alert. Nonfocal, nonlateralizing NIH stroke scale is 0. SVAN negative. Skin: No rash. Normal color. No pallor. Musculoskeletal: No pedal edema. Full range of motion extremities. Const Vital Signs: 12/21/20 10:32 12/21/20 10:35 12/21/20 11:36 Temperature 96.6 F L 96.6 F L Temperature Source Temporal Temporal Pulse Rate 69 69 68 Pulse Rate [Lying] Pulse Rate [Sitting] Pulse Rate [Standing] Respiratory Rate 18 18 16 Blood Pressure 164/61 H 164/61 H 130/97 H Blood Pressure [Lying] Blood Pressure [Sitting] Blood Pressure [Standing] Blood Pressure Mean 95 95 108 Blood Pressure Mean [Lying] Blood Pressure Mean [Sitting] Blood Pressure Mean [Standing] Pulse Ox 98 98 96 Oxygen Delivery Method Room Air Room Air 12/21/20 12:20 12/21/20 13:08 Temperature Temperature Source Pulse Rate 58 L Pulse Rate [Lying] 63 Pulse Rate [Sitting] 59 L Pulse Rate [Standing] 67 Respiratory Rate 15 Blood Pressure 138/61 H Blood Pressure [Lying] 142/53 H Blood Pressure [Sitting] 127/77 H Blood Pressure [Standing] 130/46 H Blood Pressure Mean 86 Blood Pressure Mean [Lying] 82 Blood Pressure Mean [Sitting] 93 Blood Pressure Mean [Standing] 74 Pulse Ox Oxygen Delivery Method MDM MDM MDM Narrative Medical decision making narrative: Comprehensive work-up was pursued. Orthostatics will also be obtained. He is bolused 500 mL of normal saline. EKG demonstrates normal sinus rhythm at 69 bpm without ectopy or acute ST changes. He is not a TPA candidate because his NIH stroke scale is 0. WBC count is normal at 6.3 with hemoglobin stable at 14.5. Electrolyte panel is grossly unremarkable. Sxuhp-[id number]-zigy glucose 100. High-sensitivity troponin normal at 7. CT of the brain shows no acute process, there is chronic small vessel gliosis. Chest x-ray also shows no acute process. He was able to ambulate to the bathroom in the emergency department without difficulty. He feels significantly improved. His orthostatics are negative. At this point in time, I do not see that he meets any criteria for hospitalization. He feels well and would like to be discharged. He will follow up with his primary care provider. Patient and are agreeable to the plan. Return instructions to the emergency department were reviewed. Disposition is discharged home in stable condition. Lab Data Attestation: I reviewed the patient's lab results. Labs: Laboratory Results - last 24 hr 12/21/20 12/21/20 12/21/20 10:38 10:40 10:40 WBC 6.3 RBC 4.42 L Hgb 14.5 Hct 41.7 MCV 94.3 H MCH 32.8 H MCHC 34.8 RDW Std Deviation 43.5 RDW Coeff of Obey 12.5 Plt Count 211 MPV 8.9 Immature Gran % (Auto) 1.000 H Neut % (Auto) 64.1 Lymph % (Auto) 21.8 [place]aines % (Auto) 10.1 H Eos % (Auto) 2.2 Baso % (Auto) 0.8 Absolute Neuts (auto) 4.0 Absolute Lymphs (auto) 1.36 Nucleated RBC % 0 Sodium 140 Potassium 3.7 Chloride 106 Carbon Dioxide 29.0 Anion Gap 5 BUN 14 Creatinine 1.02 Estim Creat Clear Calc 45.64 Est GFR (MDRD) Af Amer 90 Est GFR (MDRD) Non-Af 74 BUN/Creatinine Ratio 13.7 Glucose 103 Calcium 8.8 Total Bilirubin 0.60 AST 15 ALT 19 Alkaline Phosphatase 66 Troponin I High Sens 7 Total Protein 7.4 Albumin 3.3 Globulin 4.1 Albumin/Globulin Ratio 0.8 L POC Glucose 100 Radiography Diagnostic Testing: Clinical Impression(s) from Imaging Studies Brain CT 12/21/20 11:08 IMPRESSION: No acute intracranial process identified. Chronic small vessel ischemic gliosis. Individualized dose optimization techniques were used for this CT. at 1139 Reported and signed by: Leann Owusu MD Electronically Signed: Leann Owusu MD at 11:38 EST Tel , Service support , Chest X-Ray 12/21/20 11:25 IMPRESSION: No radiographic evidence of acute cardiopulmonary disease. at 1136 Reported and signed by: Leann Owusu MD Electronically Signed: Leann Owusu MD at 11:35 EST Tel , Service support , Discharge Plan Triage Chief Complaint: Weakness ED Provider: [facility] Dx/Rx/DC Orders Clinical Impression: Dizziness, Postural dizziness with near syncope Instructions: ED Dizziness, Uncertain Cause, ED Near-Fainting, Uncertain Cause Prescriptions: No Action doxazosin 4 mg tablet 4 mg PO DAILY RF: 0 donepezil 10 mg tablet 10 mg PO DAILY RF: 0 levothyroxine 25 MCG tablet 25 mcg PO DAILY RF: 0 metoprolol succinate 25 mg tablet extended release 24 hr 25 mg PO DAILY Qty: 90 RF: 3 Primary Care Provider: Noreen Le Referrals: Noreen Le MD [Primary Care Provider] - 12/23/20 Disposition Disposition: Home, Self Care
--- NOTE | 2020-12-21 11:25 | RAD_ITS ---
HISTORY: CAD. TECHNIQUE: XR Chest 1 View. # of images incl. paperwork: 1. COMPARISON: 09/01/2020. FINDINGS: CARDIOMEDIASTINAL STRUCTURES: Cardiac silhouette not enlarged. Mediastinal contour unremarkable with mild calcification of the aortic knob. LUNGS: Radiographically clear. PLEURA: No pleural effusion or pneumothorax. OSSEOUS STRUCTURES: Mild degenerative change. RAD/Chest 1 View (Portable) IMPRESSION: No radiographic evidence of acute cardiopulmonary disease. at 1136 Reported and signed by: Leann Owusu MD Electronically Signed: Leann Owusu MD at 11:35 EST Tel , Service support ,
[2020-12-21 11:36] VITALS: BP 130/97; PULSE 68; RESP 16; O2SAT 96
[2020-12-21 11:54] LABS: Absolute Lymphocyte Count 1.36 X10^3/uL (0.83-4.51); Basophil# 0.05 X10^3/uL; Basophil% 0.8 % (0-1); Eosinophil# 0.14 X10^3/uL; Eosinophils% 2.2 % (0-5); Hematocrit 41.7 % (40-54); Hemoglobin 14.5 g/dL (13.0-16.5); Lymphocyte # 1.36 X10^3/ul (0.83-4.51); Lymphocyte % 21.8 % (19-41); Mean Corp Hgb Conc 34.8 g/dL (32-36); Mean Corpuscular Hgb 32.8 pg (27.0-32.0); Mean Corpuscular Volume 94.3 fL (80-94); Mean Platelet Vol. 8.9 fl (6.2-12.0); Monocyte# 0.63 X10^3/uL; Monocyte% 10.1 % (0-10); NRBC Flagged by Analyzer 0 % (0-5); Neutrophil # 4.01 X10^3/uL (2.7-7.7); Neutrophil % 64.1 % (47-70); Platelet Count 211 K/mm3 (150-450); RBC Distribution Width CV 12.5 % (11.6-14.6); RBC Distribution Width SD 43.5 fl (35.1-43.9); Red Blood Count 4.42 M/mm3 (4.6-6.2); White Blood Count 6.3 K/mm3 (4.4-11.0)
[2020-12-21 12:08] LABS: ALB/GLOB Ratio 0.8 RATIO (0.9-2.4); AST(SGOT) 15 U/L (15-37); Alanine Aminotransfer ALT/SGPT 19 U/L (16-61); Albumin, Serum 3.3 g/dL (3.2-5.0); Alkaline Phosphatase 66 U/L (45-117); Anion Gap 5 (5-15); BUN 14 mg/dL (7-18); BUN/Creat Ratio 13.7 RATIO (10-20); Calcium,Total 8.8 mg/dL (8.5-10.1); Chloride 106 mmol/L (98-107); Creatinine, Serum 1.02 mg/dL (0.70-1.30); EST Glomerular Filtration Rate 74 mL/min (>60); Est Glom Filt Rate - Afr Amer 90 mL/min (>60); Estimated Creatinine Clearance 45.64 ml/min; Globulin 4.1 g/dL (2.2-4.2); Glucose 103 mg/dL (74-106); Potassium 3.7 mmol/L (3.5-5.1); Protein, Total 7.4 g/dL (6.4-8.2); Sodium Level 140 mmol/L (136-145); Troponin-I HS 7 pg/mL (3.0-78.0)
[2020-12-21 12:20] VITALS: BP 138/61; PULSE 58; RESP 15
[2020-12-21 13:08] VITALS: BP 127/77; BP 130/46; BP 142/53; PULSE 59; PULSE 63; PULSE 67
[2020-12-21 14:04] VITALS: BP 149/63; PULSE 60; RESP 16; O2SAT 98
== END 2020-12-21 14:16 | disposition home or self-care (01) ==
PROVIDERS: Emergency Provider Emergency Medicine; PCP Family Medicine
DX: R55 Syncope and collapse (principal); R42 Dizziness and giddiness; E03.9 Hypothyroidism, unspecified; E78.5 Hyperlipidemia, unspecified; G30.9 Alzheimer's disease, unspecified; F02.80 Dementia in other diseases classified elsewhere, unspecified severity, without behavioral disturbance, psychotic disturbance, mood disturbance, and anxiety; I25.10 Atherosclerotic heart disease of native coronary artery without angina pectoris; I35.0 Nonrheumatic aortic (valve) stenosis; I71.2 Thoracic aortic aneurysm, without rupture; N40.0 Benign prostatic hyperplasia without lower urinary tract symptoms; Z79.899 Other long term (current) drug therapy
CPT/HCPCS: 70450; 71045; 80053; 82962; 84484; 85025; 93005; 99284; J7040; A4216

== ENCOUNTER → 2020-12-27 | Outpatient (CLI) | payer MEDICARE, OTHER, SELFPAY | END | disposition home or self-care (01) | LOC: LABSPEC 18:26 | PROVIDERS: PCP Family Medicine; Visit Provider Family Medicine | DX: U07.1 COVID-19 (principal) | CPT/HCPCS: 87635; U0005; U0003 ==

== ENCOUNTER 2021-03-24 14:34 | Outpatient (CLI) | payer MEDICARE, OTHER, SELFPAY ==
--- NOTE | 2021-03-24 14:45 | CT_ITS ---
EXAM: CT ANGIOGRAPHY CHEST WITHOUT AND WITH INTRAVENOUS CONTRAST CLINICAL INDICATION: Aneurysm of ascending aorta TECHNIQUE: Helically acquired angiography images were obtained of the chest without and with intravenous contrast. This CT exam was performed using one or more of the following dose reduction techniques: automated exposure control, adjustment of the mA and/or kV according to patient size, and/or use of iterative reconstruction technique. This report was created using [employer] report generation technology. MIP reconstructed images were created and reviewed. CONTRAST: IV 100mL [id number] COMPARISON: Feb 16 2020 2:04pm FINDINGS: PULMONARY ARTERIES: No demonstrated pulmonary embolism or arterial dissection. AORTA: See below. GREAT VESSELS OF AORTIC ARCH: Unremarkable. Normal in caliber. No evidence of dissection. LUNGS AND PLEURAL SPACES: See below. HEART: There are calcifications of the coronary arteries. No pericardial effusion. No signs of right heart strain, ratio of right ventricle to left ventricle measures less than 1. MEDIASTINUM: Normal mediastinum. Normal hilar regions. Normal pulmonary arteries. There is atherosclerotic calcification of the aortic arch with tortuosity and elongation of the aortic arch and descending thoracic aorta. There is aneurysmal dilatation of the ascending aorta. The transverse diameter of the ascending aorta measures (in mm): 41.2. No mediastinal or hilar adenopathy. Esophagus is unremarkable. No hiatal hernia. THYROID: Unremarkable. No thyroid lesions. BONES/JOINTS: There are degenerative changes of the shoulders. There is no pneumothorax. There is no demonstrated pleural abnormality. There are multi-level degenerative changes of the thoracic spine. No suspicious lytic or blastic abnormality. CT/CTA Chest W/WO Contrast IMPRESSION: 1. There is aneurysmal dilatation of the ascending aorta. The transverse diameter of the ascending aorta measures (in mm): 41.2. 2. No demonstrated pulmonary embolism or arterial dissection. Electronically Signed: Lm Persaud MD at 15:19 EST ,
[2021-03-24 14:51] LABS: CREATININE FINGERSTICK 0.7 mg/dL (0.70-1.30); EGFR FINGERSTICK > 60.0000 mL/min (>60)
== END 2021-03-24 23:59 | disposition home or self-care (01) ==
LOC: CT 14:38
PROVIDERS: PCP Family Medicine; Referring Provider Nurse Practitioner Gerontology; Visit Provider Nurse Practitioner Gerontology
DX: I71.2 Thoracic aortic aneurysm, without rupture (principal)
CPT/HCPCS: 71275; Q9967

== ENCOUNTER 2021-09-23 14:50 | Emergency (ER) | payer MEDICARE, OTHER, SELFPAY ==
[2021-09-23 14:50] VITALS: BP 106/58; PULSE 62; RESP 16; TEMP 36.8; O2SAT 98; BMI 21.8
--- NOTE | 2021-09-23 15:57 | CT_ITS ---
STUDY: CT BRAIN WITHOUT CONTRAST REASON FOR EXAM: Male, 85 years old. Seizure activity RADIATION DOSAGE (If Supplied By Facility): CTDIvol = ( 44.99 ) mGy, DLP = ( 863.60 ) mGycm TECHNIQUE: Transaxial CT imaging of the brain was performed without administration of intravenous contrast material. Individualized dose optimization techniques were used for this CT. COMPARISON: 12/21/2020 FINDINGS: Normal soft tissue structures. Normal calvarium. There is moderate cerebral atrophy with widening of the extra-axial spaces and ventricular dilatation. There are areas of decreased attenuation within the white matter tracts of the supratentorial brain, consistent with microvascular disease changes. There are small punctate calcifications of the basal ganglia which are seen in the aging brain as a normal variant. Normal brainstem. Normal cerebellum. There is no intracranial hemorrhage. There are no findings of an acute ischemic infarction. Normal visualized paranasal sinuses. CT/Brain/Head without Contrast IMPRESSION: Chronic involutional changes of the brain. Electronically Signed: Luis A Ramos MD at 16:49 EDT ,
--- NOTE | 2021-09-23 15:58 | EKG12_ITS ---
Test Reason : Blood Pressure : / mmHG Vent. Rate : 060 BPM Atrial Rate : 060 BPM P-R Int : 168 ms QRS Dur : 082 ms QT Int : 430 ms P-R-T Axes : 014 -22 073 degrees QTc Int : 430 ms Normal sinus rhythm Normal ECG Confirmed by ISMAEL SCHAFFER, LISA ([id number]), map editor TERRANCE BANRES ([id number]) on 09/27/2021 7:48:45 AM Referred By: AUSTIN Confirmed By:LISA GUEVARA MD
--- NOTE | 2021-09-23 15:59 | EX.ED.DYSGE1 ---
HPI History of Present Illness Chief Complaint: Syncope Informant: patient, spouse/S.O. and family Narrative Narrative: Patient is an 85-year-old male with history of Alzheimer's dementia presenting after an episode of seizure-like activity. Patient does not have a seizure disorder but had 1 similar episode on 09/01/2020 where he was seen in the emergency room. Family going out to lunch today. Patient came home and was sitting down when all of a sudden he started shaking both of his arms with his arms raised above his head. This lasted for about 10 seconds and afterwards patient seemed to slump over to the side. He slowly woke up. While this was happening he was making grunting noises. He had associated urinary incontinence. Family notes he was very pale. 911 was called and by the time they arrived patient was starting to come around. Patient is since returned to baseline and has no complaints. Patient did have an episode of wandering last night which is abnormal for him. The police actually had to bring him home. Chart review shows that patient was admitted for similar episode 1 year ago and was questioned if it was syncope. Patient had a cardiac work-up that was largely negative. [facility] Medical History Acute bronchitis, unspecified Acute sinusitis, unspecified Alzheimers disease Aneurysm of ascending aorta BPH (benign prostatic hyperplasia) Diverticulosis Hyperlipemia Hypothyroidism Nonrheumatic aortic (valve) stenosis Home Medications levothyroxine 25 mcg tablet 25 mcg PO DAILY thyroid 06/30/17 [History Last Taken 09/01/20] doxazosin 4 mg tablet 4 mg PO DAILY blood pressure 01/10/18 [History Last Taken 08/31/20] donepezil 10 mg tablet 10 mg PO DAILY memory 02/09/20 [History Last Taken 08/31/20] ipratropium bromide 21 mcg (0.03 %) nasal spray 2 spray intranasal BID 03/15/21 [History Last Taken Unknown] meclizine 25 mg tablet 25 mg PO DAILY PRN Dizziness 03/15/21 [History Last Taken Unknown] memantine 5 mg tablet 5 mg PO QAM 03/15/21 [History Last Taken Unknown] amoxicillin 875 mg-potassium clavulanate 125 mg tablet 1 tab PO BID #20 tabs 04/27/21 [Rx Last Taken Unknown] metoprolol succinate 25 mg tablet,extended release 24 hr 25 mg PO DAILY #90 tabs 08/22/21 [Rx Last Taken Unknown] Allergy/AdvReac Type Severity Reaction Status Date / Time No Known Allergies Allergy Verified 09/23/21 14:53 Family History Brother CVA (cerebral vascular accident) Sudden cardiac , Onset Age: 68 Brother COPD (chronic obstructive pulmonary disease) Father CVA (cerebral vascular accident) Mother Diabetes Surgical History History of carpal tunnel surgery History of colon resection History of tonsillectomy and adenoidectomy History of vasectomy Social History Smoking Status: Never smoker alcohol intake: current alcohol intake frequency: a few times a week ROS ROS ED Constitutional Constitutional ED: Denies chills or fever(s) Eyes Eyes: Denies change in vision ENT ENT ED: Denies rhinorrhea or sore throat Cardiovascular Cardiovascular: Denies chest pain Respiratory/Chest Respiratory/Chest: Denies cough Gastrointestinal Gastrointestinal: Denies abdominal pain, nausea or vomiting Genitourinary Genitourinary ED: Reports other Details: Urinary incontinence episode ; Denies dysuria Musculoskeletal Musculoskeletal: Denies arthralgias Integumentary Denies rash Neurologic Neurologic: Reports other Details: Seizure-like activity ; Denies headache(s), paresthesias or weakness Psychiatric Psychiatric: Denies anxiety or depression EXAM Physical Exam Const Vital Signs: 09/23/21 14:50 09/23/21 16:15 09/23/21 18:13 Temperature 98.2 F Temperature Source Temporal Pulse Rate 62 63 Respiratory Rate 16 22 H Respiratory Pattern Normal Blood Pressure 106/58 L 118/88 H Blood Pressure Mean 74 98 Pulse Ox 98 97 Oxygen Delivery Method Room Air Room Air Positive well nourished and well developed General Appearance ED: well developed and NAD HEENT Reports moist mucous membranes HEENT Narrative: No tongue laceration Negative for trauma Eyes PERRL and EOMs intact bilaterally Neck no lymphadenopathy and supple Chest Wall inspection of chest normal Resp normal respiratory effort and clear to auscultation bilaterally Cardio regular rate, regular rhythm and no murmurs GI normal to inspection, nondistended, normoactive bowel sounds Extremity normal to inspection Neuro CN's II-XII intact bilaterally and no sensory deficits noted Neuro Narrative: At baseline. No focal deficits. NIH 0 Sensorium / Orientation: alert Motor Exam: strength 5/5 throughout; Negative for general weakness Skin no rashes or lesions noted and no wounds MDM MDM MDM Narrative Medical decision making narrative: Patient is evaluated for what sounds like an episode of seizure-like activity lasting for approximately 10 to 15 seconds. Patient had associated urinary incontinence and was postictal afterwards. He had a similar episode about a year ago but the cause was never found. He had a cardiac work-up at that time but was not seen by neurology. Patient also has Alzheimer's dementia. Work-up in the ER including CBC, BMP, troponin and urinalysis large unremarkable. No signs [place] abnormality that could have provoked seizure. Chest x-ray and CT of the brain do not show any acute process. Patient has a normal neurologic exam at this time. He is hemodynamically stable. He does not have any further seizure activity. There is no associated tongue laceration. Discussed with family whether to observe in the hospital versus outpatient follow-up. Given his propensity for sundowning and his Alzheimer's they are agreeable with an outpatient follow-up with neurology. Given the patient's underlying Alzheimer's and concern for side effects, I will defer starting any antiepileptic at this time. Family counseled that if he has another episode he will need to return to the emergency room and we will likely get a neurology consult and consider starting medications at that time. They verbalized agreement understand with this. Patient is given neurology for outpatient follow-up. Lab Data Attestation: I reviewed the patient's lab results. Labs: Laboratory Results - last 24 hr 09/23/21 09/23/21 09/23/21 16:04 16:04 16:25 WBC 6.9 RBC 4.39 L Hgb 14.3 Hct 41.0 MCV 93.4 MCH 32.6 H MCHC 34.9 RDW Std Deviation 42.6 RDW Coeff of Obey 12.4 Plt Count 236 MPV 8.7 Sodium 140 Potassium 4.1 Chloride 108 H Carbon Dioxide 28.0 Anion Gap 4 L BUN 13 Creatinine 1.14 Estim Creat Clear Calc 40.00 Est GFR (MDRD) Af Amer 79 Est GFR (MDRD) Non-Af 65 BUN/Creatinine Ratio 11.4 Glucose 122 H Calcium 9.0 Troponin I High Sens 6 Urine Color Yellow Urine Clarity Clear Urine pH 6.5 Ur Specific [place] 1.010 Urine Protein Negative Urine Glucose (UA) Normal Urine Ketones Negative Urine Occult Blood Negative Urine Nitrite Negative Urine Bilirubin Negative Urine Urobilinogen Normal Ur Leukocyte Esterase Negative Urine RBC 0 SEEN Urine WBC 0 SEEN Ur Squamous Epith Cells 0 SEEN Urine Bacteria RARE Urine Mucus 0 SEEN Radiography Chest X-Ray - ED: 1 View, Read by ED Physician, Read by Radiologist and No Acute Disease Diagnostic Testing: Clinical Impression(s) from Imaging Studies Brain CT 09/23/21 15:57 IMPRESSION: Chronic involutional changes of the brain. Electronically Signed: Luis A Ramos MD at 16:49 EDT , Chest X-Ray 09/23/21 16:20 IMPRESSION: Poor inspiration with some bibasilar atelectasis Electronically Signed: Luis A Ramos MD at 16:47 EDT , Rhythm Strip Rhythm Strip: Sinus Rhythm Rate: 60 Ectopy: None EKG Initial EKG: Attestation: I personally reviewed and interpreted this EKG as follows: Interpretation: Sinus Rhythm Comments: Normal sinus rhythm at a rate of 60 Normal axis Normal intervals Normal ST segments Compared to prior EKG on 12/21/2020, no changes Discharge Plan Triage Chief Complaint: Syncope ED Provider: Ruth Neil Dx/Rx/DC Orders Clinical Impression: Observed seizure-like activity, Alzheimer disease Instructions: ED Seizure New Onset Unknown ... Prescriptions: No Action doxazosin 4 mg tablet 4 mg PO DAILY donepezil 10 mg tablet 10 mg PO DAILY memantine 5 mg tablet 5 mg PO QAM meclizine 25 mg tablet 25 mg PO DAILY PRN (Reason: Dizziness) amoxicillin-pot clavulanate 875-125 mg tablet 1 tab PO BID Qty: 20 0RF levothyroxine 25 MCG tablet 25 mcg PO DAILY ipratropium bromide 21 mcg (0.03 %) spray,non-aerosol 2 spray intranasal BID Rx Instructions: administer into each nostril metoprolol succinate 25 mg tablet extended release 24 hr 25 mg PO DAILY Qty: 90 3RF Primary Care Provider: Noreen Le Referrals: Noreen Le MD [Primary Care Provider] - Bladimir Franklin MD [Non-Staff] - As soon as possible Disposition Disposition: Home, Self Care
[2021-09-23 16:15] LABS: Hemoglobin 14.3 g/dL (13.0-16.5); Mean Corp Hgb Conc 34.9 g/dL (32-36); Mean Corpuscular Hgb 32.6 pg (27.0-32.0); Mean Corpuscular Volume 93.4 fL (80-94); Mean Platelet Vol. 8.7 fl (6.2-12.0); Platelet Count 236 K/mm3 (150-450); RBC Distribution Width CV 12.4 % (11.6-14.6); RBC Distribution Width SD 42.6 fl (35.1-43.9); Red Blood Count 4.39 M/mm3 (4.6-6.2); White Blood Count 6.9 K/mm3 (4.4-11.0)
--- NOTE | 2021-09-23 16:20 | RAD_ITS ---
STUDY: X-RAY CHEST REASON FOR EXAM: Male, 85 years old. seizure vs syncope TECHNIQUE: Single AP portable view of the chest. COMPARISON: 12/21/2020 FINDINGS: Poor inspiration with some bibasilar atelectasis. There is no demonstrated pleural abnormality. Normal size heart. Normal mediastinum and marty. Normal visualized pulmonary arteries. Normal visualized aortic arch and descending thoracic aorta. Normal visualized thoracic spine. Normal visualized ribs, clavicles, and shoulders. There is no demonstrated abnormality of the visualized soft tissue structures of the upper abdomen. RAD/Chest 1 View (Portable) IMPRESSION: Poor inspiration with some bibasilar atelectasis Electronically Signed: Luis A Ramos MD at 16:47 EDT ,
[2021-09-23 16:30] LABS: Anion Gap 4 (5-15); BUN 13 mg/dL (7-18); BUN/Creat Ratio 11.4 RATIO (10-20); Chloride 108 mmol/L (98-107); Creatinine, Serum 1.14 mg/dL (0.70-1.30); EST Glomerular Filtration Rate 65 mL/min (>60); Est Glom Filt Rate - Afr Amer 79 mL/min (>60); Glucose 122 mg/dL (74-106); Potassium 4.1 mmol/L (3.5-5.1); Sodium Level 140 mmol/L (136-145); Troponin-I HS 6 pg/mL (3.0-78.0)
[2021-09-23 16:36] LABS: Mucous, Urine 0 SEEN /hpf (<or=2+); Red Blood Cells-Urine 0 SEEN /hpf (0-5); Squamous Epithelial Cells - UA 0 SEEN /hpf (0-5); White Blood Cells 0 SEEN /hpf (0-5)
[2021-09-23 16:47] LABS: Color, Urine Yellow (Yellow); Glucose, Dipstick Normal (Normal); Ketone-Dipstick Negative (Negative); Leukocyte Esterase-Dipstick Negative /ul (Negative); Nitrite-Dipstick Negative (Negative); Occult Blood-Urine Negative /ul (Negative); Protein-Dipstick Negative (Negative); Urine Bilirubin Dipstick Negative (Negative); Urine Clarity Clear (Clear); Urine Urobilinogen Normal (Normal); Urine pH 6.5 (5.0 - 8.0)
[2021-09-23 17:00] LABS: Bacteria RARE /hpf (None Seen)
[2021-09-23 18:13] VITALS: BP 118/88; PULSE 63; RESP 22; O2SAT 97
[2021-09-23 19:24] VITALS: BP 120/90; PULSE 69; O2SAT 97
== END 2021-09-23 19:31 | disposition home or self-care (01) ==
PROVIDERS: Emergency Provider Emergency Medicine; PCP Family Medicine; Visit Provider Emergency Medicine
DX: R56.9 Unspecified convulsions (principal); G30.9 Alzheimer's disease, unspecified; F02.80 Dementia in other diseases classified elsewhere, unspecified severity, without behavioral disturbance, psychotic disturbance, mood disturbance, and anxiety; I71.2 Thoracic aortic aneurysm, without rupture; E78.5 Hyperlipidemia, unspecified; E03.9 Hypothyroidism, unspecified; I35.0 Nonrheumatic aortic (valve) stenosis; N40.0 Benign prostatic hyperplasia without lower urinary tract symptoms; Z79.899 Other long term (current) drug therapy
CPT/HCPCS: 70450; 71045; 80048; 81001; 84484; 85027; 93005; 99284; J7040; A4216

== ENCOUNTER → 2022-04-07 | Outpatient (CLI) | payer MEDICARE, OTHER, SELFPAY ==
[2022-04-07 15:55] LABS: ALB/GLOB Ratio 0.9 RATIO (0.9-2.4); AST(SGOT) 19 U/L (15-37); Alanine Aminotransfer ALT/SGPT 22 U/L (16-61); Albumin, Serum 3.5 g/dL (3.2-5.0); Alkaline Phosphatase 60 U/L (45-117); Anion Gap 5 (5-15); BUN 14 mg/dL (7-18); BUN/Creat Ratio 12.5 RATIO (10-20); Chloride 104 mmol/L (98-107); Cholesterol 183 mg/dL (200); Creatinine, Serum 1.12 mg/dL (0.70-1.30); EST Glomerular Filtration Rate 66 mL/min (>60); Est Glom Filt Rate - Afr Amer 80 mL/min (>60); Glucose 95 mg/dL (74-106); High Density Lipoprotein 30 mg/dL; Potassium 4.3 mmol/L (3.5-5.1); Protein, Total 7.5 g/dL (6.4-8.2); Sodium Level 137 mmol/L (136-145); Thyroid Stim Hormone (TSH) 2.86 uIU/mL (0.358-3.74); Triglycerides 141 mg/dL; Very Low Density Lipoprotein 28 mg/dL (5-40)
== END | disposition home or self-care (01) ==
LOC: BFHLAB 13:07
PROVIDERS: PCP Family Medicine; Visit Provider Family Medicine
DX: E03.9 Hypothyroidism, unspecified (principal); I10 Essential (primary) hypertension
CPT/HCPCS: 36415; 80053; 80061; 84443

== ENCOUNTER → 2022-04-19 | Outpatient (CLI) | payer MEDICARE, OTHER, SELFPAY ==
--- NOTE | 2022-04-19 12:46 | CT_ITS ---
STUDY: CTA CHEST REASON FOR EXAM: Male, 86 years old. Known descending aortic aneurysm, screening RADIATION DOSAGE (If Supplied By Facility): CTDIvol = ( 15.97 ) mGy, DLP = ( 325.74 ) mGycm TECHNIQUE: The examination was performed with the intravenous administration of IV 75mL [id number]-370. Post-processing of the angiographic images was performed, with multiplanar reformation and 3D reconstruction. Individualized dose optimization techniques were used for this CT. COMPARISON: 03/24/2021 FINDINGS: Normal enhancement of the main pulmonary artery and right and left pulmonary arteries. Normal enhancement of the bilateral peripheral pulmonary arteries. There is no demonstrated pulmonary embolism. The previously described aneurysm of the descending thoracic aorta is slightly increased in size since the previous study now measuring 4.34 cm up from 4.11 cm last year. There remains no evidence of dissection, the descending thoracic aorta tapers normally. Normal heart and pericardium. There are calcifications of the coronary arteries. Normal mediastinum. Normal hilar regions. Normal visualized trachea and bronchi. The lungs are well expanded. Chronic interstitial changes in both lung steward without a superimposed acute pulmonary process. Normal pleura. Normal chest wall structures. There are degenerative changes of thoracic spine. Limited cuts through the upper abdomen do not show a suspicious abnormality CT/CTA Chest W/WO Contrast IMPRESSION: Slight increase in size of the known ascending thoracic aortic aneurysm. It measures 4.34 cm on current study up from 4.11 cm last year. No evidence of dissection, or suspicious periaortic fluid No demonstrated PE, the descending thoracic aorta tapers normally Chronic interstitial changes in both lung steward without a superimposed acute pulmonary process Degenerative bony changes Electronically Signed: Hernando London MD at 14:46 EDT ,
--- NOTE | 2022-04-19 12:46 | ECHOD_ITS ---
Reason For Study: Procedure This was a 2D Doppler, Color Flow transthoracic echocardiogram. The exam was of adequate technical quality. Exam performed in department. Left Ventricle Normal LV size. Apical false tendon noted. Left ventricular systolic function is normal. The estimated ejection fraction is 65 %. No evidence for diastolic dysfunction. No regional wall motion abnormalities noted. Right Ventricle Normal RV size. Normal systolic function. Atria The left atrium is mildly enlarged. Normal right atrium. No doppler evidence for ASD. Mitral Valve There is mild mitral annular calcification. Extension of the mitral annular calcification onto the base of the posterior mitral valve leaflet. Mild-Moderate (1-2+) mitral valve insufficiency. Tricuspid Valve Normal tricuspid valve. Trivial tricuspid valve insufficiency. Right ventricular systolic pressure estimated to be 32 mmHg. Aortic Valve Trisinus/trileaflet aortic valve. Mild diffuse aortic valve thickening. Moderate focal aortic valve calcification. Mild aortic stenosis. Mild (1+) aortic valve insufficiency. Pulmonic Valve The pulmonic valve is not well visualized. Great Vessels Normal sized aortic root. Pericardium/Pleural No pericardial effusion. MMode/2D Measurements & Calculations LVIDd: 4.4 cm IVSd: 0.93 cm LVOT diam: 1.9 cm LVIDs: 2.7 cm LVPWd: 0.88 cm LVOT area: 2.7 cm2 RVDd: 3.3 cm FS: 38.9 % Ao root diam: 3.5 cm LAV(MOD-bp): 44.8 ml LVAd ap4: 21.9 cm2 LAV(MOD-bp) Indexed: 27.6 ml/m2 LVLd ap4: 7.4 cm LAV(MOD-sp2): 45.4 ml EDV(MOD-sp4): 52.9 ml LAV(MOD-sp4): 44.6 ml EDV(sp4-el): 55.0 ml LVAs ap4: 12.4 cm2 LVLs ap4: 6.3 cm ESV(MOD-sp4): 19.9 ml ESV(sp4-el): 20.7 ml EF(MOD-sp4): 62.4 % EF(sp4-el): 62.4 % LVAd ap2: 23.4 cm2 SV(MOD-sp4): 33.0 ml SV(MOD-sp2): 42.0 ml LVLd ap2: 7.6 cm EDV(MOD-sp2): 59.8 ml EDV(sp2-el): 60.9 ml LVAs ap2: 11.6 cm2 LVLs ap2: 6.4 cm ESV(MOD-sp2): 17.8 ml ESV(sp2-el): 18.0 ml EF(MOD-sp2): 70.2 % SV(sp4-el): 34.3 ml LA dimension(2D): 3.8 cm LA A4 area: 17.0 cm2 RA A4 area: 13.4 cm2 Doppler Measurements & Calculations MV E max bruno: 74.0 cm/sec Lat Peak E' Bruno: 7.2 cm/sec Med Peak E' Bruno: 6.5 cm/sec MV A max bruno: 107.9 cm/sec E/E' lat: 10.3 E/E' med: 11.3 MV E/A: 0.69 Ao V2 max: 194.9 cm/sec AI max bruno: 365.4 cm/sec LV V1 max: 116.3 cm/sec Ao max P.2 mmHg AI max P.4 mmHg LV V1 max P.4 mmHg Ao V2 mean: 131.6 cm/sec AI dec slope: 200.1 cm/sec2 LV V1 mean P.8 mmHg Ao mean P.8 mmHg AI P1/2t: 534.9 msec LV V1 mean: 78.2 cm/sec Ao V2 VTI: 46.3 cm LV V1 VTI: 28.2 cm AV (velocity ratio): 0.61 ZIA(I,D): 1.7 cm2 ZIA(V,D): 1.6 cm2 SV(LVOT): 76.5 ml PA V2 max: 91.5 cm/sec TR max bruno: 269.8 cm/sec TR max P.1 mmHg ECHO/Echo Complete Interpretation Summary Left ventricular systolic function is normal. The estimated ejection fraction is 65 %. Apical false tendon noted. The left atrium is mildly enlarged. There is mild mitral annular calcification. Extension of the mitral annular calcification onto the base of the posterior mi tral valve leaflet. Mild-Moderate (1-2+) mitral valve insufficiency. Trivial tricuspid valve insufficiency. Mild aortic stenosis. Mild (1+) aortic valve insufficiency. Right ventricular systolic pressure estimated to be 32 mmHg. No evidence for diastolic dysfunction. Ordering Physician: Teo Valentine Referring Physician: Noreen Le Performed By: Radha Keane SILVIA
== END | disposition home or self-care (01) ==
LOC: CT 12:46
PROVIDERS: PCP Family Medicine; Referring Provider Internal Medicine Cardiovascular Disease; Visit Provider Internal Medicine Cardiovascular Disease
DX: I71.21 Aneurysm of the ascending aorta, without rupture (principal); I35.0 Nonrheumatic aortic (valve) stenosis
CPT/HCPCS: 71275; 93306; Q9967

== ENCOUNTER 2022-08-15 19:07 | Emergency (ER) | payer MEDICARE, OTHER, SELFPAY ==
[2022-08-15 19:08] VITALS: BP 140/86; PULSE 74; RESP 16; TEMP 36.2; O2SAT 98; BMI 21.4
--- NOTE | 2022-08-15 19:10 | RAD_ITS ---
STUDY: X-RAY - RIGHT SHOULDER REASON FOR EXAM: Male, 86 years old. INJURY TECHNIQUE: 4 view(s) of the shoulder. COMPARISON: None. FINDINGS: Narrowed glenohumeral articulation. Mild spurring of the acromioclavicular joint. Normal acromion. Normal humeral head and visualized proximal humerus. The soft tissue structures are unremarkable. Normal visualized pulmonary apex. RAD/Shoulder min 2 Views IMPRESSION: Degenerative changes. No acute fracture or other significant bony pathology Electronically Signed: Erickson Salinas MD at 19:28 EDT ,
== END 2022-08-15 21:33 | disposition left against medical advice (07) ==
LOC: ED 21:39
PROVIDERS: PCP Family Medicine
DX: M25.511 Pain in right shoulder (principal)
CPT/HCPCS: 73030

== ENCOUNTER 2022-08-16 12:10 | Emergency (ER) | payer MEDICARE, OTHER, SELFPAY ==
[2022-08-16 12:11] VITALS: BP 141/75; PULSE 65; RESP 18; TEMP 36.6; O2SAT 99; BMI 23.2
--- NOTE | 2022-08-16 14:37 | EX.ED.UPPERE ---
HPI History of Present Illness Chief Complaint: Upper Extremity Injury Detail of Chief Complaint: Right shoulder injury Informant: patient and spouse/S.O. Onset/Context/Timing Onset: Yesterday Narrative Narrative: Patient presents after right shoulder injury. Patient reportedly had a previous right shoulder injury that required extensive therapy. He never had surgery. states yesterday he lost his balance and fell against the side of the car with his right arm. He has had significant pain in his shoulder since that time. He and his presented to the emergency room last night where x-rays were obtained from triage. Due to the extensive wait time they left prior to seeing a physician. He went to urgent care this morning where x-rays were reviewed and found to show no fracture. An MRI was ordered which is scheduled for 9 days from now. Patient presents secondary to pain. He has not been taking anything at home for pain. He denies any other injury. [facility] Medical History Acute bronchitis, unspecified Acute sinusitis, unspecified Alzheimers disease Aneurysm of ascending aorta BPH (benign prostatic hyperplasia) Diverticulosis Hyperlipemia Hypothyroidism Nonrheumatic aortic (valve) stenosis Right shoulder injury Right shoulder strain Home Medications levothyroxine 25 mcg tablet 25 mcg PO DAILY thyroid 06/30/17 [History Last Taken 09/01/20] ipratropium bromide 21 mcg (0.03 %) nasal spray 2 spray intranasal BID 03/15/21 [History Last Taken Unknown] meclizine 25 mg tablet 25 mg PO DAILY PRN Dizziness 03/15/21 [History Last Taken Unknown] metoprolol succinate 25 mg tablet,extended release 24 hr 25 mg PO DAILY #90 tabs 08/22/21 [Rx Last Taken Unknown] melatonin 5 mg tablet 5 mg PO HS PRN 04/06/22 [History Last Taken Unknown] memantine 5 mg tablet 5 mg PO BID 04/06/22 [History Last Taken Unknown] trazodone 50 mg tablet 25 mg PO DAILY 04/06/22 [History Last Taken Unknown] hydrocodone-acetaminophen 5-325mg 5mg-325mg 1 tab PO Q6H PRN PRN Pain 3 days #12 TABLETS 08/16/22 [Rx Last Taken Unknown] Allergy/AdvReac Type Severity Reaction Status Date / Time No Known Allergies Allergy Verified 08/16/22 12:14 Family History Brother CVA (cerebral vascular accident) Sudden cardiac , Onset Age: 68 Brother COPD (chronic obstructive pulmonary disease) Father CVA (cerebral vascular accident) Mother Diabetes Surgical History History of carpal tunnel surgery History of colon resection History of tonsillectomy and adenoidectomy History of vasectomy Social History Smoking Status: Never smoker alcohol intake: current alcohol intake frequency: a few times a week ROS ROS ED Constitutional Constitutional ED: Denies chills or fever(s) Eyes Eyes: Denies discharge from eye(s) ENT ENT ED: Denies discharge from eye(s), rhinorrhea or sore throat Cardiovascular Cardiovascular: Denies chest pain or palpitations Respiratory/Chest Respiratory/Chest: Denies cough or dyspnea Gastrointestinal Gastrointestinal: Denies abdominal pain, nausea or vomiting Genitourinary Genitourinary ED: Denies dysuria Musculoskeletal Musculoskeletal: Reports extremity pain; Denies back pain Integumentary Denies Abrasions or rash Neurologic Neurologic: Reports weakness; Denies headache(s) Psychiatric Psychiatric: Denies anxiety or depression Allergic/Immunologic Allergic/Immunologic ED: Denies lip swelling or urticaria EXAM Physical Exam Const Vital Signs: 08/16/22 12:11 Temperature 97.8 F Temperature Source Temporal Pulse Rate 65 Respiratory Rate 18 Blood Pressure 141/75 H Blood Pressure Mean 97 Pulse Ox 99 Oxygen Delivery Method Room Air Positive well nourished and well developed General Appearance ED: well developed HEENT Reports moist mucous membranes Eyes PERRL and EOMs intact bilaterally Neck full ROM Neck Narrative: No C-spine tenderness. Chest Wall inspection of chest normal and palpation of chest normal Resp normal respiratory effort and clear to auscultation bilaterally Cardio regular rate and regular rhythm GI non-tender Extremity Extremity Narrative: Mild tenderness palpation around the right shoulder. No evidence of dislocation. Slight decreased range of motion secondary to pain. Strong distal pulses are noted with good sensation and strong hand grasp. Neuro moves all extremities Neuro Narrative: History of Alzheimer's dementia. Mental status at baseline per spouse. Sensorium / Orientation: alert Psych mental status grossly normal MDM MDM MDM Narrative Medical decision making narrative: I did review the patient's x-rays from yesterday. I agree there is no evidence of dislocation or fracture. I did discuss with the that an MRI is not an emergency room procedure that I can get performed at this time. She has this scheduled for next week. In the meantime we will give him a sling and write him for a short course of [place]. I discussed close follow-up with primary care physician as well as scheduling a follow-up appointment with orthopedics for soon as the MRI is completed. She voices understanding and agreement. Discharge Plan Triage Chief Complaint: Upper Extremity Injury ED Provider: Ebonie Mata Dx/Rx/DC Orders Clinical Impression: Contusion of right shoulder, Sprain of right shoulder Instructions: ED Shoulder Sprain Prescriptions: New hydrocodone-acetaminophen 5-325 mg tablet 1 tab PO Q6H PRN PRN (Reason: Pain) 3 Days Qty: 12 0RF No Action meclizine 25 mg tablet 25 mg PO DAILY PRN (Reason: Dizziness) memantine 5 mg tablet 5 mg PO BID trazodone 50 mg tablet 25 mg PO DAILY melatonin 5 mg tablet 5 mg PO HS PRN levothyroxine 25 MCG tablet 25 mcg PO DAILY ipratropium bromide 21 mcg (0.03 %) spray,non-aerosol 2 spray intranasal BID Rx Instructions: administer into each nostril metoprolol succinate 25 mg tablet extended release 24 hr 25 mg PO DAILY Qty: 90 3RF Primary Care Provider: Noreen Le Referrals: Noreen Le MD [Primary Care Provider] - 3-5 Days Disposition Disposition: Home, Self Care
[2022-08-16] MEDS: HYDROcodone Bitartrate/Apap 5/325 Tablet PO (14:45)
== END 2022-08-16 14:55 | disposition home or self-care (01) ==
PROVIDERS: Emergency Provider Emergency Medicine; PCP Family Medicine; Visit Provider Emergency Medicine
DX: S40.011A Contusion of right shoulder, initial encounter (principal); G30.9 Alzheimer's disease, unspecified; E78.5 Hyperlipidemia, unspecified; E03.9 Hypothyroidism, unspecified; Z79.899 Other long term (current) drug therapy; Z98.52 Vasectomy status; S43.401A Unspecified sprain of right shoulder joint, initial encounter; W01.198A Fall on same level from slipping, tripping and stumbling with subsequent striking against other object, initial encounter
CPT/HCPCS: 99283

== ENCOUNTER → 2022-08-31 | Outpatient (REF) | payer MEDICARE, OTHER, SELFPAY ==
[2022-08-31 09:59] LABS: Absolute Lymphocyte Count 3.44 X10^3/uL (0.83-4.51); Absolute Neutrophil Count 5.3 X10^3/uL (2.0-7.7); Basophil# 0.07 X10^3/uL; Basophil% 0.7 % (0-1); Hematocrit 47.3 % (40-54); Lymphocyte # 3.44 X10^3/ul (0.83-4.51); Lymphocyte % 35.8 % (19-41); Mean Corp Hgb Conc 33.8 g/dL (32-36); Mean Corpuscular Hgb 33.1 pg (27.0-32.0); Mean Corpuscular Volume 97.9 fL (80-94); Mean Platelet Vol. 8.8 fl (6.2-12.0); Monocyte# 0.68 X10^3/uL; Monocyte% 7.1 % (0-10); NRBC Flagged by Analyzer 0 % (0-5); Neutrophil # 5.26 X10^3/uL (2.7-7.7); Neutrophil % 54.9 % (47-70); Platelet Count 383 K/mm3 (150-450); RBC Distribution Width CV 12.8 % (11.6-14.6); RBC Distribution Width SD 45.5 fl (35.1-43.9); Red Blood Count 4.83 M/mm3 (4.6-6.2); White Blood Count 9.6 K/mm3 (4.4-11.0)
[2022-08-31 10:19] LABS: Anion Gap 7 (5-15); BUN 20 mg/dL (7-18); BUN/Creat Ratio 17.7 RATIO (10-20); Calcium,Total 9.7 mg/dL (8.5-10.1); Chloride 106 mmol/L (98-107); Creatinine, Serum 1.13 mg/dL (0.70-1.30); EST Glomerular Filtration Rate 66 mL/min (>60); Est Glom Filt Rate - Afr Amer 79 mL/min (>60); Glucose 106 mg/dL (74-106); Potassium 3.5 mmol/L (3.5-5.1); Sodium Level 140 mmol/L (136-145)
== END ==
LOC: OLS.WHLTSB 07:20
PROVIDERS: PCP Family Medicine; Visit Provider Internal Medicine
DX: E03.9 Hypothyroidism, unspecified (principal); G47.00 Insomnia, unspecified
CPT/HCPCS: 36415; 80048; 85025

== ENCOUNTER → 2022-09-14 | Outpatient (REF) | payer MEDICARE, OTHER, SELFPAY ==
[2022-09-14 09:12] LABS: Absolute Lymphocyte Count 2.08 X10^3/uL (0.83-4.51); Absolute Neutrophil Count 5.3 X10^3/uL (2.0-7.7); Basophil# 0.07 X10^3/uL; Basophil% 0.9 % (0-1); Eosinophil# 0.13 X10^3/uL; Eosinophils% 1.6 % (0-5); Hematocrit 45.7 % (40-54); Hemoglobin 15.4 g/dL (13.0-16.5); Lymphocyte # 2.08 X10^3/ul (0.83-4.51); Lymphocyte % 25.5 % (19-41); Mean Corp Hgb Conc 33.7 g/dL (32-36); Mean Corpuscular Hgb 32.9 pg (27.0-32.0); Mean Corpuscular Volume 97.6 fL (80-94); Mean Platelet Vol. 8.8 fl (6.2-12.0); Monocyte# 0.57 X10^3/uL; NRBC Flagged by Analyzer 0 % (0-5); Neutrophil # 5.27 X10^3/uL (2.7-7.7); Neutrophil % 64.4 % (47-70); Platelet Count 269 K/mm3 (150-450); RBC Distribution Width CV 12.5 % (11.6-14.6); RBC Distribution Width SD 44.8 fl (35.1-43.9); Red Blood Count 4.68 M/mm3 (4.6-6.2); White Blood Count 8.2 K/mm3 (4.4-11.0)
[2022-09-14 09:23] LABS: Anion Gap 6 (5-15); BUN 16 mg/dL (7-18); Calcium,Total 9.1 mg/dL (8.5-10.1); Chloride 106 mmol/L (98-107); EST Glomerular Filtration Rate 76 mL/min (>60); Est Glom Filt Rate - Afr Amer 91 mL/min (>60); Glucose 104 mg/dL (74-106); Potassium 3.8 mmol/L (3.5-5.1); Sodium Level 140 mmol/L (136-145)
== END ==
LOC: OLS.WHLTSB 05:00
PROVIDERS: PCP Family Medicine; Visit Provider Internal Medicine
DX: E03.9 Hypothyroidism, unspecified (principal)
CPT/HCPCS: 36415; 80048; 85025

== ENCOUNTER → 2022-09-28 | Outpatient (REF) | payer MEDICARE, OTHER, SELFPAY ==
[2022-09-28 10:21] LABS: Absolute Lymphocyte Count 2.16 X10^3/uL (0.83-4.51); Absolute Neutrophil Count 3.6 X10^3/uL (2.0-7.7); Basophil# 0.04 X10^3/uL; Basophil% 0.6 % (0-1); Eosinophil# 0.18 X10^3/uL; Eosinophils% 2.8 % (0-5); Hematocrit 41.5 % (40-54); Hemoglobin 13.9 g/dL (13.0-16.5); Lymphocyte # 2.16 X10^3/ul (0.83-4.51); Lymphocyte % 33.1 % (19-41); Mean Corp Hgb Conc 33.5 g/dL (32-36); Mean Corpuscular Hgb 32.7 pg (27.0-32.0); Mean Corpuscular Volume 97.6 fL (80-94); Mean Platelet Vol. 8.6 fl (6.2-12.0); Monocyte# 0.54 X10^3/uL; Monocyte% 8.3 % (0-10); NRBC Flagged by Analyzer 0 % (0-5); Neutrophil # 3.59 X10^3/uL (2.7-7.7); Neutrophil % 54.9 % (47-70); Platelet Count 238 K/mm3 (150-450); RBC Distribution Width CV 12.4 % (11.6-14.6); RBC Distribution Width SD 44.3 fl (35.1-43.9); Red Blood Count 4.25 M/mm3 (4.6-6.2); White Blood Count 6.5 K/mm3 (4.4-11.0)
[2022-09-28 10:26] LABS: Anion Gap 5 (5-15); BUN 17 mg/dL (7-18); BUN/Creat Ratio 16.8 RATIO (10-20); Calcium,Total 8.9 mg/dL (8.5-10.1); Chloride 109 mmol/L (98-107); Creatinine, Serum 1.01 mg/dL (0.70-1.30); EST Glomerular Filtration Rate 75 mL/min (>60); Est Glom Filt Rate - Afr Amer 90 mL/min (>60); Glucose 99 mg/dL (74-106); Potassium 3.9 mmol/L (3.5-5.1); Sodium Level 142 mmol/L (136-145)
== END ==
LOC: OLS.WHLTSB 05:00
PROVIDERS: PCP Family Medicine; Visit Provider Internal Medicine
DX: E03.9 Hypothyroidism, unspecified (principal)
CPT/HCPCS: 36415; 80048; 85025

== ENCOUNTER → 2022-10-30 | Outpatient (REF) | payer MEDICARE, OTHER, SELFPAY ==
[2022-10-30 08:31] LABS: Absolute Lymphocyte Count 2.45 X10^3/uL (0.83-4.51); Absolute Neutrophil Count 3.5 X10^3/uL (2.0-7.7); Basophil# 0.06 X10^3/uL; Basophil% 0.9 % (0-1); Eosinophils% 2.9 % (0-5); Hematocrit 42.1 % (40-54); Hemoglobin 14.1 g/dL (13.0-16.5); Lymphocyte # 2.45 X10^3/ul (0.83-4.51); Lymphocyte % 35.5 % (19-41); Mean Corp Hgb Conc 33.5 g/dL (32-36); Mean Corpuscular Hgb 32.3 pg (27.0-32.0); Mean Corpuscular Volume 96.6 fL (80-94); Mean Platelet Vol. 8.8 fl (6.2-12.0); Monocyte# 0.63 X10^3/uL; Monocyte% 9.1 % (0-10); NRBC Flagged by Analyzer 0 % (0-5); Neutrophil # 3.53 X10^3/uL (2.7-7.7); Neutrophil % 51.2 % (47-70); Platelet Count 258 K/mm3 (150-450); RBC Distribution Width CV 11.8 % (11.6-14.6); RBC Distribution Width SD 41.9 fl (35.1-43.9); Red Blood Count 4.36 M/mm3 (4.6-6.2); White Blood Count 6.9 K/mm3 (4.4-11.0)
[2022-10-30 08:43] LABS: Anion Gap 3 (5-15); BUN 17 mg/dL (7-18); BUN/Creat Ratio 15.9 RATIO (10-20); Calcium,Total 8.9 mg/dL (8.5-10.1); Chloride 106 mmol/L (98-107); Creatinine, Serum 1.07 mg/dL (0.70-1.30); EST Glomerular Filtration Rate 70 mL/min (>60); Est Glom Filt Rate - Afr Amer 85 mL/min (>60); Glucose 93 mg/dL (74-106); Potassium 3.7 mmol/L (3.5-5.1); Sodium Level 140 mmol/L (136-145)
== END ==
LOC: OLS.WHLTSB 05:00
PROVIDERS: PCP Family Medicine; Visit Provider Internal Medicine
DX: E03.9 Hypothyroidism, unspecified (principal); F41.1 Generalized anxiety disorder
CPT/HCPCS: 36415; 80048; 85025

== ENCOUNTER 2022-11-18 21:24 | Emergency (ER) | payer MEDICARE, OTHER, SELFPAY ==
[2022-11-18 21:26] VITALS: BP 111/55; PULSE 59; RESP 12; TEMP 36.4; O2SAT 95; BMI 25.0
[2022-11-18 22:43] VITALS: BP 154/59; PULSE 77; RESP 14; O2SAT 99
--- NOTE | 2022-11-18 22:54 | CT_ITS ---
INDICATION: injury EXAMINATION: CT CERVICAL SPINE - CT Spine Cervical W/O Contrast Injection TECHNIQUE: Helically acquired images were obtained of the cervical spine. 2D reformatted images were reviewed. A radiation dose optimization technique was used for this scan. IV Contrast dosage and agent: None. COMPARISON: None. FINDINGS: VERTEBRAE: No fracture or acute compression deformity. No discrete lytic or blastic abnormality. Preserved cervical lordosis with degenerative grade 1 anterolisthesis C7 on T1. Normal craniocervical junction and cervicothoracic junction. DISCS and SPINAL CANAL: Diffuse disc height loss in the upper cervical spine with small posterior disc osteophyte complexes most prominent C3-C4 with mild spinal canal stenosis and moderate to severe neural foraminal narrowing. NECK SOFT TISSUES: No prevertebral soft tissue swelling. There is no cervical adenopathy. LUNG APICES: Clear. CT/Spine Cervical without Contras IMPRESSION: No evidence of acute cervical spinal fracture Spondylosis as above.. Electronically Signed: Daron Cerna MD at 23:44 EDT ,
--- NOTE | 2022-11-18 22:54 | CT_ITS ---
INDICATION: head injury EXAMINATION: CT BRAIN - CT Head or Brain W/O Contrast Injection TECHNIQUE: Multiple axial images were obtained of the head without intravenous contrast. A radiation dose optimization technique was used for this scan. IV Contrast dosage and agent: None. COMPARISON: September 23, 2021 FINDINGS: BRAIN PARENCHYMA: No intra- or extra-axial hemorrhage. No evidence of acute infarct. No intracranial mass or mass effect. Mild periventricular and subcortical white matter hypodense chronic small vessel white matter ischemic change. There is preservation of the salter/white matter interface. Posterior fossa structures are unremarkable. Carotid and vertebral atherosclerosis. CSF SPACES: Moderate global cerebral volume loss. No hydrocephalus. Basal cisterns are patent. CALVARIUM, SKULL BASE, PARANASAL SINUSES AND MASTOID AIR CELLS: No acute osseous finding. Paransasal sinuses are clear. Mastoid air cells are clear. ORBITS: Both globes, extraocular muscles, optic nerves and retrobulbar fat appear unremarkable. ASPECTS Score for Acute Strokes: 10 CT/Brain/Head without Contrast IMPRESSION: No CT evidence of acute intracranial hemorrhage or injury. Moderate senescent changes compatible with age Electronically Signed: Daron Cerna MD at 23:47 EDT Reading Location ID and State: [facility] / [place] Tel , Service support ,
--- NOTE | 2022-11-18 22:55 | RAD_ITS ---
INDICATION: injury EXAMINATION/TECHNIQUE: X-RAY - XR Pelvis 1 or 2 Views COMPARISON: August 06 2018. FINDINGS: PELVIC BONES: No displaced fracture, destructive or sclerotic lesions. Note that overlapping bowel shadows may however obscure fine detail. Sacroiliac joints are unremarkable. No widening of the pubic symphysis. HIPS: Normal bilateral hip alignment. Normal right hip joint space narrowing. Minimal bilateral femoral acetabular osteophyte formation.. No displaced fracture seen in this frontal view. SOFT TISSUES:Soft tissue mineralization seen along right anterior inferior iliac spine. No soft tissue swelling or gas. RAD/Pelvis 1 or 2 Views IMPRESSION: No evidence of displaced pelvic or hip fracture. Mild bilateral hip osteoarthritis. Mineralization along the anterior-inferior iliac spine suggestive hydroxyapatite deposition compatible with rectus femoris calcific tendinitis in the appropriate setting Electronically Signed: Daron Cerna MD at 23:52 EDT ,
[2022-11-18 23:00] VITALS: BP 124/54; PULSE 52; RESP 16; O2SAT 96
--- NOTE | 2022-11-19 00:45 | EDS_ITS ---
HPI History of Present Illness Chief Complaint: Fall Informant: spouse/S.O. and family Narrative Narrative: Patient is an 87-year-old male with past medical history of Alzheimer disease currently in the alf. Patient is alert to person only and cannot offer any further history. Family states that he has been falling recently. They say that today he was in his room being helped by aide when they witnessed him fall from a standing position and strike the back of his head. Family reports no history of bleeding disorder or blood thinner use and states patient is acting at his baseline mental status but because of the recurrent falls and head injury they have concern for brain bleed and bring him in for evaluation [facility] Medical History (Updated 11/19/22 @ 00:[address] Ulises Ernandez DO) Acute bronchitis, unspecified Acute sinusitis, unspecified Alzheimers disease Aneurysm of ascending aorta Anxiety Aortic ectasia, unspecified site BPH (benign prostatic hyperplasia) COVID-19 Dementia Diverticulosis Hyperlipemia Hypertension Hypothyroidism Nonrheumatic aortic (valve) stenosis Right shoulder injury Right shoulder strain Home Medications levothyroxine 25 mcg tablet 25 mcg PO DAILY thyroid 06/30/17 [History Last Taken 09/01/20] melatonin 5 mg tablet 20 mg PO HS 04/06/22 [History Last Taken Unknown] memantine 5 mg tablet 5 mg PO BID 04/06/22 [History Last Taken Unknown] trazodone 50 mg tablet 50 mg PO DAILY 04/06/22 [History Last Taken Unknown] metoprolol succinate 25 mg tablet,extended release 24 hr 25 mg PO DAILY #90 tabs 08/17/22 [Rx Last Taken Unknown] citalopram 20 mg tablet 20 mg PO DAILY #90 tabs 11/13/22 [Rx Last Taken Unknown] hydroxyzine HCl 25 mg tablet 25 mg PO Q6H PRN anxiety 11/18/22 [History Last Taken Unknown] lorazepam 0.5 mg tablet 0.5 mg PO DAILY 11/18/22 [History Last Taken Unknown] lorazepam 0.5 mg tablet 0.5 mg PO DAILY PRN PRN anxiety 11/18/22 [History Last Taken Unknown] Allergy/AdvReac Type Severity Reaction Status Date / Time No Known Allergies Allergy Verified 11/18/22 21:32 Family History Brother CVA (cerebral vascular accident) Sudden cardiac , Onset Age: 68 Brother COPD (chronic obstructive pulmonary disease) Father CVA (cerebral vascular accident) Mother Diabetes Surgical History History of carpal tunnel surgery History of colon resection History of tonsillectomy and adenoidectomy History of vasectomy Social History Smoking Status: Never smoker alcohol intake: current alcohol intake frequency: a few times a week ROS ROS ED Review of Systems ROS Unobtainable: other Details: Review of systems unable to be obtained secondary to history of dementia EXAM Physical Exam Const Vital Signs: 11/18/22 21:26 11/18/22 21:43 11/18/22 22:43 Temperature 97.6 F L Temperature Source Temporal Pulse Rate 59 L 77 Respiratory Rate 12 14 Respiratory Effort Normal Blood Pressure 111/55 L 154/59 H Blood Pressure Mean 73 90 Pulse Ox 95 99 Oxygen Delivery Method Room Air Room Air Room Air 11/18/22 23:00 11/19/22 00:56 11/19/22 00:59 Temperature Temperature Source Pulse Rate 52 L 53 L 52 L Respiratory Rate 16 11 L 12 Respiratory Effort Blood Pressure 124/54 H 125/49 H 108/49 L Blood Pressure Mean 77 74 68 Pulse Ox 96 95 95 Oxygen Delivery Method Room Air Room Air Positive well nourished and well developed General Appearance ED: well developed HEENT HEENT Narrative: Patient has a 1 x 2 cm hematoma to the right occipital portion of the scalp without signs of depressed or basilar skull fracture Eyes PERRL and EOMs intact bilaterally Neck supple Neck Narrative: Bony deformity or step-off of the cervical spine no obvious midline pain with palpation Chest Wall palpation of chest normal Chest Narrative: No bony deformity or crepitus noted Resp normal respiratory effort and clear to auscultation bilaterally Cardio regular rate and regular rhythm GI normal to inspection, nondistended, normoactive bowel sounds, non-tender, non- distended and no masses GI Narrative: Abdomen is soft nontender and nondistended with normal active bowel sounds no voluntary guarding or rigidity or pulsatile mass Auscultation: normoactive bowel sounds Palpation: soft Back/Spine Back/Spine Narrative: No obvious bony deformity or step-off of the thoracic or lumbar spine no midline pain on palpation Extremity normal to inspection Extremity Narrative: Pelvis is stable there is no shortening or external rotation of either lower extremity No obvious findings of long bone injury Neuro CN's II-XII intact bilaterally Neuro Narrative: Patient is sleeping and will respond briefly to loud voice or painful stimuli. Family states this is baseline mental status. He is able to move all extremitie s without obvious focal neurologic deficit. Sensorium / Orientation: orientation impaired Skin Skin Narrative: Patient has multiple skin tears to bilateral forearms without secondary changes to suggest infection Hematoma to the occipital portion of the scalp as documented above MDM MDM MDM Narrative Medical decision making narrative: Patient presented to the ER with stable vitals and at baseline mental status per family. With patient having a witnessed fall and physical signs of head injury there is concern for skull fracture versus epidural or subdural hematoma. There is also concern for cervical spine injury versus pelvic fracture. CTs and x-ray studies were ordered. CT of the head and cervical spine revealed no underlying traumatic finding and x-ray of the pelvis revealed no acute fracture or dislocation. Therefore at this time as patient's had a mechanical fall is at baseline mental status per family has stable vitals and imaging is not showing any signs of acute bleed or fracture there is no need for further work-up and he can be discharged back to the alf History & Record Review Discussion w/independent historian: Family and Significant other Radiography Diagnostic Testing: Clinical Impression(s) from Imaging Studies Brain CT 11/18/22 22:54 IMPRESSION: No CT evidence of acute intracranial hemorrhage or injury. Moderate senescent changes compatible with age Electronically Signed: Daron Cerna MD at 23:47 EDT , Cervical Spine CT 11/18/22 22:54 IMPRESSION: No evidence of acute cervical spinal fracture Spondylosis as above.. Electronically Signed: Daron Cerna MD at 23:44 EDT , Pelvis X-Ray 11/18/22 22:55 IMPRESSION: No evidence of displaced pelvic or hip fracture. Mild bilateral hip osteoarthritis. Mineralization along the anterior-inferior iliac spine suggestive hydroxyapatite deposition compatible with rectus femoris calcific tendinitis in the appropriate setting Electronically Signed: Daron Cerna MD at 23:52 EDT Reading Location ID and State: [facility] / [place] Tel , Service support , 1 view pelvis x-ray as interpreted by the emergency medicine physician reveals osteoarthritic changes without acute fracture or dislocation Discharge Plan Triage Chief Complaint: Fall ED Provider: Ulises Ernandez Dx/Rx/DC Orders Clinical Impression: Closed head injury, Dementia, Accidental fall Instructions: Delirium and Dementia, ED Head Injury (Adult) Prescriptions: No Action memantine 5 mg tablet 5 mg PO BID trazodone 50 mg tablet 50 mg PO DAILY melatonin 5 mg tablet 20 mg PO HS levothyroxine 25 MCG tablet 25 mcg PO DAILY lorazepam 0.5 mg tablet 0.5 mg PO DAILY lorazepam 0.5 mg tablet 0.5 mg PO DAILY PRN PRN (Reason: anxiety) hydroxyzine HCl 25 mg tablet 25 mg PO Q6H PRN (Reason: anxiety) metoprolol succinate 25 mg tablet extended release 24 hr 25 mg PO DAILY Qty: 90 3RF citalopram 20 mg tablet 20 mg PO DAILY Qty: 90 3RF Primary Care Provider: Josue Bowers Referrals: Josue Bowers MD [Primary Care Provider] - Activity Restrictions/Additional Instructions: Imaging studies today showed no signs of trauma. Please discuss with your family doctor stopping your new medication that you began today as it is causing severe fatigue/depressed mental status and return to the ER should you have any further concerns Disposition Disposition: Home, Self Care
[2022-11-19 00:56] VITALS: BP 125/49; PULSE 53; RESP 11; O2SAT 95
[2022-11-19 00:59] VITALS: BP 108/49; PULSE 52; RESP 12; O2SAT 95
== END 2022-11-19 05:33 | disposition home or self-care (01) ==
PROVIDERS: Emergency Provider Emergency Medicine; PCP Internal Medicine; Visit Provider Emergency Medicine
DX: S09.8XXA Other specified injuries of head, initial encounter (principal); G30.9 Alzheimer's disease, unspecified; F02.80 Dementia in other diseases classified elsewhere, unspecified severity, without behavioral disturbance, psychotic disturbance, mood disturbance, and anxiety; I10 Essential (primary) hypertension; E78.5 Hyperlipidemia, unspecified; W18.30XA Fall on same level, unspecified, initial encounter; Y92.129 Unspecified place in nursing home as the place of occurrence of the external cause; E03.9 Hypothyroidism, unspecified; F41.9 Anxiety disorder, unspecified; Z98.52 Vasectomy status
CPT/HCPCS: 70450; 72125; 72170; 99284

== ENCOUNTER → 2022-11-29 | Outpatient (REF) | payer MEDICARE, OTHER, SELFPAY ==
[2022-11-29 09:34] LABS: Absolute Lymphocyte Count 2.01 X10^3/uL (0.83-4.51); Absolute Neutrophil Count 2.5 X10^3/uL (2.0-7.7); Basophil# 0.05 X10^3/uL; Basophil% 0.9 % (0-1); Eosinophil# 0.16 X10^3/uL; Hematocrit 42.1 % (40-54); Hemoglobin 13.3 g/dL (13.0-16.5); Lymphocyte # 2.01 X10^3/ul (0.83-4.51); Lymphocyte % 37.2 % (19-41); Mean Corp Hgb Conc 31.6 g/dL (32-36); Mean Corpuscular Hgb 31.9 pg (27.0-32.0); Mean Platelet Vol. 9.1 fl (6.2-12.0); Monocyte# 0.65 X10^3/uL; NRBC Flagged by Analyzer 0 % (0-5); Neutrophil # 2.51 X10^3/uL (2.7-7.7); Neutrophil % 46.3 % (47-70); Platelet Count 236 K/mm3 (150-450); RBC Distribution Width CV 12.6 % (11.6-14.6); RBC Distribution Width SD 47.2 fl (35.1-43.9); Red Blood Count 4.17 M/mm3 (4.6-6.2); White Blood Count 5.4 K/mm3 (4.4-11.0)
[2022-11-29 09:53] LABS: Anion Gap 3 (5-15); BUN 15 mg/dL (7-18); BUN/Creat Ratio 15.2 RATIO (10-20); Calcium,Total 8.5 mg/dL (8.5-10.1); Chloride 111 mmol/L (98-107); Creatinine, Serum 0.99 mg/dL (0.70-1.30); EST Glomerular Filtration Rate 77 mL/min (>60); Est Glom Filt Rate - Afr Amer 93 mL/min (>60); Glucose 103 mg/dL (74-106); Potassium 3.9 mmol/L (3.5-5.1); Sodium Level 140 mmol/L (136-145)
== END ==
LOC: OLS.WHLTSB 05:00
PROVIDERS: PCP Internal Medicine; Visit Provider Internal Medicine
DX: E03.9 Hypothyroidism, unspecified (principal); F03.90 Unspecified dementia, unspecified severity, without behavioral disturbance, psychotic disturbance, mood disturbance, and anxiety
CPT/HCPCS: 36415; 80048; 85025

== ENCOUNTER → 2022-12-21 | Outpatient (REF) | payer MEDICARE, OTHER, SELFPAY ==
[2022-12-21 08:36] LABS: Absolute Lymphocyte Count 1.33 X10^3/uL (0.83-4.51); Absolute Neutrophil Count 6.9 X10^3/uL (2.0-7.7); Basophil# 0.03 X10^3/uL; Basophil% 0.3 % (0-1); Eosinophil# 0.11 X10^3/uL; Eosinophils% 1.2 % (0-5); Hematocrit 43.8 % (40-54); Hemoglobin 14.1 g/dL (13.0-16.5); Lymphocyte # 1.33 X10^3/ul (0.83-4.51); Lymphocyte % 14.6 % (19-41); Mean Corp Hgb Conc 32.2 g/dL (32-36); Mean Corpuscular Hgb 31.4 pg (27.0-32.0); Mean Corpuscular Volume 97.6 fL (80-94); Mean Platelet Vol. 9.5 fl (6.2-12.0); Monocyte# 0.71 X10^3/uL; Monocyte% 7.8 % (0-10); NRBC Flagged by Analyzer 0 % (0-5); Neutrophil # 6.92 X10^3/uL (2.7-7.7); Neutrophil % 75.7 % (47-70); Platelet Count 229 K/mm3 (150-450); RBC Distribution Width SD 43.5 fl (35.1-43.9); Red Blood Count 4.49 M/mm3 (4.6-6.2); White Blood Count 9.1 K/mm3 (4.4-11.0)
[2022-12-21 08:57] LABS: Anion Gap 4 (5-15); BUN 17 mg/dL (7-18); BUN/Creat Ratio 15.5 RATIO (10-20); Calcium,Total 8.9 mg/dL (8.5-10.1); Chloride 107 mmol/L (98-107); EST Glomerular Filtration Rate 68 mL/min (>60); Est Glom Filt Rate - Afr Amer 82 mL/min (>60); Glucose 113 mg/dL (74-106); Potassium 4.6 mmol/L (3.5-5.1); Sodium Level 139 mmol/L (136-145)
== END ==
LOC: OLS.WHLTSB 05:00
PROVIDERS: PCP Internal Medicine; Visit Provider Internal Medicine
DX: E03.9 Hypothyroidism, unspecified (principal)
CPT/HCPCS: 36415; 80048; 85025

== ENCOUNTER → 2023-01-25 | Outpatient (REF) | payer MEDICARE, OTHER, SELFPAY ==
--- OUTSIDE RECORDS SUMMARY | 2023-01-25 04:21 | XMS RPT_ITS | CCD ---
Author Name Unknown Address [address] [place] [address] Organization [facility] Care Team Providers Care Transit Coach Operator Name Role Phone Agustin SHORE, Sabrina Webb Unavailable Meme SCHAFFER, Teo Shook Unavailable [phone] Neida SHORE, Kayla Oseguera Unavailable Unavailable Allergies Allergy Classification Reported Allergen(s) Allergy Type Date of Onset Reaction(s) Facility (2 sources) NKDA drug allergy 09-18-2011 [facility] [employer] Work Phone: (2 sources) NKA drug allergy 09-18-[address] [facility] Work Phone: Medications Completed/Discontinued Medications Medication Drug Class(es) Dates Sig (Normalized) Sig (Original) atorvastatin 40 mg oral tablet (2 sources) HMG-CoA Reductase Inhibitor Start: 10-26-2014 take 1 tablet by mouth once daily ATORVASTATIN CALCIUM 40 MG TABS One tablet by mouth daily ATORVASTATIN CALCIUM [id number] Teo Valentine MD doxazosin 8 mg oral tablet (8 sources) alpha-Adrenergic Jumana Start: 09-18-2011 take 1 tablet by mouth once daily at bedtime DOXAZOSIN MESYLATE 8 MG TABS One tablet by mouth daily at bedtime. DOXAZOSIN MESYLATE [id number] Kayla Carrasquillo RN Problems Active Problems Problem Classification Problem Date Documented Da te Episodic/Chronic Aortic; peripheral; and visceral artery aneurysms (4 sources) Aneurysm of thoracic aorta; Translations: [Thoracic aortic aneurysm, without rupture] Onset: 05-31-2010 05-31-2010 Chronic Disorders of lipid metabolism (4 sources) Hyperlipidemia; Translations: [Hyperlipidemia, unspecified] Onset: 05-31-2010 05-31-2010 Chronic Heart valve disorders (18 sources) Aortic valve disorder; Translations: [Nonrheumatic aortic (valve) stenosis] Onset: 05-31-2010 Resolved: 11-03-2014 11-03-2014 Chronic Past or Other Problems Problem Classification Problem Date Documented Da te Episodic/Chronic Cardiac dysrhythmias (4 sources) Palpitations; Translations: [Palpitations] Onset: 09-14-2011 09-14-2011 Episodic Conditions associated with dizziness or vertigo (4 sources) Dizziness; Translations: [Dizziness and giddiness] Onset: 12-29-2015 12-29-2015 Episodic Malaise and fatigue (4 sources) Malaise and fatigue; Translations: [Other fatigue] Onset: 12-29-2015 12-29-2015 Episodic Other lower respiratory disease (4 sources) Dyspnea; Translations: [Shortness of breath] Onset: 05-31-2010 05-31-2010 Episodic Other nervous system disorders (4 sources) Paresthesia of skin; Translations: [Numbness of limbs] Onset: 09-14-2011 09-14-2011 Episodic Other nutritional; endocrine; and metabolic disorders (4 sources) Unexplained weight loss ; Translations: [Abnormal weight loss] Onset: 12-29-2015 12-29-2015 Episodic Residual codes; unclassified (4 sources) Family history of stroke; Translations: [Family history of stroke] 10-17-2013 Episodic Results Test Name Value Interpretation Reference Range Facil ity Vital Signs Date Time Vital Sign Value Performing Clinician Jose romero 11-15-2016 11:21-0400 BMI (Body Mass Index) 22.46 kg/m2 [facility] Work Phone: 11-15-2016 11:21-0400 BP Diastolic 72 mm[Hg] [facility] Work Phone: 11-15-2016 11:21-0400 BP Systolic 118 mm[Hg] [facility] Work Phone: 11-15-2016 11:21-0400 Height 165.1 cm [facility] Work Phone: 11-15-2016 11:21-0400 Pulse (Heart Rate) 68 /min [facility] Work Phone: 11-15-2016 11:21-0400 Respiratory Rate 18 /min Teo Valentine MD [facility] Work Phone: 11-15-2016 11:21-0400 Weight 61.24 kg Teo Valentine MD [facility] Work Phone: 11-15-2016 11:21-0400 Weight 61.23 kg Teo Valentine MD [facility] Work Phone: 10-25-2015 08:38-0400 BMI (Body Mass Index) 22.63 kg/m2 [facility] Work Phone: 10-25-2015 08:38-0400 BP Diastolic 84 mm[Hg] Kayla Carrasquillo RN [facility] Work Phone: 10-25-2015 08:38-0400 BP Systolic 160 mm[Hg] Kayla Carrasquillo RN [facility] Work Phone: 10-25-2015 08:38-0400 BSA (Body Surface Area) 1.68 m2 Kayla Carrasquillo RN [facility] Work Phone: 10-25-2015 08:38-0400 Pulse (Heart Rate) 68 /min Kayla Carrasquillo RN [facility] Work Phone: 10-25-2015 08:38-0400 Respiratory Rate 16 /min Kayla Carrasquillo RN [facility] Work Phone: 10-25-2015 08:38-0400 Weight 61.69 kg Kayla Carrasquillo RN [facility] Work Phone: 09-23-2012 08:35-0400 Heart rate 401 ms Kayla Carrasquillo RN [facility] Work Phone: 09-23-2012 08:35-0400 Heart rate 75 /min Kayla Carrasquillo RN [facility] Work Phone: 09-18-2011 09:08-0400 Height 165.1 cm [facility] Work Phone: Procedures Date Procedure Procedure Detail Performing Clinician Start: 11-15-2016 End: 11-15-2016 Follow Up Appt 1 year Teo Marks Start: 11-15-2016 End: 11-15-2016 PFM Teo Valentine MD Start: 12-31-2015 End: 01-03-2016 *BMP Teo Valentine MD Start: 12-31-2015 End: 01-03-2016 *CBC with Differential Teo Valentine MD Start: 12-31-2015 End: 01-03-2016 Thyrotropin [Units/volume] in Serum or Plasma Teo Valentine MD Start: 12-31-2015 End: 01-03-2016 Thyroxine (T4) [Mass/volume] in Serum or Plasma Teo Valentine MD Start: 12-31-2015 End: 01-03-2016 *BMP Teo Valentine MD Start: 12-31-2015 End: 01-03-2016 *CBC with Differential Teo Valentine MD Start: 12-31-2015 End: 01-03-2016 Thyroid stimulating hormone (TSH) Teo Valentine MD Start: 12-31-2015 End: 01-03-2016 Thyroxine (T4) Teo Valentine MD Start: 10-25-2015 End: 10-25-2015 Follow Up Appt 1 year Teo Marks Start: 10-25-2015 End: 10-25-2015 PFM Teo Valentine MD Start: 10-25-2015 End: 10-25-2015 Follow Up Appt 1 year Teo Marks Start: 10-25-2015 End: 10-25-2015 PFM Teo Valentine MD Start: 10-26-2014 End: 10-27-2014 Documentation of current medications Teo Valentine MD Start: 10-26-2014 End: 10-26-2014 Follow Up Appt 1 year Teo Marks Start: 10-26-2014 End: 10-26-2014 PFM Teo Valentine MD Start: 10-26-2014 End: 10-27-2014 Documentation of current medications Teo Valentine MD Start: 10-26-2014 End: 10-26-2014 Follow Up Appt 1 year Teo Marks Start: 10-26-2014 End: 10-26-2014 PFM Teo Valentine MD Start: 10-17-2013 End: 10-30-2013 Ct thorax w/contrast material Teo Valentine MD Start: 10-17-2013 End: 10-17-2013 Follow Up Appt 1 year Teo Marks Start: 10-17-2013 End: 10-17-2013 PFM Teo Valentine MD Start: 10-17-2013 End: 10-30-2013 Ct thorax w/dye Teo Valentine MD Start: 10-17-2013 End: 10-17-2013 Follow Up Appt 1 year Teo Marks Start: 10-17-2013 End: 10-17-2013 PFM Teo Valentine MD Start: 09-23-2012 End: 09-23-2012 Follow Up Appt 1 year Teo Marks Start: 09-23-2012 End: 09-23-2012 PFM Teo Valentine MD Start: 09-23-2012 End: 09-23-2012 Follow Up Appt 1 year Teo Marks Start: 09-23-2012 End: 09-23-2012 PFM Teo Valentine MD Start: 09-18-2011 End: 09-18-2011 Follow Up Appt 1 year Teo Marks Start: 09-18-2011 End: 09-18-2011 Follow Up Appt 1 year Teo Marks Plan of Treatment Date Care Activity Detail Author Start: 11-19-2017 End: 11-19-2017 Appointment Appointment [facility] Work Phone: Start: 11-15-2016 End: 11-15-2016 Ct thorax w/contrast material CT Chest with Contrast [facility] Work Phone: Start: 11-15-2016 End: 11-15-2016 Echocardiography Echocardiogram (complete) [facility] Work Phone: Start: 11-15-2016 End: 11-15-2016 Follow Up Appt 1 year Follow Up Appt 1 year [facility] Work Phone: Start: 11-15-2016 End: 11-15-2016 PFM PFM [facility] Work Phone: Start: 11-15-2016 End: 11-15-2016 Appointment Appointment [facility] Work Phone: Start: 12-31-2015 End: 01-03-2016 *BMP *BMP [facility] Work Phone: Start: 12-31-2015 End: 01-03-2016 *CBC with Differential *CBC with Differential [facility] Work Phone: Start: 12-31-2015 End: 01-03-2016 Thyroid stimulating hormone (TSH) *TSH [facility] Work Phone: Start: 12-31-2015 End: 01-03-2016 Thyroxine (T4) *T4 (Total) [facility] Work Phone: Start: 12-31-2015 End: 01-03-2016 *BMP *BMP [facility] Work Phone: Start: 12-31-2015 End: 01-03-2016 *CBC with Differential *CBC with Differential [facility] Work Phone: Start: 12-31-2015 End: 01-03-2016 Thyroid stimulating hormone (TSH) *TSH [facility] Work Phone: Start: 12-31-2015 End: 01-03-2016 Thyroxine (T4) *T4 (Total) [facility] Work Phone: Start: 10-25-2015 End: 05-05-2016 Ct thorax w/contrast material CT Chest with Contrast [facility] Work Phone: Start: 10-25-2015 End: 10-25-2015 Follow Up Appt 1 year Follow Up Appt 1 year [facility] Work Phone: Start: 10-25-2015 End: 10-25-2015 PFM PFM [facility] Work Phone: Start: 10-25-2015 End: 05-05-2016 Ct thorax w/dye CT Chest with Contrast [facility] Work Phone: Start: 10-25-2015 End: 10-25-2015 Follow Up Appt 1 year Follow Up Appt 1 year [facility] Work Phone: Start: 10-25-2015 End: 10-25-2015 PFM PFM [facility] Work Phone: Start: 10-20-2015 End: 07-06-2015 Ct thorax w/contrast material CT Chest with Contrast [facility] Work Phone: Start: 10-20-2015 End: 07-06-2015 Ct thorax w/dye CT Chest with Contrast [facility] Work Phone: Start: 10-26-2014 End: 10-26-2014 Echocardiography Echocardiogram (complete) [facility] Work Phone: Start: 10-26-2014 End: 10-26-2014 Follow Up Appt 1 year Follow Up Appt 1 year [facility] Work Phone: Start: 10-26-2014 End: 10-26-2014 Follow Up Appt Other Follow Up Appt Other [facility] Work Phone: Start: 10-26-2014 End: 10-26-2014 PFM PFM [facility] Work Phone: Start: 10-26-2014 End: 10-26-2014 Echocardiography Echocardiogram (complete) [facility] Work Phone: Start: 10-26-2014 End: 10-26-2014 Follow Up Appt 1 year Follow Up Appt 1 year [facility] Work Phone: Start: 10-26-2014 End: 10-26-2014 Follow Up Appt Other Follow Up Appt Other [facility] Work Phone: Start: 10-26-2014 End: 10-26-2014 PFM PFM [facility] Work Phone: Start: 10-17-2013 End: 10-17-2013 Ct thorax w/contrast material CT Chest with Contrast [facility] Work Phone: Start: 10-17-2013 End: 10-17-2013 Follow Up Appt 1 year Follow Up Appt 1 year [facility] Work Phone: Start: 10-17-2013 End: 10-17-2013 Follow Up Appt Other Follow Up Appt Other [facility] Work Phone: Start: 10-17-2013 End: 10-17-2013 PFM PFM [facility] Work Phone: Start: 10-17-2013 End: 10-17-2013 Ct thorax w/dye CT Chest with Contrast [facility] Work Phone: Start: 10-17-2013 End: 10-17-2013 Follow Up Appt 1 year Follow Up Appt 1 year [facility] Work Phone: Start: 10-17-2013 End: 10-17-2013 Follow Up Appt Other Follow Up Appt Other [facility] Work Phone: Start: 10-17-2013 End: 10-17-2013 PFM PFM [facility] Work Phone: Start: 09-23-2012 End: 09-23-2012 Chest x-ray X-Ray, Chest, PA & Lateral [facility] Work Phone: Start: 09-23-2012 End: 09-23-2012 Ct thorax w/contrast material CT Chest with Contrast [facility] Work Phone: Start: 09-23-2012 End: 09-23-2012 Follow Up Appt 1 year Follow Up Appt 1 year [facility] Work Phone: Start: 09-23-2012 End: 09-23-2012 PFM PFM [facility] Work Phone: Start: 09-23-2012 End: 09-23-2012 Chest x-ray X-Ray, Chest, PA & Lateral [facility] Work Phone: Start: 09-23-2012 End: 09-23-2012 Ct thorax w/dye CT Chest with Contrast [facility] Work Phone: Start: 09-23-2012 End: 09-23-2012 Follow Up Appt 1 year Follow Up Appt 1 year [facility] Work Phone: Start: 09-23-2012 End: 09-23-2012 PFM PFM [facility] Work Phone: Start: 09-19-2011 End: 09-14-2011 Nuclear stress test -exercise Nuclear stress test -exercise [facility] Work Phone: Start: 09-19-2011 End: 09-14-2011 Nuclear stress test -exercise Nuclear stress test -exercise [facility] Work Phone: Start: 09-18-2011 End: 09-18-2011 Ecg routine ecg w/least 12 lds w/i&r EKG (In office) [facility] Work Phone: Start: 09-18-2011 End: 09-18-2011 Follow Up Appt 1 year Follow Up Appt 1 year [facility] Work Phone: Start: 09-18-2011 End: 09-18-2011 Electrocardiogram, complete EKG (In office) [facility] Work Phone: Start: 09-18-2011 End: 09-18-2011 Follow Up Appt 1 year Follow Up Appt 1 year [facility] Work Phone: Start: 09-14-2011 End: 09-14-2011 24 hour holter monitor 24 hour holter monitor [facility] Work Phone: Start: 09-14-2011 End: 09-14-2011 24 hour holter monitor 24 hour holter monitor [facility] Work Phone: Additional Source Comments FOR RECORDS PERTAINING TO PATIENTS WHO ARE OR HAVE BEEN ENROLLED IN A CHEMICAL DEPENDENCY/SUBSTANCEABUSE PROGRAM, SOME INFORMATION MAY BE OMITTED. This clinical summary was aggregated from multiple sources. Caution should be exercised in using it in the provision of clinical care. This summary normalizes information from multiple sources, and as a consequence, information in this document may materially change the coding, format and clinical context of patient data. In addition, data may be omitted in some cases. CLINICAL DECISIONS SHOULD BE BASED ON THE PRIMARY CLINICAL RECORDS. [email or web address] provides no warranty or guarantee of the accuracy or completeness of information in this document.
[2023-01-25 07:49] LABS: Absolute Lymphocyte Count 2.32 X10^3/uL (0.83-4.51); Absolute Neutrophil Count 3.9 X10^3/uL (2.0-7.7); Basophil# 0.04 X10^3/uL; Basophil% 0.6 % (0-1); Eosinophil# 0.24 X10^3/uL; Eosinophils% 3.4 % (0-5); Hematocrit 39.6 % (40-54); Hemoglobin 13.5 g/dL (13.0-16.5); Lymphocyte # 2.32 X10^3/ul (0.83-4.51); Lymphocyte % 32.4 % (19-41); Mean Corp Hgb Conc 34.1 g/dL (32-36); Mean Corpuscular Hgb 32.5 pg (27.0-32.0); Mean Corpuscular Volume 95.2 fL (80-94); Mean Platelet Vol. 9.3 fl (6.2-12.0); Monocyte# 0.63 X10^3/uL; Monocyte% 8.8 % (0-10); NRBC Flagged by Analyzer 0 % (0-5); Neutrophil % 54.5 % (47-70); Platelet Count 212 K/mm3 (150-450); RBC Distribution Width SD 45.2 fl (35.1-43.9); Red Blood Count 4.16 M/mm3 (4.6-6.2); White Blood Count 7.2 K/mm3 (4.4-11.0)
[2023-01-25 08:06] LABS: Anion Gap 4 (5-15); BUN 17 mg/dL (7-18); Calcium,Total 8.4 mg/dL (8.5-10.1); Chloride 112 mmol/L (98-107); Creatinine, Serum 1.06 mg/dL (0.70-1.30); EST Glomerular Filtration Rate 71 mL/min (>60); Est Glom Filt Rate - Afr Amer 85 mL/min (>60); Glucose 86 mg/dL (74-106); Sodium Level 143 mmol/L (136-145)
== END ==
LOC: OLS.WHLTSB 05:00
PROVIDERS: PCP Internal Medicine; Visit Provider Internal Medicine
DX: E03.9 Hypothyroidism, unspecified (principal)
CPT/HCPCS: 36415; 80048; 85025

== ENCOUNTER 2023-02-14 08:30 | Emergency (ER) | payer MEDICARE, OTHER, SELFPAY ==
[2023-02-14 08:32] VITALS: BP 89/76; PULSE 54; RESP 16; TEMP 35.5; O2SAT 95; BMI 27.2
--- NOTE | 2023-02-14 08:56 | CT_ITS ---
STUDY: CT BRAIN WITHOUT CONTRAST REASON FOR EXAM: Male, 87 years old. Head injury due to a fall. Dementia. RADIATION DOSAGE (If Supplied By Facility): CTDIvol = ( 44.99 ) mGy, DLP = ( 880.47 ) mGycm TECHNIQUE: Transaxial CT imaging of the brain was performed without administration of intravenous contrast material. Individualized dose optimization techniques were used for this CT. COMPARISON: Comparison is made with prior study dated November 18, 2022. FINDINGS: Normal soft tissue structures. Normal calvarium. There is moderate cerebral atrophy with widening of the extra-axial spaces and ventricular dilatation. There are areas of decreased attenuation within the white matter tracts of the supratentorial brain, consistent with microvascular disease changes. Normal basal ganglia and thalami. Normal brainstem. There is mild cerebellar atrophy. There is no intracranial hemorrhage. There are no findings of an acute ischemic infarction. This rounded calcification of the cavernous portions of the internal carotid arteries bilaterally. Normal visualized paranasal sinuses. CT/Brain/Head without Contrast IMPRESSION: Chronic involutional changes of the brain. Electronically Signed: Frank Ovalle MD at 10:17 EST ,
--- NOTE | 2023-02-14 08:56 | EKG12_ITS ---
Test Reason : FALL Blood Pressure : / mmHG Vent. Rate : 053 BPM Atrial Rate : 053 BPM P-R Int : 164 ms QRS Dur : 076 ms QT Int : 458 ms P-R-T Axes : 062 019 078 degrees QTc Int : 429 ms Sinus bradycardia Otherwise normal ECG Confirmed by CORBY SCHAFFER, LINDSAY ([id number]), editor farm journal MADDY RODRIGUES ([id number]) on 02/16/2023 6:56:40 AM Referred By: Confirmed By:LINDSAY TAVAREZ MD
--- NOTE | 2023-02-14 08:58 | EX.ED.GENINJ ---
HPI History of Present Illness Chief Complaint: Fall Informant: patient and spouse/S.O. Narrative Narrative: Patient presents after a fall at nursing facility. He has dementia and prefers to speak Latvian now so very little history is obtainable through him. He does talk more with the and she obtains history. It sounds like he was likely sitting on the edge of his bed and fell onto his buttock. Evidently this is something he has done before. He is complaining of tailbone pain. He has some chronic shoulder issues but that is not bothering him. There is no indication he hit his head although is not certain. He is not on blood thinners. He was evidently not able to get up and walk. [facility] Medical History Acute bronchitis, unspecified Acute sinusitis, unspecified Alzheimers disease Aneurysm of ascending aorta Anxiety Aortic ectasia, unspecified site BPH (benign prostatic hyperplasia) COVID-19 Dementia Diverticulosis Hyperlipemia Hypertension Hypothyroidism Nonrheumatic aortic (valve) stenosis Right shoulder injury Right shoulder strain Home Medications levothyroxine 25 mcg tablet 25 mcg PO DAILY thyroid 06/30/17 [History Last Taken 09/01/20] melatonin 5 mg tablet 20 mg PO HS 04/06/22 [History Last Taken Unknown] memantine 5 mg tablet 5 mg PO BID 04/06/22 [History Last Taken Unknown] trazodone 50 mg tablet 50 mg PO DAILY 04/06/22 [History Last Taken Unknown] metoprolol succinate 25 mg tablet,extended release 24 hr 25 mg PO DAILY #90 tabs 08/17/22 [Rx Last Taken Unknown] citalopram 20 mg tablet 20 mg PO DAILY #90 tabs 11/13/22 [Rx Last Taken Unknown] hydroxyzine HCl 25 mg tablet 25 mg PO Q6H PRN anxiety 11/18/22 [History Last Taken Unknown] lorazepam 0.5 mg tablet 0.5 mg PO DAILY 11/18/22 [History Last Taken Unknown] lorazepam 0.5 mg tablet 0.5 mg PO DAILY PRN PRN anxiety 11/18/22 [History Last Taken Unknown] Allergy/AdvReac Type Severity Reaction Status Date / Time No Known Allergies Allergy Verified 02/14/23 08:31 Family History Brother CVA (cerebral vascular accident) Sudden cardiac , Onset Age: 68 Brother COPD (chronic obstructive pulmonary disease) Father CVA (cerebral vascular accident) Mother Diabetes Surgical History History of carpal tunnel surgery History of colon resection History of tonsillectomy and adenoidectomy History of vasectomy Social History Smoking Status: Never smoker alcohol intake: current alcohol intake frequency: a few times a week ROS ROS ED ROS Narrative Unable to obtain review of systems with this significant dementia. There is no report of recent illness though. states he has been doing fine. EXAM Physical Exam Narrative Exam Narrative: General: Patient is in a vacuum splint head to toe. Nontoxic. HEENT: I am not finding any trauma on his head. No facial tenderness. Mucous membranes are minimally dry. Eyes show small pupils but no limitation of range of motion. Neck is nontender. Chest heart is regular slightly bradycardic at about 55 or 60. But pulses are intact. There is no chest wall tenderness AP or laterally. None around the shoulders. No bruising noted. Lungs are clear bilaterally and saturations are normal at 95% on room air showing no hypoxia. Abdomen is soft in all quadrants. Nondistended. Normal bowel sounds. Not tender. Back: I slid under his clothing and back U-splint. I am not getting any spinal tenderness except possibility down the low lumbar almost in the sacral area. But it is mild. Extremities no tenderness anywhere in upper extremities. He seems to move them fine. Lower extremities do not look shortened or rotated at this time. No definite hip tenderness but he seems to be uncomfortable somewhere in that region. Neurologic patient is awake alert evidently at baseline per who is at bedside. Const Vital Signs: 02/14/23 08:32 02/14/23 08:36 Temperature 96 F L Temperature Source Temporal Pulse Rate 54 L Respiratory Rate 16 Respiratory Effort Normal Non-Labored Respiratory Depth Normal Respiratory Pattern Normal Blood Pressure 89/76 L Blood Pressure Mean 80 Pulse Ox 95 Oxygen Delivery Method Room Air Room Air MDM MDM MDM Narrative Medical decision making narrative: My independent interpretation of the patient's 5 view x-rays of bilateral hips and pelvis show arthritic changes but no acute process. There does appear to be some spondylolisthesis of L4 on L5. Final reading is pending. My independent interpretation of the patient's two-view lumbar spine shows the above findings but no sign of acute fracture. Final reading is pending. My independent interpretation of the patient's single AP chest x-ray shows chronic changes with no acute process. Final reading is pending. My independent interpretation of the patient's CT of the head shows significant atrophy but no sign of bleeding or fracture. Final reading is pending. Patient's CBC is overall normal. Patient's electrolytes show no marked abnormalities. Patient's glucose is minimally up at 107 this can be rechecked. This does not need treatment. Final reading of hip images is negative for acute process. We did walk the patient. He had a small almost shuffling gait but was able to walk independently. We will get him back to his nursing facility. Certainly if there are further issues they may return but at this point I think the benefit of return is greater than the risk. Lab Data Attestation: I reviewed the patient's lab results. Labs: Laboratory Results - last 24 hr 02/14/23 09:30 WBC 10.0 RBC 4.40 L Hgb 13.7 Hct 41.6 MCV 94.5 H MCH 31.1 MCHC 32.9 RDW Std Deviation 44.9 H RDW Coeff of Obey 13.0 Plt Count 235 MPV 9.3 Immature Gran % (Auto) 0.800 Neut % (Auto) 70.9 H Lymph % (Auto) 18.6 L [place] % (Auto) 7.0 Eos % (Auto) 1.9 Baso % (Auto) 0.8 Absolute Neuts (auto) 7.1 Absolute Lymphs (auto) 1.86 Nucleated RBC % 0 Sodium 141 Potassium 4.6 Chloride 111 H Carbon Dioxide 27.0 Anion Gap 3 L BUN 20 H Creatinine 1.17 Estim Creat Clear Calc 38.01 Est GFR (MDRD) Af Amer 76 Est GFR (MDRD) Non-Af 63 BUN/Creatinine Ratio 17.1 Glucose 107 H Calcium 9.1 Radiography Diagnostic Testing: Clinical Impression(s) from Imaging Studies Brain CT 02/14/23 08:56 IMPRESSION: Chronic involutional changes of the brain. Electronically Signed: Frank Ovalle MD at 10:17 EST , Chest X-Ray 02/14/23 09:40 IMPRESSION: Borderline cardiomegaly. No acute abnormality is seen. Electronically Signed: Frank Ovalle MD at 10:20 EST , Hip/Pelvis X-Ray 02/14/23 09:40 IMPRESSION: Degenerative changes of both hip joints. No fracture is seen. 2. Adjacent sclerotic density seen overlying the left iliac bone. This is unchanged. Electronically Signed: Frank Ovalle MD at 10:06 EST , Lumbar Spine X-Ray 02/14/23 09:40 IMPRESSION: Degenerative changes of the spine, as detailed above. Stable examination. Electronically Signed: Frank Ovalle MD at 10:19 EST , EKG Initial EKG: Comments: My independent interpretation of the patient's EKG shows sinus rhythm with bradycardic rate at 53. No ventricular ectopy. No acute ST elevation or depression. MD interval, QRS duration and QTc are normal. Discharge Plan Triage Chief Complaint: Fall ED Provider: Matthew Patel Dx/Rx/DC Orders Clinical Impression: Contusion of buttock, History of dementia, Fall at detention Instructions: ED Soft Tissue Contusion Prescriptions: No Action memantine 5 mg tablet 5 mg PO BID trazodone 50 mg tablet 50 mg PO DAILY melatonin 5 mg tablet 20 mg PO HS levothyroxine 25 MCG tablet 25 mcg PO DAILY lorazepam 0.5 mg tablet 0.5 mg PO DAILY lorazepam 0.5 mg tablet 0.5 mg PO DAILY PRN PRN (Reason: anxiety) hydroxyzine HCl 25 mg tablet 25 mg PO Q6H PRN (Reason: anxiety) metoprolol succinate 25 mg tablet extended release 24 hr 25 mg PO DAILY Qty: 90 3RF citalopram 20 mg tablet 20 mg PO DAILY Qty: 90 3RF Primary Care Provider: Josue Bowers Referrals: Josue Bowers MD [Primary Care Provider] - Disposition Disposition: Longterm Facility
[2023-02-14] MEDS: 0.9% Normal Saline (500mL Bag) 500 ML 1000 ML IV (09:30)
--- NOTE | 2023-02-14 09:40 | RAD_ITS ---
STUDY: X-RAY CHEST REASON FOR EXAM: Male, 87 years old. Trauma TECHNIQUE: Single AP portable view of the chest. COMPARISON: Comparison is made with prior study September 23, 2021. FINDINGS: EKG electrodes are seen. The lungs are clear and expanded. There is no demonstrated pleural abnormality. There is mild cardiac enlargement. Normal mediastinum and marty. Normal visualized pulmonary arteries. There is atherosclerotic calcification of the aortic arch with tortuosity. There are degenerative changes of the visualized thoracic spine. Normal visualized ribs, clavicles, and shoulders. There is no demonstrated abnormality of the visualized soft tissue structures of the upper abdomen. RAD/Chest 1 View (Portable) IMPRESSION: Borderline cardiomegaly. No acute abnormality is seen. Electronically Signed: Frank Ovalle MD at 10:20 EST ,
--- NOTE | 2023-02-14 09:40 | RAD_ITS ---
STUDY: X-RAY - PELVIS AND BILATERAL HIPS REASON FOR EXAM: Male, 87 years old. Trauma, pain TECHNIQUE: AP view of the pelvis.? 2 views of the right hip, and 2 views of the left hip were obtained. COMPARISON: Comparison is made with prior study dated November 18, 2022. FINDINGS: Fecal material is seen in the rectosigmoid colon. Normal visualized soft tissue structures. 2 adjacent calcific densities are seen projected over the left iliac bone. This may represent a fecal material versus osseous abnormality. This is unchanged as compared to prior study. There is narrowing with cortical sclerosis and osteophyte formation of the sacroiliac joint consistent with degenerative osteoarthritic changes. Normal bilateral superior and inferior pubic rami. Normal pubic symphysis. Normal bilateral ischial tuberosities. Normal visualized right femoral head. Normal right acetabulum. There is mild articular joint space narrowing of the right hip. Normal visualized left femoral head. Normal left acetabulum. There is mild articular joint space narrowing of the left hip. RAD/Hips B/L min 2 views w/ Pelvis IMPRESSION: Degenerative changes of both hip joints. No fracture is seen. 2. Adjacent sclerotic density seen overlying the left iliac bone. This is unchanged. Electronically Signed: Frank Ovalle MD at 10:06 [facility] ,
--- NOTE | 2023-02-14 09:40 | RAD_ITS ---
STUDY: X-RAY - LUMBAR SPINE REASON FOR EXAM: Male, 87 years old. Trauma TECHNIQUE: 2 view(s) of the lumbar spine were obtained. COMPARISON: Comparison is made with prior study dated October 18, 2017. FINDINGS: Normal lumbar lordosis. There is no substantial scoliosis. Minimal anterior listhesis of the L4 on L5 most likely secondary to facet joint osteoarthritis. There is multilevel endplate spondylosis of the lumbar vertebrae. Disc space narrowing at the L4-L5 and L5-S1 levels. There is a 1 cm calcified nodule in the right mid abdomen adjacent to the L3-L4 disc space level suggestive of possible calcified mesenteric lymph node. RAD/Lumbar Spine 2 or 3 Views IMPRESSION: Degenerative changes of the spine, as detailed above. Stable examination. Electronically Signed: Frank Ovalle MD at 10:19 EST ,
[2023-02-14 09:48] LABS: Absolute Lymphocyte Count 1.86 X10^3/uL (0.83-4.51); Absolute Neutrophil Count 7.1 X10^3/uL (2.0-7.7); Basophil# 0.08 X10^3/uL; Basophil% 0.8 % (0-1); Eosinophil# 0.19 X10^3/uL; Eosinophils% 1.9 % (0-5); Hematocrit 41.6 % (40-54); Hemoglobin 13.7 g/dL (13.0-16.5); Lymphocyte # 1.86 X10^3/ul (0.83-4.51); Lymphocyte % 18.6 % (19-41); Mean Corp Hgb Conc 32.9 g/dL (32-36); Mean Corpuscular Hgb 31.1 pg (27.0-32.0); Mean Corpuscular Volume 94.5 fL (80-94); Mean Platelet Vol. 9.3 fl (6.2-12.0); NRBC Flagged by Analyzer 0 % (0-5); Neutrophil # 7.09 X10^3/uL (2.7-7.7); Neutrophil % 70.9 % (47-70); Platelet Count 235 K/mm3 (150-450); RBC Distribution Width SD 44.9 fl (35.1-43.9)
[2023-02-14 10:06] LABS: Anion Gap 3 (5-15); BUN 20 mg/dL (7-18); BUN/Creat Ratio 17.1 RATIO (10-20); Calcium,Total 9.1 mg/dL (8.5-10.1); Chloride 111 mmol/L (98-107); Creatinine, Serum 1.17 mg/dL (0.70-1.30); EST Glomerular Filtration Rate 63 mL/min (>60); Est Glom Filt Rate - Afr Amer 76 mL/min (>60); Estimated Creatinine Clearance 38.01 ml/min; Glucose 107 mg/dL (74-106); Potassium 4.6 mmol/L (3.5-5.1); Sodium Level 141 mmol/L (136-145)
--- NOTE | 2023-02-14 11:57 | NURSING ---
CALLED [facility], ETA IS 1 HR
[2023-02-14 12:00] VITALS: RESP 16
[2023-02-14] MEDS: LORazepam 0.5 MG Tablet PO (12:57)
[2023-02-14 13:09] VITALS: BP 94/61; PULSE 61
== END 2023-02-14 13:16 | disposition skilled nursing facility (03) ==
PROVIDERS: Emergency Provider Emergency Medicine; PCP Internal Medicine; Visit Provider Emergency Medicine
DX: S30.0XXA Contusion of lower back and pelvis, initial encounter (principal); F03.90 Unspecified dementia, unspecified severity, without behavioral disturbance, psychotic disturbance, mood disturbance, and anxiety; W06.XXXA Fall from bed, initial encounter; Y92.129 Unspecified place in nursing home as the place of occurrence of the external cause; I10 Essential (primary) hypertension; E78.5 Hyperlipidemia, unspecified; E03.9 Hypothyroidism, unspecified; Z79.899 Other long term (current) drug therapy; F41.9 Anxiety disorder, unspecified; Z98.52 Vasectomy status
CPT/HCPCS: 70450; 71045; 72100; 73521; 80048; 85025; 93005; 96360; 99284; J7040; A4216

== ENCOUNTER → 2023-02-22 | Outpatient (REF) | payer MEDICARE, OTHER, SELFPAY ==
--- OUTSIDE RECORDS SUMMARY | 2023-02-22 04:22 | XMS RPT_ITS | CCD ---
Author Name Unknown Address [address] [place] [address] Organization [facility] Care Team Providers Care Systems Analyst Name Role Phone Agustin SHORE, Sabrina Webb Unavailable [phone] Meme SCHAFFER, Teo Shook Unavailable Neida SHORE, Kayla Oseguera Unavailable Unavailable Allergies Allergy Classification Reported Allergen(s) Allergy Type Date of Onset Reaction(s) Facility (2 sources) NKDA drug allergy 09-18-2011 [facility] Work Phone: (2 sources) NKA drug allergy 09-18-2011 [facility] Work Phone: Medications Completed/Discontinued Medications Medication Drug Class(es) Dates Sig (Normalized) Sig (Original) atorvastatin 40 mg oral tablet (2 sources) HMG-CoA Reductase Inhibitor Start: 10-26-2014 take 1 tablet by mouth once daily ATORVASTATIN CALCIUM 40 MG TABS One tablet by mouth daily ATORVASTATIN CALCIUM [id number] Teo Valentine MD doxazosin 8 mg oral tablet (8 sources) alpha-Adrenergic Jumana Start: 09-18-2011 take 1 tablet by mouth once daily at bedtime DOXAZOSIN MESYLATE 8 MG TABS One tablet by mouth daily at bedtime. DOXAZOSIN MESYLATE [id number] Kayla Carrasquillo RN Problems Active Problems Problem [...] Respiratory Rate 18 /min Teo Valentine MD [facility] Work Phone: 11-15-2016 11:21-0400 Weight 61.24 kg Teo Valentine MD [facility] Work Phone: 11-15-2016 11:21-0400 Weight 61.23 kg Teo Valentine MD [facility] Work Phone: 10-25-2015 08:38-0400 BMI (Body Mass Index) 22.63 kg/m2 [facility] Work Phone: 10-25-2015 08:38-0400 BP Diastolic 84 mm[Hg] Kayla Carrasquillo RN [facility] Work Phone: 10-25-2015 08:38-0400 BP Systolic 160 mm[Hg] Kayla Carrasquillo RN [facility] Work Phone: 10-25-2015 08:38-0400 BSA (Body Surface Area) 1.68 m2 Kayla Carrasquillo RN [facility] Work Phone: 10-25-2015 08:38-0400 Pulse (Heart Rate) 68 /min Kayla Carrasquillo RN [facility] Work Phone: 10-25-2015 08:38-0400 Respiratory Rate 16 /min Kayla Carrasquillo RN [facility] Work Phone: 10-25-2015 08:38-0400 Weight 61.69 kg Kayla Carrasquillo RN [facility] Work Phone: 09-23-2012 08:35-0400 Heart rate 401 ms Kayla Carrasquillo RN [facility] Work Phone: 09-23-2012 08:35-0400 Heart rate 75 /min Kayla Carrasquillo RN [facility] Work Phone: 09-18-2011 09:08-0400 Height [...] Author Start: 11-19-2017 End: 11-19-2017 Appointment Appointment [facility] Work Phone: Start: 11-15-2016 End: 11-15-2016 Ct thorax w/contrast material CT Chest with Contrast [facility] Work Phone: Start: 11-15-2016 End: 11-15-2016 Echocardiography Echocardiogram (complete) [facility] Work Phone: Start: 11-15-2016 End: 11-15-2016 Follow Up Appt 1 year Follow Up Appt 1 year [facility] Work Phone: Start: 11-15-2016 End: 11-15-2016 PFM PFM [facility] Work Phone: Start: 11-15-2016 End: 11-15-2016 Appointment Appointment [facility] Work Phone: Start: 12-31-2015 End: 01-03-2016 *BMP *BMP [facility] Work Phone: Start: 12-31-2015 End: 01-03-2016 *CBC with Differential *CBC with Differential [facility] Work Phone: Start: 12-31-2015 End: 01-03-2016 Thyroid stimulating hormone (TSH) *TSH [facility] Work Phone: Start: 12-31-2015 End: 01-03-2016 Thyroxine (T4) *T4 (Total) [facility] Work Phone: Start: 12-31-2015 End: 01-03-2016 *BMP *BMP [facility] Work Phone: Start: 12-31-2015 End: 01-03-2016 *CBC with Differential *CBC with Differential [facility] Work Phone: Start: 12-31-2015 End: 01-03-2016 Thyroid stimulating hormone (TSH) *TSH [facility] Work Phone: Start: 12-31-2015 End: 01-03-2016 Thyroxine (T4) *T4 (Total) [facility] Work Phone: Start: 10-25-2015 End: 05-05-2016 Ct thorax w/contrast material CT Chest with Contrast [facility] Work Phone: Start: 10-25-2015 End: 10-25-2015 Follow Up Appt 1 year Follow Up Appt 1 year [facility] Work Phone: Start: 10-25-2015 End: 10-25-2015 PFM PFM [facility] Work Phone: Start: 10-25-2015 End: 05-05-2016 Ct thorax w/dye CT Chest with Contrast [facility] Work Phone: Start: 10-25-2015 End: 10-25-2015 Follow Up Appt 1 year Follow Up Appt 1 year [facility] Work Phone: Start: 10-25-2015 End: 10-25-2015 PFM PFM [facility] Work Phone: Start: 10-20-2015 End: 07-06-2015 Ct thorax w/contrast material CT Chest with Contrast [facility] Work Phone: Start: 10-20-2015 End: 07-06-2015 Ct thorax w/dye CT Chest with Contrast [facility] Work Phone: Start: 10-26-2014 End: 10-26-2014 Echocardiography Echocardiogram (complete) [facility] Work Phone: Start: 10-26-2014 End: 10-26-2014 Follow Up Appt 1 year Follow Up Appt 1 year [facility] Work Phone: Start: 10-26-2014 End: 10-26-2014 Follow Up Appt Other Follow Up Appt Other [facility] Work Phone: Start: 10-26-2014 End: 10-26-2014 PFM PFM [facility] Work Phone: Start: 10-26-2014 End: 10-26-2014 Echocardiography Echocardiogram (complete) [facility] Work Phone: Start: 10-26-2014 End: 10-26-2014 Follow Up Appt 1 year Follow Up Appt 1 year [facility] Work Phone: Start: 10-26-2014 End: 10-26-2014 Follow Up Appt Other Follow Up Appt Other [facility] Work Phone: Start: 10-26-2014 End: 10-26-2014 PFM PFM [facility] Work Phone: Start: 10-17-2013 End: 10-17-2013 Ct thorax w/contrast material CT Chest with Contrast [facility] Work Phone: Start: 10-17-2013 End: 10-17-2013 Follow Up Appt 1 year Follow Up Appt 1 year [facility] Work Phone: Start: 10-17-2013 End: 10-17-2013 Follow Up Appt Other Follow Up Appt Other [facility] Work Phone: Start: 10-17-2013 End: 10-17-2013 PFM PFM [facility] Work Phone: Start: 10-17-2013 End: 10-17-2013 Ct thorax w/dye CT Chest with Contrast [facility] Work Phone: Start: 10-17-2013 End: 10-17-2013 Follow Up Appt 1 year Follow Up Appt 1 year [facility] Work Phone: Start: 10-17-2013 End: 10-17-2013 Follow Up Appt Other Follow Up Appt Other [facility] Work Phone: Start: 10-17-2013 End: 10-17-2013 PFM PFM [facility] Work Phone: Start: 09-23-2012 End: 09-23-2012 Chest x-ray X-Ray, Chest, PA & Lateral [facility] Work Phone: Start: 09-23-2012 End: 09-23-2012 Ct thorax w/contrast material CT Chest with Contrast [facility] Work Phone: Start: 09-23-2012 End: 09-23-2012 Follow Up Appt 1 year Follow Up Appt 1 year [facility] Work Phone: Start: 09-23-2012 End: 09-23-2012 PFM PFM [facility] Work Phone: Start: 09-23-2012 End: 09-23-2012 Chest x-ray X-Ray, Chest, PA & Lateral [facility] Work Phone: Start: 09-23-2012 End: 09-23-2012 Ct thorax w/dye CT Chest with Contrast [facility] Work Phone: Start: 09-23-2012 End: 09-23-2012 Follow Up Appt 1 year Follow Up Appt 1 year [facility] Work Phone: Start: 09-23-2012 End: 09-23-2012 PFM PFM [facility] Work Phone: Start: 09-19-2011 End: 09-14-2011 Nuclear stress test -exercise Nuclear stress test -exercise [facility] Work Phone: Start: 09-19-2011 End: 09-14-2011 Nuclear stress test -exercise Nuclear stress test -exercise [facility] Work Phone: Start: 09-18-2011 End: 09-18-2011 Ecg routine ecg w/least 12 lds w/i&r EKG (In office) [facility] Work Phone: Start: 09-18-2011 End: 09-18-2011 Follow [...] BE BASED ON THE PRIMARY CLINICAL RECORDS. [employer] provides no warranty or guarantee of the accuracy or completeness of information in this document.
[2023-02-22 08:37] LABS: Absolute Lymphocyte Count 2.49 X10^3/uL (0.83-4.51); Absolute Neutrophil Count 3.9 X10^3/uL (2.0-7.7); Basophil# 0.06 X10^3/uL; Basophil% 0.8 % (0-1); Eosinophil# 0.26 X10^3/uL; Eosinophils% 3.5 % (0-5); Hematocrit 41.5 % (40-54); Hemoglobin 13.7 g/dL (13.0-16.5); Lymphocyte # 2.49 X10^3/ul (0.83-4.51); Lymphocyte % 33.9 % (19-41); Mean Corpuscular Hgb 31.1 pg (27.0-32.0); Mean Corpuscular Volume 94.1 fL (80-94); Mean Platelet Vol. 9.2 fl (6.2-12.0); Monocyte# 0.63 X10^3/uL; Monocyte% 8.6 % (0-10); NRBC Flagged by Analyzer 0 % (0-5); Neutrophil # 3.87 X10^3/uL (2.7-7.7); Neutrophil % 52.8 % (47-70); Platelet Count 305 K/mm3 (150-450); RBC Distribution Width CV 12.6 % (11.6-14.6); RBC Distribution Width SD 43.7 fl (35.1-43.9); Red Blood Count 4.41 M/mm3 (4.6-6.2); White Blood Count 7.3 K/mm3 (4.4-11.0)
[2023-02-22 09:04] LABS: AST(SGOT) 17 U/L (15-37); Alanine Aminotransfer ALT/SGPT 23 U/L (16-61); Albumin, Serum 2.9 g/dL (3.2-5.0); Alkaline Phosphatase 81 U/L (45-117); Anion Gap 4 (5-15); BUN 19 mg/dL (7-18); BUN/Creat Ratio 18.6 RATIO (10-20); Calcium,Total 8.9 mg/dL (8.5-10.1); Chloride 110 mmol/L (98-107); Creatinine, Serum 1.02 mg/dL (0.70-1.30); EST Glomerular Filtration Rate 74 mL/min (>60); Est Glom Filt Rate - Afr Amer 89 mL/min (>60); Globulin 4.1 g/dL (2.2-4.2); Glucose 97 mg/dL (74-106); Potassium 3.9 mmol/L (3.5-5.1); Sodium Level 140 mmol/L (136-145); Thyroid Stim Hormone (TSH) 3.76 uIU/mL (0.358-3.74)
== END ==
LOC: OLS.WHLTSB 05:00
PROVIDERS: PCP Internal Medicine; Visit Provider Internal Medicine
DX: E03.9 Hypothyroidism, unspecified (principal)
CPT/HCPCS: 36415; 80048; 80076; 84443; 85025

== ENCOUNTER 2023-03-10 13:28 | Emergency (ER) | payer MEDICARE, OTHER, SELFPAY ==
[2023-03-10 13:30] VITALS: BP 150/69; PULSE 64; RESP 20; TEMP 36.3; O2SAT 98; BMI 25.0
--- NOTE | 2023-03-10 13:32 | EX.ED.DYSGE1 ---
HPI <Dr. Malcolm Lyle DO - Last Filed: 03/11/23 11:31> History of Present Illness Chief Complaint: Abd Pain <RENAE Mathews - Last Filed: 03/10/23 20:25> Narrative Narrative: Patient presenting today from an SNF with his daughter and with concerns for abdominal pain. Patient is nonverbal due to his history of dementia. However, reports that over the past 24 hours he has been intermittently grabbing his abdomen and wincing in pain. He has had no fevers, chills, vomiting, or diarrhea. Patient has a past medical history of dementia and hypertension. No previous abdominal surgeries. PFSH <Dr. Malcolm Lyle DO - Last Filed: 03/11/23 11:31> [facility] Medical History Acute bronchitis, unspecified Acute sinusitis, unspecified Alzheimers disease Aneurysm of ascending aorta Anxiety Aortic ectasia, unspecified site BPH (benign prostatic hyperplasia) COVID-19 Dementia Diverticulosis Hyperlipemia Hypertension Hypothyroidism Nonrheumatic aortic (valve) stenosis Right shoulder injury Right shoulder strain Home Medications levothyroxine 25 mcg tablet 25 mcg PO DAILY thyroid 06/30/17 [History Last Taken 09/01/20] melatonin 5 mg tablet 20 mg PO HS 04/06/22 [History Last Taken Unknown] memantine 5 mg tablet 5 mg PO BID 04/06/22 [History Last Taken Unknown] trazodone 50 mg tablet 50 mg PO DAILY 04/06/22 [History Last Taken Unknown] metoprolol succinate 25 mg tablet,extended release 24 hr 25 mg PO DAILY #90 tabs 08/17/22 [Rx Last Taken Unknown] citalopram 20 mg tablet 20 mg PO DAILY #90 tabs 11/13/22 [Rx Last Taken 03/10/23] hydroxyzine HCl 25 mg tablet 25 mg PO BID PRN anxiety 11/18/22 [History Last Taken 03/10/23] lorazepam 0.5 mg tablet 0.5 mg PO DAILY 11/18/22 [History Last Taken Unknown] lorazepam 0.5 mg tablet 0.5 mg PO DAILY PRN PRN anxiety 11/18/22 [History Last Taken Unknown] acetaminophen 500 mg capsule 1,000 mg PO Q8H PRN 03/10/23 [History Last Taken Unknown] cetirizine 10 mg capsule (All Day Allergy (cetirizine)) 10 mg PO DAILY PRN allergy symptoms 03/10/23 [History Last Taken Unknown] dextromethorphan-guaifenesin 10 mg-100 mg/5 mL oral liquid (Biocotron) 10 ml PO Q4H PRN cough 03/10/23 [History Last Taken Unknown] ipratropium bromide 42 mcg (0.06 %) nasal spray 2 spray intranasal BID PRN allergy symptoms 03/10/23 [History Last Taken Unknown] magnesium citrate 300 ml PO X1 #1 BOTTLE 03/10/23 [Rx Last Taken Unknown] magnesium hydroxide 400 mg/5 mL oral suspension (Milk of Magnesia) 2,400 mg PO DAILY PRN constipation 03/10/23 [History Last Taken Unknown] ondansetron 4 mg disintegrating tablet 4 mg PO Q4H PRN nausea and vomiting 03/10/23 [History Last Taken Unknown] Allergy/AdvReac Type Severity Reaction Status Date / Time No Known Allergies Allergy Verified 03/10/23 13:37 Family History Brother CVA (cerebral vascular accident) Sudden cardiac , Onset Age: 68 Brother COPD (chronic obstructive pulmonary disease) Father CVA (cerebral vascular accident) Mother Diabetes Surgical History History of carpal tunnel surgery History of colon resection History of tonsillectomy and adenoidectomy History of vasectomy Social History Smoking Status: Never smoker alcohol intake: current alcohol intake frequency: a few times a week ROS <RENAE Mathews - Last Filed: 03/10/23 20:25> ROS ED Review of Systems ROS Unobtainable: due to mental status Constitutional Constitutional ED: Denies chills or fever(s) Respiratory/Chest Respiratory/Chest: Denies cough Gastrointestinal Gastrointestinal: Reports abdominal pain; Denies nausea or vomiting Integumentary Denies rash EXAM <Dr. Malcolm Lyle DO - Last Filed: 03/11/23 11:31> Physical Exam Const Vital Signs: 03/10/23 13:30 02/03/24 16:42 03/10/23 17:25 Temperature 97.3 F L 97.8 F Temperature Source Temporal Pulse Rate 64 59 L 64 Respiratory Rate 20 H 20 H 18 Blood Pressure 150/69 H 125/59 H 150/87 H Blood Pressure Mean 96 81 108 Pulse Ox 98 95 Oxygen Delivery Method Room Air GI GI Narrative: No pulsatile abdominal masses or auscultated bruits noted <RENAE Mathews - Last Filed: 03/10/23 20:25> Physical Exam Const Vital Signs: 03/10/23 13:30 03/10/23 16:42 03/10/23 17:25 Temperature 97.3 F L 97.8 F Temperature Source Temporal Pulse Rate 64 59 L 64 Respiratory Rate 20 H 20 H 18 Blood Pressure 150/69 H 125/59 H 150/87 H Blood Pressure Mean 96 81 108 Pulse Ox 98 95 Oxygen Delivery Method Room Air Positive well nourished, well developed and no apparent distress General Appearance ED: well developed HEENT Reports normocephalic and head/scalp atraumatic Mouth ED: Yes moist mucous membranes normal Eyes PERRL and EOMs intact bilaterally Neck full ROM and supple Chest Wall inspection of chest normal Resp normal respiratory effort and clear to auscultation bilaterally Cardio regular rate and regular rhythm GI soft to palpation, non-tender, non-distended and no masses Back/Spine normal ROM and normal to inspection Extremity normal to inspection and full ROM Neuro CN's II-XII intact bilaterally, moves all extremities, no focal motor deficits and no sensory deficits noted Sensorium / Orientation: awake and alert Motor Exam: strength 5/5 throughout Psych mental status grossly normal and thought process normal Skin no rashes or lesions noted and no wounds MDM <Dr. Malcolm Lyle DO - Last Filed: 03/11/23 11:31> [facility] Narrative Medical decision making narrative: Patient presenting with his family due to concerns for abdominal pain. He is unable to verbalize whether or not his abdomen hurts but he has been wincing and grabbing his abdomen over the past 24 hours. His vitals are unremarkable. He does not have any tenderness to palpation of his abdomen. However, labs will be obtained to rule out leukocytosis, anemia, electrolyte abnormality, ABUNDIO, UTI, hepatobiliary etiology, pancreatitis. CT of the abdomen and pelvis will be obtained to rule out appendicitis, kidney stone, diverticulitis, bowel obstruction, and other etiology. He was given morphine for pain. ED attending note: I evaluated the patient in conjunction with the [facility]. I agree with his/her statements and above findings. I have personally performed a face to face assessment of the patient and have reviewed the [facility] Note. I performed a substantive portion of the visit including all aspects of the following. I personally saw the patient performed chart review, physical exam, reviewed labs, imaging (if obtained), and formulated a treatment and management plan. 87-year-old male presents with abdominal pain. Nursing triage notes reviewed, Vital signs reviewed Constitutional: please see mdm HENT: MMM Eyes: Pupils equal round and reactive to light, Extraocular muscles intact Neck: No stridor, no JVD, full neck ROM Lungs: Clear to auscultation, No wheezing or rales. No increased work of breathing, no conversational dyspnea, no accessory muscle use, no nasal flaring. No respiratory distress noted Heart: Regular rate and rhythm, No murmurs, No rubs and No gallops, 2+ distal pulses (radial, femoral, posterior tibial) in all extremities Abdomen: Soft, there is no tenderness, rigidity, rebound or guarding, no obvious peritoneal signs, no palpable pulsatile abdominal masses, no auscultated abdominal bruit : No CVAT Extremities: No edema Neuro: Neuroexam at baseline, patient was alert but not oriented to person place or time, cranial nerves II through XII intact, 5/5 strength in all extremities. Intact sensation to light touch in all extremities, 2+ reflexes bilateral patella tendons. Normal gait. No ataxia. Skin: No rash or lesions noted MEDICAL DECISION MAKING: Chief Complaint: abdominal pain External records reviewed: CT scan from 2017 shows no acute abnormality*evidence of diverticulosis Factors affecting care: Hyperlipidemia, hypertension, dementia, history of colon resection Social determinants of health: Dementia History obtained from others: EMS Goals of care discussion: Family noted they like the patient be DNR CCA, DNI Consults: none at this time [facility] Narrative: Patient was hemodynamically stable, afebrile and nontoxic-appearing. Abdominal exam without obvious peritoneal signs. I considered the following differential diagnosis: AAA, small bowel obstruction, abdominal perforation, appendicitis, pancreatitis, hepatobiliary pathology (acute cholecystitis), mesenteric ischemia, pathology (ie nephrolithiasis, pyelonephritis). We obtained a broad lab and imaging workup to further elucidate the etiology of the patient's complaints. The patient and/or family, caregivers express understanding. The patient and/or family, caregivers agrees with the plan. Shared decision making: I will have a discussion with the patient and or visitors regarding risk/benefits of further testing or admission. They will be made aware of of the risk/benefits inherent in this decision they will be given the opportunity to voice understanding. Total critical care time today provided was at least 0 minutes. This excludes separately billable procedures. Critical care time (if documented) is secondary to the patient having high probability of clinically significant/life threatening deterioration in the patient's condition which required my urgent intervention. This note was generated with ii[employer] dictation software. It may contain incorrect words, spelling, and punctuation that were not noted in review of the chart prior to signing. Lab Data Labs: Laboratory Results - last 24 hr 03/10/23 03/10/23 14:00 14:07 WBC 8.7 RBC 4.30 L Hgb 13.5 Hct 40.4 MCV 94.0 MCH 31.4 MCHC 33.4 RDW Std Deviation 45.6 H RDW Coeff of Obey 13.3 Plt Count 254 MPV 8.6 Immature Gran % (Auto) 0.300 Neut % (Auto) 56.2 Lymph % (Auto) 30.0 [place] % (Auto) 9.1 Eos % (Auto) 3.6 Baso % (Auto) 0.8 Absolute Neuts (auto) 4.9 Absolute Lymphs (auto) 2.60 Nucleated RBC % 0 Sodium 143 Potassium 3.9 Chloride 114 H Carbon Dioxide 29.0 Anion Gap 0 L BUN 19 H Creatinine 1.09 Estim Creat Clear Calc 36.65 Est GFR (MDRD) Af Amer 83 Est GFR (MDRD) Non-Af 68 BUN/Creatinine Ratio 17.4 Glucose 90 Lactic Acid 1.2 Calcium 9.1 Total Bilirubin 0.30 AST 17 ALT 27 Alkaline Phosphatase 112 Troponin I High Sens 10 Total Protein 7.3 Albumin 3.2 Globulin 4.1 Albumin/Globulin Ratio 0.8 L Lipase 24 Urine Color Yellow Urine Clarity Clear Urine pH 5.0 Ur Specific [place] 1.025 Urine Protein 15 H Urine Glucose (UA) 100 H Urine Ketones 5 H Urine Occult Blood 10 H Urine Nitrite Negative Urine Bilirubin Negative Urine Urobilinogen Normal Ur Leukocyte Esterase 25 H Urine RBC 0-5 SEEN Urine WBC 0-5 SEEN Ur Squamous Epith Cells 0 SEEN Urine Bacteria 0 SEEN Urine Mucus 0 SEEN Radiography Diagnostic Testing: Clinical Impression(s) from Imaging Studies Abdomen/Pelvis CT 03/10/23 13:49 IMPRESSION: 1. No acute abdominal or pelvic abnormality. 2. Question rectal impaction. 3. Diverticulosis coli. Electronically Signed: Ish Phillips MD at 16:01 EST , Chest X-Ray 03/10/23 14:35 IMPRESSION: No acute cardiopulmonary abnormality. No interval change Electronically Signed: Ish Phillips MD at 15:04 EST , <RENAE Mathews - Last Filed: 03/10/23 20:25> [facility] MDM Narrative Medical decision making narrative: Patient presenting with his family due to concerns for abdominal pain. He is unable to verbalize whether or not his abdomen hurts but he has been wincing and grabbing his abdomen over the past 24 hours. His vitals are unremarkable. He does not have any tenderness to palpation of his abdomen. However, labs will be obtained to rule out leukocytosis, anemia, electrolyte abnormality, ABUNDIO, UTI, hepatobiliary etiology, pancreatitis. CT of the abdomen and pelvis will be obtained to rule out appendicitis, kidney stone, diverticulitis, bowel obstruction, and other etiology. He was given morphine for pain. CT scan does show significant stool burden even though patient did have a bowel movement this morning. No bowel obstruction. No other acute findings. His labs overall are unremarkable. He was given a dose of magnesium citrate here and will be given a prescription for home. Patient did become quite agitated and was given a dose of Ativan. On repeat examination he appears to be more comfortable. He will be discharged home home in stable condition and family is comfortable with plan. Return instructions given. ED attending note: I evaluated the patient in conjunction with the [facility]. I agree with his/her statements and above findings. I have personally performed a face to face assessment of the patient and have reviewed the [facility] Note. I performed a substantive portion of the visit including all aspects of the following. I personally saw the patient performed chart review, physical exam, reviewed labs, imaging (if obtained), and formulated a treatment and management plan. 87-year-old male presents with abdominal pain. Nursing triage notes reviewed, Vital signs reviewed Constitutional: please see [facility] HENT: MMM Eyes: Pupils equal round and reactive to light, Extraocular muscles intact Neck: No stridor, no JVD, full neck ROM Lungs: Clear to auscultation, No wheezing or rales. No increased work of breathing, no conversational dyspnea, no accessory muscle use, no nasal flaring. No respiratory distress noted Heart: Regular rate and rhythm, No murmurs, No rubs and No gallops, 2+ distal pulses (radial, femoral, posterior tibial) in all extremities Abdomen: Soft, there is no tenderness, rigidity, rebound or guarding, no obvious peritoneal signs, no palpable pulsatile abdominal masses, no auscultated abdominal bruit : No CVAT Extremities: No edema Neuro: Neuroexam at baseline, patient was alert but not oriented to person place or time, cranial nerves II through XII intact, 5/5 strength in all extremities. Intact sensation to light touch in all extremities, 2+ reflexes bilateral patella tendons. Normal gait. No ataxia. Skin: No rash or lesions noted MEDICAL DECISION MAKING: Chief Complaint: abdominal pain External records reviewed: CT scan from 2017 shows no acute abnormality*evidence of diverticulosis Factors affecting care: Hyperlipidemia, hypertension, dementia, history of colon resection Social determinants of health: Dementia History obtained from others: EMS Goals of care discussion: Family noted they like the patient be DNR CCA, DNI Consults: none at this time [facility] Narrative: Patient was hemodynamically stable, afebrile and nontoxic-appearing. Abdominal exam without obvious peritoneal signs. I considered the following differential diagnosis: AAA, small bowel obstruction, abdominal perforation, appendicitis, pancreatitis, hepatobiliary pathology (acute cholecystitis), mesenteric ischemia, pathology (ie nephrolithiasis, pyelonephritis). We obtained a broad lab and imaging workup to further elucidate the etiology of the patient's complaints. The patient and/or family, caregivers express understanding. The patient and/or family, caregivers agrees with the plan. Shared decision making: I will have a discussion with the patient and or visitors regarding risk/benefits of further testing or admission. They will be made aware of of the risk/benefits inherent in this decision they will be given the opportunity to voice understanding. Total critical care time today provided was at least 0 minutes. This excludes separately billable procedures. Critical care time (if documented) is secondary to the patient having high probability of clinically significant/life threatening deterioration in the patient's condition which required my urgent intervention. This note was generated with ii[employer] dictation software. It may contain incorrect words, spelling, and punctuation that were not noted in review of the chart prior to signing. Lab Data Attestation: I reviewed the patient's lab results. Lab results narrative: BUN 19, troponin 10, UA negative for UTI, CBC unremarkable Labs: Laboratory Results - last 24 hr 03/10/23 03/10/23 14:00 14:07 WBC 8.7 RBC 4.30 L Hgb 13.5 Hct 40.4 MCV 94.0 MCH 31.4 MCHC 33.4 RDW Std Deviation 45.6 H RDW Coeff of Obey 13.3 Plt Count 254 MPV 8.6 Immature Gran % (Auto) 0.300 Neut % (Auto) 56.2 Lymph % (Auto) 30.0 [place] % (Auto) 9.1 Eos % (Auto) 3.6 Baso % (Auto) 0.8 Absolute Neuts (auto) 4.9 Absolute Lymphs (auto) 2.60 Nucleated RBC % 0 Sodium 143 Potassium 3.9 Chloride 114 H Carbon Dioxide 29.0 Anion Gap 0 L BUN 19 H Creatinine 1.09 Estim Creat Clear Calc 36.65 Est GFR (MDRD) Af Amer 83 Est GFR (MDRD) Non-Af 68 BUN/Creatinine Ratio 17.4 Glucose 90 Lactic Acid 1.2 Calcium 9.1 Total Bilirubin 0.30 AST 17 ALT 27 Alkaline Phosphatase 112 Troponin I High Sens 10 Total Protein 7.3 Albumin 3.2 Globulin 4.1 Albumin/Globulin Ratio 0.8 L Lipase 24 Urine Color Yellow Urine Clarity Clear Urine pH 5.0 Ur Specific [place] 1.025 Urine Protein 15 H Urine Glucose (UA) 100 H Urine Ketones 5 H Urine Occult Blood 10 H Urine Nitrite Negative Urine Bilirubin Negative Urine Urobilinogen Normal Ur Leukocyte Esterase 25 H Urine RBC 0-5 SEEN Urine WBC 0-5 SEEN Ur Squamous Epith Cells 0 SEEN Urine Bacteria 0 SEEN Urine Mucus 0 SEEN Radiography X-Ray: Read by ED Physician and Read by Radiologist Diagnostic Testing: Clinical Impression(s) from Imaging Studies Abdomen/Pelvis CT 03/10/23 13:49 IMPRESSION: 1. No acute abdominal or pelvic abnormality. 2. Question rectal impaction. 3. Diverticulosis coli. Electronically Signed: Ish Phillips MD at 16:01 EST , Chest X-Ray 03/10/23 14:35 IMPRESSION: No acute cardiopulmonary abnormality. No interval change Electronically Signed: Ish Phillips MD at 15:04 EST , Discharge Plan Triage Chief Complaint: Abd Pain ED Midlevel Provider: Ciara Valenzuela ED Provider: Malcolm Lyle Dx/Rx/DC Orders Clinical Impression: Dementia, Abdominal pain, Constipation Instructions: Abdominal Pain, ED Constipation (Adult) Prescriptions: New magnesium citrate Solution 300 ml PO X1 Qty: 1 0RF No Action memantine 5 mg tablet 5 mg PO BID trazodone 50 mg tablet 50 mg PO DAILY melatonin 5 mg tablet 20 mg PO HS levothyroxine 25 MCG tablet 25 mcg PO DAILY ipratropium bromide 42 mcg (0.06 %) spray,non-aerosol 2 spray INTRANASAL BID PRN (Reason: allergy symptoms) All Day Allergy (cetirizine) 10 mg capsule 10 mg PO DAILY PRN (Reason: allergy symptoms) magnesium hydroxide [Milk of Magnesia] 400 mg/5 mL suspension 2,400 mg PO DAILY PRN (Reason: constipation) dextromethorphan-guaifenesin [Biocotron] 10-100 mg/5 mL liquid 10 ml PO Q4H PRN (Reason: cough) ondansetron 4 mg tablet,disintegrating 4 mg PO Q4H PRN (Reason: nausea and vomiting) Rx Instructions: give 1st dose 30min before emetogenic chemo acetaminophen 500 mg capsule 1,000 mg PO Q8H PRN lorazepam 0.5 mg tablet 0.5 mg PO DAILY lorazepam 0.5 mg tablet 0.5 mg PO DAILY PRN PRN (Reason: anxiety) hydroxyzine HCl 25 mg tablet 25 mg PO BID PRN (Reason: anxiety) metoprolol succinate 25 mg tablet extended release 24 hr 25 mg PO DAILY Qty: 90 3RF citalopram 20 mg tablet 20 mg PO DAILY Qty: 90 3RF Primary Care Provider: Josue Bowers Referrals: Josue Bowers MD [Primary Care Provider] - 3-5 Days Activity Restrictions/Additional Instructions: Follow-up with PCP and return for any worsening of your symptoms. Disposition Disposition: Home, Self Care Discharge Date/Time: 03/10/23 17:44
--- NOTE | 2023-03-10 13:49 | CT_ITS ---
EXAM: CT ABDOMEN AND PELVIS WITH INTRAVENOUS CONTRAST CLINICAL INDICATION: abdominal pain TECHNIQUE: Helically acquired images were obtained of the abdomen and pelvis with intravenous contrast. This CT exam was performed using one or more of the following dose reduction techniques: automated exposure control, adjustment of the mA and/or kV according to patient size, and/or use of iterative reconstruction technique. CONTRAST: IV 100mL [id number] COMPARISON: CT Abdomen Pelvis dated 08/09/2016 FINDINGS: LOWER THORAX: Normal. Lung bases are clear. No cardiomegaly. No pericardial effusion. ABDOMEN: LIVER: Normal. Homogeneous. No focal mass. PANCREAS: Normal. No focal cystic or solid mass. SPLEEN: Normal. Normal size without focal cystic or solid mass. ADRENALS: Normal. No nodules. KIDNEYS AND URETERS: Normal. Normal renal size and position. No hydronephrosis. STOMACH AND BOWEL: Moderate stool burden within the large bowel and rectum. Rectal impaction to be excluded. Diverticulosis of the colon noted without evidence of acute diverticulitis. PELVIS: APPENDIX: No evidence of acute appendicitis. BLADDER: Normal. REPRODUCTIVE: Unremarkable as visualized. No mass. ABDOMEN and PELVIS: INTRAPERITONEAL SPACE: Normal. No ascites or other fluid collection. No free air. BONES/JOINTS: No suspicious lytic or blastic abnormality. SOFT TISSUES: Normal. No discrete abdominal or pelvic wall hernia. VASCULATURE: Normal. Abdominal aorta is non-dilated. LYMPH NODES: Normal. No enlarged lymph nodes. CT/Abdomen/Pelvis W IV Cont ONLY IMPRESSION: 1. No acute abdominal or pelvic abnormality. 2. Question rectal impaction. 3. Diverticulosis coli. Electronically Signed: Ish Phillips MD at 16:01 EST ,
--- OUTSIDE RECORDS SUMMARY | 2023-03-10 13:56 | XMS RPT_ITS | CCD ---
Author Name Unknown Address [address] [place] [address] Organization [facility] Team Providers Care Shade Bander Name Role Phone Agustin SHORE, Sabrina Webb Unavailable Meme SCHAFFER, Teo Shook Unavailable Neida SHORE, Kayla Oseguera Unavailable Unavailable Allergies Allergy Classification Reported Allergen(s) Allergy Type Date of Onset Reaction(s) Facility (2 sources) NKDA drug allergy 09-18-2011 [facility] Work Phone: (2 sources) NKA drug allergy 09-18-2011 [facility] Work Phone: Medications Completed/Discontinued Medications Medication Drug Class(es) Dates Sig (Normalized) Sig (Original) atorvastatin 40 mg oral tablet (2 sources) HMG-CoA Reductase Inhibitor Start: 10-26-2014 take 1 tablet by mouth once daily ATORVASTATIN CALCIUM 40 MG TABS One tablet by mouth daily ATORVASTATIN CALCIUM [id number] Teo Valentine MD doxazosin 8 mg oral tablet (8 sources) alpha-Adrenergic Jumana Start: 09-18-2011 take 1 tablet by mouth once daily at bedtime DOXAZOSIN MESYLATE 8 MG TABS One tablet by mouth daily at bedtime. DOXAZOSIN MESYLATE [id number] Kayla Carrasquillo RN Problems Active Problems Problem [...] Respiratory Rate 18 /min Teo Valentine MD [facility] Work Phone: 11-15-2016 11:21-0400 Weight 61.24 kg Teo Valentine MD [facility] Work Phone: 11-15-2016 11:21-0400 Weight 61.23 kg Teo Valentine MD [facility] Work Phone: 10-25-2015 08:38-0400 BMI (Body Mass Index) 22.63 kg/m2 [facility] Work Phone: 10-25-2015 08:38-0400 BP Diastolic 84 mm[Hg] Kayla Carrasquillo RN [facility] Work Phone: 10-25-2015 08:38-0400 BP Systolic 160 mm[Hg] Kayla Carrasquillo RN [facility] Work Phone: 10-25-2015 08:38-0400 BSA [...] Heart rate 401 ms Kayla Carrasquillo RN [facility] Work Phone: 09-23-2012 08:35-0400 Heart rate 75 /min Kayla Carrasquillo RN [facility] Work Phone: 09-18-2011 09:08-0400 Height [...] Author Start: 11-19-2017 End: 11-19-2017 Appointment Appointment [facility] Work Phone: Start: 11-15-2016 End: 11-15-2016 Ct thorax w/contrast material CT Chest with Contrast [facility] Work Phone: Start: 11-15-2016 End: 11-15-2016 Echocardiography Echocardiogram (complete) [facility] Work Phone: Start: 11-15-2016 End: 11-15-2016 Follow Up Appt 1 year Follow Up Appt 1 year [facility] Work Phone: Start: 11-15-2016 End: 11-15-2016 PFM PFM [facility] Work Phone: Start: 11-15-2016 End: 11-15-2016 Appointment Appointment [facility] Work Phone: Start: 12-31-2015 End: 01-03-2016 *BMP *BMP [facility] Work Phone: Start: 12-31-2015 End: 01-03-2016 *CBC with Differential *CBC with Differential [facility] Work Phone: Start: 12-31-2015 End: 01-03-2016 Thyroid stimulating hormone (TSH) *TSH [facility] Work Phone: Start: 12-31-2015 End: 01-03-2016 Thyroxine (T4) *T4 (Total) [facility] Work Phone: Start: 12-31-2015 End: 01-03-2016 *BMP *BMP [facility] Work Phone: Start: 12-31-2015 End: 01-03-2016 *CBC with Differential *CBC with Differential [facility] Work Phone: Start: 12-31-2015 End: 01-03-2016 Thyroid stimulating hormone (TSH) *TSH [facility] Work Phone: Start: 12-31-2015 End: 01-03-2016 Thyroxine (T4) *T4 (Total) [facility] Work Phone: Start: 10-25-2015 End: 05-05-2016 Ct thorax w/contrast material CT Chest with Contrast [facility] Work Phone: Start: 10-25-2015 End: 10-25-2015 Follow Up Appt 1 year Follow Up Appt 1 year [facility] Work Phone: Start: 10-25-2015 End: 10-25-2015 PFM PFM [facility] Work Phone: Start: 10-25-2015 End: 05-05-2016 Ct thorax w/dye CT Chest with Contrast [facility] Work Phone: Start: 10-25-2015 End: 10-25-2015 Follow [...] Start: 10-26-2014 End: 10-26-2014 Echocardiography Echocardiogram (complete) [facility] Work Phone: Start: 10-26-2014 End: 10-26-2014 Follow Up Appt 1 year Follow Up Appt 1 year [facility] Work Phone: Start: 10-26-2014 End: 10-26-2014 Follow Up Appt Other Follow Up Appt Other [facility] Work Phone: Start: 10-26-2014 End: 10-26-2014 PFM PFM [facility] Work Phone: Start: 10-26-2014 End: 10-26-2014 Echocardiography Echocardiogram (complete) [facility] Work Phone: Start: 10-26-2014 End: 10-26-2014 Follow Up Appt 1 year Follow Up Appt 1 year [facility] Work Phone: Start: 10-26-2014 End: 10-26-2014 Follow Up Appt Other Follow Up Appt Other [facility] Work Phone: Start: 10-26-2014 End: 10-26-2014 PFM PFM [facility] Work Phone: Start: 10-17-2013 End: 10-17-2013 Ct thorax w/contrast material CT Chest with Contrast [facility] Work Phone: Start: 10-17-2013 End: 10-17-2013 Follow Up Appt 1 year Follow Up Appt 1 year [facility] Work Phone: Start: 10-17-2013 End: 10-17-2013 Follow Up Appt Other Follow Up Appt Other [facility] Work Phone: Start: 10-17-2013 End: 10-17-2013 PFM PFM [facility] Work Phone: Start: 10-17-2013 End: 10-17-2013 Ct thorax w/dye CT Chest with Contrast [facility] Work Phone: Start: 10-17-2013 End: 10-17-2013 Follow Up Appt 1 year Follow Up Appt 1 year [facility] Work Phone: Start: 10-17-2013 End: 10-17-2013 Follow Up Appt Other Follow Up Appt Other [facility] Work Phone: Start: 10-17-2013 End: 10-17-2013 PFM PFM [facility] Work Phone: Start: 09-23-2012 End: 09-23-2012 Chest x-ray X-Ray, Chest, PA & Lateral [facility] Work Phone: Start: 09-23-2012 End: 09-23-2012 Ct thorax w/contrast material CT Chest with Contrast [facility] Work Phone: Start: 09-23-2012 End: 09-23-2012 Follow Up Appt 1 year Follow Up Appt 1 year [facility] Work Phone: Start: 09-23-2012 End: 09-23-2012 PFM PFM [facility] Work Phone: Start: 09-23-2012 End: 09-23-2012 Chest x-ray X-Ray, Chest, PA & Lateral [facility] Work Phone: Start: 09-23-2012 End: 09-23-2012 Ct thorax w/dye CT Chest with Contrast [facility] Work Phone: Start: 09-23-2012 End: 09-23-2012 Follow Up Appt 1 year Follow Up Appt 1 year [facility] Work Phone: Start: 09-23-2012 End: 09-23-2012 PFM PFM [facility] Work Phone: Start: 09-19-2011 End: 09-14-2011 Nuclear stress test -exercise Nuclear stress test -exercise [facility] Work Phone: Start: 09-19-2011 End: 09-14-2011 Nuclear stress test -exercise Nuclear stress test -exercise [facility] Work Phone: Start: 09-18-2011 End: 09-18-2011 Ecg routine ecg w/least 12 lds w/i&r EKG (In office) [facility] Work Phone: Start: 09-18-2011 End: 09-18-2011 Follow [...] BE BASED ON THE PRIMARY CLINICAL RECORDS. [employer] provides no warranty or guarantee of the accuracy or completeness of information in this document.
[2023-03-10 14:06] LABS: Absolute Neutrophil Count 4.9 X10^3/uL (2.0-7.7); Basophil# 0.07 X10^3/uL; Basophil% 0.8 % (0-1); Eosinophil# 0.31 X10^3/uL; Eosinophils% 3.6 % (0-5); Hematocrit 40.4 % (40-54); Hemoglobin 13.5 g/dL (13.0-16.5); Mean Corp Hgb Conc 33.4 g/dL (32-36); Mean Corpuscular Hgb 31.4 pg (27.0-32.0); Mean Platelet Vol. 8.6 fl (6.2-12.0); Monocyte# 0.79 X10^3/uL; Monocyte% 9.1 % (0-10); NRBC Flagged by Analyzer 0 % (0-5); Neutrophil # 4.88 X10^3/uL (2.7-7.7); Neutrophil % 56.2 % (47-70); Platelet Count 254 K/mm3 (150-450); RBC Distribution Width CV 13.3 % (11.6-14.6); RBC Distribution Width SD 45.6 fl (35.1-43.9); White Blood Count 8.7 K/mm3 (4.4-11.0)
[2023-03-10] MEDS: Morphine 4 MG/ML Syringe IV ×2 (14:11→16:00)
[2023-03-10 14:16] LABS: Bacteria 0 SEEN /hpf (None Seen); Mucous, Urine 0 SEEN /hpf (<or=2+); Squamous Epithelial Cells - UA 0 SEEN /hpf (0-5)
[2023-03-10 14:17] LABS: Color, Urine Yellow (Yellow); Glucose, Dipstick 100 mg/dl (Normal); Ketone-Dipstick 5 mg/dl (Negative); Leukocyte Esterase-Dipstick 25 /ul (Negative); Nitrite-Dipstick Negative (Negative); Occult Blood-Urine 10 /ul (Negative); Protein-Dipstick 15 mg/dl (Negative); Specific Gravity, Urine 1.025 (1.002-1.030); Urine Bilirubin Dipstick Negative (Negative); Urine Clarity Clear (Clear); Urine Urobilinogen Normal (Normal)
[2023-03-10 14:28] LABS: Red Blood Cells-Urine 0-5 SEEN /hpf (0-5); White Blood Cells 0-5 SEEN /hpf (0-5)
--- NOTE | 2023-03-10 14:35 | RAD_ITS ---
EXAM: XR CHEST, 1 VIEW CLINICAL INDICATION: chest pain TECHNIQUE: Frontal view of the chest. COMPARISON: XR Chest dated 02/14/2023 FINDINGS: LUNGS AND PLEURAL SPACES: Normal. No consolidation or edema. No pneumothorax. No effusion. HEART: Normal heart size. MEDIASTINUM: No mediastinal or hilar mass. BONES/JOINTS: No acute abnormality. RAD/Chest 1 View (Portable) IMPRESSION: No acute cardiopulmonary abnormality. No interval change Electronically Signed: Ish Phillips MD at 15:04 EST ,
[2023-03-10 14:38] LABS: ALB/GLOB Ratio 0.8 RATIO (0.9-2.4); AST(SGOT) 17 U/L (15-37); Alanine Aminotransfer ALT/SGPT 27 U/L (16-61); Albumin, Serum 3.2 g/dL (3.2-5.0); Alkaline Phosphatase 112 U/L (45-117); Anion Gap 0 (5-15); BUN 19 mg/dL (7-18); BUN/Creat Ratio 17.4 RATIO (10-20); Calcium,Total 9.1 mg/dL (8.5-10.1); Chloride 114 mmol/L (98-107); Creatinine, Serum 1.09 mg/dL (0.70-1.30); EST Glomerular Filtration Rate 68 mL/min (>60); Est Glom Filt Rate - Afr Amer 83 mL/min (>60); Estimated Creatinine Clearance 36.65 ml/min; Globulin 4.1 g/dL (2.2-4.2); Glucose 90 mg/dL (74-106); Lactic Acid 1.2 mmol/L (0.4-1.9); Lipase 24 U/L (13-75); Potassium 3.9 mmol/L (3.5-5.1); Protein, Total 7.3 g/dL (6.4-8.2); Sodium Level 143 mmol/L (136-145)
[2023-03-10 14:47] LABS: Troponin-I HS 10 pg/mL (3.0-78.0)
[2023-03-10] MEDS: Lorazepam 2 MG/ML WCH Syringe 1 MG IV (16:08)
[2023-03-10] MEDS: Magnesium Citrate 300 ML 150 ML PO (16:31)
[2023-03-10 16:42] VITALS: BP 125/59; PULSE 59; RESP 20
[2023-03-10 17:25] VITALS: BP 150/87; PULSE 64; RESP 18; TEMP 36.6; O2SAT 95
== END 2023-03-10 17:44 | disposition home or self-care (01) ==
PROVIDERS: Physician Assistant; Emergency Provider Emergency Medicine; PCP Internal Medicine; Visit Provider Emergency Medicine
DX: R10.9 Unspecified abdominal pain (principal); F02.80 Dementia in other diseases classified elsewhere, unspecified severity, without behavioral disturbance, psychotic disturbance, mood disturbance, and anxiety; G30.9 Alzheimer's disease, unspecified; I10 Essential (primary) hypertension; E78.5 Hyperlipidemia, unspecified; K59.00 Constipation, unspecified; E03.9 Hypothyroidism, unspecified; Z79.899 Other long term (current) drug therapy; F41.9 Anxiety disorder, unspecified
CPT/HCPCS: 71045; 74177; 80053; 81001; 83605; 83690; 84484; 85025; 93005; 96374; 96376; 99283; Q9967; A4216

== ENCOUNTER 2023-04-12 13:42 | Emergency (ER) | payer MEDICARE, OTHER, SELFPAY ==
[2023-04-12 13:51] VITALS: BP 137/88; PULSE 82; RESP 16; TEMP 36.1; O2SAT 97; BMI 15.3
[2023-04-12 13:55] VITALS: BP 137/88; PULSE 82; RESP 13; TEMP 36.1; O2SAT 97
[2023-04-12 14:24] LABS: Absolute Lymphocyte Count 3.94 X10^3/uL (0.83-4.51); Absolute Neutrophil Count 7.2 X10^3/uL (2.0-7.7); Basophil# 0.09 X10^3/uL; Basophil% 0.7 % (0-1); Eosinophil# 0.21 X10^3/uL; Eosinophils% 1.7 % (0-5); Hematocrit 53.8 % (40-54); Hemoglobin 17.6 g/dL (13.0-16.5); Lymphocyte # 3.94 X10^3/ul (0.83-4.51); Lymphocyte % 31.8 % (19-41); Mean Corp Hgb Conc 32.7 g/dL (32-36); Mean Corpuscular Hgb 31.7 pg (27.0-32.0); Mean Corpuscular Volume 96.8 fL (80-94); Monocyte# 0.96 X10^3/uL; Monocyte% 7.7 % (0-10); NRBC Flagged by Analyzer 0 % (0-5); Neutrophil # 7.15 X10^3/uL (2.7-7.7); Neutrophil % 57.7 % (47-70); Platelet Count 381 K/mm3 (150-450); RBC Distribution Width CV 13.2 % (11.6-14.6); RBC Distribution Width SD 47.3 fl (35.1-43.9); Red Blood Count 5.56 M/mm3 (4.6-6.2); White Blood Count 12.4 K/mm3 (4.4-11.0)
[2023-04-12 14:35] LABS: Anion Gap 9 (5-15); BUN 34 mg/dL (7-18); BUN/Creat Ratio 20.2 RATIO (10-20); Calcium,Total 9.7 mg/dL (8.5-10.1); Chloride 120 mmol/L (98-107); Creatinine, Serum 1.68 mg/dL (0.70-1.30); EST Glomerular Filtration Rate 41 mL/min (>60); Est Glom Filt Rate - Afr Amer 50 mL/min (>60); Estimated Creatinine Clearance 23.33 ml/min; Glucose 132 mg/dL (74-106); Potassium 4.1 mmol/L (3.5-5.1); Sodium Level 156 mmol/L (136-145)
[2023-04-12] MEDS: 0.9% Normal Saline (1000mL) 1,000 ML 999 ML IV (14:55)
[2023-04-12 15:04] LABS: Mucous, Urine 0 SEEN /hpf (<or=2+); Red Blood Cells-Urine 0 SEEN /hpf (0-5); Squamous Epithelial Cells - UA 0 SEEN /hpf (0-5)
[2023-04-12 15:07] LABS: Color, Urine Yellow (Yellow); Glucose, Dipstick Normal (Normal); Ketone-Dipstick 5 mg/dl (Negative); Leukocyte Esterase-Dipstick 25 /ul (Negative); Nitrite-Dipstick Negative (Negative); Occult Blood-Urine Negative /ul (Negative); Protein-Dipstick 30 mg/dl (Negative); Specific Gravity, Urine 1.025 (1.002-1.030); Urine Clarity Clear (Clear); Urine Urobilinogen 1 mg/dl (Normal)
[2023-04-12 15:21] LABS: Urine Bilirubin Dipstick 1 mg/dL (Negative)
[2023-04-12 15:23] LABS: Bacteria RARE /hpf (None Seen); White Blood Cells 0-5 SEEN /hpf (0-5)
--- NOTE | 2023-04-12 15:25 | EX.ED.DYSGE1 ---
HPI History of Present Illness Chief Complaint: Alt LOC Narrative Narrative: 87-year-old male who is a dementia patient and is nonverbal presenting with his family out of concern for confusion. Per family this started yesterday. Patient's states that she fed him yesterday and then since then he has not been able to really wake up. She states that at baseline he mumbles and does not speak words. He does not make any sense. He is not complaining of anything. She states he has been mostly sleeping. Is been no fevers at home. Patient has recent history of constipation but has been getting a bowel regimen and is having bowel movements. Family specifically concern for possible UTI. No history of falls. Patient's states that he is a DNR comfort care and does not want anything aggressive. I was able to look this up and she has an appropriate signed comfort care only documentation [facility] Medical History Acute bronchitis, unspecified Acute sinusitis, unspecified Alzheimers disease Aneurysm of ascending aorta Anxiety Aortic ectasia, unspecified site BPH (benign prostatic hyperplasia) COVID-19 Dementia Diverticulosis Hyperlipemia Hypertension Hypothyroidism Nonrheumatic aortic (valve) stenosis Right shoulder injury Right shoulder strain Home Medications levothyroxine 25 mcg tablet 25 mcg PO DAILY thyroid 06/30/17 [History Last Taken 09/01/20] memantine 5 mg tablet 5 mg PO BID 04/06/22 [History Last Taken Unknown] trazodone 50 mg tablet 50 mg PO QHS 04/06/22 [History Last Taken Unknown] metoprolol succinate 25 mg tablet,extended release 24 hr 25 mg PO DAILY #90 tabs 08/17/22 [Rx Last Taken Unknown] citalopram 20 mg tablet 20 mg PO DAILY #90 tabs 11/13/22 [Rx Last Taken 03/10/23] hydroxyzine HCl 25 mg tablet 25 mg PO BID PRN anxiety 11/18/22 [History Last Taken 03/10/23] acetaminophen 500 mg capsule 1,000 mg PO Q8H PRN 03/10/23 [History Last Taken Unknown] cetirizine 10 mg capsule (All Day Allergy (cetirizine)) 10 mg PO DAILY PRN allergy symptoms 03/10/23 [History Last Taken Unknown] dextromethorphan-guaifenesin 10 mg-100 mg/5 mL oral liquid (Biocotron) 10 ml PO Q4H PRN cough 03/10/23 [History Last Taken Unknown] ipratropium bromide 42 mcg (0.06 %) nasal spray 2 spray intranasal BID PRN allergy symptoms 03/10/23 [History Last Taken Unknown] magnesium hydroxide 400 mg/5 mL oral suspension (Milk of Magnesia) 2,400 mg PO DAILY PRN constipation 03/10/23 [History Last Taken Unknown] ondansetron 4 mg disintegrating tablet 4 mg PO Q4H PRN nausea and vomiting 03/10/23 [History Last Taken Unknown] buspirone 5 mg tablet 5 mg PO BID 04/12/23 [History Last Taken Unknown] dextromethorphan-guaifenesin 10 mg-100 mg/5 mL oral syrup (Antitussive DM) 10 ml PO Q4H PRN cough 04/12/23 [History Last Taken Unknown] erythromycin 5 mg/gram (0.5 %) eye ointment 1 cm ophthalmic (eye) Q6H 04/12/23 [History Last Taken Unknown] melatonin 10 mg capsule 10 mg PO QHS 04/12/23 [History Last Taken Unknown] sennosides 8.6 mg-docusate sodium 50 mg tablet (Colace 2-In-1) 1 tab-cap PO QHS 04/12/23 [History Last Taken Unknown] Allergy/AdvReac Type Severity Reaction Status Date / Time No Known Allergies Allergy Verified 03/10/23 13:37 Family History Brother CVA (cerebral vascular accident) Sudden cardiac , Onset Age: 68 Brother COPD (chronic obstructive pulmonary disease) Father CVA (cerebral vascular accident) Mother Diabetes Surgical History History of carpal tunnel surgery History of colon resection History of tonsillectomy and adenoidectomy History of vasectomy Social History Smoking Status: Never smoker alcohol intake: current alcohol intake frequency: a few times a week ROS ROS ED Review of Systems ROS Unobtainable: due to mental condition and due to mental status EXAM Physical Exam Const Vital Signs: 04/12/23 13:51 04/12/23 13:55 04/12/23 15:42 Temperature 97 F L 97 F L Temperature Source Temporal Temporal Pulse Rate 82 82 71 Respiratory Rate 16 13 14 Blood Pressure 137/88 H 137/88 H 145/63 H Blood Pressure Mean 104 104 90 Pulse Ox 97 97 96 Oxygen Delivery Method Room Air Room Air Room Air Positive well nourished General Appearance ED: NAD HEENT Reports dry mucous membranes trauma Mouth ED: Yes dry mucous membranes Mouth: dry mucous membranes Eyes PERRL and EOMs intact bilaterally Neck no lymphadenopathy Chest Wall inspection of chest normal Resp normal respiratory effort and clear to auscultation bilaterally Auscultation: Negative for rales, rhonchi or wheezes Cardio regular rate and regular rhythm GI normal to inspection, nondistended, normoactive bowel sounds Neuro Sensorium / Orientation: orientation impaired and stuporous Psych Psych Narrative: Altered. Responds to voice. Skin General Skin Exam: Negative for jaundice MDM MDM MDM Narrative Medical decision making narrative: Patient presenting with concern for UTI as the patient was altered overnight. Differential includes pneumonia, UTI. Patient's family does not want any aggressive workup because he has dementia and at baseline does not talk. CBC will be obtained to assess white blood cell count, and hemoglobin, platelets. BMP to assess renal function electrolytes. Urinalysis to assess for UTI. CBC shows mild leukocytosis 12.4. Hemoglobin 17.6 and therefore hemoconcentrated. Sodium slightly elevated at 156. Creatinine is also elevated at 1.68. Patient was given a liter of IV fluids. Glucose 132. On examination no focal neurologic deficits or lateralizing symptoms. He awakes to voice but then falls asleep. Pupils equal reactive. Lungs clear to auscultation. Urinalysis is negative for infection so we will obtain chest x-ray. Chest x-ray my interpretation is no acute process. Radiology interprets and agrees. Discussed with Dr. Bowers who is his PCP. He will be discharged to the facility and will have hospice consult there. Discussed with family they are comfortable with this. Impression: 1. Dehydration 2. Altered mental status Lab Data Attestation: I reviewed the patient's lab results. Labs: Laboratory Results - last 24 hr 04/12/23 04/12/23 14:16 14:45 WBC 12.4 H RBC 5.56 Hgb 17.6 H Hct 53.8 MCV 96.8 H MCH 31.7 MCHC 32.7 RDW Std Deviation 47.3 H RDW Coeff of Obey 13.2 Plt Count 381 MPV 9.0 Immature Gran % (Auto) 0.400 Neut % (Auto) 57.7 Lymph % (Auto) 31.8 [place] % (Auto) 7.7 Eos % (Auto) 1.7 Baso % (Auto) 0.7 Absolute Neuts (auto) 7.2 Absolute Lymphs (auto) 3.94 Nucleated RBC % 0 Sodium 156 H Potassium 4.1 Chloride 120 H Carbon Dioxide 27.0 Anion Gap 9 BUN 34 H Creatinine 1.68 H Estim Creat Clear Calc 23.33 Est GFR (MDRD) Af Amer 50 L Est GFR (MDRD) Non-Af 41 L BUN/Creatinine Ratio 20.2 H Glucose 132 H Calcium 9.7 Urine Color Yellow Urine Clarity Clear Urine pH 5.0 Ur Specific [place] 1.025 Urine Protein 30 H Urine Glucose (UA) Normal Urine Ketones 5 H Urine Occult Blood Negative Urine Nitrite Negative Urine Bilirubin 1 H Urine Urobilinogen 1 H Ur Leukocyte Esterase 25 H Urine RBC 0 SEEN Urine WBC 0-5 SEEN Ur Squamous Epith Cells 0 SEEN Urine Bacteria RARE Urine Mucus 0 SEEN Radiography Diagnostic Testing: Clinical Impression(s) from Imaging Studies Chest X-Ray 04/12/23 15:33 IMPRESSION: No acute cardiopulmonary process identified. Electronically Signed: Leann Owusu MD at 15:44 EST Reading Location ID and State: [address] [place] [address] Tel , Service support , Discharge Plan Triage Chief Complaint: Alt LOC ED Provider: Aroldo Angulo Dx/Rx/DC Orders Instructions: ED ALOC, ED Dehydration (Adult) Prescriptions: No Action memantine 5 mg tablet 5 mg PO BID trazodone 50 mg tablet 50 mg PO QHS levothyroxine 25 MCG tablet 25 mcg PO DAILY ipratropium bromide 42 mcg (0.06 %) spray,non-aerosol 2 spray INTRANASAL BID PRN (Reason: allergy symptoms) All Day Allergy (cetirizine) 10 mg capsule 10 mg PO DAILY PRN (Reason: allergy symptoms) magnesium hydroxide [Milk of Magnesia] 400 mg/5 mL suspension 2,400 mg PO DAILY PRN (Reason: constipation) dextromethorphan-guaifenesin [Biocotron] 10-100 mg/5 mL liquid 10 ml PO Q4H PRN (Reason: cough) ondansetron 4 mg tablet,disintegrating 4 mg PO Q4H PRN (Reason: nausea and vomiting) Rx Instructions: give 1st dose 30min before emetogenic chemo acetaminophen 500 mg capsule 1,000 mg PO Q8H PRN hydroxyzine HCl 25 mg tablet 25 mg PO BID PRN (Reason: anxiety) buspirone 5 mg tablet 5 mg PO BID erythromycin 5 mg/gram (0.5 %) ointment 1 cm ophthalmic (eye) Q6H melatonin 10 mg capsule 10 mg PO QHS sennosides-docusate sodium [Colace 2-In-1] 8.6-50 mg tablet 1 tab-cap PO QHS dextromethorphan-guaifenesin [Antitussive DM] 10-100 mg/5 mL syrup 10 ml PO Q4H PRN (Reason: cough) metoprolol succinate 25 mg tablet extended release 24 hr 25 mg PO DAILY Qty: 90 3RF citalopram 20 mg tablet 20 mg PO DAILY Qty: 90 3RF Primary Care Provider: Josue Bowers Referrals: Josue Bowers MD [Primary Care Provider] - Disposition Disposition: Home, Self Care
--- NOTE | 2023-04-12 15:33 | RAD_ITS ---
HISTORY: weakness. TECHNIQUE: XR Chest 1 View. COMPARISON: 03/10/2023. FINDINGS: CARDIOMEDIASTINAL BORDERS: Cardiac silhouette within normal limits in size. Mediastinal contour unchanged with calcification of the aortic knob. LUNGS: Small calcified granuloma in the left midlung again seen. PLEURA: No pleural effusion or pneumothorax seen. OSSEOUS STRUCTURES: Mild degenerative change. RAD/Chest 1 View (Portable) IMPRESSION: No acute cardiopulmonary process identified. Electronically Signed: Leann Owusu MD at 15:44 EST ,
[2023-04-12 15:42] VITALS: BP 145/63; PULSE 71; RESP 14; O2SAT 96
[2023-04-12 16:44] VITALS: BP 141/69; PULSE 78; RESP 24; TEMP 36.8; O2SAT 97
[2023-04-12 17:00] VITALS: BP 141/76; PULSE 80; RESP 16; O2SAT 96
--- NOTE | 2023-04-12 17:13 | ED.RN ---
[facility] CALLED, ETA IS 4-5 HOURS ([phone]). REQUESTED OUTSOURCING.
--- NOTE | 2023-04-12 18:19 | ED.RN ---
[facility] CALLED @ 1809 TO ASK FOR UPDATE ON OUTSOURCING. DISPATCH STATED THEY WERE CURRENTLY WORKING ON CALLING, AND WOULD CALL US BACK SHORTLY TO LET US KNOW.
[2023-04-12 19:00] VITALS: BP 142/72; PULSE 82; RESP 16; O2SAT 96
--- NOTE | 2023-04-12 19:22 | ED.RN ---
REPORT CALLED TO LELE SHORE AT [facility]
--- OUTSIDE RECORDS SUMMARY | 2023-04-12 19:34 | XMS RPT_ITS | CCD ---
Author Name Unknown Address [address] [place] [address] Organization [facility] Care Team Providers Care Title I Teacher Name Role Phone Agustin SHORE, Sabrina Webb Unavailable [phone] Meme SCHAFFER, Teo Shook Unavailable Neida SHORE, Kayla Oseguera Unavailable Unavailable Allergies Allergy Classification Reported Allergen(s) Allergy Type Date of Onset Reaction(s) Facility (2 sources) NKDA drug allergy 09-18-2011 [facility] Work Phone: (2 sources) NKA drug allergy 09-18-2011 [facility] [employer] Work Phone: Medications Completed/Discontinued Medications Medication Drug Class(es) Dates Sig (Normalized) Sig (Original) atorvastatin 40 mg oral tablet (2 sources) HMG-CoA Reductase Inhibitor Start: 10-26-2014 take 1 tablet by mouth once daily ATORVASTATIN CALCIUM 40 MG TABS One tablet by mouth daily ATORVASTATIN CALCIUM [id number] Teo Valentine MD doxazosin 8 mg oral tablet (8 sources) alpha-Adrenergic Jumana Start: 09-18-2011 take 1 tablet by mouth once daily at bedtime DOXAZOSIN MESYLATE 8 MG TABS One tablet by mouth daily at bedtime. DOXAZOSIN MESYLATE [id number] Kayla Carrasquillo RN Problems Active Problems Problem [...] Respiratory Rate 18 /min Teo Valentine MD [facility] Work Phone: 11-15-2016 11:21-0400 Weight 61.24 kg Teo Valentine MD [facility] Work Phone: 11-15-2016 11:21-0400 Weight 61.23 kg Teo Valentine MD [facility] Work Phone: 10-25-2015 08:38-0400 BMI (Body Mass Index) 22.63 kg/m2 [facility] Work Phone: 10-25-2015 08:38-0400 BP Diastolic 84 mm[Hg] Kayla Carrasquillo RN [facility] Work Phone: 10-25-2015 08:38-0400 BP Systolic 160 mm[Hg] Kayla Carrasquillo RN [facility] Work Phone: 10-25-2015 08:38-0400 BSA (Body Surface Area) 1.68 m2 Kayla Carrasquillo RN [facility] Work Phone: 10-25-2015 08:38-0400 Pulse (Heart Rate) 68 /min Kayla Carrasquillo RN [facility] Work Phone: 10-25-2015 08:38-0400 Respiratory Rate 16 /min Kayla Carrasquillo RN [facility] Work Phone: 10-25-2015 08:38-0400 Weight 61.69 kg Kayla Carrasquillo RN [facility] Work Phone: 09-23-2012 08:35-0400 Heart rate 401 ms Kayla Carrasquillo RN [facility] Work Phone: 09-23-2012 08:35-0400 Heart rate 75 /min Kayla Carrasquillo RN [facility] Work Phone: 09-18-2011 09:08-0400 Height [...] Author Start: 11-19-2017 End: 11-19-2017 Appointment Appointment [facility] [employer] Work Phone: Start: 11-15-2016 End: 11-15-2016 Ct thorax w/contrast material CT Chest with Contrast [facility] [employer] Work Phone: Start: 11-15-2016 End: 11-15-2016 Echocardiography Echocardiogram (complete) [facility] [employer] Work Phone: Start: 11-15-2016 End: 11-15-2016 Follow Up Appt 1 year Follow Up Appt 1 year [facility] [employer] Work Phone: Start: 11-15-2016 End: 11-15-2016 PFM PFM [facility] [employer] Work Phone: Start: 11-15-2016 End: 11-15-2016 Appointment Appointment [facility] Work Phone: Start: 12-31-2015 End: 01-03-2016 *BMP *BMP [facility] [employer] Work Phone: Start: 12-31-2015 End: 01-03-2016 *CBC with Differential *CBC with Differential [facility] [employer] Work Phone: Start: 12-31-2015 End: 01-03-2016 Thyroid stimulating hormone (TSH) *TSH [facility] Work Phone: Start: 12-31-2015 End: 01-03-2016 Thyroxine (T4) *T4 (Total) [facility] Work Phone: Start: 12-31-2015 End: 01-03-2016 *BMP *BMP [facility] [employer] Work Phone: Start: 12-31-2015 End: 01-03-2016 *CBC with Differential *CBC with Differential [facility] [employer] Work Phone: Start: 12-31-2015 End: 01-03-2016 Thyroid stimulating hormone (TSH) *TSH [facility] Work Phone: Start: 12-31-2015 End: 01-03-2016 Thyroxine (T4) *T4 (Total) [facility] [employer] Work Phone: Start: 10-25-2015 End: 05-05-2016 Ct thorax w/contrast material CT Chest with Contrast [facility] [employer] Work Phone: Start: 10-25-2015 End: 10-25-2015 Follow Up Appt 1 year Follow Up Appt 1 year [facility] Work Phone: Start: 10-25-2015 End: 10-25-2015 PFM PFM [facility] Work Phone: Start: 10-25-2015 End: 05-05-2016 Ct thorax w/dye CT Chest with Contrast [facility] [employer] Work Phone: Start: 10-25-2015 End: 10-25-2015 Follow Up Appt 1 year Follow Up Appt 1 year [facility] Work Phone: Start: 10-25-2015 End: 10-25-2015 PFM PFM [facility] Work Phone: Start: 10-20-2015 End: 07-06-2015 Ct thorax w/contrast material CT Chest with Contrast [facility] Work Phone: Start: 10-20-2015 End: 07-06-2015 Ct thorax w/dye CT Chest with Contrast [facility] Work Phone: Start: 10-26-2014 End: 10-26-2014 Echocardiography Echocardiogram (complete) [facility] [employer] Work Phone: Start: 10-26-2014 End: 10-26-2014 Follow Up Appt 1 year Follow Up Appt 1 year [facility] Work Phone: Start: 10-26-2014 End: 10-26-2014 Follow Up Appt Other Follow Up Appt Other [facility] Work Phone: Start: 10-26-2014 End: 10-26-2014 PFM PFM [facility] [employer] Work Phone: Start: 10-26-2014 End: 10-26-2014 Echocardiography Echocardiogram (complete) [facility] [employer] Work Phone: Start: 10-26-2014 End: 10-26-2014 Follow Up Appt 1 year Follow Up Appt 1 year [facility] Work Phone: Start: 10-26-2014 End: 10-26-2014 Follow Up Appt Other Follow Up Appt Other [facility] Work Phone: Start: 10-26-2014 End: 10-26-2014 PFM PFM [facility] [employer] Work Phone: Start: 10-17-2013 End: 10-17-2013 Ct thorax w/contrast material CT Chest with Contrast [facility] Work Phone: Start: 10-17-2013 End: 10-17-2013 Follow Up Appt 1 year Follow Up Appt 1 year [facility] Work Phone: Start: 10-17-2013 End: 10-17-2013 Follow Up Appt Other Follow Up Appt Other [facility] Work Phone: Start: 10-17-2013 End: 10-17-2013 PFM PFM [facility] Work Phone: Start: 10-17-2013 End: 10-17-2013 Ct thorax w/dye CT Chest with Contrast [facility] [employer] Work Phone: Start: 10-17-2013 End: 10-17-2013 Follow Up Appt 1 year Follow Up Appt 1 year [facility] Work Phone: Start: 10-17-2013 End: 10-17-2013 Follow Up Appt Other Follow Up Appt Other [employer] Work Phone: Start: 10-17-2013 End: 10-17-2013 PFM PFM [facility] Work Phone: Start: 09-23-2012 End: 09-23-2012 Chest x-ray X-Ray, Chest, PA & Lateral [employer] Work Phone: Start: 09-23-2012 End: 09-23-2012 Ct thorax w/contrast material CT Chest with Contrast [facility] Work Phone: Start: 09-23-2012 End: 09-23-2012 Follow Up Appt 1 year Follow Up Appt 1 year [employer] Work Phone: Start: 09-23-2012 End: 09-23-2012 PFM PFM [employer] [facility] Work Phone: Start: 09-23-2012 End: 09-23-2012 Chest x-ray X-Ray, Chest, PA & Lateral [employer] Work Phone: Start: 09-23-2012 End: 09-23-2012 Ct thorax w/dye CT Chest with Contrast [employer] Work Phone: Start: 09-23-2012 End: 09-23-2012 Follow Up Appt 1 year Follow Up Appt 1 year [employer] Work Phone: Start: 09-23-2012 End: 09-23-2012 PFM PFM [employer] Work Phone: Start: 09-19-2011 End: 09-14-2011 Nuclear stress test -exercise Nuclear stress test -exercise [facility] [employer] Work Phone: Start: 09-19-2011 End: 09-14-2011 Nuclear stress test -exercise Nuclear stress test -exercise [employer] Work Phone: Start: 09-18-2011 End: 09-18-2011 Ecg routine ecg w/least 12 lds w/i&r EKG (In office) [employer] Work Phone: Start: 09-18-2011 End: 09-18-2011 Follow [...] BE BASED ON THE PRIMARY CLINICAL RECORDS. [employer] provides no warranty or guarantee of the accuracy or completeness of information in this document.
== END 2023-04-12 22:45 | disposition home or self-care (01) ==
PROVIDERS: Emergency Provider Student in an Organized Health Care Education/Training Program; PCP Internal Medicine; Visit Provider Student in an Organized Health Care Education/Training Program
DX: E86.0 Dehydration (principal); F03.90 Unspecified dementia, unspecified severity, without behavioral disturbance, psychotic disturbance, mood disturbance, and anxiety; R41.82 Altered mental status, unspecified; E78.5 Hyperlipidemia, unspecified; I10 Essential (primary) hypertension; E03.9 Hypothyroidism, unspecified; Z79.899 Other long term (current) drug therapy; F41.9 Anxiety disorder, unspecified
CPT/HCPCS: 71045; 80048; 81001; 85025; 96360; 99284; P9612